=== PATIENT | female | born 1950 | race Caucasian/White ===

== ENCOUNTER → 2018-03-30 09:15 | Outpatient (CLI) | payer MEDICARE, BC, SELFPAY | PROVIDERS: PCP Nurse Practitioner; Visit Provider Surgery | DX: K64.4 Residual hemorrhoidal skin tags (principal); L29.0 Pruritus ani | CPT/HCPCS: 11200; 99213 ==

== ENCOUNTER → 2018-03-30 15:33 | Outpatient (REF) | payer MEDICARE, BC, SELFPAY ==
--- NOTE | 2018-03-30 14:30 | SOFT_PTH ---
PATIENT: Shona Diehl LOC: N U#:[id number] AGE/SX: 75/F ROOM: RE03/30/[address]: Mel Hearn MD : 1950 BED: DIS: SPEC #: [id number] RECD: 03/30/18 16:47 STATUS: YANET REEmber #: [id number] LUCIANO: 03/30/18 14:[address]: Mel Hearn DEPT: Surgical Specimen RECD BY: Mahsa Hernandez ENTERED: 03/30/18 16:47 SP TYPE: SOFT OTHR DR: Janneth Zendejas APRN Tissues: 1 - SOFT TISSUE [facility] Procedures: GROSS AND MICRO LEVEL 3 Comments: [id number]
== END ==
LOC: LBN 15:33
PROVIDERS: PCP Nurse Practitioner; Visit Provider Surgery
DX: K62.89 Other specified diseases of anus and rectum (principal); B07.8 Other viral warts
CPT/HCPCS: 88304

== ENCOUNTER 2018-05-13 00:47 | Outpatient (CLI) | payer MEDICARE, BC, SELFPAY ==
--- NOTE | 2018-05-13 08:45 | DI.MRI_ITS ---
SYMPTOM/DIAGNOSIS: LEFT FOOT PAIN M79.672 MRI LEFT FOOT: Routine noncontrast examination was performed. Linear hypointense signal is seen in the lateral aspect of the base of the left 5th metatarsal suspicious for a fracture. There is surrounding marrow edema present. There is marrow edema seen in the proximal phalanx of the left 5th toe. There also appear to be linear hypointense signal seen within the 5th metatarsal suspicious for a fracture. Marrow edema is seen in the head of the 2nd metatarsal. No discrete fracture line is identified. This may represent a stress reaction or fracture. Marrow signal is otherwise within normal limits. There is hyperintense signal seen in the soft tissues along the dorsum of the foot adjacent to the metatarsals and proximal phalanges of the toes. No discrete fluid collection is seen to suggest abscess. There is a small effusion within the 2nd metatarsal phalangeal joint. The tendons appear intact. The muscles show normal signal and size. IMPRESSION: Findings suggestive of fractures involving the base of the left 5th metatarsal and the proximal phalanx of the left 5th toe. Edema is seen in the head of the 2nd metatarsal without discrete fracture line. The findings are suspicious for a stress reaction or fracture.
--- NOTE | 2018-05-13 13:51 | DI.VRAD_ITS ---
EXAM: MR Left Lower Extremity Without Intravenous Contrast, Foot EXAM DATE/TIME: 05/13/2018 8:56 AM CLINICAL HISTORY: The patient is 68 years old and is female; Pain; Foot; Left; Patient HX: Lt foot injury in january x1 month, trouble bearing weight. pain when going on toe. Increased pain on top of foot. Bb marker placed at area of increased pain. Main TECHNIQUE: Multiplanar magnetic resonance images of the left foot without intravenous contrast. COMPARISON: CR LEFT FOOT COMPLETE 01/18/2018 10:47 AM FINDINGS: There is an external marker dorsal aspect at the level of the second metatarsal. Moderate subcutaneous edema is present dorsally over the second through fourth metatarsals and proximal toes. There is also soft tissue edema extending deeper to surround the mid to distal aspect of the second metatarsal shaft and head. The bone itself demonstrates marrow edema with mild patchy decreased T1 signal. No discrete fracture line or cortical destruction is identified, and the findings suggest stress reaction/fracture. No discrete collection is identified. A small effusion involves the second metatarsophalangeal joint. Elsewhere, the soft tissues appear unremarkable. The tendons are intact, and there is no significant peritendinous collection. The base of the fifth metatarsal demonstrates a curvilinear fracture with extension to the fifth tarsometatarsal joint. There is mild surrounding marrow edema, and this is likely subacute. In addition, considerable edema involves much of the fifth proximal phalanx, with decreased T1 signal sparing only its distal aspect. This also suggests fracture in the absence of clinical evidence of infection, probably more recent. There are mild generalized degenerative changes. IMPRESSION: 1. Findings suggesting stress reaction/fracture of the second metatarsal. 2. Likely subacute fracture at the base of the fifth metatarsal. 3. Marrow edema in the fifth proximal phalanx suggesting recent fracture in the absence of clinical evidence of infection. 4. Small effusion of the second metatarsophalangeal joint, could be reactive. 5. Mild generalized degenerative changes. Dictated and Authenticated by: Stew Molina MD. Ordering:ELIJAH KAM MD
== END 2018-05-13 01:07 ==
PROVIDERS: PCP Nurse Practitioner; Visit Provider Podiatrist Foot & Ankle Surgery
DX: S92.351A Displaced fracture of fifth metatarsal bone, right foot, initial encounter for closed fracture (principal)
CPT/HCPCS: 73718

== ENCOUNTER 2018-05-25 11:48 | Outpatient (CLI) | payer MEDICARE, BC, SELFPAY ==
--- NOTE | 2018-05-25 09:50 | DI.RAD_ITS ---
SYMPTOMS/DIAGNOSIS: RIGHT KNEE PAIN, M25.561 RIGHT KNEE: Three views. There is mild narrowing of the medial and lateral femorotibial joint spaces. The joints are otherwise well maintained. The bones are intact and normally mineralized. The soft tissues are unremarkable. IMPRESSION: Mild joint space narrowing of the right knee.
== END 2018-05-25 12:08 ==
PROVIDERS: PCP Nurse Practitioner; Visit Provider Nurse Practitioner
DX: M25.561 Pain in right knee (principal)
CPT/HCPCS: 73562

== ENCOUNTER 2019-06-09 10:35 | Outpatient (CLI) | payer MEDICARE, BC, SELFPAY ==
[2019-06-09 12:57] LABS: ALT 23 U/L (14-59); AST 15 U/L (15-37); Albumin 4.2 g/dL (3.4-5.0); Alkaline Phosphatase 102 U/L (46-116); Anion Gap 10.1 mmol/L (3-11); BUN 16 mg/dL (7-18); Bilirubin, Total 0.7 mg/dL (0.2-1.0); CO2 28.9 mmol/L (21.0-32.0); CREATININE 0.72 mg/dL (0.55-1.02); Calcium 9.6 mg/dL (8.5-10.1); Calculated LDL 129 mg/dL; Chloride 105 mmol/L (98-107); Cholesterol 243 mg/dL (50-200); Glucose 86 mg/dL (70-100); HDL Cholesterol 101 mg/dL (40-60); Potassium 4.1 mmol/L (3.5-5.1); Sodium 144 mmol/L (136-145); TSH (W/Ref FT4) 1.57 uIU/mL (0.36-3.74); Total Protein 7.9 g/dL (6.4-8.2); Triglyceride 69 mg/dL (30-150)
[2019-06-09 13:18] LABS: C-Reactive Protein 0.07 mg/dL (0.0-0.3)
[2019-06-09 14:37] LABS: ESR 10 mm/hr (0-30)
[2019-06-10 11:14] LABS: Rheumatoid Factor 10 IU/mL (<12.5)
[2019-06-10 14:07] LABS: ANA Interpretation Positive (NEGAT); ANA Titer Pattern 1:160 Speckled
== END 2019-06-09 10:55 ==
PROVIDERS: PCP Nurse Practitioner; Visit Provider Nurse Practitioner
DX: E78.5 Hyperlipidemia, unspecified (principal); R07.9 Chest pain, unspecified; R61 Generalized hyperhidrosis; M25.50 Pain in unspecified joint; M47.816 Spondylosis without myelopathy or radiculopathy, lumbar region; R76.8 Other specified abnormal immunological findings in serum; I10 Essential (primary) hypertension
CPT/HCPCS: 36415; 80053; 80061; 85652; 84443; 86038; 86140; 86431

== ENCOUNTER 2019-06-13 01:22 | Outpatient (CLI) | payer MEDICARE, BC, SELFPAY ==
--- NOTE | 2019-06-13 08:30 | ETT_ITS ---
APPROVED REPORT Exam: Exercise Treadmill Patient Location: Out-Patient Stress Nurse: Chelsey Joshi RN Baseline Rhythm: NSR BMI: 22.67 Indications: Chest Pain Medical History Medical History: Hyperlipidemia, Smoking(former) Cardiac Medications: Aspirin(occasional use) Allergies: codeine Cardiac Risk Factors: Hyperlipidemia, FHX of CAD, Smoking(former) Pretest Chest Pain Characteristics: Non-exertional Chest pain-burning accross chest Exercise History: Physically active Lung Sounds: Clear to auscultation Heart Sounds: Regular Stress Test Details Test: Exercise stress testing was performed using a Андрей protocol. Rest Stress HR Resting HR: 81 bpm Max Heart Rate (APMHR): 149 bpm Resting HR Supine: 81 bpm Target HR (85% APMHR): 126 bpm Resting HR Standin bpm Max HR Achieved: 160 bpm % of APMHR: 107 Recovery HR: 92 bpm HR response to stress: Normal HR response to stress BP Resting BP: 132/70 mmHg Resting BP Supine: 132/70 mmHg Resting BP Standin/90 mmHg Max BP: 172/68 mmHg Recovery BP: 134/80 mmHg BP response to stress: Normal blood pressure response to stress. ECG Resting ECG: Sinus Rhythm Stress ECG: Sinus Tachycardia ST Change: Upsloping ST depression Arrhythmia: APC's, VPC's Recovery ECG: Sinus Rhythm Clinical Time of Stop for Андрей: 7:34 Reason for Termination: Fatigue, Target HR Achieved Stress Symptoms: Leg Fatigue Exercise duration: 7 min34 sec Highest Stage Achieved: Stage 3: 3.4 mph at 14% grade. Exercise capacity: 9.48 METs Functional Capacity: Above average capacity Stress ECG Conclusion 1. Very good exercise tolerance ( 9.48 mets) without chest pain 2. Normal heart rate and blood pressure response to exercise 3. Electrocardiographically negative for myocardial ischemia at >100% of predicted heart rate for age 4. No significant dysrhythmias Test Summary supine 81 132/70 standing 97 144/90 99 1 03:00 10 1.7 128 4.64 154/92 2 03:00 12 2.5 138 7.05 158/92 3 01:33 14 3.4 160 9.48 1 min recovery 158 172/68 3 min recovery 102 142/74 6 min recovery 92 134/80
== END 2019-06-13 01:42 ==
PROVIDERS: PCP Nurse Practitioner; Visit Provider Nurse Practitioner
DX: R07.9 Chest pain, unspecified (principal); E78.5 Hyperlipidemia, unspecified; Z87.891 Personal history of nicotine dependence; Z82.49 Family history of ischemic heart disease and other diseases of the circulatory system
CPT/HCPCS: 93016; 93018; 93017

== ENCOUNTER 2019-10-13 02:45 | Outpatient (CLI) | payer MEDICARE, BC, SELFPAY ==
--- NOTE | 2019-10-13 09:00 | DI.MAMMO_ITS ---
EXAM: MAMMO SCREENING CLINICAL HISTORY: screening TECHNIQUE: Mammograms were interpreted according to the usual protocol including computer analysis w [employer] CAD system, tomosynthesis and C-view imaging. COMPARISON: 2009 through 2018 FINDINGS: The breasts are composed of scattered fibroglandular densities, Breast Density category B. No suspicious masses or suspicious microcalcifications are seen. No skin thickening or abnormal axillary lymph nodes are seen. Vascular calcifications are incidental ly noted. There has been no significant change from prior exams. IMPRESSION: BIRADS Category 1, negative mammogram. Yearly screening mammography is recommended.
== END 2019-10-13 03:05 ==
PROVIDERS: PCP Nurse Practitioner; Visit Provider Nurse Practitioner Family
DX: Z12.31 Encounter for screening mammogram for malignant neoplasm of breast (principal)
CPT/HCPCS: 77063; 77067

== ENCOUNTER 2020-10-08 01:50 | Outpatient (CLI) | payer MEDICARE, BC, SELFPAY ==
--- NOTE | 2020-10-08 | DI.MRI_ITS ---
EXAM: MR LUMBAR SPINE WO CLINICAL HISTORY: RT LUMBAR RADICULOPATHY. TECHNIQUE: Multiplanar multisequence MRI of the Lumbar spine was performed. COMPARISON: CR LUMBAR SPINE COMPLETE from 03/23/2015 FINDINGS: Please note that the 2015 plain films reveal sacralization of the L5 segment Conus medullaris is at normal level. There is no evidence of conus mass nor subjacent clumping of in trathecal nerve roots to suggest arachnoiditis. 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 Bones:There are no fractures nor ominous osseous lesions in the lumbar vertebral bodies and visualize d sacrum. There is degenerative scoliosis convex right having its epicenter at L 2-3 level, as evide nt on the 2014 plain films. With respect to the individual levels... T12-L1: Normal disc height. However, there is a posterolateral right disc protrusion which extends p osteriorly 4 millimeters and is approximately 1 cm wide. This indents the thecal sac at this level. Central canal dimensions are otherwise within normal limits. The disc herniation does not extend in to the exiting neural foramen at this level. There is mild foraminal stenosis bilaterally due to greg rt AP dimensions of the pedicles. Minimal facet degenerative changes are noted. L1-2: Normal disc height. There is annular bulging at this level which is most prominent bilaterally in the floor of the exiting neural foramina bilaterally causing mild bilateral foraminal stenosis. Central canal dimensions are lower normal. There is no significant facet arthropathy. No ligamentum flavum hypertrophy. L2-3: Asymmetric advanced narrowing of the left side of this disc space is noted, as was also evident on the plain films of 2015, this being the epicenter of the degenerative scoliosis. There are Modic type 2 sub endplate fatty marrow changes related to the chronicity of this finding. Which there is no disc herniation at this level but there is severe vertical foraminal stenosis on the left side at this level due to the advanced narrowing of the disc space. This results in impingement of the exiti ng left nerve root between the overlying pedicle and the subjacent annulus. There is no foraminal na rrowing on the opposite-right side at this level. L3-4: This level exhibits moderate-advanced disc space narrowing. There is broad relatively symmetri wei annular bulging which flattens the thecal sac. Mild-moderate central canal stenosis. There is s evere right-sided foraminal stenosis due to the fact that the amount of disc space narrowing on the r ight side exceeds that which is evident on the left side. There is only mild foraminal stenosis on t he left side. There are minimal facet joint changes. No ligamentum flavum hypertrophy. L4-5: Preserved disc height and signal. There is a small non acute Schmorl's node invagination at th e mid aspect of the inferior endplate of L4. There is mild Modic type 1 sub endplate marrow edema L4 vertebral body. There is significant narrowing of the exiting right neural foramen, also related to the advanced narrowing of the disc space on the right side compared to the left side at this level, this being 1 level above the sacralized L5 segment. This results in severe pinch mint of the exiting right nerve root between the overlying L5 at L4 pedicle and the subjacent bulging annulus. There ar e moderate degenerative changes also evident in the right facet joint at this level contributing to t his foraminal stenosis. The exiting left neural foramen is widely patent at this level and there are only minimal degenerative changes in the left facet joint at this level. L5-S1: The L5-S1 disc is rudimentary but exhibits normal signal due to the sacralization and there is no evidence of disc herniation or central canal stenosis nor significant foraminal stenosis at this level. Soft tissues: Tiny benign cysts are noted in the lateral cortex of the left kidney. No adrenal mass is seen. IMPRESSION: 1. Multilevel findings as described individually above. No prominent central canal stenosis although there is severe multilevel asymmetric foraminal stenosis as described above, this related to asymmet mahamed narrowing of the disc spaces. This results in multilevel vertical foraminal stenosis. 2. Please note that there is sacralization of the L5 segment, as also seen on plain films of 2015. T his is an important finding, particularly if this patient is ever to be an operative candidate. Deandre elation of the plain films and MRI would be recommended so as to avoid operating on the wrong level. DATA REPOSITORY:
== END 2020-10-08 01:51 ==
PROVIDERS: PCP Nurse Practitioner; Visit Provider Nurse Practitioner
DX: M54.16 Radiculopathy, lumbar region (principal); M51.16 Intervertebral disc disorders with radiculopathy, lumbar region
CPT/HCPCS: 72148

== ENCOUNTER 2020-10-10 02:26 | Outpatient (CLI) | payer MEDICARE, BC, SELFPAY ==
[2020-10-10 07:16] LABS: HCT 45.5 % (36.0-46.0); HGB 15.4 g/dL (11.2-15.7); MCH 31.8 pg (27.0-33.0); MCHC 33.8 % (32.0-36.0); MPV 9.2 fL (8.0-11.0); Platelet Count 330 10^3/uL (130-400); RBC 4.84 10^6/uL (3.93-5.22); RDW 12.4 % (11.7-14.6); RDW-SD 43.2 fL; WBC 5.87 10^3/uL (4.4-10.8)
[2020-10-10 08:26] LABS: ALT 21 U/L (14-59); AST 8 U/L (15-37); Albumin 4.1 g/dL (3.4-5.0); Alkaline Phosphatase 97 U/L (46-116); Anion Gap 9.8 mmol/L (3-11); BUN 17 mg/dL (7-18); Bilirubin, Total 0.5 mg/dL (0.2-1.0); CO2 29.2 mmol/L (21.0-32.0); CREATININE 0.7 mg/dL (0.55-1.02); Calcium 9.6 mg/dL (8.5-10.1); Calculated LDL 113 mg/dL (<100); Chloride 104 mmol/L (98-107); Cholesterol 233 mg/dL (<200); Glucose 100 mg/dL (74-106); HDL Cholesterol 97 mg/dL (40-60); Potassium 3.9 mmol/L (3.5-5.1); Sodium 143 mmol/L (136-145); Total Protein 7.4 g/dL (6.4-8.2); Triglyceride 119 mg/dL (<150)
== END 2020-10-10 02:27 | disposition home or self-care (01) ==
LOC: LBO 02:27
PROVIDERS: PCP Nurse Practitioner; Visit Provider Nurse Practitioner
DX: E78.5 Hyperlipidemia, unspecified (principal); R76.8 Other specified abnormal immunological findings in serum
CPT/HCPCS: 36415; 80053; 80061; 85027

== ENCOUNTER 2021-01-10 01:33 | Outpatient (CLI) | payer MEDICARE, BC, SELFPAY ==
--- NOTE | 2021-01-10 09:15 | DI.MAMMO_ITS ---
Exam(s) MAMMO SCREENING EXAM: MAMMO SCREENING CLINICAL HISTORY: screening,Z12.39. TECHNIQUE: Bilateral full field digital CC and MLO mammographic images were obtained with 3D tomosyn thesis and utilizing computer aided detection (CAD). COMPARISON: Prior mammograms dating back to 2010, the most recent being September 2019. FINDINGS: There are no new significant radiograph findings in the right breast In the left breast there noncalcified well-defined nodule located approximately 3 cm in from the nipp le, lateral of center, slightly increased in size from prior mammograms. Although it has appearance of benign lymph node a mammography are recommend ultrasound follow-up. There are no malignant-appear ing microcalcification groups in this region or elsewhere in either breast. There is no significant architectural distortion nor skin thickening-retraction. IMPRESSION: 1. No radiographic evidence of malignancy in the right breast. 2. Six by 4 millimeter left breast nodule slightly lateral center and slightly increased in size from prior mammograms. Recommend follow-up ultrasound to determine if this is cystic, solid or benign in tramammary lymph node. BI-RADS Category 0 - Assessment Incomplete: Need additional imaging evaluation Breast Density - Category B - Scattered areas of fibroglandular density Breast density Category C or D implies that the patient has dense breast tissue. Dense breast tissue can make it harder to find cancer on a mammogram. Dense breast tissue is also associated with an incr eased risk of breast cancer. This information about the result of the mammogram report was provided to the patient to raise their awareness. Use this report when you speak with the patient about their risks for breast cancer, which includes their family history. At that time, you may recommend additional screening tests (Ultrasoun d or MRI) as these tests may add significant information. A negative radiographic report should not delay biopsy if a dominant or clinically suspicious mass is present. Up to ten percent of cancers are not identified on mammography. A negative report may reinforce clinical impression. Adenosis and dense breasts may obscure an underlying neoplasm. False positive reports average 6 to 10%. Patient will receive a letter notifying them of these results.
--- NOTE | 2021-01-10 09:15 | DI.DEXA_ITS ---
Exam(s) XR DEXA BONE DENSITY W/WO JOS EXAM: XR DEXA BONE DENSITY W/WO JOS CLINICAL HISTORY: OSTEOPOROSIS, M81.0, COMPARE TO 2013 TECHNIQUE: A-Gas Horizon C densitometer COMPARISON: DX DEXA BONE DENSITY WITH JOS from 11/09/2013 DX DEXA BONE DENSITY WITH JOS from 11/09/2013 CR CHEST 2 VIEWS PA,LAT from 03/03/2018 CR CHEST 2 VIEWS PA,LAT from 03/03/2018 MR MR LUMBAR SPINE WO from 10/08/2020 FINDINGS: Lateral view of the thoracic and lumbar spine shows a mild midthoracic compression fracture, visible on previous chest x-ray. Bone mineral density measurements of the lumbar spine correspond to a total T-score of 0, in the no rmal range. The bone mineral density measurements of the lumbar spine may be full C elevated at the L3-4 level due to prominent sclerotic osteophytes. The L1 and L2 vertebral bodies are in the osteope rama range with T-scores of -1.5 -1.3 respectively.. Bone mineral density measurements of the left hip correspond to a total T-score of -2.9 . The femora l neck T-score is -3.6, in the osteoporotic range. This is not significantly changed from 2013 repr esents a 12.3 percent decrease when compared with 2009.. The left forearm bone mineral density measurements correspond to a T-score of the distal 3rd of -2.0 , in the osteopenic range. This represents a 6.9 percent decrease when compared with 2013 and 8.5 pe rcent decrease when compared with 2009.. IMPRESSION: Overall normal bone mineral density of the lumbar spine with increasing density when compared with pr evious exams which may be secondary to degenerative changes. Osteoporosis of the left hip. Osteopenia of the left forearm.
== END 2021-01-10 01:53 ==
PROVIDERS: PCP Nurse Practitioner; Visit Provider Nurse Practitioner
DX: Z12.31 Encounter for screening mammogram for malignant neoplasm of breast (principal); R92.8 Other abnormal and inconclusive findings on diagnostic imaging of breast; M81.0 Age-related osteoporosis without current pathological fracture; M85.88 Other specified disorders of bone density and structure, other site
CPT/HCPCS: 77063; 77067; 77080

== ENCOUNTER 2021-01-22 02:31 | Outpatient (CLI) | payer MEDICARE, BC, SELFPAY ==
--- NOTE | 2021-01-22 | DI.US_ITS ---
Exam(s) US BREAST LT LIMITED EXAM: US BREAST LT LIMITED CLINICAL HISTORY: F/U ABNL MAMMO,SLIGHT INCREASE IN SIZE OF LT NODULE TECHNIQUE: Ultrasound right breast performed using standard protocol. COMPARISON: Comparison with prior examinations. FINDINGS: There is a 0.7 x 0.4 x 0.7 cm hypoechoic mass at the 4 o'clock position of the left breast 3 cm from the nipple. This corresponds to the mammographic abnormality. The nodule is radially oriented. No posterior acoustic enhancement is seen. The borders are somewhat irregular. It has shown interval i ncrease in size compared to the prior examinations. IMPRESSION: 1. Interval increase in size of the left breast nodule. 2. Biopsy should be considered for further evaluation. 3. Findings were discussed with the primary care physician and the patient on the date of the examina tion. BI-RADS Category 4 - Suspicious Abnormality: Biopsy should be considered DATA REPOSITORY:
== END 2021-01-22 02:51 ==
PROVIDERS: PCP Nurse Practitioner; Visit Provider Nurse Practitioner
DX: Z12.31 Encounter for screening mammogram for malignant neoplasm of breast (principal); R92.8 Other abnormal and inconclusive findings on diagnostic imaging of breast; N63.23 Unspecified lump in the left breast, lower outer quadrant
CPT/HCPCS: 76642

== ENCOUNTER 2021-08-12 02:57 | Outpatient (CLI) | payer MEDICARE, BC, SELFPAY ==
--- NOTE | 2021-08-12 07:45 | DI.RAD_ITS ---
Exam(s) XR SHOULDER LT COMPLETE 2+V EXAM: XR SHOULDER LT COMPLETE 2+V CLINICAL HISTORY: LT SHOULDER PAIN, OA,M41.26,M19.90. TECHNIQUE: 2D digital imaging was performed. COMPARISON: No exams were available for comparison FINDINGS: There is no evidence of fracture or dislocation or abnormal soft tissue calcifications in the subacro mial space is not diminished. AC joint appears unremarkable The main finding here are moderate degenerative changes in the glenohumeral joint. There is moderate joint space narrowing and there is also an osteophyte evident on the inferior articular surface of t he humeral head. Osseous glenoid appears unremarkable. No ominous osseous lesions. IMPRESSION: Moderate osteoarthritic degenerative changes joint described. DATA REPOSITORY: RADIATION DOSE DELIVERED:
== END 2021-08-12 03:17 ==
PROVIDERS: PCP Nurse Practitioner; Visit Provider Nurse Practitioner
DX: M19.012 Primary osteoarthritis, left shoulder (principal); M41.26 Other idiopathic scoliosis, lumbar region; M54.16 Radiculopathy, lumbar region
CPT/HCPCS: 73030

== ENCOUNTER 2021-08-22 04:22 | Outpatient (CLI) | payer MEDICARE, BC, SELFPAY ==
[2021-08-22 07:28] LABS: HCT 45.6 % (36.0-46.0); MCH 31.8 pg (27.0-33.0); MCHC 32.9 % (32.0-36.0); MCV 96.8 fL (80-95); MPV 8.7 fL (8.0-11.0); Platelet Count 345 10^3/uL (130-400); RBC 4.71 10^6/uL (3.93-5.22); RDW 12.2 % (11.7-14.6); RDW-SD 43.9 fL; WBC 4.79 10^3/uL (4.4-10.8)
[2021-08-22 08:24] LABS: ALT 20 U/L (14-59); AST 13 U/L (15-37); Albumin 3.7 g/dL (3.4-5.0); Alkaline Phosphatase 81 U/L (46-116); BUN 20 mg/dL (7-18); Bilirubin, Total 0.6 mg/dL (0.2-1.0); CREATININE 0.7 mg/dL (0.55-1.02); Calculated LDL 119 mg/dL (<100); Chloride 103 mmol/L (98-107); Cholesterol 238 mg/dL (<200); Glucose 96 mg/dL (74-106); HDL Cholesterol 92 mg/dL (40-60); Potassium 3.8 mmol/L (3.5-5.1); Sodium 141 mmol/L (136-145); Total Protein 6.7 g/dL (6.4-8.2); Triglyceride 136 mg/dL (<150)
== END 2021-08-22 04:23 | disposition home or self-care (01) ==
LOC: LBO 04:22
PROVIDERS: PCP Nurse Practitioner; Visit Provider Nurse Practitioner
DX: E78.5 Hyperlipidemia, unspecified (principal); M15.0 Primary generalized (osteo)arthritis; Z79.1 Long term (current) use of non-steroidal anti-inflammatories (NSAID)
CPT/HCPCS: 36415; 80053; 80061; 85027

== ENCOUNTER 2021-09-16 01:43 | Outpatient (CLI) | payer MEDICARE, BC, SELFPAY ==
[2021-09-16 09:24] LABS: CREATININE 0.7 mg/dL (0.55-1.02)
[2021-09-16 09:49] LABS: Vitamin D 25 Total 61.4 ng/mL (30-100)
[2021-09-16 18:36] LABS: ALT 19 U/L (14-59); AST 18 U/L (15-37); Alkaline Phosphatase 80 U/L (46-116); Anion Gap 10.8 mmol/L (3-11); BUN 15 mg/dL (7-18); Bilirubin, Total 0.8 mg/dL (0.2-1.0); CO2 27.2 mmol/L (21.0-32.0); Calcium 8.7 mg/dL (8.5-10.1); Chloride 102 mmol/L (98-107); Glucose 87 mg/dL (74-106); Potassium 3.6 mmol/L (3.5-5.1); Sodium 140 mmol/L (136-145)
[2021-09-20 14:34] LABS: Creatinine, U 86 mg/dL; NTX 136 nmol/L; NTX-Telopedptide, U 18 nmol/mmol
== END 2021-09-16 01:44 | disposition home or self-care (01) ==
LOC: LBO 01:43
PROVIDERS: Nurse Practitioner Family; PCP Nurse Practitioner; Visit Provider Internal Medicine Endocrinology, Diabetes & Metabolism
DX: M81.0 Age-related osteoporosis without current pathological fracture (principal); Z79.1 Long term (current) use of non-steroidal anti-inflammatories (NSAID); N60.42 Mammary duct ectasia of left breast
CPT/HCPCS: 36415; 80053; 82306; 82523; 82565

== ENCOUNTER 2021-12-10 10:38 | Outpatient (REF) | payer MEDICARE, BC, SELFPAY | END 2021-12-10 10:39 | disposition home or self-care (01) | LOC: LBN 10:38 | PROVIDERS: PCP Nurse Practitioner; Visit Provider Nurse Practitioner | DX: N39.0 Urinary tract infection, site not specified (principal) | CPT/HCPCS: 87077; 87086; 87186 ==

== ENCOUNTER 2021-12-26 15:42 | Outpatient (REF) | payer MEDICARE, BC, SELFPAY | END 2021-12-26 15:43 | disposition home or self-care (01) | LOC: LBN 15:42 | PROVIDERS: PCP Nurse Practitioner; Visit Provider Student in an Organized Health Care Education/Training Program | DX: R82.998 Other abnormal findings in urine (principal) | CPT/HCPCS: 87077; 87086; 87186 ==

== ENCOUNTER 2022-02-09 15:23 | Emergency (ER) | payer MEDICARE, BC, SELFPAY ==
[2022-02-09 15:41] VITALS: BP 155/77; PULSE 78; RESP 16; TEMP 37.6; O2SAT 96
--- OUTSIDE RECORDS SUMMARY | 2022-02-09 16:01 | XMS_ITS | Encounter Summary ---
:1950 Author Organization [facility] [place] [address] Care Team Providers Name Role Phone Janneth Zendejas APRN Primary Care Provider Encounter Details Date Type Department Care Team Description 07/29/2021 [place] [facility] [place] Warner P, Right leg pain; [address] [place] Radiculopathy of leg; [place], [place] [facility] Low back pain r adiating to right lower extremity [id number] [place] [phone] [place] [address] Social History Tobacco Use Types Packs/Day Years Used Date Former Smoker Quit: 2008 Smokeless Tobacco: Never Used Sex Assigned at Date Recorded Not on file documented as of this encounter Medications at Time of Discharge Medication Sig Dispensed Refills Start Date End Date oxyCODONE-acetaminophen 1-2 tablets every 4 0 (Percocet) 5-325 mg Tablet hours as needed. cholecalciferol, Vitamin Take 4,000 Units by 0 D3, 50 mcg (2,000 unit) mouth daily. Tablet acetaminophen (Tylenol) Take 1,000 mg by 0 500 mg Tablet mouth as needed. meloxicam (MOBIC) 7.5 mg TAKE 1 TABLET BY 0 01/04 Tablet MOUTH TWICE DAILY multivitamin Capsule Take 1 capsule by 0 mouth Daily. aspirin (ASPIR-81 ORAL) Take by mouth. 0 calcium carbonate (CALCIUM Take 1,000 mg by 0 300 ORAL) mouth daily. TURMERIC ORAL Take 800 mg by 0 mouth daily. ibuprofen (Advil) 200 mg Take 400 mg by 0 09/05/2021 Tablet mouth as needed. ergocalciferol, vitamin Take 20,000 Units 0 09/05/2021 D2, (VITAMIN D ORAL) by mouth. documented as of this encounter Plan of Treatment Upcoming Encounters Date Type Specialty Care Team Description 02/20/2022 Notes Only [facility] PsyD [facility] er [place], [place] [address] (Wo rk) 02/21/2022 TH Visit [facility] Claudy Hernandez MD (TeleHealth) [facility] [place], [place] [address] (Wo rk) documented as of this encounter Procedures Procedure Name Priority Date/Time Associated Diagnosis Comme nts XR LUMBAR SPINE 2 Routine 07/29/2021 2:27 PM Right leg p ain Results for this OR 3 VIEWS EST Radiculopathy of leg procedure are in Low back pain the results radiating to right section. lower extremity documented in this encounter Results XR Lumbar Spine 2 Or 3 Views (Generic) (07/29/2021 2:27 PM EST) Anatomical Region Laterality Modality L-spine N/A Digital Radiography Specimen (Source) Anatomical Location Collection Method / Collectio n Time Received Time / Laterality Volume Impressions 07/29/2021 3:37 PM EST Lumbar spondylosis. No focal subluxation with flexion. Thank you for letting us participate in the care of this patient. ??If you are a health care provider and have any questi ons regarding this report, please contact the number below. ??For patients who have questions please contact the health child care centre director that requested your imaging first. ? Electronically signed by: Nick camp MD, [facility] ([phone]), at 07/29/2021 3:37 PM Narrative 07/29/2021 3:37 PM EST EXAMINATION: XR LUMBAR SPINE 2 OR 3 VIEWS (GENERIC) CLINICAL HISTORY: XR Lumbar, Upright AP, Lateral flexion/extension ( 3 views) to look for movement; to assist with determ ining next steps to nclude c determining if candidate for surgery; ??known listhe sis and foraminal stenosis TECHNIQUE: 3 views of the lumbar spine COMPARISON: Radiograph 07/22/2019 FINDINGS: Straightening of the normal lordosis. Ri ghtward convex curvature of the lumbar spine with compensatory leftward convex curvature of the lumbosacral junction. Pronounced disc height loss and marginal ossified formation on the concave portion of the curvature. Mild reduction in change in alignment with flexion without focal subluxation. No evidence o f acute fracture. Procedure Note Nick Tasi MD - 07/29/2021Formatt ing of this note might be different from the original. EXAMINATION: XR LUMBAR SPINE 2 OR 3 VIEW S (GENERIC) CLINICAL HISTORY: XR Lumbar, Upright AP, Lateral flexion/extension ( 3 views) to look for movement; to assist with determ ining next steps to nclude c determining if candidate for surgery; known listhesi s and foraminal stenosis TECHNIQUE: 3 views of the lumbar spine COMPARISON: Radiograph 07/22/2019 FINDINGS: Straightening of the normal lordosis. Ri ghtward convex curvature of the lumbar spine with compensatory leftward convex curvature of the lumbosacral junction. Pronounced disc height loss and marginal ossified formation on the concave portion of the curvature. Mild reduction in change in alignment with flexion without focal subluxation. No evidence o f acute fracture. IMPRESSION Lumbar spondylosis. No focal subluxation with flexion. Thank you for letting us participate in the care of this patient. If you are a health care provider and have any questi ons regarding this report, please contact the number below. For patients w ho have questions please contact the health child care centre director that requested your imaging first. Ezio Warner MD IMG DX ORDERABLES documented in this encounter Visit Diagnoses Diagnosis Right leg pain Pain in limb Radiculopathy of leg Thoracic or lumbosacral neuritis or radi culitis, unspecified Low back pain radiating to right lower e xtremity documented in this encounter Care Teams Catheterization Laboratory Technician Relationship Specialty Start Date End Date Janneth Zendejas APRN PCP - General Internal Medicine 11/05/[address] [place] [address] documented as of this encounter
--- OUTSIDE RECORDS SUMMARY | 2022-02-09 16:01 | XMS_ITS | Encounter Summary ---
:1950 Author Organization 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; [facility] MD Encounter for screening mammogram for ma lignant neoplasm of breast [address] [place], [place] GENERAL SURGERY [address] [place] [address] [phone] Social History Tobacco Use Types Packs/Day Years Used Date Former Smoker Quit: 2008 Smokeless Tobacco: Never Used Sex Assigned at Date Recorded Not on file documented as of this encounter Last Filed Vital Signs Vital Sign Reading Time Taken Comments Blood Pressure 140/76 10/23/2021 2:18 PM EST Pulse 95 10/23/2021 2:18 PM EST Temperature - - Respiratory Rate 16 10/23/2021 2:18 PM EST Oxygen Saturation 96% 10/23/2021 2:18 PM EST Inhaled Oxygen Concentration - - Weight 57.6 kg (127 lb) 10/23/2021 2:18 PM EST pt repor yael Height - - Body Mass Index 22.14 07/29/2021 3:35 PM EST documented in this encounter Progress Notes Param Florez MD - 10/23/2021 2:30 PM EST Shona Diehl is a 71-year-old woman who returns after left breast partial mastectomy for ADH on 04/08/2021. 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 She now returns for a check. She has not felt any breast masses. On physical exam her periareolar incision is beautifully healed. There are no right or left breast masses. No axillary adenopathy. Bilateral MRI today: benign Left mammo today: benign. Impression: No evidence of breast cancer. She is at increased risk of developing breast cancer in either breast due to ADH. That risk is approximately 1 %/year. We discussed ways to manage that risk including mammography and breast self- exam, mammography breastself-exam and MRI, or mammography breast self-exam and tamoxifen or raloxifene. She would like to proceed with a bilateral mammogram in 6 months. We will schedule that an an exam with our breast GAS FURNACE INSTALLER. We will then obtain a breast MRI a year from now and alternate every 6 months the mammogram and the MRI. documented in this encounter Plan of Treatment Upcoming Encounters Date Type Specialty Care Team Description 02/20/2022 Notes Only [facility] Ray Mg PsyD [facility] [address] [place] [address] (Wo rk) 02/21/2022 TH Visit [facility] Claudy Hernandez MD (TeleHealth) [facility] [place], [place] [address] (Wo rk) Scheduled Orders Name Type Priority Associated Diagnoses Order S chedule Mammo Screening Cad and Imaging Routine Atypical ductal E xpected: 04/25/2022 Dayne Bilateral hyperplasia of left (Appro ximate), breast Expires: 10/23/2022 Encounter for screening mammogram for malignant neoplasm of breast documented as of this encounter Visit Diagnoses Diagnosis Atypical ductal hyperplasia of left [address] Encounter for screening mammogram for ma lignant neoplasm of breast Other screening mammogram documented in this encounter Care Teams Conductor Symphonic Orchestra Relationship Specialty Start Date End Date Janneth Zendejas, RELATIONS COORDINATOR PCP - General Internal Medicine 11/05/[id number] [place] [address] documented as of this encounter
--- OUTSIDE RECORDS SUMMARY | 2022-02-09 16:01 | XMS_ITS | Encounter Summary ---
:1950 Author Organization [facility] [place] [address] Care Team Providers Name Role Phone Janneth Zendejas APRN Primary Care Provider Reason for Visit Reason Comments Skin Check Encounter Details Date Type Department Care Team Description 07/09/2021 Office Visit D[facility]atology at [facility]; [place] MD History of basal cell carcinoma; [address] [facility] DERMATOLOGY [place], [place] [phone] Social History Tobacco Use Types Packs/Day Years Used Date Former Smoker Quit: 2008 Smokeless Tobacco: Never Used Sex Assigned at Date Recorded Not on file documented as of this encounter Progress Notes [facility] MD - 07/09/2021 3:00 PM EST Problem: 1.?Annual skin checkup 2. ??History of BCCA with infiltrative features left cheek??November 2018 3. ??History of nonmelanoma skin cancer and in a brother and a sister. Shona follows up for her yearly skin checkup. She is been doing well. Is not noted any new lesions of concern. Physical examination reveals a pleasant 71-year-old woman who has a benign examination of the scalp the half part line at the face the neck the chest the back the hands arms forearms thighs and calves.There is no evidence of recurrent BCCA along the left medial cheek along the nasolabial fold. Assessment plan: History of BCCA left cheek, today with benign benign skin examination 1. Today the patient was reassured about her her benign skin examination 2. Continue sun avoidance precautions 3. Return to clinic now in 2 years for repeat check. Sooner for lesions of concern CC: Janneth Zendejas APRN documented in this encounter Plan of Treatment Upcoming Encounters Date Type Specialty Care Team Description 02/20/2022 Notes Only [facility] Ray Mg PsyD [facility] [place], [place] [address] (Wo rk) 02/21/2022 TH Visit [facility] Claudy Hernandez MD (TeleHealth) [facility] [place], [place] [address] (Wo rk) documented as of this encounter Visit Diagnoses Diagnosis Nevus Benign neoplasm of skin, site unspecifie d History of basal cell carcinoma Personal history of other malignant neop lasm of skin Milium Sebaceous cyst documented in this encounter Care Teams Line Clearance Foreman Relationship Specialty Start Date End Date Janneth Zendejas APRN PCP - General Internal Medicine 11/05/[address] [place] [address] documented as of this encounter
--- OUTSIDE RECORDS SUMMARY | 2022-02-09 16:01 | XMS_ITS | Encounter Summary ---
:1950 Author Organization [facility] [place] [address] Care Team Providers Name Role Phone Janneth Zendejas APRN Primary Care Provider Encounter Details Date Type Department Care Team Description 07/23/2021 Telephone Pain and Sp[facility] Cent[facility] r at [facility] Nicky Florentino, [place] [address] Social History Tobacco Use Types Packs/Day Years Used Date Former Smoker Quit: 2008 Smokeless Tobacco: Never Used Sex Assigned at Date Recorded Not on file documented as of this encounter Miscellaneous Notes Telephone Encounter - Nicky Florentino RN - 07/23/2021 3:21 PM EST Call placed to pt in response to VM message pushed to us from pain yesterday. Apologized to pt for the delay in the return call. Pt reports no response to the injection that was performed two weeks ago. Pt states she is miserable with a knot in her right hip, cramping pain in right thigh, and stinging/burning type pain from knee to right ankle. Pt states these symptoms are constant; except when she lays prone for bref periods periodically throughout the day as instructed by Guerline. Pt states after being prone she needs to roll over very slowly to get up; once up and moving the right hip/eg symptomsreturn quite readily. Pt reports historically she was able to walk her pain off; that ability is lost; the pain when no longer works; and pain is such she now needs to walk with a cane as pain intensity results in her feeling like her legs are weak. Pt has pending FU with Guerline; Above reviewed with Dr Warner, Given the persistence in pt's senior living symptoms her lack of response to multiple injections; limited response t PT and nterest in a lasting solution to her pain; We have decided to pursue dynamic XR and arrange a surgical evaluation. If dario taye is not an option will re-engage Dr Warner if indicated. Surgical evaluation referral and dynamic XR order as authorized by Dr Warner pended for his signature. Pt advised of the recommendation; call transferred to senior power scheduler to arrange XR, surgical eval and if it works; suggested they try to coordinate one of Guerline's appts- changing from Telehealth to in-person. documented in this encounter Plan of Treatment Upcoming Encounters Date Type Specialty Care Team Description 02/20/2022 Notes Only [facility] Ray Mg PsyD [facility] [place] [address] (Wo rk) 02/21/2022 TH Visit [facility] Claudy Hernandez MD (TeleHealth) [facility] [place] [address] (Wo rk) documented as of this encounter Visit Diagnoses Not on filedocumented in this encounter Care Teams Burn Out Tender Lace Relationship Specialty Start Date End Date Janneth Zendejas APRN PCP - General Internal Medicine 11/05/[id number] [place], [place] [id number] documented as of this encounter
--- OUTSIDE RECORDS SUMMARY | 2022-02-09 16:01 | XMS_ITS | Encounter Summary ---
:1950 Author Organization [facility] [place] [address] Care Team Providers Name Role Phone Janneth Zendejas APRN Primary Care Provider Reason for Visit Reason Comments Back, Buttock, Leg Pain Encounter Details Date Type Department Care Team Description 07/29/2021 TH Visit [facility] Guerline Aguilar Lo w back pain (TeleHealth) at [facility] PT radiating to right [facility] [place] [address] Social History Tobacco Use Types Packs/Day Years Used Date Former Smoker Quit: 2008 Smokeless Tobacco: Never Used Sex Assigned at Date Recorded Not on file documented as of this encounter Progress Notes Guerline Aguilar, PT - 07/29/2021 8:00 AM EST [facility] Note Referring Provider: Ezio Warner MD Diagnosis: 1. Low back pain radiating to right lower extremity 2. Multilevel degenerative disc and facet changes most significant at L3-L4 and L4-L5 with facet joint arthropathy and foraminal narrowing with a degenerative right lateral listhesis at L3-L4 and L4-5 3. Degenerative thoracolumbar scoliosis with a right lateral listhesis L3-L4 and L4-L5. 4. 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 Diehl reports reports since her appointment with myself on 07/03/2021 her symptoms have steadily worsened. She notes her most recent lumbar epidural steroid injection on 07/05/2021 was not helpful as far as reducing pain and allowing to be more active.. The home exercise program has not gone really well due to the severity of her pain. Ms. Diehl currently complains of intolerable burning pain right buttock pain radiating to the lateral aspect of the right thigh to the villalta. She also experiences frequent cramping in her hamstring musculature on the right. She reports intermittent numbness and tingling of the right villalta and feels as if the right leg is weak. She has begun to use a cane when walking so that she may not fall. Symptoms worsen when bending, sitting, rising from sitting and lying, driving, car transfers, turning, and when stepping onto the right foot. Symptoms ease whenchanging position and activity frequently and when lying in the prone supine position. Sleep continues to be significantly disturbed. F when asked about a gait or balance disturbance she reports needing a cane when walking due to a sense of right leg weakness. Unctionally, she is able to sit 2-3, minutes stand 5 to 10 minutes, and walk with a cane 5 to 10 minutes. Objective: Ms. Diehl returns today for a scheduled follow up appointment. She moves about in her home with slow and guarded movements and appears very uncomfortable while sitting. Sitting posture is poor and standing is fair. Active range of motion of the lumbar spine is to 50 degrees flexion and 0 deg evelia extension. Endrange flexion and extension worsens the low back and right leg pain. Extension combined with right or left sidebending had no effect on the pain. She walks at a slow pace with an antalgic gait pattern and a slight forward lean. With encouragement she is able to take a few steps on heels/toes and squat through 1/2 of the range. Repeated movement testing of the lumbar spine did not reveal a clear directional preference. She is able to lying in the prone or supine position but but isonly experiencing a brief. Pain relief (0 minutes to 10 minutes). Treatment Received: Discussed the natural history of mechanical low back and right leg pain and the rational for exercise based treatment. Patient Education/ Home Exercise Program: Reviewed and modified Ms. Diehl's home exercise program. The home exercise program now includes lying in the prone or supine position and frequent intervals throughout the day to manage pain. She was also encouraged to continue to go for short walk using a cane to steady herself. Assessment: Ms. Diehl is a woman with a history of intolerable low back and right leg pain which at this point in time has not improved with various injections, self massage using a tennis ball, medications, activity modification, rest, and a home exercise program. I believe it is unlikely that any formal physical therapy treatments in isolation likely to result in an improvement in her ability to function. She would benefit from a referral to our functional mosque program for multidisciplinarytreatment if she is not a surgical candidate. She does have an appointment with Dr. Roth later today and will discuss further treatment options with him. Goals: 1. Independent with home exercise program 2. Able to sit sit without discomfort 3. Able to walk without discomfort Plan: Follow up as needed to reassess and progress the home exercise program. Ms. Diehl is meeting with Dr. Roth later today to discuss further treatment options such as surgery. She was encouraged to call with any questions or concerns regarding todays visit or the home exercise program. Length of visit: A total of 30 minutes was spent re-assessing, treating, and instructing Shona Diehl in a home exercise program. Patient verbally consents to this telehealth video visit and understands that this visit may be billed, similar to a clinic office visit. I provided care to the patient today via telehealth video. The total time associated with this visitwas 30 minutes. documented in this encounter Plan of Treatment Upcoming Encounters Date Type Specialty Care Team Description 02/20/2022 Notes Only [facility] Ray Mg PsyD [facility] [place] [address] (Wo rk) 02/21/2022 TH Visit [facility] Claudy Hernandez MD (TeleHealth) [facility] [place] [address] (Wo rk) documented as of this encounter Visit Diagnoses Diagnosis Low back pain radiating to right lower e xtremity documented in this encounter Care Teams Process Owner Relationship Specialty Start Date End Date Janneth Zendejas APRN PCP - General Internal Medicine 11/05/[address] [place] [address] documented as of this encounter
--- OUTSIDE RECORDS SUMMARY | 2022-02-09 16:01 | XMS_ITS | Encounter Summary ---
:1950 Author Organization [facility] [address] Care Team Providers Name Role Phone Cristiana Jannethgilda Akbar APRN Primary Care Provider Encounter Details Date Type Department Care Team Description 08/01/2021 External Results Neurology at [facility] Torrey Heath MD [facility] [place] [address] NEUROLOGY DEPT. [phone] [place], [place] [address] (Savita rk) Social History Tobacco Use Types Packs/Day Years Used Date Former Smoker Quit: 2008 Smokeless Tobacco: Never Used Sex Assigned at Date Recorded Not on file documented as of this encounter Plan of Treatment Upcoming Encounters Date Type Specialty Care Team Description 02/20/2022 Notes Only [facility] Ray Mg PsyD [facility] [address] [place] [address] (Wo rk) 02/21/2022 TH Visit [facility] Claudy Hernandez MD (TeleHealth) [facility] [place], [place] [address] (Wo rk) documented as of this encounter Procedures Procedure Name Priority Date/Time Associated Diagnosis Comme nts EMG SCAN Routine 08/01/2021 documented in this encounter Results Scan Doc: EMG (08/01/2021) Narrative This result has an attachment that is no t available. Torrey Heath MD MEDIA MGR SCAN EXT ORDR/RSLT documented in this encounter Visit Diagnoses Not on filedocumented in this encounter Care Teams Kindergarten Aide Relationship Specialty Start Date End Date Janneth Zendejas APRN PCP - General Internal Medicine 11/05/[address] [place] [address] documented as of this encounter
--- OUTSIDE RECORDS SUMMARY | 2022-02-09 16:01 | XMS_ITS | Encounter Summary ---
:1950 Author Organization [facility] [place] [address] Care Team Providers Name Role Phone Janneth Zendejas APRN Primary Care Provider Reason for Referral Consultation (Routine) - Authorized Specialty Diagnoses / Procedures Referred By Contact Refer red To Contact Pain and Sp[facility] Center Diagnoses Lumbar radiculopathy [facility] [place] [facility] Alysa Hernandez MD [place], Dana M, [facility] PsyD [facility] [place] [address] [place] [address] Fax: Referral ID Status Reason Start Date Expiration Visits Visits Date Requested Authorized [id number] Authorized Consult, 12/30/2021 12/30/2022 1 1 Test & Treat Reason for Visit Reason Comments Pain Management New patient Consultation (Routine) - Authorized Specialty Diagnoses / Procedures Referred By Contact Refer red To Contact Pain and Spine Center Diagnoses Low back pain radiating to right lower extremity Pain- Low back pain/ XR 07/29/21 & MRI 10/08/20 in [facility]/ has done PT/ waiting for surgery w/ AMP/ ? injection Luis M Roth MD [facility] Pain And [facility] Spine DR [facility] [place] [address] [place] [address] Phone: Fax: Referral ID Status Reason Start Date Expiration Visits Visits Date Requested Authorized [id number] Authorized Consult, 11/04/2021 11/04/2022 3 3 Test & Treat Encounter Details Date Type Department Care Team Description 12/30/2021 Office Visit [facility] Alysa Hernandez L umbar radiculopathy at [facility] [place] [phone] PAIN CLINIC [phone] [place], [place] [address] Social History Tobacco Use Types Packs/Day Years Used Date Former Smoker Quit: 2008 Smokeless Tobacco: Never Used Sex Assigned at Date Recorded Not on file documented as of this encounter Last Filed Vital Signs Vital Sign Reading Time Taken Comments Blood Pressure 138/67 12/30/2021 12:41 PM EDT Pulse 79 12/30/2021 12:41 PM EDT Temperature 37.2 ??C (99 ??F) 12/30/2021 12:41 PM EDT Respiratory Rate - - Oxygen Saturation 97% 12/30/2021 12:41 PM EDT Inhaled Oxygen Concentration - - Weight 57.6 kg (127 lb) 12/30/2021 12:41 PM EDT Height - - Body Mass Index 22.14 07/29/2021 3:35 PM EST documented in this encounter Progress Notes Alysa Hernandez MD - 12/30/2021 12:45 PM EDT Images from the original note were not included. PAIN CLINIC EVALUATION Date of Visit: December 30, 2021 Chief Complaint: Right upper buttock and LE pain HPI: Subjective Shona Diehl is a 71 y.o. female with osteoporosis who presents today for eval for pain managementuntil she can have surgery, once her bone density in greater than -2.5 referred by Luis M Roth MD.. The history is obtained from the patient, and I have reviewed medical records provided by the referring physician and located in the electronic medical record to fill in gaps in the patient's recollection of events, treatments and outcomes. Duration: Years Evaluated by Dr. Roth 07/29/2021 for right lower extremity pain that originates in her right buttock and radiates to her right lateral thigh and anterior leg. He felt that she has not responded to nonoperative treatment and the patient was interested in pursuing surgery which would involve L2-S1 fusion with an L4-L5 laminectomy and a right L5-S1 hemilaminectomy and complete facetectomy . She has severe foraminal stenosis on the right at L4-5 and L5-S1. Of concern was pronounced osteoporosis whichhas been managed with Fosamax. She is going to undergo endocrinology evaluation. Reports epidural steroid injection x3 without relief. Evaluated by Dr. Bailey 04/29/2021 : L4 and/or L5 radiculopathy. Discussed L2-S1 fusion. EMG/NCV 07/22/2021 was normal. Injection History [facility]: 07/05/2021: right L4-L5 TFESI:(note reviewed) no relief 03/08/21; right L4-L5 TFESI: 100% relief x one week and 30% ongoing relief 12/07/20: L4-L5 SHAHRIAR -helped for 2 weeks Note: has a UTI currently LOCATION: Right upper buttock, posterior thigh, anterolateral leg, dorsum or medial foot PAIN DESCRIPTION: Clamping on the calf, sharp PRESENT: intermittently and all of the time. PAIN INCREASED BY:sitting in a car or certain types of chairs PAIN DECREASED BY: occasionally walking. PAIN LEVEL AT REST 1 . PAST THERAPIES/TREATMENTS/INTERVENTIONS Neurosurgery: Ortho Spine: Dr. Roth Neurology: Surgery: Rheumatology: [X] Yes goes every 6 months Orthopedics: PT [X] Yes-increased pain Aqua therapy Physical modalities: OT Chiropractic Behavioral pain management [X] No TENS Acupuncture Graded motor imagery Mirror Therapy Functional Congregation Spine Surgery [X] No Related Surgery Pain Procedures PERTINENT MEDICATIONS: TRIALED HELPFUL? NSAID meloxicam (for arthritis) CURRENT NO for back Acetaminophen OPIOIDS oxycodone prn If travelling a long distance in the car-will take this CURRENT YES, but only lasts for an hour OTHER ANTIDEPRESSANT duloxetine NOT TRIALED Nortriptyline NOT TRIALED amitriptyline NOT TRIALED MUSCLE RELAXANT Membrane Stabilizers Gabapentin TRIALED NO Pregabalin 100 mg TID CURRENT NO Low Dose Naltrexone Oral ketamine Compounded ointment Turmeric PAST MEDICAL HISTORY: No past medical history on file. PAST SURGICAL HISTORY: Past Surgical History: Procedure Laterality Date ??? BREAST BIOPSY Left US biopsy 2020 ??? BREAST LUMPECTOMY Left ??? MAMMO US BIOPSY LEFT Left 02/08/2021 Mammo Us Biopsy Left 02/08/2021 Kamini Aguilera MD [facility] RAD MAMMOGRAPHY ??? MAMMO US NEEDLE LOCALIZATION LEFT Left 04/08/2021 Mammo US Needle Localization Left 04/08/2021 Leslee West MD [facility] RAD MAMMOGRAPHY ??? PRO EXCISE BREAST LES W XRAY MARKER Left 04/08/2021 EXCISION LESION, BREAST W/ PREOP.MARKER (NEEDLE LOC.) (WRVU 6.69) performed by Param Florez MDat [facility] OSC ALLERGIES: Codeine MEDICATIONS: Current Outpatient Medications on File Prior to Visit Medication Sig Dispense Refill ??? alendronate (Fosamax) 70 mg Tablet TAKE ONE TABLET BY MOUTH EVERY WEEK SWALLOWING THE WHOLE TABLET WITH 6-8 OUNCES OF WATER ON AN EMPTY STOMACH REMAIN UPRIGHT FOR AT LEAST 30 ??? nitrofurantoin (Macrobid) 100 mg Capsule 2 times daily. ??? pregabalin (Lyrica) 50 mg Capsule Take 1 capsule by mouth 3 times daily. (Patient taking differently: Take 100 mg by mouth 3 times daily.) 90 capsule 2 ??? oxyCODONE-acetaminophen (Percocet) 5-325 mg Tablet 1-2 tablets every 4 hours as needed. ??? cholecalciferol, Vitamin D3, 50 mcg (2,000 unit) Tablet Take 4,000 Units by mouth daily. ??? acetaminophen (Tylenol) 500 mg Tablet Take 1,000 mg by mouth as needed. ??? meloxicam (MOBIC) 7.5 mg Tablet TAKE 1 TABLET BY MOUTH TWICE DAILY ??? multivitamin Capsule Take 1 capsule by mouth Daily. ??? calcium carbonate (CALCIUM 300 ORAL) Take 1,000 mg by mouth daily. ??? TURMERIC ORAL Take 800 mg by mouth daily. ??? aspirin (ASPIR-81 ORAL) Take by mouth. No current facility-administered medications on file prior to visit. SOCIAL HISTORY: Social History Socioeconomic History ??? Marital status: Spouse name: Not on file ??? Number of children: Not on file ??? Years of education: Not on file ??? Highest education level: Not on file Occupational History ??? Not on file Tobacco Use ??? Smoking status: Former Smoker Quit date: 2008 Years since quittin.3 ??? Smokeless tobacco: Never Used Vaping Use ??? Vaping Use: Never used Substance and Sexual Activity ??? Alcohol use: Not on file ??? Drug use: Not on file ??? Sexual activity: Not on file Other Topics Concern ??? Not on file Social History Narrative ??? Not on file Social Determinants of Health Financial Resource Strain: Not on file Food Insecurity: Not on file Transportation Needs: Not on file Physical Activity: Not on file Housing Stability: Not on file ROS: Pt denies recent fever, chills, , wounds, hospitalizations, ED visits, use of steroids within the past 2 weeks. +UTI , taking macrobid PHYSICAL EXAM: BP 138/67 Pulse 79 Temp 37.2 ??C (99 ??F) Wt 57.6 kg (127 lb) SpO2 97% BMI 22.14 kg/m?? Physical Exam HENT: Head: Normocephalic. Eyes: General: No scleral icterus. Pulmonary: Effort: Pulmonary effort is normal. Neurological: Mental Status: She is alert. Psychiatric: Mood and Affect: Mood normal. Behavior: Behavior normal. Thought Content: Thought content normal. Judgment: Judgment normal. LUMBAR SPINE EXAMINATION: Inspection: Scar: No ; Obvious rash or infection: No Gait:normal gait and station Range of motion: unrestricted with lumbar spine flexion, extension Left Right Muscle spasm No No Sacroiliac joint tenderness No No Facet joint tenderness No No Juaers's test (facet loading) Negative Negative Paraspinous region tenderness No No Heel walk Normal Normal Toe walk Normal Normal Straight leg raise negative negative HIP EXAMINATION: Left Right Range of motion Groin pain with range of motion? Trochanteric bursa tenderness? Psoas tenderness? Piriformis muscle tenderness Cluneal nerve region tenderness Negative Negative Motor Strength: Test Muscle Root Right Left Hip Flexion Iliopsoas (femoral nerve) L123 5 5 Hip Adduction obturator L234 5 5 Hip Abduction superior gluteal L45S1 5 5 Hip Extension Gluteus daniel (inferior gluteal) L5S12 5 5 Knee Flexion Hamstrings (sciatic) L45S1 5 5 Knee Extension Quadriceps (femoral) L234 5 5 Ankle Dorsiflexion Anterior tibial (deep peroneal) L45 5 5 Ankle Inversion Posterior tibialis (tibial) L45 Great toe extension Extensor hallicus longus (deep peroneal) L5 5 5 Ankle Eversion Peroneus longus and brevis (superficial peroneal) L5S1 Ankle Plantar Flexion Gastroc (tibial) L5S12 5 5 Reflexes: Segment Tendon LEFT RIGHT C5 Biceps C6 Brachioradialis C7 Triceps Upper Ba L3-4 Patella 2+ 1+ S1 Ankle 2+ 2+ Lower Babinski Clonus Sensory: Light Touch (0=absent, 1-impaired, 2=normal) Segment location Right Left L1 upper inner thigh 2 2 L2 mid-ant thigh 2 2 L3 med femoral condyle 2 2 L4 medial mal 2 2 L5 dorsum foot, 3rd MT 2 2 S1 lat heel 2 2 S2 Popliteal fossa 2 2 RADIOLOGIC DATA: MRI reviewed LABS/DX RESULTS: Last 3 wbc, hgb, hct plt No results for input(s): WBC, HGB, HCT, PLATELET in the last 7068 hours. Last 3 Lytes No results for input(s): NA, K, CL, CO2, BUN, CREATININE in the last 7068 hours. Last 3 LFTs No results for input(s): AST, ALT, ALKPHOS, BILITOT, BILIDIR in the last 7068 hours. Last 3 Coags No results for input(s): PT, INR, PTT in the last 168 hours. Last 3 HgbA1C No results for input(s): HA1C in the last 7068 hours. ASSESSMENT: Assessment 1. Lumbar radiculopathy Shona Diehl is a 71 y.o. female with osteoporosis who presents today for eval for pain managementuntil she can have surgery, once her bone density in greater than -2.5 referred by Luis M Roth MD. Shona has had pain for years. She was evaluated by Dr. Roth 07/29/2021 for right lower extremity pain that radiated to the right lateral thigh and anterior leg.The patient was interested in pursuingsurgery which would involve L2-S1 fusion with an L4-L5 laminectomy and a right L5-S1 hemilaminectomyand complete facetectomy . She has severe foraminal stenosis on the right at L4-5 and L5-S1. Of concern was pronounced osteoporosis which has been managed with Fosamax. She was referred for endocrinology evaluation. She has also been evaluated by Dr. Bailey 04/29/2021 and they discussed L2-S1 fusion. The patient has undergone previous epidural steroid injection x3 and right transforaminal epidural steroid injection at L4-5 without relief. EMG/NCV 07/22/2021 was normal. Note: has a UTI currently We discussed that she was deemed to be a surgical candidate and has not benefited from PT in the past. The plan for now would be to see if there are any other pharmacologic options for her. We discussed trialing duloxetine. I recommend continuing the Lyrica at this time and then reassessing to see if this could be possibly decreased once duloxetine is started. We also discussed the option of acupuncture. The patient has also scheduled an evaluation with Dr. Carroll at [facility]. We also discussed a referral to the active pain care service.The most appropriate treatment for chronic pain is a comprehensive approach to pain management that addresses psychological, medical, physical, and occupational needs. It is likely that Shona would benefit from engagement with the Active Pain Care Service, which will provide essential pain neuroscience education, and the opportunity to participate in interdisciplinary mind-body treatments. These approaches could help Shona develop pain self management strategies, reduce fear of movement and exercise, and safely increase@ activity levels. she would benefit from cognitive-behavioral interventions to improve@ ability to actively cope with pain, decrease emotional distress, and decrease reliance on medical procedures. Symptom management could be enhanced through mindfulness and relaxation training. It seems likely that Shona will experience some ongoing or recurrent pain symptoms in the future, therefore working with the [facility] should provide her with better strategies for coping with the remaining pain through a self-management approach, with the goal of helping her reduce pain flares and resume valued activities, including possibly returning to gainful employment. PLAN: Recommendation: Pharmacological: -continue current medication -duloxetine 20 mg daily Surgical/Procedural: -spine surgery with Dr. Roth once bone density has improved Behavioral: Active Pain Care Service referral Complementary, Alternative and Integrative therapies -acupuncture Follow up: Follow up with Dr. Hernandez in 4 -6 weeks (can be Teleheatlh) -evaluation with Dr. Carroll as planned. Alysa Hernandez MD Deportation Examiner of Anesthesiology [facility] [address] [phone] / [facility] documented in this encounter Plan of Treatment Upcoming Encounters Date Type Specialty Care Team Description 02/20/2022 Notes Only Pain and Spine Center Ray Mg PsyD [facility] [place], [place] [address] (Wo rk) 02/21/2022 TH Visit Pain and Spine Center Claudy Hernandez MD (TeleHealth) [facility] DR PAIN CLINIC [place], [place] [address] (Wo rk) Scheduled Referrals Name Type Priority Associated Diagnoses Order S chedule Amb Referral to Outpatient Referral Routine Lumbar radiculopat hy Ordered: Active Pain Care 12/30/2021 Services documented as of this encounter Visit Diagnoses Diagnosis Lumbar radiculopathy Thoracic or lumbosacral neuritis or radi culitis, unspecified documented in this encounter Care Teams Filter Changer Relationship Specialty Start Date End Date Janneth Zendejas APRN PCP - General Internal Medicine 11/05/18 [address] [place] [address] documented as of this encounter
--- OUTSIDE RECORDS SUMMARY | 2022-02-09 16:01 | XMS_ITS | Encounter Summary ---
:1950 Author Organization [facility] [place] [address] Care Team Providers Name Role Phone Janneth Zendejas APRN Primary Care Provider Encounter Details Date Type Department Care Team Description 02/04/2022 Telephone Pain and Spine Cente r at [facility] Inessa Fang, [place] [address] Social History Tobacco Use Types Packs/Day Years Used Date Former Smoker Quit: 2008 Smokeless Tobacco: Never Used Sex Assigned at Date Recorded Not on file documented as of this encounter Miscellaneous Notes Telephone Encounter - Inessa Fang RN - 02/04/2022 11:14 AM EDT Outgoing call to Shona in response to voicemail left on blow pit operator line regarding requesting an appointment with Dr. Hernandez to discuss medication increase. Upon review, patient is scheduled for a visit with Dr. Hernandez on 02/21/22. Patient confirmed this appt was made after leaving voicemail. Patient voiced appreciation for return call. documented in this encounter Plan of Treatment Upcoming Encounters Date Type Specialty Care Team Description 02/20/2022 Notes Only Pain and Spine Center Ray Mg PsyD [facility] er [place], [place] [address] (Wo rk) 02/21/2022 TH Visit Pain and Spine Center Claudy Hernandez MD (TeleHealth) [facility] PAIN CLINIC [place], [place] [address] (Wo rk) documented as of this encounter Visit Diagnoses Not on filedocumented in this encounter Care Teams Ice Cream Freezer Helper Relationship Specialty Start Date End Date Janneth Zendejas APRN PCP - General Internal Medicine 11/05/[address] [place] [address] documented as of this encounter
--- OUTSIDE RECORDS SUMMARY | 2022-02-09 16:01 | XMS_ITS | Encounter Summary ---
:1950 Author Organization [facility] [place] [address] Care Team Providers Name Role Phone Janneth Zendejas APRN Primary Care Provider Reason for Referral Consultation (Routine) - Closed Specialty Diagnoses / Procedures Referred By Contact Refer red To Contact Pain and Spine Center Diagnoses Radiculopathy of leg Low back pain radiating to right lower extremity Ezio Warner MD [facility] Pain And [facility] Spine [address] [place] [address] Phone: Fax: Referral ID Status Reason Start Date Expiration Date Visits V isits Requested Authorized [id number] Closed Consult, 07/24/2021 07/24/2022 1 1 Test & Treat Encounter Details Date Type Department Care Team Description 07/23/2021 Orders Only Pain and Spine Center Nicky Florentino ght leg pain; at [facility] Caro RN Radiculopathy of leg; [facility] Low back pain radiating [place] [address] Social History Tobacco Use Types Packs/Day Years Used Date Former Smoker Quit: 2008 Smokeless Tobacco: Never Used Sex Assigned at Date Recorded Not on file documented as of this encounter Plan of Treatment Upcoming Encounters Date Type Specialty Care Team Description 02/20/2022 Notes Only Pain [facility] Spine Center Ray Mg PsyD [facility] [place], [place] [address] (Wo rk) 02/21/2022 TH Visit Pain and Spine Center Claudy Hernandez MD (TeleHealth) [facility] ER PAIN CLINIC [place], [place] [address] (Wo rk) Scheduled Referrals Name Type Priority Associated Diagnoses Order S chedule Referral to Spine Outpatient Referral Routine Radiculopa thy of leg Ordered: Center Low back pain 07/24/2021 radiating to right lower extremity documented as of this encounter Results XR Lumbar Spine 2 [...] who have questions please contact the health acute care nurse practitioner that requested your imaging first. ? Narrative 07/29/2021 3:37 PM EST EXAMINATION: XR [...] o f acute fracture. Procedure Note Nick Tsai MD - 07/29/2021Formatt ing of this note [...] ho have questions please contact the health acute care nurse practitioner that requested your imaging first. Ezio Warner MD IMG DX ORDERABLES documented in this encounter Visit Diagnoses Diagnosis Right leg pain Pain in limb Radiculopathy of leg Thoracic or lumbosacral neuritis or radi culitis, unspecified Low back pain radiating to right lower e xtremity Right leg pain Pain in limb Radiculopathy of leg Thoracic or lumbosacral neuritis or radi culitis, unspecified Low back pain radiating to right lower e xtremity documented in this encounter Care Teams Information Security Consultant Relationship Specialty Start Date End Date Janneth Zendejas APRN PCP - General Internal Medicine 11/05/[address] [place] [address] documented as of this encounter
--- OUTSIDE RECORDS SUMMARY | 2022-02-09 16:01 | XMS_ITS | Encounter Summary ---
:1950 Author Organization [facility] [place] [address] Care Team Providers Name Role Phone Janneth [...] AMP/ ? injection Luis M Roth MD [facility] And [facility] Spine DR [facility] SPINE [address] [address] Phone: Fax: Referral ID Status Reason Start Date Expiration Visits Visits Date Requested Authorized [id number] Authorized Consult, 11/04/2021 11/04/2022 3 3 Test & Treat Encounter Details Date Type Department Care Team Description 11/01/2021 Orders Only Pain [facility] Spine Center Elizabeth Brown , Low back pain at [facility] [employer] radiating to right [facility] [place] [address] Social History Tobacco Use Types Packs/Day Years Used Date Former Smoker Quit: 2008 Smokeless Tobacco: Never Used Sex Assigned at Date Recorded Not on file documented as of this encounter Plan of Treatment Upcoming Encounters Date Type Specialty Care Team Description 02/20/2022 Notes Only Pain [facility] Sp[facility] Center Ray Mg PsyD [facility] er [place], [place] [address] (Wo rk) 02/21/2022 TH Visit Pain and Spine Center Claudy Hernandez MD (TeleHealth) [facility] ER PAIN CLINIC [place], [place] [address] (Wo rk) Scheduled Referrals Name Type Priority Associated Diagnoses Order S chedule Referral to Pain Outpatient Referral Routine Low back pain Ord ered: and Spine Center radiating to right 11/04 (Internal only) lower extremity documented as of this encounter Visit Diagnoses Diagnosis Low back pain radiating to right lower e xtremity documented in this encounter Care Teams Cranberry Bog Supervisor Relationship Specialty Start Date End Date Janneth Zendejas APRN PCP - General Internal Medicine 11/05/[address] [place] [address] documented as of this encounter
--- OUTSIDE RECORDS SUMMARY | 2022-02-09 16:01 | XMS_ITS | Encounter Summary ---
:1950 Author Organization [facility] [place] [address] Care Team Providers Name Role Phone Janneth Zendejas APRN Primary Care Provider Reason for Visit Consultation (Routine) - Closed Specialty Diagnoses / Procedures Referred By Contact Refer red To Contact Endocrinology Diagnoses Low back pain radiating to right lower extremity Luis M Roth MD [facility] Endocrinology 3b [facility] [place] [address] [place] [address] Referral ID Status Reason Start Date Expiration Date Visits V isits Requested Authorized [id number] Closed Consult, 07/29/2021 07/29/2022 1 1 Test & Treat Encounter Details Date Type Department Care Team Description 09/05/2021 TH Visit Endocrinology at [facility] C Param Guzman, Osteoporosis, unspecified os teoporosis type, unspecified pathological fracture presence; (TeleHealth) [facility] Chronic right-sided low back pain with r ight[place] [address] CENTER [phone] [place] [address] Social History Tobacco Use Types Packs/Day Years Used Date Former Smoker Quit: 2008 Smokeless Tobacco: Never Used Sex Assigned at Date Recorded Not on file documented as of this encounter Progress Notes Param Guzman MD - 09/05/2021 10:30 AM EST Images from the original note were not included. We are seeing this 71 year old woman at the request of Dr Roth for back pain with a dexa showing osteoporosis Health is good - Has severe djd of her spine Has started lyrica - helps a lot started PT For lower back and hip muscles Will be doing pool exercises Had started fosamax but then had a dental problem and tooth had to be removed after just 3 weeks extraction has healed Has started fosamax for the last 2 months No heartburn No prior fractures May have surgery in a year to lumbar spine - surgeon wants T score > - 2.5 Surgeon is here at [facility] Dr Roth Eats cheese ( does not drink milk) Takes vit D 2000 and calcium/D 650/12.5 Walks some in house in winter, will be doing PT + FH (mother) Has 3 unit etoh daily Stopped smoking PMH 1) severe spine DJD/radiculopathy 2) osteoporosis 3) past lumpectomy- benign Medications 09/05/21 3915 Medication Sig Taking? pregabalin (Lyrica) 50 mg Capsule Take 1 capsule by mouth 3 times daily. Yes oxyCODONE-acetaminophen (Percocet) 5-325 mg Tablet 1-2 tablets every 4 hours as needed. Yes cholecalciferol, Vitamin D3, 50 mcg (2,000 unit) Tablet Take 2,000 Units by mouth. Yes acetaminophen (Tylenol) 500 mg Tablet Take 1,000 mg by mouth as needed. Yes meloxicam (MOBIC) 7.5 mg Tablet TAKE 1 TABLET BY MOUTH TWICE DAILY Yes multivitamin Capsule Take 1 capsule by mouth Daily. Yes aspirin (ASPIR-81 ORAL) Take by mouth. Yes calcium carbonate (CALCIUM 300 ORAL) Take by mouth. Yes TURMERIC ORAL Take by mouth. Yes SH Lives alone Has a partner [employer] boat in summer, not much in winter but goes to [facility] Negative for cardiac, GI, or renal disease Appears tired TELEMED VISIT 1) osteoporosis - Ms Diehl meets bone den sity criteria for moderately severe osteoporosis at the neck of the femur and would benefit from treatment. Treatment with a bisphosphonate or prolia would reduce her risk of fracture by at least 40 % over 10 years. She was told her surgery would be best postponed until her T score exceeds -2.5. However these medications rarely show rapid or large bone accrual at the hip (the spine is far more responsive by bone density measures), so if an increase in T score to -2.5 is the desired outcome we will not make it in one year and probably won't make it in 3 years.If the goal is to demonstrate in 1 year to indicate a better outcome from surgery, it is unclear that any agent will do this - if the goal is to show increasing bone density, then anabolic therapy would be more likely to be successful. I will contact Dr Roth to see what he would like to see as thbe result of treatment- in reality all of them reduce fracture risk regardless of bone density change. I will check N telopeptide in 3 weeks to be sure she is absorbing the alendronate, or we will switch to either an anabolic or to iv reclast. Prolia is slightly more effective than bisphosphonates but has the problem of wearing off and then bone density drops rapidly if the next injection is delay. In the meantime I asked her to double her calcium intake to 7189-3212 mg a day. We luis miguel check her vitamin D with next labs and she is to continue 2000 IU a day. This was a 40 min visit in total time for precharting, interview and counseling, review of outside labs as above, ordering labs and charting She luis miguel follow up with her primary care team unless new problems arise documented in this encounter Plan of Treatment Upcoming Encounters Date Type Specialty Care Team Description 02/20/2022 Notes Only Pain and Spine Center Ray Mg PsyD [facility] JENNIFER Cochran [address] (Wo jacky) 02/21/2022 TH Visit Pain and Spine Center Claudy Hernandez MD (TeleHealth) [facility] JENNIFER SIFUENTES 0375 (Savita rico) Scheduled Orders Name Type Priority Associated Diagnoses Order S chedule N-telopeptide, urine Lab Routine Osteoporosis, unspec ified Expected: 09/19/2021 osteoporosis type, (Approxim ate), unspecified pathological Exp ires: 03/21/2022 fracture presence Vitamin D, 25-Hydroxy Lab Routine Osteoporosis, unspe cified Expected: 09/05/2021 osteoporosis type, (Approxim ate), unspecified pathological Exp ires: 09/05/2022 fracture presence documented as of this encounter Visit Diagnoses Diagnosis Osteoporosis, unspecified osteoporosis t ype, unspecified pathological fracture presence Chronic right-sided low back pain with r ight-sided sciatica documented in this encounter Care Teams Financial Cost Analyst Relationship Specialty Start Date End Date Janneth Zendejas APRN PCP - General Internal Medicine 11/05/[address] [place] [address] documented as of this encounter
--- OUTSIDE RECORDS SUMMARY | 2022-02-09 16:01 | XMS_ITS | Encounter Summary ---
:1950 Author Organization [facility] [place] [address] Care Team Providers Name Role Phone Janneth Zendejas APRN Primary Care Provider Reason for Referral Consultation (Routine) - Closed Specialty Diagnoses / Procedures Referred By Contact Refer red To Contact Endocrinology Diagnoses Low back pain radiating to right lower extremity Luis M Roth MD [facility] Endocrinology [address] [place] [address] [place] [address] Referral ID Status Reason Start Date Expiration Date Visits V isits Requested Authorized [id number] Closed Consult, 07/29/2021 07/29/2022 1 1 Test & Treat Reason for Visit Reason Comments Back Pain Right Leg Pain Consultation (Routine) - Closed Specialty Diagnoses / Procedures Referred By Contact Refer red To Contact Pain and Spine Center Diagnoses Radiculopathy of leg Low back pain radiating to right lower extremity Ezio Warner MD [facility] Ctr Pain And [facility] [place] [address] [place] [address] Phone: Fax: Referral ID Status Reason Start Date Expiration Date Visits V isits Requested Authorized [id number] Closed Consult, 07/24/2021 07/24/2022 1 1 Test & Treat Encounter Details Date Type Department Care Team Description 07/29/2021 Office Visit Pain and Spine Center Zack Warner dd, MD [facility] [place] [address] Low back pain at [facility] Luis M Roth MD [facility] [place] [address] [facility] [place] [address] Social History Tobacco Use Types Packs/Day Years Used Date Former Smoker Quit: 2008 Smokeless Tobacco: Never Used Sex Assigned at Date Recorded Not on file documented as of this encounter Last Filed Vital Signs Vital Sign Reading Time Taken Comments Blood Pressure - - Pulse - - Temperature - - Respiratory Rate - - Oxygen Saturation - - Inhaled Oxygen Concentration - - Weight 56.2 kg (124 lb) 07/29/2021 3:35 PM EST Height 161.3 cm (5' 3.5) 07/29/2021 3:35 PM EST Body Mass Index 21.62 07/29/2021 3:35 PM EST documented in this encounter Progress Notes Luis M Roth MD - 07/29/2021 3:40 PM EST Chief complaint: Right lower extremity pain History of present illness: Ms. Diehl is a 71-year-old female whom I am seeing in consultation for Janneth Zendejas regards to her right lower extremity pain that originates in her right buttock and radiates to her right lateral thigh and anterior leg. The symptoms have been present for years, getting worse as of late. She denies any numbness. Her right lower extremity feels weak to her. Her pain is worse with prolonged sitting or prolonged standing. It limits her standing in one place to about 5 or 10 minutes. The she can walk is highly variable depending on her symptoms. The pain does not bother her at night. She denies constitutional symptoms or change in her bowel or bladder function. She has beentreated with many months of physical therapy with no improvement. She takes up to 1 oxycodone tabletdaily as needed for gives her some relief. She takes Tylenol without much improvement. She had 3 lumbar epidural steroid injections with no improvement. She has not had prior spinal surgery. Past medical history: Osteoporosis with T score of -3.6 in her left femoral neck Past surgical history: Lumpectomy Medications and allergies were reviewed and are in ED H. Family history: Cancer Social history: She is retired. She does not smoke and has a couple drinks per day. Review of systems: All negative except musculoskeletal as above. Physical exam Patient is 5 foot 3, 124 pounds, with a BMI of 21.6 General: Patient is comfortable, no acute distress Back: She is tender to palpation over her right SI joint. She can flex 90 degrees and extend 20 degrees. Neurological exam: She walks with an antalgic gait. She can toe walk but has trouble heel walking onthe right.. She has 4/5 strength of her right ankle dorsiflexor and right EHL. Other motors are 5/5.She has diminished sensation in her right anterior leg. Reflexes are 2/4 at the knees and 1/4 at theankles. She has no clonus. Hip exam: She has normal, painless range of motion of both hips. Vascular: She has palpable pulses bilaterally. Imaging: AP and lateral flexion-extension x-rays of the lumbar spine from 07/29/2021 were reviewed. These demonstrate an apex right lumbar curve that measures approximately 20 degrees from L2-L5 with the apex at L3. The S1 level is partially lumbarized, and there are rudimentary ribs at L1. MRI of the lumbar spine from 10/08/2020 was reviewed. At L2-L3, there is no significant stenosis. At L3-4, there is moderate-severe left-sided foraminal stenosis. At L4-L5, there is mild central and more pronounced bilateral lateral recess stenosis and severe right-sided foraminal stenosis. At L5-S1, there is severe right-sided foraminal stenosis with the stenosis extending into the far lateral aspectof the foramen. Assessment/plan: Ms. Diehl is a 71-year-old female who presents with chronic right lower extremity pain in the setting of a degenerative scoliosis with severe foraminal stenosis on the right at L4-L5 and to a greater degree at L5- S1. Note that her S1 is transitional and partially lumbarized. We discussed treatment options for this that include continued medication, further physical therapy, repeat injection, and surgery. She has failed to improve despite nonoperative treatment and is interested in pursuing surgery. Unfortunately, given the severe foraminal stenosis on the right at L4-L5 and L5-S1, I do not think there is a nonfusion option, and any fusion would likely have to include L2-S1. She has fairly pronounced osteoporosis and was started on Fosamax, though she stopped this as she needed tohave a dental procedure and has not restarted it. I do not think we could perform an L2-S1 fusion with an L4-L5 laminectomy and a right L5-S1 hemilaminectomy and complete facetectomy with a T score of - 3.6 (left femoral neck). She would be at high risk for hardware failure or fracture. I told her thatsurgery would be an option if she can get her T score to better than -2.5. I put in a referral to endocrinology to address the osteoporosis. If she still wants to discuss surgery after her osteoporosishas been appropriately treated, she should return to see me with a new MRI of the lumbar spine done here at [facility] prior to the visit. documented in this encounter Plan of Treatment Upcoming Encounters Date Type Specialty Care Team Description 02/20/2022 Notes Only Pain and Spine Center Ray Mg PsyD [facility] [address] [place] 0375 (Wo ajcky) 02/21/2022 TH Visit Pain and Spine Center Claudy Hernandez MD (TeleHealth) [facility] [place], [place] 0375 (Wo rk) Scheduled Referrals Name Type Priority Associated Order Schedule Diagnoses Referral to Outpatient Referral Routine Low back pain Ordered : Endocrinology radiating to right 07/29/20 21 lower extremity documented as of this encounter Visit Diagnoses Diagnosis Low back pain radiating to right lower e xtremity documented in this encounter Care Teams Naval Aircrewman Avionics Relationship Specialty Start Date End Date Janneth Zendejas APRN PCP - General Internal Medicine 11/05/[address] [place] [address] documented as of this encounter
--- OUTSIDE RECORDS SUMMARY | 2022-02-09 16:01 | XMS_ITS | Clinical Summary ---
:1950 Author Organization [place] [address] Care Team Providers Name Role Phone Janneth Zendejas APRN Primary Care Provider Allergies Active Allergy Reactions Severity Noted Date Comments Codeine 01/24/2013 Medications Medication Sig Dispensed Refills Start Date End Date Status meloxicam (MOBIC) 7.5 TAKE 1 TABLET 0 01/04/2021 Active mg Tablet BY MOUTH TWICE DAILY multivitamin Capsule Take 1 capsule 0 Active by mouth Daily. aspirin (ASPIR-81 Take by mouth. 0 Active ORAL) calcium carbonate Take 1,000 mg 0 Active (CALCIUM 300 ORAL) by mouth daily. TURMERIC ORAL Take 800 mg by 0 A ctive mouth daily. cholecalciferol, Take 4,000 0 Ac tive Vitamin D3, 50 mcg Units by mouth (2,000 unit) Tablet daily. acetaminophen Take 1,000 mg 0 Ac tive (Tylenol) 500 mg by mouth as Tablet needed. oxyCODONE-acetaminophe 1-2 tablets 0 07/05/2021 Active n (Percocet) 5-325 mg every 4 hours Tablet as needed. pregabalin (Lyrica) 50 Take 1 capsule 90 capsule 2 09/05/2021 09/05/2022 Active mg CapsuleIndications: by mouth 3 Chronic right-sided times daily. low back pain with right-sided sciatica Additional Information Patient taking differently: 100 mg Oral 3 TIMES DAILY, Reported on 12/30/2021 alendronate (Fosamax) 70 mg TAKE ONE TABLET BY MOUTH 0 12/04/2021 Active Tablet EVERY WEEK SWALLOWING THE WHOLE TABLET WITH 6-8 OUNCES OF WATER ON AN EMPTY STOMACH REMAIN UPRIGHT FOR AT LEAST 30 nitrofurantoin (Macrobid) 100 2 times daily. 0 12/28 Active mg Capsule DULoxetine DR (Cymbalta) 20 Take 1 capsule by mouth 30 tablet 3 12/30/2021 Active mg Capsule, Delayed daily. Release(E.C.) Active Problems Problem Noted Date Low back pain radiating to right lower extremity 07/03 BCC (basal cell carcinoma), face 06/17/2021 Osteoporosis 06/17/2021 Ganglion cyst of volar aspect of right wrist 0 Primary osteoarthritis involving multiple joints 07/22 Radiculopathy of leg 07/22/2019 Hyperlipidemia 04/15/2017 Solar lentigo 07/07/2014 Nevus 07/07/2014 Seborrheic keratosis 07/07/2014 Encounters Date Type Specialty Care Team Description 02/04/2022 Telephone Pain and Spine Center Inessa Fang RN 01/28/2022 Telephone Pain [facility] Sp[facility] Center April Cuevas 12/30/2021 Office Visit Pain and Spine Center Alysa Hernandez L umbar radiculopathy from Last 3 Months Family History Medical History Relation Comments Breast Cancer Neg Hx Social History Tobacco Use Types Packs/Day Years Used Date Former Smoker Quit: 2008 Smokeless Tobacco: Never Used Sex Assigned at Date Recorded Not on file Last Filed Vital Signs Vital Sign Reading Time Taken Comments Blood Pressure 138/67 12/30/2021 12:41 PM EDT Pulse 79 12/30/2021 12:41 PM EDT Temperature 37.2 ??C (99 ??F) 12/30/2021 12:41 PM EDT Respiratory Rate 16 10/23/2021 2:18 PM EST Oxygen Saturation 97% 12/30/2021 12:41 PM EDT Inhaled Oxygen Concentration - - Weight 57.6 kg (127 lb) 12/30/2021 12:41 PM EDT Height 161.3 cm (5' 3.5) 07/29/2021 3:35 PM EST Body Mass Index 22.14 07/29/2021 3:35 PM EST Plan of Treatment Upcoming Encounters Date Type Specialty Care Team Description 02/20/2022 Notes Only Pain and Spine Center Ray Mg PsyD [facility] [place] 0375 (Wo rk) 02/21/2022 TH Visit Pain and Spine Center Claudy Hernandez MD (TeleHealth) [facility] [place] 0375 (Wo rk) Health Maintenance Due Date Last Done Comments Covid-19 Vaccine (#1) 1953 Hepatitis C Screening 1966 Tdap adult 1967 Tetanus vaccine 1967 Breast Cancer Share Decision Needed 1988 Colonoscopy 1993 Breast Cancer screening 1998 Zoster vaccine (1 of 2) 1998 Advance Directive 2003 Bone Density Scan 2013 Pneumoccocal Vaccine: 65+ (1 - PCV) 2013 Influenza (Flu) vaccine (1 of 1 - Influenza standard 04/17/2021 series) Medical Devices Implanted Type Area Lead Installer Device Shelf Model / Identifier Expiration Serial / Date Lot Breast Clip-02/08/2021 Breast Left: Bard - [id number] / Implanted: 02/08/2021 by Kamini Aguilera MD (Quantity not on file) Clip Breast / [id number] Description: S[employer] ULTRACOR BREAST TI SSUE MARKER SUZANNE Insurance Payer Benefit Plan / Subscriber ID Effective Phone Address T ype Group Dates MEDICARE MEDICARE PART [id number] 2018-Pres [phone] [place] [phone] [employer] BCBS [id number] 2018-Prese [address] [place] [phone] Advance Directives Latest Code Status on File Code Status Date Activated Date Inactivated Comments Attempt Cardiopulmonary Resuscitation - 04/08/2021 10:02 AM 2020 2:07 PM Inpatient Code Status decision made by: Patient Care Teams Coastal Tug Mate Relationship Specialty Start Date End Date Janneth Zendejas APRN PCP - General Internal Medicine 11/05/[address] [place], [place] [address]
--- OUTSIDE RECORDS SUMMARY | 2022-02-09 16:01 | XMS_ITS | Encounter Summary ---
:1950 Author Organization [facility] [place] [address] Care Team Providers Name Role Phone Janneth Zendejas APRN Primary Care Provider Encounter Details Date Type Department Care Team Description 08/01/2021 Procedure visit Neurology at [facility] Torrey Heath [place] [address] NEUROLOGY DEPT. [place], [place] [address] Social History Tobacco Use Types Packs/Day Years Used Date Former Smoker Quit: 2008 Smokeless Tobacco: Never Used Sex Assigned at Date Recorded Not on file documented as of this encounter Progress Notes Torrey Heath MD - 08/01/2021 1:30 PM EST Shona Diehl referred for EDX studies by Janneth Zendejas APRN [address] [place] [address] to look for evidence of LS radiculopathy. Report scanned into EDH. The NCVs and the EMG are normal showing no signs of peripheral neuropathy or radiculopathy. By description, it sounds like she has an L5 radiclopathy. documented in this encounter Plan of Treatment Upcoming Encounters Date Type Specialty Care Team Description 02/20/2022 Notes Only Pain and Spine Center Ray Mg PsyD [facility] [place], [place] [address] (Wo rk) 02/21/2022 TH Visit Pain and Spine Center Claudy Hernandez MD (TeleHealth) [facility] [place], [place] 0375 (Wo rk) documented as of this encounter Visit Diagnoses Diagnosis L-S radiculopathy Thoracic or lumbosacral neuritis or radi culitis, unspecified documented in this encounter Care Teams Director Web Relationship Specialty Start Date End Date Janneth Zendejas APRN PCP - General Internal Medicine 11/05/[address] [place] [address] documented as of this encounter
--- OUTSIDE RECORDS SUMMARY | 2022-02-09 16:01 | XMS_ITS | Encounter Summary ---
:1950 Author Organization [facility] [place] [address] Care Team Providers Name Role Phone Janneth Zendejas APRN Primary Care Provider Encounter Details Date Type Department Care Team Description 07/23/2021 Telephone Pain and Spine [facility] [facility] at [facility] Nicky Florentino, [place] [address] Social History Tobacco Use Types Packs/Day Years Used Date Former Smoker Quit: 2008 Smokeless Tobacco: Never Used Sex Assigned at Date Recorded Not on file documented as of this encounter Miscellaneous Notes Telephone Encounter - Nicky Florentino RN - 07/23/2021 3:09 PM EST Error; duplicate encounter documented in this encounter Plan of Treatment Upcoming Encounters Date Type Specialty Care Team Description 02/20/2022 Notes Only Pain and Spine Center Ray Mg PsyD [facility] [address] [place], [place] [address] (Wo rk) 02/21/2022 TH Visit Pain and Spine Center Claudy Hernandez MD (TeleHealth) [facility] [place], [place] 0[address] (Wo rk) documented as of this encounter Visit Diagnoses Not on filedocumented in this encounter Care Teams Able Bodied Seaman Relationship Specialty Start Date End Date Janneth Zendejas APRN PCP - General Internal Medicine 11/05/[address] [place] [address] documented as of this encounter
--- OUTSIDE RECORDS SUMMARY | 2022-02-09 16:01 | XMS_ITS | Encounter Summary ---
:1950 Author Organization [facility] [place] [address] Care Team Providers Name Role Phone Janneth Zendejas APRN Primary Care Provider Reason for Referral Diagnostic Test (Routine) - Closed Specialty Diagnoses / Procedures Referred By Contact Refer red To Contact Radiology Diagnoses Atypical ductal hyperplasia of left breast Other specified disorders of breast Param Florez MD [facility] Rad Mri Procedures MRI Breast wwo Contrast [facility] [place] [address] [place] [address] Referral ID Status Reason Start Date Expiration Date Visits V isits Requested Authorized [id number] Closed Specialty 04/24/2021 10/22/2022 1 1 Service Requested Reason for Visit Diagnostic Test (Routine) - Closed Specialty Diagnoses / Procedures Referred By Contact Refer red To Contact Radiology Diagnoses Atypical ductal hyperplasia of left breast Other specified disorders of breast Param Florez MD [facility] Rad Mri Procedures MRI Breast wwo Contrast [facility] [place] [address] [place] [address] Referral ID Status Reason Start Date Expiration Date Visits V isits Requested Authorized [id number] Closed Specialty 04/24/2021 10/22/2022 1 1 Service Requested Encounter Details Date Type Department Care Team Description 10/23/2021 Hospital En[place] [facility]am Florez Atypical ductal hyperplasia of left breast; [facility] MD Killian Other specified disorders of breast [address] [place], [place] CENTER [address] GENERAL SURGERY [phone] [place] [address] Social History Tobacco Use Types Packs/Day Years Used Date Former Smoker Quit: 2008 Smokeless Tobacco: Never Used Sex Assigned at Date Recorded Not on file documented as of this encounter Medications at Time of Discharge Medication Sig Dispensed Refills Start Date End Date pregabalin (Lyrica) 50 mg Take 1 capsule by 90 capsule 2 09/05/2022 CapsuleIndications: mouth 3 times Chronic right-sided low daily. back pain with right-sided sciatica oxyCODONE-acetaminophen 1-2 tablets every 4 0 (Percocet) 5-325 mg hours as needed. Tablet cholecalciferol, Vitamin Take 4,000 Units by 0 D3, 50 mcg (2,000 unit) mouth daily. Tablet acetaminophen (Tylenol) Take 1,000 mg by 0 500 mg Tablet mouth as needed. meloxicam (MOBIC) 7.5 mg TAKE 1 TABLET BY 0 01/04 Tablet MOUTH TWICE DAILY multivitamin Capsule Take 1 capsule by 0 mouth Daily. aspirin (ASPIR-81 ORAL) Take by mouth. 0 calcium carbonate Take 1,000 mg by 0 (CALCIUM 300 ORAL) mouth daily. TURMERIC ORAL Take 800 mg by 0 mouth daily. documented as of this encounter Plan of Treatment Upcoming Encounters Date Type Specialty Care Team Description 02/20/2022 Notes Only [facility] Ray Mg PsyD [facility] [address] [place] [address] (Wo rk) 02/21/2022 TH Visit [facility] Claudy Hernandez MD (TeleHealth) [facility] PAIN [place], [place] [address] (Wo rk) documented as of this encounter Procedures Procedure Name Priority Date/Time Associated Diagnosis Comme nts MRI BREAST WWO Routine 10/23/2021 12:10 PM Atypical ductal Res ults for this CONTRAST BILAT EST hyperplasia of left proced ure are in breast the results Other specified section. disorders of breast MRI/MRA SCAN 10/23/2021 12:00 AM Results for this EST procedure are i n the results section. documented in this encounter Results MRI Breast wwo Contrast Bilat (10/23/2021 12:10 PM EST) Anatomical Region Laterality Modality Breast N/A Magnetic Resonance Specimen (Source) Anatomical Location Collection Method / Collectio n Time Received Time / Laterality Volume Impressions 10/23/2021 1:52 PM EST No MRI evidence of malignancy. RECOMMENDATION:Continued screening. BI-RADS Category 2: Benign Findings Thank you for letting us participate in the care of this patient. ??If you are a health care provider and have any questi ons regarding this report, please contact the number below. ??For patients who have questions please contact the health healthcare network consultant that requested your imaging first. ? Narrative 10/23/2021 1:52 PM EST MRI OF THE BILATERAL BREAST(S) CLINICAL INDICATION: ??High risk screeni ng status post left lumpectomy. TECHNIQUE: Multiplanar sequences were obtained pre- and post- gadolinium enhancement, to include SPGR weighted dynamic run-off an d subtraction sequences obtained after the intravenous administration of 11 ccs of Dotarem. Computer algorithm analysis for lesion detection and kinetic contras t enhancement curve analysis was performed, using [employer] software. COMPARISON STUDIES: 10/23/2021 mammogram and prior breast daisha ging. BACKGROUND ENHANCEMENT PATTERN (first po st gadolinium image) minimal AMOUNT OF FIBROGLANDULAR TISSUE: Scatter ed FINDINGS: There are no morphologic abnormalities o r areas of abnormal parenchymal enhancement. There is no axillary or int ernal mammary adenopathy. Minimal postsurgical distortion is seen in the l eft breast. Param Florez MD IMG MRI ORDERABLES SCAN DOC: MRI/MRA (10/23/2021 12:00 AM EST) Narrative This result has an attachment that is no t available. Unknown MEDIA MGR SCAN EXT ORDR/RSLT documented in this encounter Visit Diagnoses Diagnosis Atypical ductal hyperplasia of left kayley st Other specified disorders of breast Other specified disorders of breast documented in this encounter Administered Medications Inactive Administered Medications - up to 3 most recent administrations Medication Order MAR Action Action Date Dose Rate Site gadoterate meglumine (Dotarem) Given 10/23/2021 11:58 AM EST 11 mLs (0.5 mMol/mL) injection solution 0-100 mL 0-100 mL, Intravenous, ONCE PRN, 1 dose, Starting on Thu10/23/21 at 1158, Until Thu10/23/21 at 1158, Per Protocol, Radiology Contrast, Routine documented in this encounter Care Teams Manager Of Tax Relationship Specialty Start Date End Date Janneth Zendejas APRN PCP - General Internal Medicine 11/05/[address] [place] [address] documented as of this encounter
--- OUTSIDE RECORDS SUMMARY | 2022-02-09 16:01 | XMS_ITS | Encounter Summary ---
:1950 Author Organization [facility] [place] [address] Care Team Providers Name Role Phone Janneth Zendejas APRN Primary Care Provider Encounter Details Date Type Department Care Team Description 01/28/2022 Telephone Pain and Spine Natalia r at [place] [phone] Social History Tobacco Use Types Packs/Day Years Used Date Former Smoker Quit: 2008 Smokeless Tobacco: Never Used Sex Assigned at Date Recorded Not on file documented as of this encounter Plan of Treatment Upcoming Encounters Date Type Specialty Care Team Description 02/20/2022 Notes Only [facility] Ray Mg PsyD [facility] [place], [place] [address] (Wo rk) 02/21/2022 TH Visit [facility] Claudy Hernandez MD (TeleHealth) [facility] [place], [place] [address] (Wo rk) documented as of this encounter Visit Diagnoses Not on filedocumented in this encounter Care Teams Disability Examiner Relationship Specialty Start Date End Date Janneth Zendejas APRN PCP - General Internal Medicine 11/05/18 [place] [address] documented as of this encounter
--- OUTSIDE RECORDS SUMMARY | 2022-02-09 16:01 | XMS_ITS | Encounter Summary ---
:1950 Author Organization [facility] Address [place] [id number] Care Team Providers Name Role Phone Janneth Zendejas APRN Primary Care Provider Reason for Visit Reason Comments Back, Buttock, Leg Pain Physical Therapy (Routine) - Authorized Specialty Diagnoses / Procedures Referred By Contact Refer red To Contact Physical Therapy Diagnoses Chronic right-sided low back pain, unspecified whether sciatica present Right lumbar radiculitis Lumbar spondylosis Other idiopathic scoliosis, lumbar region Sacroiliac dysfunction Ezio Warner MD [facility] [place] [address] [place] [address] Phone: Referral ID Status Reason Start Expiration Visits Visits Date Date Requested Authorized [id number] Authorized Evaluate and 06/17/2021 06/17/2022 12 12 Treat Encounter Details Date Type Department Care Team Description 07/03/2021 Office Visit [facility] Guerline Aguilar Lo [place] [facility] [place] radiating to right [facility] [place] [address] Social History Tobacco Use Types Packs/Day Years Used Date Former Smoker Quit: 2008 Smokeless Tobacco: Never Used Sex Assigned at Date Recorded Not on file documented as of this encounter Miscellaneous Notes Initial Evaluation - Guerline Aguilar, PT - 07/03/2021 2:30 PM EST PHYSICAL THERAPY INITIAL EXAMINATION Date of First Exam/ First Treatment: 07/03/2021 Referring Provider: Ezio Warner MD Diagnosis: 1. 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 She wasseen with the expectation to see if there is anything that can be done from an exercise perspective to ease the pain and improve her ability to function. History of Present Illness: Ms. Diehl reports a 30-year history of episodic low back and right leg pain. Past episodes of the pain have been treated conservatively with massage using a tennis ball to her right gluteal musculature and activity modification. She the most recent episode of back pain began without incident or trauma sometime in the winter 2020. Unfortunately, her symptoms have gradually worsened over time and are interfering significantly with her ability to function. She has met with multiple providers over the past several years past to see if there is anything that can be done to relieve the pain. She met with a neurosurgeon, Chandra Bailey MD, who recommended proceeding with a third epidural steroid injection and if this was not helpful to consider a instrumented fusion extending from L2-S1 treatments directed to the low back have included physical therapy, chiropractic adjustments, medications, epidural steroid injection at L4L5, epidural steroid injection at L5S1. If this did not result in an improvement of her pain he recommended to proceed with a instrumented fusion extending from L2-S1. Without improvement, epidural steroid injection directed to L4-5 S1 resulted in 1 weeks pain relief. A subsequent injection at L5-S1 resulted in only 1 week pain relief. She has been scheduled for third injection on 07/05/2021. Other treatments have included self massage using a tennis ball, medications, activity modification, and rest. Unfortunately, none of these treatments have resulted in lasting pain relief. She recently met with Dr. Warner who suggested she have an EMG study to clarify the level of her lumbar spine which is most likely responsible for the pain and then referred [facility] Ms. Diehl currently complains of right backpain radiating to the lateral aspect of the right thigh to the villalta. The pain is described and intolerable pain. At times she feels as if the pain over right villalta is burning. She reports intermittent numbness and tingling of the right villalta and at times the leg feels weak. Symptoms worsen when bending,sitting, rising from sitting and lying, driving, car transfers, turning, and when stepping on the right foot. Symptoms ease when changing position and activity frequently, tennis ball massage, lying inthe supine or prone position, or the left side. Sleep is significantly disturbed due to the pain since it is difficult for her to reposition in bed without worsening symptoms. When asked about a gait or balance disturbance she reports limping due to her painful right lower extremity. It is particularly noticeable when after rising from sitting she walks for several minutes with a significant antalgicgait pattern and then she is able to walk more normally due to lessening pain. Functionally, she is able to sit 15 minutes, stand 5 to 15 minutes, and walk at a slow pace 20 minutes.. Ms. Diehl's functional self care goal includes being able to gradually resume her former activity level and in particular being able to do her house chores. Patient Active Problem List Diagnosis Code ??? Solar lentigo L81.4 ??? Nevus D22.9 ??? Seborrheic keratosis L82.1 ??? BCC (basal cell carcinoma), face C44.310 ??? Ganglion cyst of volar aspect of right wrist M67.431 ??? Hyperlipidemia E78.5 ??? Osteoporosis M81.0 ??? 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 Radiculopathy of leg M54.10 ??? Low back pain radiating to right lower extremity M54.50, M79.604 : Past Surgical History: Procedure Laterality Date ??? MAMMO US BIOPSY LEFT Left 02/08/2021 Mammo Us Biopsy Left 02/08/2021 Kamini Aguilera MD [facility] RAD MAMMOGRAPHY ??? MAMMO US NEEDLE LOCALIZATION LEFT Left 04/08/2021 Mammo US Needle Localization Left 04/08/2021 Leslee West MD [facility] RAD MAMMOGRAPHY ??? PRO EXCISE BREAST LES W XRAY MARKER Left 04/08/2021 EXCISION LESION, BREAST W/ PREOP.MARKER (NEEDLE LOC.) (WRVU 6.69) performed by Param Florez MDat [facility] OSC : Social History: Ms. Diehl is a retired woman who lives alone in [place], [place]. She does not use tobacco, drinks three vodka and tonic daily and exercises regularly. Her exercise program consisted of walking 1 mile 2-3 times per week but is now only able to walk 1 mile once weekly. Physical Exam: Ms. Diehl is a very pleasant 71 y.o. female who moves about slowing guarded movementsand appears very uncomfortable while sitting. Sitting posture is poor and standing is fair. Examination of the spine in a standing position revealed a loss of the usual lumbar lordosis and a thoracolumbar scoliosis. Interestingly, the scoliosis appears much improved following lying in the prone position. There is no tenderness to palpation. Active range of motion of the lumbar spine is limited to 70 degrees flexion and 0 degrees extension. Endrange flexion and extension worsens the pain at endrange.Extension combined with right or left sidebending had no effect on the pain. She walks with an antalgic gait pattern, slight forward lean, and a slow pace. She is able to heel/toe walk and squat through 1/3 of the range. Squatting is limited due to her painful knees. Slouched sitting and sitting fullyerect worsens peripheralizes the pain. Slightly more comfortable lying prone position. Interestingly, repeated movement testing of the lumbar spine in the standing position worsened her pain and both flexion and extension. Lying prone abolished the pain while in this position and temporarily remained better once upright. Lying prone in extension also abolished the pain and she remained better once upright. Repeated flexion in lying seemed to worsen and peripheralizes the pain. Following lying in theprone position and progressing to lying prone in extension seemed to lessen her thoracolumbar scoliosis. Flexion flexion in sitting also worsened and peripheralized the pain. Physical Therapy Assessment: Ms. Diehl is a woman with a history of low back and right leg pain which is significantly interfering with her ability to function. The physical exam is significant for poor sitting posture, a thoracolumbar degenerative scoliosis and a possible directional preference toward extension with movement testing. The history and exam is consistent with mechanical low back pain with a directional preference. I believe that these deficits can improve with physical therapy treatments directed to the low back consisting of instruction in mechanical self-care, posture correction ofthe sitting position, self mobilization exercises and general conditioning. Ms. Diehl has a good reha bilitation potential and I anticipate to meet with her for 5-6 additional visits over the next 12 weeks. Treatment Plan: The natural history of mechanical low back and right leg pain of unclear etiology although possibly related to underlying degenerative changes and rational for exercise based treatment was reviewed. Ms. Diehl was given a home exercise program consisting of lying prone 6-8 times per day. If this is well-tolerated she will add lying prone in extension 6-8 times per day. In addition, shewas strongly encouraged to begin a structured walking program and consider using trekking poles for support. If she is able to walk more comfortably with trekking poles she will continue to do so when going for a walk and if there is no change she will simply discontinue using them. Along with the prescribed exercises, we discussed the principles of symptom self monitoring. She will call with any questions, concerns, or if the pain worsens. Ms. Die[facility] a follow up appointment in 1 weeks time with the hope that she is ready to progress her home exercise program. Physical Therapy Goals in 4 weeks: 1. Independent with home exercise program 2. Able to sit sit without discomfort 3. Able to walk without discomfort The plan has been discussed with Shona Diehl and she has agreed with the planned treatment. Expectwith skilled physical therapy interventions she will be able to return to prior level of function. 50 minutes were spent interviewing, assessing, and instructing Shona Diehl in a home exercise program. Clinical Presentation: Stable Evolving Unstable x Notes: The patient's clinical presentation is Evolving due to gradually worsening right leg pain. Clinical decision making of moderate complexity using standardized patient assessment instrument andmeasurable assessment of functional outcome. documented in this encounter Plan of Treatment Upcoming Encounters Date Type Specialty Care Team Description 02/20/2022 Notes Only [facility] Ray Mg PsyD [facility] [place], [place] [address] (Wo rk) 02/21/2022 TH Visit [facility] Caludy Hernandez MD (TeleHealth) [facility] DR PAIN [facility] [place], [place] [address] (Wo rk) documented as of this encounter Procedures Procedure Name Priority Date/Time Associated Diagnosis Comme nts PT PLAN OF CARE Routine 07/03/2021 6:12 PM EST Low back pain r adiating CERT/RE-CERT to right lower extremity documented in this encounter Visit Diagnoses Diagnosis Low back pain radiating to right lower e xtremity documented in this encounter Care Teams Space Technologist Relationship Specialty Start Date End Date Janneth Zendejas APRN PCP - General Internal Medicine 11/05/[address] [place] [address] documented as of this encounter
--- OUTSIDE RECORDS SUMMARY | 2022-02-09 16:01 | XMS_ITS | Encounter Summary ---
:1950 Author Organization [facility] [place] [place] [address] Care Team Providers Name Role Phone Janneth Zendejas APRN Primary Care Provider Encounter Details Date Type Department Care Team Description 10/23/2021 Hospital Encounter Mammography/DXA at Param Florez typical ductal hyperplasia of left breast; [facility] [place] Other specified disorders of breast [facility] [address] [place], [place] GENERAL SURGERY [address] [place], [place] [phone] [facility] Social History Tobacco Use Types Packs/Day Years [...] Mg PsyD [facility] [place] [address] (Wo rk) 02/21/2022 TH Visit [facility] Claudy Hernandez MD (TeleHealth) [facility] [place], [place] [address] (Wo rk) documented as of this encounter Procedures Procedure Name Priority Date/Time Associated Diagnosis Comme nts MAMMO DIAGNOSTIC CAD Routine 10/23/2021 1:13 PM Atypical ducta l Results for this AND DAYNE LEFT EST hyperplasia of left procedu re are in breast the results Other specified section. disorders of breast documented in this encounter Results Mammo Diagnostic Cad and Dyane Left (10/23/2021 1:13 PM EST) Anatomical Region Laterality Modality Breast Left Mammography Specimen (Source) Anatomical Location Collection Method / Collectio n Time Received Time / Laterality Volume Narrative 10/23/2021 1:33 PM EST REASON FOR EXAM: History of left breast cancer. TECHNIQUE: CC and MLO views were obtaine d of the left breast. Computer aided detection was used. 3D tomosynthesis daisha ges were obtained in addition to 2D images. Comparison: The study is compared with p rior images. FINDINGS: Breast density: The breasts are heteroge neously dense, which may obscure small masses. There is anticipated postsurgical densit y and distortion in the left breast. No suspicious masses, clustering microcalci fications, or areas of suspicious architectural distortion are identified. CONCLUSION: No mammographic evidence of in the left breast status post lumpectomy. RECOMMENDATION: Routine screening. BIRADS CATEGORY 2: BENIGN FINDINGS * ??Regular screening mammograms startin g between age 40 and 50 reduces the risk of from breast cancer. * ??All screening tests have both risks and benefits. These risks and benefits should be assessed for each individual p atient through discussion with their provider to determine their preferred east cancer screening schedule. * ??Women should report any breast arreguin es to a health care provider right away. * ??Some women, because of their family history, a genetic tendency, or other factors, should be screened with annual breast MRI as well as with mammograms. (The number of women who fall into this category is very small). Patients and health care providers should discuss eac h patients history to decide if earlier screening and/or breast MRI are appropri ate. * ??Screening should continue as long as a woman is in good health and is expected to live 10 years or longer. * ??Screening mammography may not detect 10-15% of breast cancers. Thank you for letting us participate in the care of this patient. ??If you are a health care provider and have any questi ons regarding this report, please contact the number below. ??For patients who have questions please contact the health direct support professional caregiver that requested your imaging first. ? Electronically signed by: Leslee hawk MD, [facility] ([phone]), at 10/23/2021 1:33 PM Param Florez MD IMG MAMMO ORDERABLES documented in this encounter Visit Diagnoses Diagnosis Atypical ductal hyperplasia of left kayley st Other specified disorders of breast Other specified disorders of breast documented in this encounter Care Teams Transformer Stock Clerk Relationship Specialty Start Date End Date Janneth Zendejas APRN PCP - General Internal Medicine 11/05/18 [address] [place] [address] documented as of this encounter
--- OUTSIDE RECORDS SUMMARY | 2022-02-09 16:01 | XMS_ITS | Encounter Summary ---
:1950 Author Organization [facility] [place] [address] Care Team Providers Name Role Phone Janneth Zendejas APRN Primary Care Provider Encounter Details Date Type Department Care Team Description 10/23/2021 Travel Social History Tobacco Use Types Packs/Day Years Used Date Former Smoker Quit: 2008 Smokeless Tobacco: Never Used Sex Assigned at Date Recorded Not on file documented as of this encounter Plan of Treatment Upcoming Encounters Date Type Specialty Care Team Description 02/20/2022 Notes Only [facility] Ray Mg PsyD [facility] er [place], [place] [address] (Wo rk) 02/21/2022 TH Visit [facility] Claudy Hernandez MD (TeleHealth) [facility] [place], [place] [address] (Wo rk) documented as of this encounter Visit Diagnoses Not on filedocumented in this encounter Care Teams Industrial Sweeper Cleaner Relationship Specialty Start Date End Date Janneth Zendejas APRN PCP - General Internal Medicine 11/05/[address] [place] [id number] documented as of this encounter
--- OUTSIDE RECORDS SUMMARY | 2022-02-09 16:01 | XMS_ITS | Encounter Summary ---
:1950 Author Organization [place] [address] Care Team Providers Name Role Phone Janneth Zendejas APRN Primary Care Provider Encounter Details Date Type Department Care Team Description 08/06/2021 Telephone Pain and Spine Natalia gibbs at [facility] [place] [address] Social History Tobacco Use Types Packs/Day Years Used Date Former Smoker Quit: 2008 Smokeless Tobacco: Never Used Sex Assigned at Date Recorded Not on file documented as of this encounter Miscellaneous Notes Telephone Encounter - Melisa Jacob - 08/06/2021 8:53 AM EST LVM to inform patient that we have cancelled her 08/13 appointment with [facility] due to her jaqueline out. Also we are waiting to schedule her with Chandra pending her referral to Endocrinology that Dr. Rothput in. documented in this encounter Plan of Treatment Upcoming Encounters Date Type Specialty Care Team Description 02/20/2022 Notes Only Pain and Spine Center Ray Mg PsyD [facility] er [address] [place] [address] (Wo rk) 02/21/2022 TH Visit Pain and Spine Center Claudy Hernandez MD (TeleHealth) [facility] [place], [place] [address] (Wo rk) documented as of this encounter Visit Diagnoses Not on filedocumented in this encounter Care Teams Switch House Operator Relationship Specialty Start Date End Date Janneth Zendejas APRN PCP - General Internal Medicine 11/05/[address] [place] [address] documented as of this encounter
--- OUTSIDE RECORDS SUMMARY | 2022-02-09 16:02 | XMS_ITS | Encounter Summary ---
:1950 Author Organization [facility] [place] [address] Care Team Providers Name Role Phone Janneth Zendejas DIAMOND EXPERT Primary Care Provider Reason for Visit Reason Comments Establish Care papilloma with atypia per RA DS Consultation (Routine) - Closed Specialty Diagnoses / Procedures Referred By Contact Refer red To Contact Surgical Oncology / Diagnoses Papilloma of breast surg cons for papilloma with atypia per RADS (DC) Janneth Zendejas, Param Castro MD General Surgery Procedures [facility] DIAMOND EXPERT [address] [place], [place] GENERAL SURG [place] [address] [place] [address] Fax: Referral ID Status Reason Start Date Expiration Date Visits Requ ested Visits Authorized [id number] Closed 03/14/2021 03/14/2022 1 1 Encounter Details Date Type Department Care Team Description 03/14/2021 Office Visit General Surgery at Param Florez, Kyler ical ductal [facility] [place] hyperplasia of left [facility] [address] [place], [place] GENERAL SURGERY [address] [place] [address] [phone] Social History Tobacco Use Types Packs/Day Years Used Date Never Smoker Smokeless Tobacco: Never Used Sex Assigned at Date Recorded Not on file documented as of this encounter Last Filed Vital Signs Vital Sign Reading Time Taken Comments Blood Pressure - - Pulse - - Temperature - - Respiratory Rate - - Oxygen Saturation - - Inhaled Oxygen Concentration - - Weight 56.7 kg (125 lb) 03/14/2021 9:41 AM EDT Height 161.3 cm (5' 3.5) 03/14/2021 9:41 AM EDT Body Mass Index 21.8 03/14/2021 9:41 AM EDT documented in this encounter Progress Notes Param Florez MD - 03/14/2021 10:00 AM EDT Shona Diehl is a 70-year-old woman sent for consultation by Janneth Zendejas for 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 Shona had a routine mammogram that showed a 7 mm mass in the left breast at 4:00 3 cm from the nipple. Ultrasound confirmed this is a solid mass. 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 She has not felt masses in either breast. Her right mammogram was normal. She has no family history of breast or ovarian cancer. She has 4 children. Current medications include Mobic and aspirin. She has allergies to codeine. Past surgical history: None Review of systems is negative for any cardiac, pulmonary or renal symptomatology. The rest review ofsystems is negative. 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 On physical exam she is alert and oriented. In general she appears well, BMI is 21.8. Pupils are equal. She is nonjaundiced. Lungs are clear. Heart has a regular rhythm. Examination of her left breast her nipple is normal, there are no palpable masses. There is no left axillary adenopathy. She has full range of motion of the left arm, no left arm edema. There are no right nipple abnormalities or breast masses. No right axillary adenopathy. Abdomen is flat. She is grossly neurologically nonfocal. I personally reviewed her mammogram images. Impression: 70-year-old woman with a core biopsy showing atypical ductal hyperplasia in a papilloma. I recommend we proceed with a wire localized excision of this mass. There is a 10 to 15% chance there may be cancer at this site. I also discussed with Shona that if she only has ADH that she is at increased risk for developing breast cancer in the future and that risk is about 1 %/year. I discussed briefly ways to manage that risk, including Tamoxifen and annual MRIs. I will discuss that more when I see her back in clinic after the surgery. We will schedule wire localized left lumpectomy in the near future. Copy to Janneth Zendejas documented in this encounter Plan of Treatment Upcoming Encounters Date Type Specialty Care Team Description 02/20/2022 Notes Only Pain and Spine Center Ray Mg PsyD [facility] [place], [place] [address] (Wo rk) 02/21/2022 TH Visit Pain and Spine Center Claudy Hernandez MD (TeleHealth) [facility] [place], [place] [address] (Wo rk) documented as of this encounter Visit Diagnoses Diagnosis Atypical ductal hyperplasia of left [address] documented in this encounter Care Teams User Experience Architect Relationship Specialty Start Date End Date Janneth Zendejas APRN PCP - General Internal Medicine 11/05/[address] [place] [address] documented as of this encounter
--- OUTSIDE RECORDS SUMMARY | 2022-02-09 16:02 | XMS_ITS | Encounter Summary ---
:1950 Author Organization [facility] [place] [address] Care Team Providers Name Role Phone Janneth Zendejas APRN Primary Care Provider Reason for Visit (Routine) - Closed Specialty Diagnoses / Procedures Referred By Contact Refer red To Contact Radiology Diagnoses Breast mass, left Janneth Zendejas, CLAIRE Procedures Request for 2nd read Mammo [address] [place] [id number] Referral ID Status Reason Start Date Expiration Date Visits Requ ested Visits Authorized [id number] Closed 01/25/2021 01/25/2022 1 1 Encounter Details Date Type Department Care Team Description 01/25/2021 Ancillary Procedure Radiology Library at Janneth Zendejas, Breast mass, left [facility]PS ENGINEER [address], [address] [place] [address] [phone] Social History Tobacco Use Types Packs/Day Years Used Date Never Smoker Smokeless Tobacco: Never Used Sex Assigned at Date Recorded Not on file documented as of this encounter Plan of Treatment Upcoming Encounters Date Type Specialty Care Team Description 02/20/2022 Notes Only Pain and Spine Center Ray Mg PsyD [facility] er [place] [address] (Wo rk) 02/21/2022 TH Visit Pain and Spine Center Claudy Hernandez MD (TeleHealth) [facility] [place] [address] (Wo rk) documented as of this encounter Procedures Procedure Name Priority Date/Time Associated Diagnosis Comme nts REQUEST FOR 2ND Routine 01/25/2021 1:46 PM Breast mass, left R esults for this READ MAMMO EDT procedure are i n the results section. documented in this encounter Results Request for 2nd read Mammo (01/25/2021 1:46 PM EDT) Anatomical Region Laterality Modality SO Specimen (Source) Anatomical Location Collection Method / Collectio n Time Received Time / Laterality Volume Impressions 01/25/2021 1:55 PM EDT 0.7 cm solid mass left breast 4:00 radian 3 cm from the nipple RECOMMENDATION: Recommend ultrasound-guided core biopsy. Our facility will coordinate this with the patient. BI-RADS Category 4: Suspicious Finding - Biopsy Should Be Considered Please note: The interpretation of the [facility] Breast Imaging Radiologist subspecialist may differ fro m the original radiologist's interpretation. This is usually not due to a deficiency of the original interpreting radiologist, rather due to the greater skill level afforded by sub-specialization in the field and/or r easonable variations in interpretations. If you have a concern regarding the D- interpretation you may contact the D- Breast [facility] at . Thank you for letting us participate in the care of this patient. ??If you are a health care provider and have any questi ons regarding this report, please contact the number below. ??For patients who have questions please contact the health laboratory animal care veterinarian that requested your imaging first. ? Narrative 01/25/2021 1:55 PM EDT INTERPRETATION OF OUTSIDE BREAST IMAGING I have been asked to consult on this pat ient by Janneth Zendejas APRN because he/she believes a review of this study m ay change or alter the care of this patient. STUDIES FROM: [facility] DATES: 01/10/2021, 01/22/2021 CLINICAL HISTORY: Biopsy recommended for solid mass left breast. ?? COMPARISONS: This study was compared with prior image s. FINDINGS: CC and MLO views were obtained of each b reast. Direct 2-D and digital breast tomosynthesis images were obtained. Ultr asound images were reviewed. Please note: Breast ultrasound is palletiser operator depe ndent. Complete assessment of the breast tissue is not possible through static im ages or cine loops. Because breast ultrasound is a dynamic process the inte rpretive value of outside images is limited. There are scattered areas of fibroglandu lar density. There is a circumscribed oval 0.7 cm mass in the left lower outer quadrant anterior third. The right breast is unremarkable. Ultrasound images depict a parallel hypo echoic mass with internal vascularity at the 4:00 radian 3 cm from the nipple erika suring 0.7 cm. Procedure Note Leslee West MD - 01/25/2021Form atting of this note might be different from the original. INTERPRETATION OF OUTSIDE BREAST IMAGING I have been asked to consult on this pat ient by Janneth Zendejas APRN because he/she believes a review of this study m ay change or alter the care of this patient. STUDIES FROM: [facility] DATES: 01/10/2021, 01/22/2021 CLINICAL HISTORY: Biopsy recommended for solid mass left breast. COMPARISONS: This study was compared with prior image s. FINDINGS: CC and MLO views were obtained of each b reast. Direct 2-D and digital breast tomosynthesis images were obtained. Ultr asound images were reviewed. Please note: Breast ultrasound is palletiser operator depe ndent. Complete assessment of the breast tissue is not possible through static im ages or cine loops. Because breast ultrasound is a dynamic process the inte rpretive value of outside images is limited. There are scattered areas of fibroglandu lar density. There is a circumscribed oval 0.7 cm mass in the left lower outer quadrant anterior third. The right breast is unremarkable. Ultrasound images depict a parallel hypo echoic mass with internal vascularity at the 4:00 radian 3 cm from the nipple erika suring 0.7 cm. IMPRESSION 0.7 cm solid mass left breast 4:00 radia n 3 cm from the nipple RECOMMENDATION: Recommend ultrasound-guided core biopsy. Our facility will coordinate this with the patient. BI-RADS Category 4: Suspicious Finding - Biopsy Should Be Considered Please note: The interpretation of the D [facility] Breast Imaging Radiologist subspecialist may differ fro m the original radiologist's interpretation. This is usually not due to a deficiency of the original interpreting radiologist, rather due to the greater skill level afforded by sub-specialization in the field and/or r easonable variations in interpretations. If you have a concern regarding the D-H interpretation you may contact the [facility] Breast [facility] at . Thank you for letting us participate in the care of this patient. If you are a health care provider and have any questi ons regarding this report, please contact the number below. For patients w ho have questions please contact the health laboratory animal care veterinarian that requested your imaging first. Janneth Zendejas APRN IMG OUTSIDE INTERPRETATION O RDERABLES documented in this encounter Visit Diagnoses Diagnosis Breast mass, left Lump or mass in breast documented in this encounter Care Teams Cable Operator Relationship Specialty Start Date End Date Janneth Zendejas APRN PCP - General Internal Medicine 11/05/18 [address] [place] [address] documented as of this encounter
--- OUTSIDE RECORDS SUMMARY | 2022-02-09 16:02 | XMS_ITS | Encounter Summary ---
:1950 Author Organization [facility] [place] [address] Care Team Providers Name Role Phone Janneth Zendejas APRN Primary Care Provider Encounter Details Date Type Department Care Team Description 03/14/2021 Orders Only General Surgery at [facility] Param Florez MD [facility] [address] GENERAL SURGERY [phone] [place], [place] [address] (Wo rk) Social History Tobacco Use Types Packs/Day Years Used Date Never Smoker Smokeless Tobacco: Never Used Sex Assigned at Date Recorded Not on file documented as of this encounter Plan of Treatment Upcoming Encounters Date Type Specialty Care Team Description 02/20/2022 Notes Only Pain and Spine Center Ray Mg PsyD [facility] [address] [place] [address] (Wo rk) 02/21/2022 TH Visit Pain and Spine Center Claudy Hernandez MD (TeleHealth) [facility] [place], [place] [address] (Wo rk) documented as of this encounter Visit Diagnoses Not on filedocumented in this encounter Care Teams Registered Nurse Cardiac Telemetry Relationship Specialty Start Date End Date Janneth Zendejas APRN PCP - General Internal Medicine 11/05/[address] [place] [address] documented as of this encounter
--- OUTSIDE RECORDS SUMMARY | 2022-02-09 16:02 | XMS_ITS | Encounter Summary ---
:1950 Author Organization [facility] [address] Care Team Providers Name Role Phone Janneth Zendejas APRN Primary Care Provider Reason for Visit Reason Comments Suture / Staple Removal Encounter Details Date Type Department Care Team Description 11/23/2018 Office Visit Dermatology at [facility], Visit f or suture Jolene SAAVEDRA removal [address] Ayo B DERMATOLOGY [place], [place] [phone] Social History Tobacco Use Types Packs/Day Years Used Date Never Smoker Smokeless Tobacco: Never Used Sex Assigned at Date Recorded Not on file documented as of this encounter Progress Notes [facility] MD - 11/23/2018 8:00 AM EDT Problem: Follow-up for suture removal biopsy results Shona follows up and had an uneventful postoperative course. She had no significant pains or no bleeding. Physical examination shows excellent healing of the biopsy site on the left cheek. 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 Patient reassured about excellent healing of biopsy site 2. May DC wound care instructions. DC bacitracin and bandaging 3. Patient asked about vitamin E or other topical product to apply to the scar but I would simply advise sunscreen/photo protection and gentle drying / cleansing of the area for the next month 4. Return to clinic in 6 months for recheck. If doing well at that time may be able to space out ourvisits CC: Janneth Zendejas APRN documented in this encounter Plan of Treatment Upcoming Encounters Date Type Specialty Care Team Description 02/20/2022 Notes Only Pain and Spine Center Ray Mg PsyD [facility] [place], [place] [address] (Wo rk) 02/21/2022 TH Visit Pain and Spine Center Claudy Hernandez MD (TeleHealth) [facility] [place], [place] [address] (Wo rk) documented as of this encounter Visit Diagnoses Diagnosis Visit for suture removal Encounter for removal of sutures documented in this encounter Care Teams Electroneurodiagnostic Technician Relationship Specialty Start Date End Date Janneth Zendejas APRN PCP - General Internal Medicine 11/05/[address] [place] [address] documented as of this encounter
--- OUTSIDE RECORDS SUMMARY | 2022-02-09 16:02 | XMS_ITS | Encounter Summary ---
:1950 Author Organization [facility] [place] [address] Care Team Providers Name Role Phone Janneth Zendejas INSTRUCTOR APPAREL MANUFACTURE Primary Care Provider Encounter Details Date Type Department Care Team Description 07/22/2019 Ancillary Procedure Radiology Library at Janneth Zendejas, [facility] INSTRUCTOR APPAREL MANUFACTURE [facility] [address] [place] [phone] [id number] (Savita rk) Social History Tobacco Use Types Packs/Day Years Used Date Never Smoker Smokeless Tobacco: Never Used Sex Assigned at Date Recorded Not on file documented as of this encounter Plan of Treatment Upcoming Encounters Date Type Specialty Care Team Description 02/20/2022 Notes Only Pain and Spine Center Ray Mg PsyD [facility] [address] [place], [place] [address] (Wo rk) 02/21/2022 TH Visit Pain and Spine Center Claudy Hernandez MD (TeleHealth) [facility] [place], [place] [address] (Wo rk) documented as of this encounter Procedures Procedure Name Priority Date/Time Associated Diagnosis Comme nts FILM LIBRARY Routine 07/22/2019 12:05 AM Results for this STORAGE ONLY DX EST procedure ar e in SPINE the results section. documented in this encounter Results Film Library- Storage Only DX Spine (07/22/2019 12:05 AM EST) Specimen (Source) Anatomical Location Collection Method / Collectio n Time Received Time / Laterality Volume Narrative RAD - 06/11/2021 1:32 PM EDT This exam is auto-finalizing. It's purpo se is for storage only. Janneth Zendejas APRN IMSherie FILM LIBRARY ORDERABLES Performing Organization Address City/State/ZIP Code Phon e Number [place], [place] documented in this encounter Visit Diagnoses Not on filedocumented in this encounter Care Teams Job Developer For Deaf Adults Relationship Specialty Start Date End Date Janneth Zendejas APRN PCP - General Internal Medicine 11/05/[address] [place] [address] documented as of this encounter
--- OUTSIDE RECORDS SUMMARY | 2022-02-09 16:02 | XMS_ITS | Encounter Summary ---
:1950 Author Organization [facility] [place] [address] Care Team Providers Name Role Phone Janneth Zendejas ELECTRICIAN MASTER Primary Care Provider Encounter Details Date Type Department Care Team Description 10/13/2019 Ancillary Procedure Radiology Library at Janneth Zendejas, [facility] ELECTRICIAN MASTER [facility] [address] [place] [id number] (Savita rk) Social History Tobacco Use Types Packs/Day Years Used Date Never Smoker Smokeless Tobacco: Never Used Sex Assigned at Date Recorded Not on file documented as of this encounter Plan of Treatment Upcoming Encounters Date Type Specialty Care Team Description 02/20/2022 Notes Only Pain [facility] Spine Center Ray Mg PsyD [facility] [address] [place], [place] [address] (Wo rk) 02/21/2022 TH Visit Pain and Spine Center Claudy Hernandez MD (TeleHealth) [facility] [place], [place] [address] (Wo rk) documented as of this encounter Procedures Procedure Name Priority Date/Time Associated Diagnosis Comme nts FILM LIBRARY Routine 10/13/2019 12:00 AM Results for this STORAGE ONLY MAMMO EST procedure are in the results section. documented in this encounter Results Film Library- Storage Only Mammo (10/13/2019 12:00 AM EST) Specimen (Source) Anatomical Location Collection Method / Collectio n Time Received Time / Laterality Volume Narrative RAD - 01/25/2021 9:40 AM EDT This exam is auto-finalizing. It's purpo se is for storage only. Janneth Zendejas APRN IMSherie FILM LIBRARY ORDERABLES Performing Organization Address City/State/ZIP Code Phon e Number [place], [place] documented in this encounter Visit Diagnoses Not on filedocumented in this encounter Care Teams Investigation Manager Relationship Specialty Start Date End Date Janneth Zendejas APRN PCP - General Internal Medicine 11/05/[address] [place] [address] documented as of this encounter
--- OUTSIDE RECORDS SUMMARY | 2022-02-09 16:02 | XMS_ITS | Encounter Summary ---
:1950 Author Organization [facility] [place] [address] Care Team Providers Name Role Phone Janneth Zendejas APRN Primary Care Provider Encounter Details Date Type Department Care Team Description 04/08/2021 Hospital Encounter Mammography [place] [facility] Param Florez Breast mass, left [facility] MD [facility] [address] GENERAL SURGERY [phone] [place] [address] Social History Tobacco Use Types Packs/Day Years Used Date Never Smoker Smokeless Tobacco: Never Used Sex Assigned at Date Recorded Not on file documented as of this encounter Medications at Time of Discharge Medication Sig Dispensed Refills Start Date End Date meloxicam (MOBIC) 7.5 mg TAKE 1 TABLET BY 0 01/04 Tablet MOUTH TWICE DAILY multivitamin Capsule Take 1 capsule by 0 mouth Daily. aspirin (ASPIR-81 ORAL) Take by mouth. 0 calcium carbonate Take 1,000 mg by 0 (CALCIUM 300 ORAL) mouth daily. TURMERIC ORAL Take 800 mg by mouth 0 daily. ergocalciferol, vitamin Take 20,000 Units by 0 09/05/2021 D2, (VITAMIN D ORAL) mouth. documented as of this encounter Plan of Treatment Upcoming Encounters Date Type Specialty Care Team Description 02/20/2022 Notes Only Pain and Spine Center Ray Mg PsyD [facility] [place], [place] [address] (Wo rk) 02/21/2022 TH Visit Pain and Spine Center Claudy Hernandez MD (TeleHealth) [facility] [place], [place] [address] (Wo rk) documented as of this encounter Procedures Procedure Name Priority Date/Time Associated Diagnosis Comme nts MAMMO SPECIMEN LEFT Routine 04/08/2021 10:53 AM Breast mass, l eft Results for this EDT procedure are i n the results section. documented in this encounter Results Mammo Specimen Left (04/08/2021 10:53 AM EDT) Anatomical Region Laterality Modality Breast Left Mammography Specimen (Source) Anatomical Location Collection Method / Collectio n Time Received Time / Laterality Volume Impressions 04/08/2021 10:54 AM EDT Positive specimen x-ray as described. Results phoned to the operating surgeon intraoperatively. Thank you for letting us participate in the care of this patient. ??If you are a health care provider and have any questi ons regarding this report, please contact the number below. ??For patients who have questions please contact the health rental boats caretaker that requested your imaging first. ? Narrative 04/08/2021 10:54 AM EDT EXAMINATION: Specimen x-ray INDICATION: Intraoperative specimen imag e for adequacy of lesion and/or clip removal TECHNIQUE: A single projection specimen x-ray from the left breast is obtained superimposed on alphanumeric grid COMPARISON: This is correlated with preo perative imaging FINDINGS: The intact wire, clip and mass are contained within the specimen. There are no close margins. Param Florez MD IMG MAMMO ORDERABLES documented in this encounter Visit Diagnoses Diagnosis Breast mass, left Lump or mass in breast documented in this encounter Care Teams Bulbs Farmworker Relationship Specialty Start Date End Date Janneth Zendejas APRN PCP - General Internal Medicine 11/05/[id number] [place] [address] documented as of this encounter
--- OUTSIDE RECORDS SUMMARY | 2022-02-09 16:02 | XMS_ITS | Encounter Summary ---
:1950 Author Organization [place] [address] Care Team Providers Name Role Phone Janneth Zendejas APRN Primary Care Provider Encounter Details Date Type Department Care Team Description 03/14/2021 Orders Only General Surgery at [facility] Param Florez MD [place] [phone] GENERAL SURGERY [place], [place] [address] (Wo rk) Social History Tobacco Use Types Packs/Day Years Used Date Never Smoker Smokeless Tobacco: Never Used Sex Assigned at Date Recorded Not on file documented as of this encounter Plan of Treatment Upcoming Encounters Date Type Specialty Care Team Description 02/20/2022 Notes Only [facility] Ray Mg PsyD [facility] er [place], [place] [address] (Wo rk) 02/21/2022 TH Visit [facility] Claudy Hernandez MD (TeleHealth) [facility] [place], [place] [address] (Wo rk) documented as of this encounter Results Mammo Specimen Left (04/08/2021 [...] who have questions please contact the health home care liaison that requested your imaging first. ? Electronically signed by: Leslee hawk MD, [facility] ([phone]), at 04/08/2021 10:54 AM Narrative 04/08/2021 10:54 AM EDT EXAMINATION: Specimen [...] mass, left Lump or mass in breast Breast mass, left Lump or mass in breast documented in this encounter Care Teams Retail And Promotions Coordinator Relationship Specialty Start Date End Date Janneth Zendejas, RECREATIONAL RESORT MANAGER PCP - General Internal Medicine 11/05/18 [address] [place] [address] documented as of this encounter
--- OUTSIDE RECORDS SUMMARY | 2022-02-09 16:02 | XMS_ITS | Encounter Summary ---
:1950 Author Organization [facility] [place] [address] Care Team Providers Name Role Phone Ken Veras MD Primary Care Provider [phone] Encounter Details Date Type Department Care Team Description 04/22/2013 Ancillary Procedure [facility] [address] [place] [phone] (Wo rk) Social History Tobacco Use Types Packs/Day Years Used Date Never Smoker Sex Assigned at Date Recorded Not on file documented as of this encounter Plan of Treatment Upcoming Encounters Date Type Specialty Care Team Description 02/20/2022 Notes Only [facility] Ray Mg PsyD [facility] [place], [place] [address] (Wo rk) 02/21/2022 TH Visit [facility] Claudy Hernandez MD (TeleHealth) [facility] [place], [place] [address] (Wo rk) documented as of this encounter Procedures Procedure Name Priority Date/Time Associated Diagnosis Comme nts FILM LIBRARY Routine 04/22/2013 12:00 AM Results for this STORAGE ONLY MAMMO EDT procedure are in the results section. documented in this encounter Results Film Library- Storage Only Mammo (04/22/2013 12:00 AM EDT) Specimen (Source) Anatomical Location Collection Method / Collectio n Time Received Time / Laterality Volume Narrative RAD - 01/25/2021 9:37 AM EDT This exam is auto-finalizing. It's purpo se is for storage only. Janneth Zendejas APRN IMG FILM LIBRARY ORDERABLES Performing Organization Address City/State/ZIP Code Phon e Number [place], [place] documented in this encounter Visit Diagnoses Not on filedocumented in this encounter Care Teams Manager Practice Relationship Specialty Start Date End Date Ken Veras MD PCP - General 07/09/10 11/04/18 [address] [place] [address] documented as of this encounter
--- OUTSIDE RECORDS SUMMARY | 2022-02-09 16:02 | XMS_ITS | Encounter Summary ---
:1950 Author Organization [facility] [place] [address] Care Team Providers Name Role Phone Janneth Zendejas APRN Primary Care Provider Encounter Details Date Type Department Care Team Description 04/08/2021 Hospital Encounter Outpatient Surgery Abdoulaye Geiger MD [facility] [place] [address] [place] [address] [phone] Social History Tobacco Use Types Packs/Day Years Used Date Never Smoker Smokeless Tobacco: Never Used Sex Assigned at Date Recorded Not on file documented as of this encounter Last Filed Vital Signs Vital Sign Reading Time Taken Comments Blood Pressure 119/63 04/08/2021 11:45 AM EDT Pulse 69 04/08/2021 11:45 AM EDT Temperature 36.9 ??C (98.4 ??F) 04/08/2021 11:13 AM EDT Respiratory Rate 20 04/08/2021 11:45 AM EDT Oxygen Saturation 97% 04/08/2021 11:45 AM EDT Inhaled Oxygen Concentration - - Weight 56.2 kg (124 lb) 04/08/2021 9:04 AM EDT Height 161.3 cm (5' 3.5) 04/08/2021 9:04 AM EDT Body Mass Index 21.62 04/08/2021 9:04 AM EDT documented in this encounter Discharge Instructions Discharge InstructionsVerna Olson RN - 04/08/2021 8:47 AM EDT General Anesthesia Discharge Instructions Go home and rest. You may be sleepy for several hours. Take it easy as sudden position changes may cause nausea and/or dizziness. Use caution on stairs. Do not smoke if you are alone. Follow a light to regular diet as tolerated today. If nausea occurs, start with clear liquids, and progress slowly to a regular diet. Do not drive, operate machinery, drink alcoholic beverages or make any legal decisions after having general anesthesia. The medications given change your reaction time and alter your judgement. IV site -- slight redness is normal, you can use warm compresses. If tenderness and redness increases or foul drainage occurs, please contact your M.D. Patients who have had endotracheal tubes/LMA (tubes used by the anesthesia staff to ensure a safe airway during your operation) may have a sore throat. This is normal and cold liquids or soothing lozenges will help ease this discomfort. Narcotic pain medications can cause constipation, please ask the surgeons office what they recommendfor prevention of this. Some non-pharmaceutical means of constipation prevention include increasing intake of fluids, eating more fruits and vegetables as well as fruit juices. If you are uncomfortable and/or unable to urinate within 8 hours of discharge and it is before 5 pm,call your physician. If it is after 5pm go to the closest emergency room or call the hospital hydraulic boom operator at [phone] and ask for physician fish conservationist covering for your physician. Questions or problems after 5pm or on a weekend: Call the [facility] hydraulic boom operator at and ask for the physician fish conservationist covering for your doctor. At 0900 am you received 650 mg of acetaminophen- Your next dose should not be taken before 6 hours have passed. Next dose not before- 1500. You should not take more than a total of 3000 mg of acetaminophen in a 24 hour period. Patient InstructionsParam Geiger MD - 04/08/2021 11:18 AM EDT Instructions following Breast Surgery Wound Care: Keep dressing on incision for the next 7 days, then you may remove and leave open to air. You may shower tomorrow morning with the Tegaderm covering the site. Do not scrub area vigorously for the next 1 week. Do not soak incision(s) under water for the next 2 weeks (i.e. soaking in bath or swimming) as this may promote a wound infection. You may remove dressing if it becomes saturated/wet and replace with dry gauze as needed for seepage/comfort. ICE: You may apply ice to incision during the first 48 hours following surgery to help limit swelling, bruising, and discomfort. You may also find wearing a bra for the first two days following surgerywill help with discomfort, although this is not absolutely necessary. Your stitches will dissolve and do not need to be removed. Activity: As tolerated by your comfort level. Call Doctor for: Please call if you notice worsening redness or drainage from incision(s) lasting longer than 5 days after your surgery, any foul-smelling drainage from the incision, pain not controlled by pain medications, persistent nausea and vomiting, or for any fevers greater than 101.3 F. The number for questions is [phone] before 5 PM week. Pain Medication: Please use ibuprofen (motrin, advil) 600 mg three times per day with food and tylenol 650 mg every 8 hours between the ibuprofen doses. Follow-up: Follow-up appointment will be scheduled with in 1-2 weeks. Scheduled Appointments: The following appointment with Dr. Geiger has been scheduled on your behalf: Future Appointments Date Time Provider Department Center 04/24/2021 2:30 PM Param Geiger MD [facility] 06/27/2021 10:30 AM Harris Marks MD [facility] Please call [phone] (clinic number) if any changes need to be made to your appointment time. documented in this encounter Medications at Time of Discharge Medication Sig Dispensed Refills Start Date End Date meloxicam (MOBIC) 7.5 mg TAKE 1 TABLET BY 0 05/21 /2021 Tablet MOUTH TWICE DAILY multivitamin Capsule Take 1 capsule by 0 mouth Daily. aspirin (ASPIR-81 ORAL) Take by mouth. 0 calcium carbonate Take 1,000 mg by 0 (CALCIUM 300 ORAL) mouth daily. TURMERIC ORAL Take 800 mg by mouth 0 daily. ergocalciferol, vitamin Take 20,000 Units by 0 09/05/2021 D2, (VITAMIN D ORAL) mouth. documented as of this encounter Progress Notes Kati Prescott RN - 04/08/2021 11:41 AM EDT Discharge instructions reviewed with pt and friend verbalized understanding and has no questions, friend has her dc instructions 1200-- pt ambulated to private car assisted by staff Ravi Jimenez RN - 04/01/2021 11:55 AM EDT Patient states that they and their escort for the day of surgery have had the Covid vaccine. They also deny any fever, cough, SOB or any other illness in the last 14 days. Patient informed of procedure to be followed upon arrival to the [facility]. That being, COVID questions will be asked again, temperature will be taken, patient and caregiver/cdl b driver will be given a mask to wear the entire time they are in the [facility] building. Verna Olson RN - 03/14/2021 1:17 PM EDT Patient states that they and their escort for the day of surgery have had the Covid vaccine. They also deny any fever, cough, SOB or any other illness in the last 14 days. Patient informed of procedure to be followed upon arrival to the [facility]. That being, COVID questions will be asked again, temperature will be taken, patient and caregiver/cdl b driver will be given a mask to wear the entire time they are in the [facility] building. documented in this encounter H&P Notes Param Geiger MD - 04/08/2021 10:01 AM EDT I examined this patient today and she is marked and is ready for surgery Left breast wire localized excision of a papilloma with atypia. documented in this encounter Miscellaneous Notes Op Note - Param Geiger MD - 04/08/2021 10:35 AM EDT [facility] Operative Note Patient Name: Shona Diehl : [id number] MR#: [id number] Case Date: 04/08/2021 Surgeon: Surgeon(s) and Role: * Param Geiger MD - Primary Preoperative diagnosis: ADH Postoperative diagnosis: ADH Procedure(s) (LRB): EXCISION LESION, BREAST W/ PREOP.MARKER (NEEDLE LOC.) (WRVU 6.69) (Left) MODIFIER WITH NEEDLE LOC., LESION #1 (Left) Anesthesia: General Estimated Blood Loss: 5 ml Specimens removed during surgery: left lumpectomy Surgical Closure: Primary Closure - skin incision is completely closed without any wires, lesley, drains or other devices Indications for surgery: Shona Diehl is a 70-year-old woman with a 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 She had a wire placed to localize this lesion. Details of the operation: She was prepped with ChloraPrep and was draped. She was given preoperativeantibiotics. I anesthetized the skin and made an incision on the inferior lateral left areolar border. We created a superficial skin flap. I dissected down to the wire which was coming in from inferiorly and flicked the wire into the incision. I then widely excised the tissue around the wire. I inked the specimen with this with 6 different colors of ink for orientation. A specimen mammogram was done which showed that the that the mass was nicely contained in the specimen with widely negative margins. The clip was also in the specimen. The specimen was then sent to pathology. We obtained meticulous h emostasis. I left 3 mL of lidocaine Marcaine and the wound. We closed the deep dermis interrupted 3-0 Vicryl and skin with 4-0 Monocryl. Gauze and Tegaderm were placed. Infection Bundle used? N/A Attestation: Case Date: 04/08/2021 I performed this procedure without the involvement of a resident. PARAM GEIGER MD 04/08/2021 documented in this encounter Plan of Treatment Upcoming Encounters Date Type Specialty Care Team Description 02/20/2022 Notes Only [facility] Sp[facility] Center Ray Mg PsyD [facility] er [place], [place] [address] (Wo rk) 02/21/2022 TH Visit [facility] Claudy Hernandez MD (TeleHealth) [facility] [place], [place] [address] (Wo rk) documented as of this encounter Procedures Procedure Name Priority Date/Time Associated Diagnosis Comme nts SURGICAL PATHOLOGY Routine 04/08/2021 10:48 AM Re sults for this REPORT EDT procedure are i n the results section. SPECIMEN TO Routine 04/08/2021 10:48 AM Results for this PATHOLOGY EDT procedure are i n the results section. MODIFIER WITH Yes 04/08/2021 10:18 AM ADH NEEDLE LOC., LESION EDT #1 EXCISION LESION, Yes 04/08/2021 10:18 AM ADH BREAST W/ EDT PREOP.MARKER (NEEDLE LOC.) (WRVU 6.69) documented in this encounter Results Surgical Pathology Report (04/08/2021 10:48 AM EDT) Component Value Ref Test Analysis Performed At [facility] Method Time Signature Surgical [id number] ? Location: [facility] Pathology [place] Report The signing pathologist has (i) examined the relevant preparation(s) for the [facility] specimen(s) and (ii) rendered or confirmed the diagnosis(es) . HOSPITAL LABORATORY . 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 (see Discussion.) The ??surrounding breast tis leidy shows a small duct papilloma with UDH, and healing biopsy site. Electronically signed by: ?Octavio MARQUEZ Kayla CanelaAdriana Verified: ??04/12/2021 12:54 ??Pathologist Performed at: ??-[facility] Dept. of Pathology, [place], [place] DISCUSSION Intradepartmental consultation with Dr. Douglas. SPECIMEN(S) SUBMITTED A - Left breast lumpectomy, excision (1) CLINICAL INFORMATION ADH SPECIMEN PROCESSING A - Labeled/Fixative: Left breast lumpectomy, fresh. Quantity/Size/Weight: Single , 4.5 cm superior to inferior, 4.0 cm transverse, 1.5 cm deep to superficial ,11.0 g. SPECIMEN DESCRIPTION Resection Specimen: Intact, lumpectomy. Specimen radiograph: The intact wire, clip and mass ar e contained within the specimen.. Specimen Description: Accord ing to the established protocol the ink designations are red (medial), yellow (l ateral), orange (superior), green (inferior), black (posterior) and blue (anterior). Tissue Sections: The specime n is serially sectioned perpendicular to the long axis from superior-orange to inf erior-green into VII slices, each averaging 0.5 cm in thickness. LESION ??Description: 1.5 cm super ior to inferior, 0.6 cm transverse, 0.6 cm anterior to posterior, white, fleshy, s oft, poorly demarcated fibrous band, with ill-defined borders. The biopsy clip is located in slice III, the fibrous band is largely located in slice is four through six ??Location: Slices IV - . ??Nearest Margin(s): 0.1 cm, medial-red. ??Other Margin(s): 0.1 cm, anterior ?? -blue. ??Other Margin(s): 0.2 cm, posterior-black. ??Other Margin(s): 1.2 cm, inferior-green. ??Other Margin(s): 1.5 cm, superior-orange. ??Other Margin(s): 2.5 cm, lateral-yellow. ??Wire/clip: Slice III Parenchyma: Fibroadipose tissue, mostly adipose Sections/Processing: Quality Lab Technician sections in 8 cassettes as follows: ?A1: ??Quality Lab Technician p erpendicular sections from slice I, margins include superior ? Storey and posterior black ?A2: ??Quality Lab Technician s ection of slice III, margins include anterior blue, posterior ? black, and superior Storey . SPECIMEN PROCESSING ?A3: ??Quality Lab Technician s ection of slices IV, with lesion, margins include anterior ? blue , superior Storey, medial red, and posterior julius ck ?A4-A6: ??Slice V trise cted and submitted entirely, with lesion, margins include ? anterior blue and med ial red in block A4, anterior blue and posterior black in ? block A5, and anterio r blue, lateral yellow, and posterior black in block A6 ?A7: ??Quality Lab Technician s lice , with lesion, ??margins include anterior blue medial ? red and posterior black ?A8: ??Quality Lab Technician p erpendicular sections of slice VII, margins include inferior ? green medial red and posterior black Ischemic Time: 0.4 hours ??jnk/pps Specimen (Source) Anatomical Collection Method Collection Time Re ceived Time Location / / Volume Laterality 04/08/2021 10:48 AM EDT Param Geiger MD PATHOLOGY/CYTOLOGY ORDERABLE S Performing Organization Address City/[facility]/[place] [id number] Specimen to Pathology (04/08/2021 10:48 AM EDT) Specimen Anatomical Collection Method Collection Time Receive d Time (Source) Location / / Volume Laterality AP Specimen 04/08/2021 10:48 04/08/2021 AM EDT 10:48 AM EDT Narrative [facility] - 04/08/2021 10:48 AM EDT Specimen requisition ordered. ??Separate Pathology report to follow Param Geiger MD PATHOLOGY/CYTOLOGY ORDERABLE S Performing Organization Address City/[facility]/[place] [id number] documented in this encounter Visit Diagnoses Not on filedocumented in this encounter Administered Medications Inactive Administered Medications - up to 3 most recent administrations Medication Order MAR Action Action Date Dose Rate Site acetaminophen (Tylenol) tablet 650 Given 04/08/2021 9:15 AM EDT 650 mg mg 650 mg, Oral, 30 MIN PRE-OP, 1 dose, On Thu04/08/21 at 0915, Day of Surgery (Day of Procedure) documented in this encounter Active and Recently Administered Medications Times are shown in EDT. Scheduled Medication Order 04/06/2021 04/07/2021 04/08/2021 acetaminophen (Tylenol) tablet 650 mg (COMPLETED) 0915 (Given - Provider: Veran Olson RN) 650 mg, Oral, 30 MIN PRE-OP, 1 dose, On Thu04/08/21 at 0915, Day of Surgery (Day of Procedure) ceFAZolin (Ancef) 2 g in dextrose 5% 100 mL infusion (COMPLETED) 1025 (Given - Provider: Wily Gomez CRNA) 2 g, Intravenous, EVERY 3 HOURS, 1 dose, First dose on Thu04/08/21 at 0915, Administer over 30 Minutes, Intra-Operative (Intra-Procedure), Indication for (Active or Suspected): Prophylaxis Continuous Medication Order 04/06/2021 04/07/2021 04/08/2021 lactated ringers infusion (CANCELED) 1010 (New Bag - Provider: Wily Gomez CRNA)1108 (Stopped - Provider: Wily Gomez CRNA) 1,000 mL, at 100 mL/hr, Intravenous, CON TINUOUS, Starting on Thu04/08/21 at 0915, Until Thu04/08/21 at 1201, Day of Surgery (Day of Procedure) PRN Medication Order 04/06/2021 04/07/2021 04/08/2021 BUpivacaine (pf) (Marcaine) (5 mg/mL) 0.5% injection (CANCELED) 1038 (Given - Provider: Param Geiger MD - Comment: local mix of 1% lidocaine mixed 1-1 with 0.5% bupivacaine. total of 7 ml given at this time.)1102 (Given - Provider: Param Geiger MD - Comment: local mix of 1% lidocaine mixed 1-1 with 0.5% ONCE PRN, Starting on Thu04/08/21 at 103 8, Until Thu04/08/21 at 1402, Intra- Operative (Intra-Procedure), Routine bup ivacaine. total of 7 ml given at this time) lidocaine (pf) (Xylocaine) (10 mg/mL) 1% injection (CANCELED) 1038 (Given - Provider: Param Geiger MD - Comment: local mix of 1% lidocaine mixed 1-1 with 0.5% bupivacaine. total of 7 ml given at this time.)1102 (Given - Provider: Param Geiger MD - Comment: local mix of 1% lidocaine mixed 1-1 with 0.5% ONCE PRN, Starting on Thu04/08/21 at 103 8, Until Thu04/08/21 at 1402, Intra- Operative (Intra-Procedure), Routine bup ivacaine. total of 7 ml given at this time) documented in this encounter Care Teams Manager Desktop Relationship Specialty Start Date End Date Janneth Zendejas APRN PCP - General Internal Medicine 11/05/[address] [place] [address] documented as of this encounter
--- OUTSIDE RECORDS SUMMARY | 2022-02-09 16:02 | XMS_ITS | Encounter Summary ---
:1950 Author Organization [facility] [place] [address] Care Team Providers Name Role Phone Ken Veras MD Primary Care Provider [phone] Encounter Details Date Type Department Care Team Description 08/26/2017 Ancillary Procedure [facility] [address] [place] [phone] (Wo rk) Social History Tobacco Use Types Packs/Day Years Used Date Never Smoker Sex Assigned at Date Recorded Not on file documented as of this encounter Plan of Treatment Upcoming Encounters Date Type Specialty Care Team Description 02/20/2022 Notes Only [facility] Ray Mg PsyD [facility] [place], [place] [address] (Wo rk) 02/21/2022 TH Visit [facility] Claudy Hernandez MD (TeleHealth) [facility] [place], [place] [address] (Wo rk) documented as of this encounter Procedures Procedure Name Priority Date/Time Associated Diagnosis Comme nts FILM LIBRARY Routine 08/26/2017 12:00 AM Results for this STORAGE ONLY MAMMO EST procedure are in the results section. documented in this encounter Results Film Library- Storage Only Mammo (08/26/2017 12:00 AM EST) Specimen (Source) Anatomical Location Collection Method / Collectio n Time Received Time / Laterality Volume Narrative RAD - 01/25/2021 9:39 AM EDT This exam is auto-finalizing. It's purpo se is for storage only. Janneth Zendejas APRN IMG FILM LIBRARY ORDERABLES Performing Organization Address City/State/ZIP Code Phon e Number [place], [place] documented in this encounter Visit Diagnoses Not on filedocumented in this encounter Care Teams Sales Trainee Relationship Specialty Start Date End Date Ken Veras MD PCP - General 07/09/10 11/04/[address] [place] [address] documented as of this encounter
--- OUTSIDE RECORDS SUMMARY | 2022-02-09 16:02 | XMS_ITS | Encounter Summary ---
:1950 Author Organization [facility] [place] [address] Care Team Providers Name Role Phone Janneth Zendejas APRN Primary Care Provider Reason for Visit Reason Comments Suture / Staple Removal Encounter Details Date Type Department Care Team Description 11/12/2018 Office Visit Dermatology at [facility], Visit f or suture Jolene SAAVEDRA removal [address] Ayo B DERMATOLOGY [place], [place] [id number] [phone] Social History Tobacco Use Types Packs/Day Years Used Date Never Smoker Smokeless Tobacco: Never Used Sex Assigned at Date Recorded Not on file documented as of this encounter Progress Notes [facility] Marks MD - 11/12/2018 1:15 PM EDT Problem: 1. Follow-up for suture removal biopsy results Shona follows up and the biopsy did come back showing BCCA with infiltrative features. Present in her left cheek with tumor extending to margins of the punch biopsy. Physical examination shows good healing of the punch biopsy site. 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 Recommended that we schedule a 30-minute point for excision of this to assure sure clear margins.Given small size/early stage of this, simple excision has excellent chance of success. 2. Answered patient questions discussed her excellent prognosis, discussed the good treatability of basal cell carcinomas. 3. Discussed postoperative wound care and need for heightened sun avoidance precautions which the patient patient now agrees to. She has never used sun with precautions in the past. CC: Janneth Zendejas APRN documented in this encounter Plan of Treatment Upcoming Encounters Date Type Specialty Care Team Description 02/20/2022 Notes Only [facility] Ray Mg PsyD [facility] [place], [place] [address] (Wo rk) 02/21/2022 TH Visit [facility] Claudy Hernandez MD (TeleHealth) [facility] [place], [place] [address] (Wo rk) documented as of this encounter Visit Diagnoses Diagnosis Visit for suture removal Encounter for removal of sutures documented in this encounter Care Teams Resident Services Supervisor Relationship Specialty Start Date End Date Janneth Zendejas APRN PCP - General Internal Medicine 11/05/[address] [place] [address] documented as of this encounter
--- OUTSIDE RECORDS SUMMARY | 2022-02-09 16:02 | XMS_ITS | Encounter Summary ---
:1950 Author Organization [facility] [place] [address] Care Team Providers Name Role Phone Janneth Zendejas MANAGER ANIMATION Primary Care Provider Encounter Details Date Type Department Care Team Description 01/22/2021 Ancillary Procedure Radiology Library at Janneth Zendejas, [facility] MANAGER ANIMATION [facility] [address] [place] [phone] (Savita rk) Social History Tobacco Use Types Packs/Day Years Used Date Never Smoker Smokeless Tobacco: Never Used Sex Assigned at Date Recorded Not on file documented as of this encounter Plan of Treatment Upcoming Encounters Date Type Specialty Care Team Description 02/20/2022 Notes Only [facility] Ray Mg PsyD [facility] [address] [place], [place] [address] (Wo rk) 02/21/2022 TH Visit [facility] Claudy Hernandez MD (TeleHealth) [facility] [place], [place] [address] (Wo rk) documented as of this encounter Procedures Procedure Name Priority Date/Time Associated Diagnosis Comme nts FILM Routine 01/22/2021 12:00 AM Results for this LIBRARY-STORAGE EDT procedure ar e in ONLY US BREAST the results section. documented in this encounter Results Film Library Storage Only US Breast (01/22/2021 12:00 AM EDT) Specimen (Source) Anatomical Location Collection Method / Collectio n Time Received Time / Laterality Volume Narrative RAD - 01/25/2021 9:43 AM EDT This exam is auto-finalizing. It's purpo se is for storage only. Janneth Zendejas APRN IMSherie FILM LIBRARY ORDERABLES Performing Organization Address City/State/ZIP Code Phon e Number [place], [place] documented in this encounter Visit Diagnoses Not on filedocumented in this encounter Care Teams Supervisor Audit Clerks Relationship Specialty Start Date End Date Janneth Zendejas APRN PCP - General Internal Medicine 11/05/[address] [place] [address] documented as of this encounter
--- OUTSIDE RECORDS SUMMARY | 2022-02-09 16:02 | XMS_ITS | Encounter Summary ---
:1950 Author Organization [place] [address] Care Team Providers Name Role Phone Janneth Zendejas APRN Primary Care Provider Encounter Details Date Type Department Care Team Description 04/16/2021 Hospital Encounter Mammography [place] [facility] [place] [address] [facility] [phone] DR DIAGNOSTIC RADIOLOGY [place], [place] [address] (Wo rk) Social History Tobacco [...] [facility] Ray Mg PsyD [facility] [place] [address] (Wo rk) 02/21/2022 TH Visit [facility] Claudy Hernandez MD (TeleHealth) [facility] [place], [place] [address] (Wo rk) documented as of this encounter Procedures Procedure Name Priority Date/Time Associated Diagnosis Comme nts MAMMO BREAST Routine 04/16/2021 10:48 AM Results for this PATHOLOGY EXCISION EDT procedure are in the results section. documented in this encounter Results MAMMO BREAST PATHOLOGY EXCISION (04/16/2021 10:48 AM EDT) Specimen (Source) Anatomical Location Collection Method / Collectio n Time Received Time / Laterality Volume Narrative Bobbi Rod - 04/16/2021 10:48 AM EDT This exam is auto-finalizing. No interpr etation was done. Leslee West MD IMG MAMMO ORDERABLES documented in this encounter Visit Diagnoses Not on filedocumented in this encounter Care Teams Toll Collector Supervisor Relationship Specialty Start Date End Date Janneth Zendejas APRN PCP - General Internal Medicine 11/05/18 [address] [place] [address] documented as of this encounter
--- OUTSIDE RECORDS SUMMARY | 2022-02-09 16:02 | XMS_ITS | Encounter Summary ---
:1950 Author Organization [facility] [place] [address] Care Team Providers Name Role Phone Ken Veras MD Primary Care Provider [phone] Reason for Visit Reason Comments Skin Check Encounter Details Date Type Department Care Team Description 01/24/2013 Office Visit Dermatology [facility] Nevus (Primary Dx) [address] [place], [place] [address] DERMATOLOGY [phone] [place], [place] [address] (Wo rk) Social History Tobacco Use Types Packs/Day Years Used Date Never Smoker Sex Assigned at Date Recorded Not on file documented as of this encounter Progress Notes [facility] Marks MD - 01/24/2013 9:49 AM EDT Problem: Skin check. Shona follows up after last being seen in September 2009. She has noted a mole that has changed on the left superior shoulder and has developed two new moles, one below her central lower lip and one on her chin. These latter two nevi have hairs that grow from them and if she shaves off the hair she will often cut the moles and they will bleed. She would like to have a general skin check. Physical examination reveals a pleasant fair-skinned 62-year-old woman who has two, 3 mm, flesh-toned, compound versus intradermal nevi, one on the central lower lip and one on the central submandibular chin. She has a compound versus intradermal 6 mm nevus on the left superior shoulder with a central darker macular pigmentation within it. All three of these nevi as well as the nevi today sparsely scattered on the chest and back, hands, arms, forearms, thighs, and calves are benign. Facial examination is likewise benign. Assessment and Plan: 1. Benign melanocytic nevi. a. Patient reassured about benign skin examination. b. Discussed the option of surgical removal of the new nevi, because they are often irritated. She will consider this and should she decide to have then removed, we will need to set up a 45-minute appointment for her, likely in March of this year. Otherwise, patient reassured about benign examination. c. Return to clinic p.r.n. COPY: Ken Veras M.D. documented in this encounter Plan of Treatment Upcoming Encounters Date Type Specialty Care Team Description 02/20/2022 Notes Only [facility] Ray Mg PsyD [facility] [address] [place], [place] [address] (Wo rk) 02/21/2022 TH Visit [facility] Claudy Hernandez MD (TeleHealth) [facility] [place], [place] [address] (Wo rk) documented as of this encounter Visit Diagnoses Diagnosis Nevus - Primary Benign neoplasm of skin, site unspecifie d documented in this encounter Care Teams Tube Station Attendant Relationship Specialty Start Date End Date Ken Veras MD PCP - General 07/09/10 11/04/[address] [place] [address] documented as of this encounter
--- OUTSIDE RECORDS SUMMARY | 2022-02-09 16:02 | XMS_ITS | Encounter Summary ---
:1950 Author Organization [facility] [place] [address] Care Team Providers Name Role Phone Janneth Zendejas PRODUCTION CORRUGATOR Primary Care Provider Encounter Details Date Type Department Care Team Description 10/08/2020 Ancillary Procedure Radiology Library at Janneth Zendejas, [facility] PRODUCTION CORRUGATOR [facility] [address] [place] [phone] (Savita rk) Social History Tobacco Use Types Packs/Day Years Used Date Never Smoker Smokeless Tobacco: Never Used Sex Assigned at Date Recorded Not on file documented as of this encounter Plan of Treatment Upcoming Encounters Date Type Specialty Care Team Description 02/20/2022 Notes Only [facility] Ray Mg PsyD [facility] [address] [place], [place] [address] (Wo rk) 02/21/2022 TH Visit [facility] Claudy Hernandez MD (TeleHealth) [facility] [place], [place] [address] (Wo rk) documented as of this encounter Procedures Procedure Name Priority Date/Time Associated Diagnosis Comme nts FILM LIBRARY Routine 10/08/2020 12:00 AM Results for this STORAGE ONLY MR EST procedure ar e in SPINE the results section. documented in this encounter Results Film Library- Storage Only MR Spine (10/08/2020 12:00 AM EST) Specimen (Source) Anatomical Location Collection Method / Collectio n Time Received Time / Laterality Volume Narrative [facility] - 01/25/2021 9:41 AM EDT This exam is auto-finalizing. It's purpo se is for storage only. Janneth Zendejas APRN IMSherie FILM LIBRARY ORDERABLES Performing Organization Address City/State/ZIP Code Phon e Number [place], [place] documented in this encounter Visit Diagnoses Not on filedocumented in this encounter Care Teams Rn Bone Marrow Transplant Relationship Specialty Start Date End Date Janneth Zendejas APRN PCP - General Internal Medicine 11/05/[address] [place] [address] documented as of this encounter
--- OUTSIDE RECORDS SUMMARY | 2022-02-09 16:02 | XMS_ITS | Encounter Summary ---
:1950 Author Organization [facility] [place] [address] Care Team Providers Name Role Phone Janneth Zendejas APRN Primary Care Provider Encounter Details Date Type Department Care Team Description 01/25/2021 Telephone Hematology and Oncol ogharlan at [facility] [place] [address] Social History Tobacco Use Types Packs/Day Years Used Date Never Smoker Smokeless Tobacco: Never Used Sex Assigned at Date Recorded Not on file documented as of this encounter Miscellaneous Notes Telephone Encounter - Sarah Reed - 01/25/2021 9:55 AM EDT Shona Claudio Shanita 1950 [id number] Referring provider: Janneth Zendejas APRN Date of Referral: 01.25.21 Please review outside breast imaging dated: 01.22.21 Reason for exam and clinical history: There is a hypoechoic mass at 4:00 of the left breast 3 cm from the nipple. Category: 4 Questions to be answered: [facility] requesting BX Sending Institution: [facility] Patient would like treatment at: [facility] Call pt at: documented in this encounter Plan of Treatment Upcoming Encounters Date Type Specialty Care Team Description 02/20/2022 Notes Only [facility] Ray Mg PsyD [facility] [place], [place] [address] (Wo rk) 02/21/2022 TH Visit [facility] Claudy Hernandez MD (TeleHealth) [facility] [place], [place] [address] (Wo rk) documented as of this encounter Visit Diagnoses Not on filedocumented in this encounter Care Teams Proposal Director Relationship Specialty Start Date End Date Janneth Zendejas APRN PCP - General Internal Medicine 11/05/[address] [place] [address] documented as of this encounter
--- OUTSIDE RECORDS SUMMARY | 2022-02-09 16:02 | XMS_ITS | Encounter Summary ---
:1950 Author Organization [facility] [place] [address] Care Team Providers Name Role Phone Italia Zendejase Naomie RANGEL Primary Care Provider Reason for Visit Reason Comments Skin Check Encounter Details Date Type Department Care Team Description 06/25/2020 Office Visit Dermatology at [facility] Nev[place]; [place] MD History of basal cell carcinoma [address] Ayo B DERMATOLOGY [place], [place] [id number] [phone] Social History Tobacco Use Types Packs/Day Years Used Date Never Smoker Smokeless Tobacco: Never Used Sex Assigned at Date Recorded Not on file documented as of this encounter Progress Notes [facility] Marks MD - 06/25/2020 9:45 AM EST Problem: 1. Annual skin checkup 2. ??History of BCCA with infiltrative features left cheek??November 2018 3. ??History of nonmelanoma skin cancer and in a brother and a sister. Shona follows up for a yearly skin checkup. She has been doing well. She has noted no lesions of concern today. She still has 2 milia on the right upper forehead, the one milium on the right eyebrow has resolved. Physical examination reveals a pleasant 70-year-old woman who has a benign examination of the head and neck the chest the back the hands the arms of forearms the thighs and the calves. There is no evidence of any malignant lesions. The left cheek BCCA site remains well-healed. The patient has type III Cuellar pigmentation. She has 2 milia on the right forehead but the right eyebrow site has resolved. Assessment plan: Benign skin examination 1. Patient reassured about benign skin examination 2. Return to clinic in 1 year for recheck 3. If doing well at that time will consider spreading visits out again. CC: Janneth Zendejas APRN documented in this encounter Plan of Treatment Upcoming Encounters Date Type Specialty Care Team Description 02/20/2022 Notes Only [facility] Ray Mg PsyD [facility] Dr [place], [place] [address] (Wo rk) 02/21/2022 TH Visit [facility] Claudy Hernandez MD (TeleHealth) [facility] [place], [place] [address] (Wo rk) documented as of this encounter Visit Diagnoses Diagnosis Nevus Benign neoplasm of skin, site unspecifie d History of basal cell carcinoma Personal history of other malignant neop lasm of skin documented in this encounter Care Teams Bow Tacker Relationship Specialty Start Date End Date Janneth Zendejas APRN PCP - General Internal Medicine 11/05/18 [address] [place] [address] documented as of this encounter
--- OUTSIDE RECORDS SUMMARY | 2022-02-09 16:02 | XMS_ITS | Encounter Summary ---
:1950 Author Organization [facility] [place] [address] Care Team Providers Name Role Phone Janneth Zendejas APRN Primary Care Provider Reason for Referral Diagnostic Test (Routine) - Closed Specialty Diagnoses / Procedures Referred By Contact Refer red To Contact Radiology Diagnoses Atypical ductal hyperplasia of left breast Other specified disorders of breast Param Florez MD [facility] Rad Mri Procedures [facility] [place] [address] [place] [address] Referral ID Status Reason Start Date Expiration Date Visits V isits Requested Authorized [id number] Closed Specialty 04/24/2021 10/22/2022 1 1 Service Requested Reason for Visit Reason Comments Follow-up Encounter Details Date Type Department Care Team Description 04/24/2021 Office Visit General Surgery at Param Florez Atyp ical ductal hyperplasia of left breast; [facility] Other specified disorders of breast [facility] [address] [place], [place] GENERAL SURGERY [address] [place] [address] [phone] Social History Tobacco Use Types Packs/Day Years Used Date Never Smoker Smokeless Tobacco: Never Used Sex Assigned at Date Recorded Not on file documented as of this encounter Last Filed Vital Signs Vital Sign Reading Time Taken Comments Blood Pressure - - Pulse - - Temperature - - Respiratory Rate - - Oxygen Saturation - - Inhaled Oxygen Concentration - - Weight 56.6 kg (124 lb 12.8 oz) 04/24/2021 2:25 PM EDT Height - - Body Mass Index 21.76 04/08/2021 9:04 AM EDT documented in this encounter Progress Notes Param Florez MD - 04/24/2021 2:30 PM EDT Shona Diehl is a 70-year-old woman who returns after left breast partial mastectomy for ADH on 04/08/2021. 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 She now returns for a check. She has no pain. On physical exam her periareolar incision is beautifully healed. There is no sign of infection or hematoma. Her breast contour is unchanged from its preoperative contour. Impression: Shona is recovering well from left partial mastectomy. I gave her a copy of her pathology report and she understands it. She is at increased risk of developing breast cancer in either breast. That risk is approximately 1 %/year. We discussed ways to manage that risk including mammography and breast self- exam, mammography breastself-exam and MRI, or mammography breast self-exam and tamoxifen or raloxifene. She would like to proceed with a left mammogram to serve as new baseline in 6 months with an bilateral breast MRI at that time. We will then obtain a bilateral mammogram a year from now and alternate every 6 months the mammogram and the MRI. Copy to Janneth Zendejas documented in this encounter Plan of Treatment Upcoming Encounters Date Type Specialty Care Team Description 02/20/2022 Notes Only [facility] Ray Mg PsyD [facility] [address] [place] [address] (Wo rk) 02/21/2022 TH Visit [facility] Sp[facility] Claudy Hernandez MD (TeleHealth) [facility] [place] [address] (Wo rk) documented as of this encounter Results Mammo Diagnostic Cad and Dayne Left (10/23/2021 1:13 PM EST) Anatomical Region [...] with their provider to determine their preferred [facility] cancer screening schedule. * ??Women should report [...] who have questions please contact the health childcare center administrator that requested your imaging first. ? Param Florez MD IMG MAMMO ORDERABLES MRI Breast wwo Contrast Bilat (10/23/2021 12:10 [...] who have questions please contact the health childcare center administrator that requested your imaging first. ? Narrative [...] t enhancement curve analysis was performed, using [employer] software. COMPARISON STUDIES: 10/23/2021 mammogram and prior breast daisha ging. BACKGROUND ENHANCEMENT PATTERN (first po st gadolinium image) minimal AMOUNT OF FIBROGLANDULAR TISSUE: Scatter ed FINDINGS: There are no morphologic abnormalities o r areas of abnormal parenchymal enhancement. There is no axillary or int ernal mammary adenopathy. Minimal postsurgical distortion is seen in the l eft breast. Param Florez MD IMG MRI ORDERABLES documented in this encounter Visit Diagnoses Diagnosis Atypical ductal hyperplasia of left [address] st Other specified disorders of breast Other specified disorders of breast Atypical ductal hyperplasia of left [address] Other specified disorders of breast Other specified disorders of breast Atypical ductal hyperplasia of left [address] Other specified disorders of breast Other specified disorders of breast documented in this encounter Care Teams Diamond Mounter Relationship Specialty Start Date End Date Janneth Zendejas APRN PCP - General Internal Medicine 11/05/[address] [place] [address] documented as of this encounter
--- OUTSIDE RECORDS SUMMARY | 2022-02-09 16:02 | XMS_ITS | Encounter Summary ---
:1950 Author Organization [facility] [place] [address] Care Team Providers Name Role Phone Ken Veras MD Primary Care Provider [phone] Encounter Details Date Type Department Care Team Description 07/17/2015 Ancillary Procedure Radiology [facility] [address] [place] [phone] (Wo rk) Social History Tobacco Use Types Packs/Day Years Used Date Never Smoker Sex Assigned at Date Recorded Not on file documented as of this encounter Plan of Treatment Upcoming Encounters Date Type Specialty Care Team Description 02/20/2022 Notes Only [facility] Ray Mg PsyD [facility] [place], [place] [address] (Wo rk) 02/21/2022 TH Visit [facility] Claudy Hernandez MD (TeleHealth) [facility] [place], [place] [address] (Wo rk) documented as of this encounter Procedures Procedure Name Priority Date/Time Associated Diagnosis Comme nts FILM LIBRARY Routine 07/17/2015 12:00 AM Results for this STORAGE ONLY MAMMO EST procedure are in the results section. documented in this encounter Results Film Library- Storage Only Mammo (07/17/2015 12:00 AM EST) Specimen (Source) Anatomical Location Collection Method / Collectio n Time Received Time / Laterality Volume Narrative RAD - 01/25/2021 9:38 AM EDT This exam is auto-finalizing. It's purpo se is for storage only. Janneth Zendejas APRN IMG FILM LIBRARY ORDERABLES Performing Organization Address City/State/ZIP Code Phon e Number [place], [place] documented in this encounter Visit Diagnoses Not on filedocumented in this encounter Care Teams Java Engineer Relationship Specialty Start Date End Date Ken Veras MD PCP - General 07/09/10 11/04/[address] [place] [address] documented as of this encounter
--- OUTSIDE RECORDS SUMMARY | 2022-02-09 16:02 | XMS_ITS | Encounter Summary ---
:1950 [place] [address] Care Team Providers Name Role Phone CristianaJanneth Naomie RANGEL Primary Care Provider Encounter Details Date Type Department Care Team Description 04/08/2021 Anesthesia Event Outpatient Surgery Desmond Lopez MD [facility] [place] [address] [place] Amy Amezcuack Lopez Faith MD [facility] [place] [address] [place] [address] Anesthesia Record Procedure Summary Procedure Name Responsible Anesthesia Start Anesthesia Stop Time Anesthesiologist Time EXCISION LESION, Сергей Lopez MD 04/08/21 1019 04/08/21 1118 BREAST W/ PREOP.MARKER (NEEDLE LOC.) (WRVU 6.69) (Left Breast) Events Date Time Event Comment 04/08/2021 0902 1019 AN Verify 1019 Start 1019 An Start Data 1022 An Induction 1024 An Intubation 1026 Anesthesia Ready 1110 Extubation/LMA Out 1114 an stop data 1117 Recovery or ICU Handoff Patient care was transferred to the destination unit staff after review of the patient's medica l history, current anesthetic/surgi wei status and plan, according to the Provider Handoff Checklist. 1118 Stop Name Total Midazolam 2 mg fentaNYL 25 mcg IV Lidocaine 40 mg Propofol 150 mg PHENYLephrine 160 mcg Ondansetron 4 mg Dexamethasone 8 mg ceFAZolin (Ancef) 2 g in dextrose 5% 100 mL infusion 2 g Propofol INF 155.11 mg ketorolac (Toradol) (30 mg/mL) injection 15 mg lactated ringers infusion 500 mL Agents Name O2 Air N2O Sevoflurane (et) Blood No blood administrations on file. Lines, Drains, and Airways Type Details Placement Removal Incision 04/08/21; 1035; Left; 04/08/21 1035 by Kevin, breast Paty Carter RN PIV 04/08/21; 0859; metacarpal 04/08/21 0859 by Shaniqua jenkins, 10/23/21 1310 by vein (top of hand), right; GAEL Topete Brian J yzcz-gjz-cutytl catheter system; 22 gauge; 10/23/21; 1310 Supraglottic Mask Ventilation: Not 04/08/21 1024 by 04/08/21 1112 by Attempted (0); LMA Type: Wily Gomez, FLOORING HELPER Wily Gomez, iGel; LMA Size: 3; FLOORING HELPER Inserted by: Jason documented in this encounter Social History Tobacco Use Types Packs/Day Years Used Date Never Smoker Smokeless Tobacco: Never Used Sex Assigned at Date Recorded Not on file documented as of this encounter OR Notes Anesthesia Postprocedure Evaluation - Сергей Lopez MD - 04/08/2021 11:22 AM EDT Department of Anesthesiology Post-procedure Note Patient: Shona Diehl Procedure Summary Date: 04/08/21 Room / Location: [facility] [place] [facility] Anesthesia Start: 1019 Anesthesia Stop: 1117 Procedures: EXCISION LESION, BREAST W/ PREOP.MARKER (NEEDLE LOC.) (WRVU 6.69) (Left Breast) MODIFIER WITH NEEDLE LOC., LESION #1 (Left ) Diagnosis: (ADH) Surgeons: Param Florez MD Responsible Provider: Сергей Lopez MD Anesthesia Type: general ASA Status: 2 All Anesthesia Providers: Anesthesiologist: Сергей Lopez MD FLOORING HELPER: Wily Gomez CRNA Vitals Value Taken Time BP 98/63 04/08/21 1120 Temp 36.9 ??C (98.4 ??F) 04/08/21 1113 Pulse 72 04/08/21 1120 Resp SpO2 98 % 04/08/21 1120 Pain Level 0 04/08/21 1119 Patient Location: PACU/[facility] Level of Consciousness: Awake and Alert Pain Management: Satisfactory Analgesia PONV: None Cardiovascular Status: At Baseline and Hemodynamically Stable Respiratory Status: At Baseline and Room Air Postoperative Fluid Status: Intravascular EUvolemia Possible Anesthetic Complications: NONE apparent at time of evaluation Final Primary Anesthesia Type: General (The anesthetic type performed was the same as planned.) Comments: СЕРГЕЙ LOPEZ MD Anesthesia Preprocedure Evaluation - Сергей Lopez MD - 04/08/2021 9:01 AM EDT Pre-Anesthesia Evaluation for: Shona Diehl a 70 y.o. female. Procedure(s): EXCISION LESION, BREAST W/ PREOP.MARKER (NEEDLE LOC.) (WRVU 6.69) MODIFIER WITH NEEDLE LOC., LESION #1 Patient Active Problem List Diagnosis ??? Solar lentigo ??? Nevus ??? Seborrheic keratosis No past medical history on file. Past Surgical History: Procedure Laterality Date ??? MAMMO US BIOPSY LEFT Left 02/08/2021 Mammo Us Biopsy Left 02/08/2021 Kamini Aguilera MD [facility] RAD MAMMOGRAPHY ??? MAMMO US NEEDLE LOCALIZATION LEFT Left 04/08/2021 Mammo US Needle Localization Left 04/08/2021 Leslee West MD [facility] RAD MAMMOGRAPHY Social History Tobacco Use ??? Smoking status: Never Smoker ??? Smokeless tobacco: Never Used Substance Use Topics ??? Alcohol use: Not on file Social History Substance and Sexual Activity Drug Use Not on file Allergies Allergen Reactions ??? Codeine Medications: MAR and/or home medications have been reviewed. Physical Exam: Preprocedure Vitals Current as of 04/08/21 0901 No BP, pulse, respiration, SpO2, or temperature recorded. Height: Weight: BMI: IBW: Airway Assessment: Mallampati: II Cardiovascular Assessment: system normal Pulmonary Assessment: pulmonary exam normal Dental Assessment: Misc Assessment: IV access: Peripheral line Last Filed Perioperative Cognitive Screening None Anesthesia Plan: ASA 2 general, with a(n) intravenous induction Needle loc excision left breast preop tyl GA/LMA vs ETT Informed Consent: Anesthetic plan and risks discussed with patient. Plan discussed with FLOORING HELPER. Anesthesia Screening documented in this encounter Plan of Treatment Upcoming Encounters Date Type Specialty Care Team Description 02/20/2022 Notes Only [facility] Ray Mg PsyD [facility] [place], [place] [address] (Wo rk) 02/21/2022 TH Visit [facility] Claudy Hernandez MD (TeleHealth) [facility] [place], [place] [address] (Wo rk) documented as of this encounter Visit Diagnoses Not on filedocumented in this encounter Administered Medications Inactive Administered Medications - up to 3 most recent administrations Medication Order MAR Action Action Date Dose Rate Site ceFAZolin (Ancef) 2 g in dextrose Given 04/08/2021 10:25 AM EDT 2 g 5% 100 mL infusion 2 g, Intravenous, EVERY 3 HOURS, 1 dose, First dose on Thu04/08/21 at 0915, Administer over 30 Minutes, Intra-Operative (Intra-Procedure), Indication for (Active or Suspected): Prophylaxis dexamethasone (Decadron) injection Given 04/08/2021 10:26 AM EDT 8 mg Intravenous, PRN, Starting on Thu04/08/21 at 1026, Until Thu04/08/21 at 1118, Anesthesia Intra-op, Routine fentaNYL (pf) (50 mcg/mL) multi-dose Given 04/08/2021 10:35 AM E DT 25 mcg injection Intravenous, PRN, Starting on Thu04/08/21 at 1035, Until Thu04/08/21 at 1118, Anesthesia Intra-op, Routine ketorolac (Toradol) (30 mg/mL) injection Given 04/08/2021 11:01 AM EDT 15 mg Intravenous, PRN, Starting on Thu04/08/21 at 1101, Until Thu04/08/21 at 1118, Anesthesia Intra-op, Routine lactated ringers infusion New Bag 04/08/2021 10:10 AM EDT 1,000 mL, at 100 mL/hr, Intravenous, CONTINUOUS, Starting on Thu04/08/21 at 0915, Until Thu04/08/21 at 1201, Day of Surgery (Day of Procedure) lidocaine (pf) (Xylocaine) (20 mg/mL) 2% Given 04/08/2021 10:22 AM EDT 40 mg injection syringe Intravenous, PRN, Starting on Thu04/08/21 at 1022, Until Thu04/08/21 at 1118, Anesthesia Intra-op, Routine midazolam (pf) (Versed) (1 mg/mL) multi-dose Given 10:19 AM EDT 2 mg injection Intravenous, PRN, Starting on Thu04/08/21 at 1019, Until Thu04/08/21 at 1118, Anesthesia Intra-op, Routine ondansetron (pf) (Zofran) (2 mg/mL) inje ction Given 04/08/2021 10:26 AM EDT 4 mg Intravenous, PRN, Starting on Thu04/08/21 at 1026, Until Thu04/08/21 at 1118, Anesthesia Intra-op, Routine PHENYLephrine in NS (PF) (KORY-SYNEPHRINE) Given 04/08/2021 11:02 AM EDT 80 mcg 0.8 mg/10 mL (80 mcg/mL) multi-dose injection Syrg Intravenous, PRN, Starting on Thu04/08/21 at 1048, Until Thu04/08/21 at 1118, Anesthesia Intra-op, Routine Given 04/08/2021 10:48 AM EDT 80 mcg propofoL (Diprivan) 10 mg/mL bolus injection Given 10:22 AM EDT 150 mg (Anesthesia) Intravenous, PRN, Starting on Thu04/08/21 at 1022, Until Thu04/08/21 at 1118, Anesthesia Intra-op propofoL (Diprivan) infusion Rate/Dose 04/08/2021 80 mcg/kg/min 26.976 Intravenous, CONTINUOUS PRN, Change 10:58 AM EDT mL/hr Starting on Thu04/08/21 at 1026, Until Thu04/08/21 at 1118, Anesthesia Intra-op, Routine Rate/Dose Change 04/08/2021 10:46 AM EDT 100 mcg/kg/min 33.72 mL/hr New Bag 04/08/2021 10:26 AM EDT 50 mcg/kg/min 16.86 mL/hr documented in this encounter Care Teams Staffing Administrator Relationship Specialty Start Date End Date Janneth Zendejas APRN PCP - General Internal Medicine 11/05/[address] [place] [address] documented as of this encounter
--- OUTSIDE RECORDS SUMMARY | 2022-02-09 16:02 | XMS_ITS | Encounter Summary ---
:1950 Author Organization [facility] [place] [address] Care Team Providers Name Role Phone Janneth Zendejas APRN Primary Care Provider Encounter Details Date Type Department Care Team Description 02/08/2021 Hospital Encounter Mammography at [facility] [place], Abnormal finding on [facility] Leslee Akbar MD breast imaging Formerly named [facility] [id number] DIAGNOSTIC [phone] [place] [address] Social History Tobacco Use Types Packs/Day Years Used Date Never Smoker Smokeless Tobacco: Never Used Sex Assigned at Date Recorded Not on file documented as of this encounter Medications at Time of Discharge Medication Sig Dispensed Refills Start Date End Date meloxicam (MOBIC) 7.5 mg TAKE 1 TABLET BY 0 01/04 Tablet MOUTH TWICE DAILY pregabalin (Lyrica) 25 mg Take 25 mg by mouth 0 1 03/14/2021 Capsule Three times a day. gabapentin (Neurontin) TK 3 CS PO TID 0 0 03/14/2021 100 mg Capsule documented as of this encounter Plan of Treatment Upcoming Encounters Date Type Specialty Care Team Description 02/20/2022 Notes Only [facility] Ray Mg PsyD [facility] [address] [place] [address] (Wo rk) 02/21/2022 TH Visit [facility] Claudy Hernandez MD (TeleHealth) [facility] [place], [place] [address] (Wo rk) documented as of this encounter Procedures Procedure Name Priority Date/Time Associated Comments Diagnosis MAMMO DIAGNOSTIC Routine 02/08/2021 1:48 PM Abnormal finding o n Results for this WITHOUT CAD LEFT EDT breast imaging procedure are in the results section. documented in this encounter Results Mammo Diagnostic Without Cad Left (02/08/2021 1:48 PM EDT) Anatomical Region Laterality Modality Breast Left Mammography Specimen (Source) Anatomical Location Collection Method / Collectio n Time Received Time / Laterality Volume Impressions 02/11/2021 1:39 PM EDT Concordant result RECOMMENDATION: Surgical referral as conveyed to [facility] and the patient by Dr. Aguilera REVIEW PATH CONFERENCE?: Yes Thank you for letting us participate in the care of this patient. ??If you are a health care provider and have any questi ons regarding this report, please contact the number below. ??For patients who have questions please contact the health insurance healthcare consultant that requested your imaging first. ? Narrative 02/11/2021 1:39 PM EDT LEFT BREAST ULTRASOUND GUIDED AUTOMATED CORE BIOPSY CLINICAL HISTORY: abnormal mammo. LEFT B REAST LESION #1 0.5 cm Mass ??Lower Outer Quadrant for O Clock 3 cm from the nipple PROCEDURAL DETAILS: Informed consent was obtained and a time out procedure was performed per protocol. Using local anesthetic (less t bishop 5 cc of 1% lidocaine), sterile technique, and ultrasound guidance the l esion in the LEFT breast was localized and sampled. Multiple satisfactory core biopsy specim ens were obtained using a 14-gauge automated device. This is significantly smaller following biopsy A Hmizate.ma [place] 14G marker clip was placed. The cl ip was in satisfactory position both sonographically and at follow-up cranio- caudal and true lateral digital mammography. COMPLICATIONS: None. PROCEDURAL ATTESTATION: Resident: None IMAGING DIFFERENTIAL DIAGNOSIS: Complicated cyst, lymph node, papilloma, carcinoma PATHOLOGIC DIAGNOSIS: Papilloma with atypia Leslee West MD IMG MAMMO ORDERABLES documented in this encounter Visit Diagnoses Diagnosis Abnormal finding on breast imaging Other (abnormal) findings on radiologica l examination of breast documented in this encounter Care Teams Photographer Apprentice Lithographic Relationship Specialty Start Date End Date Janneth Zendejas APRN PCP - General Internal Medicine 11/05/18 [address] [place] [address] documented as of this encounter
--- OUTSIDE RECORDS SUMMARY | 2022-02-09 16:02 | XMS_ITS | Encounter Summary ---
:1950 Author Organization [facility] [place] [address] Care Team Providers Name Role Phone Cristiana Janneth Naomie RANGEL Primary Care Provider Reason for Visit Reason Comments Follow-up Encounter Details Date Type Department Care Team Description 01/04/2019 Office Visit [facility]atology at [facility], Visit f or suture Jolene SAAVEDRA removal [address] Ayo B DERMATOLOGY [place], [place] [id number] [phone] Social History Tobacco Use Types Packs/Day Years Used Date Never Smoker Smokeless Tobacco: Never Used Sex Assigned at Date Recorded Not on file documented as of this encounter Progress Notes [facility] MD - 01/04/2019 4:45 PM EDT Problem: Spitting Vicryl sutures left cheek Shona follows up and after procedure on November 23 had an eventful healing course. Recently however sheis noted some white threads protruding from the center point of the excision scar. Physical examination reveals spitting Vicryl sutures present at the mid surgical line on her left medial cheek Assessment and plan: Vicryl suture material, at mid point of excision 1. Explained the phenomenon of the spitting Vicryl sutures to patient 2. Using pickups each of these 2 threads were grasped and pulled free 3. Patient tolerated well 4. Return to clinic in May for next skin checkup. 5. Site appears to be healing very well. Patient and I both quite pleased. CC: Janneth Zendejas APRN documented in this encounter Plan of Treatment Upcoming Encounters Date Type Specialty Care Team Description 02/20/2022 Notes Only [facility] Ray Mg PsyD [facility] [place], [place] [address] (Wo rk) 02/21/2022 TH Visit [facility] Claudy Hernandez MD (TeleHealth) [facility] [place], [place] [address] (Wo rk) documented as of this encounter Visit Diagnoses Diagnosis Visit for suture removal Encounter for removal of sutures documented in this encounter Care Teams Service Attendant Relationship Specialty Start Date End Date Janneth Zendejas APRN PCP - General Internal Medicine 11/05/18 [address] [place] [address] documented as of this encounter
--- OUTSIDE RECORDS SUMMARY | 2022-02-09 16:02 | XMS_ITS | Encounter Summary ---
:1950 Author Organization [facility] [place] [address] Care Team Providers Name Role Phone Janneth Zendejas EXAM PROCTOR Primary Care Provider Reason for Referral Physical Therapy (Routine) - Authorized Specialty Diagnoses / Procedures Referred By Contact Refer red To Contact Physical Therapy Diagnoses Chronic right-sided low back pain, unspecified whether sciatica present Right lumbar radiculitis Lumbar spondylosis Other idiopathic scoliosis, lumbar region Sacroiliac dysfunction Ezio Warner MD [facility] [place] [address] [place] [address] Phone: Referral ID Status Reason Start Expiration Visits Visits Date Date Requested Authorized [id number] Authorized Evaluate and 06/17/2021 06/17/2022 12 12 Treat Reason for Visit Reason Comments Back Pain Right Leg Pain Consultation (Routine) - Authorized Specialty Diagnoses / Procedures Referred By Contact Refer red To Contact [facility] Diagnoses Radiculopathy, lumbar region Spine-2nd opinion lumbar stenosis/radiculopathy/ MRI 10/08/20 in [facility]/ has had injections/PT (notes in care everywhere & media) Janneth Zendejas, [facility] Pain And EXAM PROCTOR Spine [address] [facility] [address] [address] [place] [address] Phone: Fax: Referral ID Status Reason Start Expiration Visits Visits Date Date Requested Authorized [id number] Authorized Consult, 05/03/2021 05/03/2022 6 6 [facility] PCP Updated and/or Approved Encounter Details Date Type Department Care Team Description 06/17/2021 Office Visit [facility] Zack Warner dd, MD Chronic right-sided low back pain, unspe cified whether sciatica present; at [facility] Right lumbar radiculitis; [facility] Lumbar spondylosis; [place] [address] Other idiopathic scoliosis, lumbar regio n; [place], [place] [phone] Sacroiliac dysf unction [id number] (Work) [phone] Social History Tobacco Use Types Packs/Day Years Used Date Former Smoker Quit: 2008 Smokeless Tobacco: Never Used Sex Assigned at Date Recorded Not on file documented as of this encounter Last Filed Vital Signs Vital Sign Reading Time Taken Comments Blood Pressure 150/88 06/17/2021 8:46 AM EDT Pulse 83 06/17/2021 8:46 AM EDT Temperature - - Respiratory Rate - - Oxygen Saturation 98% 06/17/2021 8:46 AM EDT Inhaled Oxygen Concentration - - Weight 56.2 kg (124 lb) 06/17/2021 8:46 AM EDT Height 161.3 cm (5' 3.5) 06/17/2021 8:46 AM EDT Body Mass Index 21.62 06/17/2021 8:46 AM EDT documented in this encounter Progress Notes Ezio Warner MD - 06/17/2021 9:00 AM EDT Images from the original note were not included. Subjective: Shona Diehl is a 71 y.o. female who presents for Physical Medicine and Rehabilitation consultation, at the request of Janneth Zendejas APRN. She presents today with a number of musculoskeletal symptoms. These include focal right buttock/sacroiliac pain and non-contiguous pain in the mid to distal right anterolateral leg. She can experience brief, generalized and self-limited right lower extremity pain radiation with the addition of ipsilateral weightbearing during car transfers. She has had a singleepisode of non-contiguous pain in the midportion of the right posterior thigh. Sensory symptoms haveincluded paresthesias to light touch about the right anterior knee and hypersensitivity in right anterolateral leg with contact from the metal zipper on her bed clothes. Date of onset/clinical course: The patient states that she has had the current symptom complex for afew years, but has noted an associated progressive decrease in sitting tolerance over time due to right buttock and leg pain. She gives a history of chronic, episodic right superior buttock pain since her 40s. In the past, the symptoms were responsive to tennis ball massage. Pain is intermittent. She reports no pain at present. Exacerbating factors: Prolonged sitting or driving and right lower extremity weightbearing. Right buttock/SI pain, specifically, can be brought on by forward flexion from the seated position. Alleviating factors: Repositioning of the right lower extremity in bed, tennis ball massage and the use of a towel roll against the low back or under the right thigh. The patient denies focal lower extremity weakness, bowel/bladder dysfunction or gait/balance impairment. Current treatment: The patient has been treated through the [facility] system. She underwent an unspecifiedepidural steroid injection at L4-L5. This brought no relief. She experienced satisfactory relief forapproximately 1 week following an injection at the L5-S1 level. She is scheduled for a third injection at the [facility] on 07/05/2021. The patient underwent PT treatment in the spring. The focus was on strengthening. It provided no significant relief. She has treated with a chiropractor in the past and resume such proximately 3 weeks ago. The patient had no relief with gabapentin or Lyrica. She continues to take meloxicam. She is uncertain that this has been effective. The patient was evaluated by Chandra Bailey MD on 04/29/2021. His note is reviewed. The patient reported a 2-year history of right lower extremity pain with terminus in the anterior lateral calf. He reviewed a lumbar MRI, demonstrating transitional lumbosacral anatomy. He noted right subarticular recessstenosis and intervertebral foraminal narrowing at L4-L5, as well as right-sided intervertebral foraminal narrowing at L5-S1. Additional findings included degenerative scoliosis with a right lateral listhesis at L3-L4 and L4- L5. Neurological examination was normal, with the exception of altered sensation in right lateral calf. Assessment was right L4 and/or L5 radiculopathy with underlying degenerative scoliosis. He recommended proceeding with a third epidural steroid injection. The possibility of diagnostic lumbar medial branch blocks and radiofrequency ablation was discussed. He offered the patient an instrumented fusion from L2-S1, if she wished to proceed at any time in the future. Past medical history includes rheumatic fever, basal cell carcinoma and osteoporosis. DEXA scan fromDecember 2020 yielded T-scores of -2.9 at the left hip and -3.6 at the left femoral neck. She was startedon alendronate by Cynthia Pruitt APRN in March. Lumbosacral radiographs knee flexion and extension views from 03/28/2021 are reviewed. This demonstrates mild convex right scoliosis, multilevel degenerative facet arthropathy and minimal retrolisthesisat L3 and L5 without dynamic instability. The presence of transitional vertebra is noted at the lumbosacral junction. I have reviewed the lumbar MRI of 10/08/2020. This demonstrates marked disc space narrowing and degenerative endplate changes at L3-L4 and L4-L5. There is multilevel bilateral facet arthropathy in the mid to low lumbar spine. Subarticular recess stenosis is seen on the right at L3-L4 and bilaterally atL4- L5. Intervertebral foraminal narrowing is most marked on the right at L4-L5 and L5-S1. Degenerative right lateral listhesis are present at L3-L4 and L4-L5. No past medical history on file. Past Surgical History: Procedure Laterality Date ??? MAMMO US BIOPSY LEFT Left 02/08/2021 Mammo Us Biopsy Left 02/08/2021 Kamini Aguilera MD [facility] RAD MAMMOGRAPHY ??? MAMMO US NEEDLE LOCALIZATION LEFT Left 04/08/2021 Mammo US Needle Localization Left 04/08/2021 Leslee West MD [facility] RAD MAMMOGRAPHY ??? PRO EXCISE BREAST LES W XRAY MARKER Left 04/08/2021 EXCISION LESION, BREAST W/ PREOP.MARKER (NEEDLE LOC.) (WRVU 6.69) performed by Param Florez, Sandro [facility] OSC Current Outpatient Medications on File Prior to Visit Medication Sig Dispense Refill ??? cholecalciferol, Vitamin D3, 50 mcg (2,000 unit) Tablet Take 2,000 Units by mouth. ??? acetaminophen (Tylenol) 500 mg Tablet Take 500 mg by mouth Every 6 hours as needed. ??? ibuprofen (Advil) 200 mg Tablet Take 200 mg by mouth Every 6 hours as needed. ??? meloxicam (MOBIC) 7.5 mg Tablet TAKE 1 TABLET BY MOUTH TWICE DAILY ??? multivitamin Capsule Take 1 capsule by mouth Daily. ??? aspirin (ASPIR-81 ORAL) Take by mouth. ??? calcium carbonate (CALCIUM 300 ORAL) Take by mouth. ??? TURMERIC ORAL Take by mouth. ??? ergocalciferol, vitamin D2, (VITAMIN D ORAL) Take 20,000 Units by mouth. No current facility-administered medications on file prior to visit. Allergies Allergen Reactions ??? Codeine Review of Systems: As above. Spine Center Response Trends Patient-reported scores: myD-H Spine Questionnaire responses 06/11/2021 Oswestry Disability Index (Range: 0-100) 24.44 (Moderate disability) PROMIS-10 Physical Health Score 44.9 PROMIS-10 Mental Health Score 53.3 The knee area is more of a pricking Objective: The patient declined the services of a freelance interpreter/translator during today's evaluation. BP 150/88 Pulse 83 Ht 161.3 cm (5' 3.5) Wt 56.2 kg (124 lb) SpO2 98% BMI 21.62 kg/m?? The patient is seated comfortably and in no apparent distress. There is no pain behaviors noted during today's evaluation. Patient exhibits 2 or 3 self-corrected losses of balance while ambulating in the exam room. Right foot is externally rotated throughout the gait cycle. There is no difficulty performing bilateral heel or toe walking. The presence of lumbar scoliosis is noted. Thoracic kyphosis is decreased. Lumbar lordosis is decreased. Standing iliac crest palpation is elevated on the right. Standing flexion test is positive on the left. There is apparent lengthening of right lower extremity with supine/long sitting. Patient exhibits a mild right rib hump at end range lumbar flexion. There is no pain with active lumbar flexion or stage. Palpation: Tenderness is noted over right sacroiliac joint. Lumbar and lateral lumbopelvic regions are otherwise nontender. There is no pain with pelvic compression. MARCO ANTONIO is negative bilaterally. Marked tightness noted in bilateral iliotibial bands and rectus femoris. Right hip abductors 4 -/5. Lower extremity motor examination otherwise 5/5 throughout. Sensation: Intact to light touch throughout the lower extremities. Straight leg raising: Negative bilaterally in sitting and supine. Muscle stretch reflexes: 2+ bilaterally for quadriceps and 1+ for Achilles tendon. Tone normal throughout the lower extremities. No ankle clonus. Assessment: Encounter Diagnoses Name Primary? Chronic right-sided low back pain, unspecified whether sciatica present ??? Right lumbar radiculitis ??? Lumbar spondylosis ??? Other idiopathic scoliosis, lumbar region ??? Sacroiliac dysfunction The patient presents with chronic focal pain in right superior buttock and the sacroiliac region. She exhibits focal tenderness to palpation over the right sacroiliac joint. The predominant extremity pain is non-contiguous and noted in the anterolateral aspect of the right mid to distal leg. She reports having contiguous pain radiation only with the initiation of right lower extremity weightbearing after long distance riding. Further, right lower extremity pain is decreased by repositioning of the limb and the use of cushions. The overall picture suggests a significant mechanical component to the right lower extremity pain complaints. There is clinical evidence of sacroiliac mechanical dysfunction on examination. Pertinent findings include pelvic obliquity and functional leg length discrepancy, focally impaired lumbopelvic motion, focal hip girdle weakness and focal sacroiliac joint tenderness. The patient may be predisposed to sacroiliac pain and dysfunction, given the presence of transitional anatomy at the lumbosacral junction.I cannot exclude the possibility of a facet-mediated component to the symptoms of pain in the right buttock, although this would not easily explain the distal right lower extremity pain symptoms. The patient has known degenerative spondylolisthesis with marked spondylotic changes at L3-L4 and L4-L5. There is potential impingement of the right L4 and/or L5 nerve roots on the basis of the observed radiological changes. The terminus of the patient's pain is more suggestive of L5 nerve root involvement. Unlike the examination completed by Dr. Bailey in April, I find no focal neurological deficits to support the presence of regular process. The patient reports some sensory symptoms in the right leg that are consistent with a neurogenic process. It is unclear to me, however, that the patient's pain is radicular, or primarily radicular, in nature. I note that, to this point, she has experienced only short-term relief with the second of twolumbar epidural steroid injections. Given the diagnostic uncertainty regarding the exact nature and source of the patient's pain, I agree with plans for the repeat epidural steroid injection. In addition, I recommend spine-focused, movement based PT treatment at our center via [facility]. Depending on the response to PT treatment, consideration will be given to diagnostic/therapeutic injections of right sacroiliac and/or lumbar facet joints. If the patient has continued right lower extremity pain despite the treatment plan noted above, consideration will be given to lower extremity electrodiagnostic testing. Plan: 1. Proceed with repeat lumbar epidural steroid injection, as planned. 2. MDT. 3. Follow-up with me in 8 weeks during PT treatment. The consultation request of Janneth Zendejas APRN is greatly appreciated. Total time spent on date of encounter = 71 minutes. Ezio Warner MD, MS 06/17/2021 documented in this encounter Plan of Treatment Upcoming Encounters Date Type Specialty Care Team Description 02/20/2022 Notes Only Pain [facility] Sp[facility] Ray Mg PsyD [facility] [address] [place] [address] (Wo jacky) 02/21/2022 TH Visit [facility] and Sp[facility] Center Claudy Hernandez MD (TeleHealth) [facility] [place], [place] [address] (Wo jacky) Scheduled Referrals Name Type Priority Associated Diagnoses Order S chedule Referral to Outpatient Referral Routine Chronic right-sided O rdered: Physical Therapy low back pain, 1 unspecified whether sciatica present Right lumbar radiculitis Lumbar spondylos is Other idiopathic scoliosis, lumbar region Sacroiliac dysfunction documented as of this encounter Visit Diagnoses Diagnosis Chronic right-sided low back pain, unspe cified whether sciatica present Right lumbar radiculitis Thoracic or lumbosacral neuritis or radi culitis, unspecified Lumbar spondylosis Lumbosacral spondylosis without myelopat hy Other idiopathic scoliosis, lumbar regio n Sacroiliac dysfunction Disorders of sacrum documented in this encounter Care Teams Forest Nursery Supervisor Relationship Specialty Start Date End Date Janneth Zendejas APRN PCP - General Internal Medicine 11/05/[address] [place] [address] documented as of this encounter
--- OUTSIDE RECORDS SUMMARY | 2022-02-09 16:02 | XMS_ITS | Encounter Summary ---
:1950 Author Organization [place] [address] Care Team Providers Name Role Phone Janneth Zendejas APRN Primary Care Provider Encounter Details Date Type Department Care Team Description 02/08/2021 Hospital Encounter Mammography at [facility], Abnormal finding on [facility] Leslee Akbar MD breast imaging [facility] [id number] DIAGNOSTIC [phone] [place] [address] Social History Tobacco Use Types Packs/Day Years [...] [facility] Ray Mg PsyD [facility] [address] [place] [address] (Wo rk) 02/21/2022 TH Visit [facility] Sp[facility] Claudy Hernandez MD (TeleHealth) [facility] [place], [place] [address] (Wo rk) documented as of this encounter Procedures Procedure Name Priority Date/Time Associated Diagnosis Comme nts MAMMO US BIOPSY Routine 02/08/2021 1:35 PM Abnormal finding on Results for this LEFT EDT breast imaging procedure are in the results section. SPECIMEN TO Routine 02/08/2021 1:30 PM Results f or this PATHOLOGY EDT procedure are i n the results section. SURGICAL PATHOLOGY Routine 02/08/2021 1:26 PM Res ults for this REPORT EDT procedure are i n the results section. documented in this encounter Results Mammo Us Biopsy Left (02/08/2021 1:35 PM EDT) Anatomical Region Laterality Modality Breast Left Mammography Specimen (Source) Anatomical Location Collection Method / Collectio n Time Received Time / Laterality Volume Impressions 02/11/2021 1:39 PM EDT Concordant result RECOMMENDATION: [facility] patient by Dr. Aguilera REVIEW PATH CONFERENCE?: Yes Thank you for letting us participate in the care of this patient. ??If you are a health care provider and have any questi ons regarding this report, please contact the number below. ??For patients who have questions please contact the health rn progressive care unit that requested your imaging first. ? Narrative [...] This is significantly smaller following biopsy A [employer] Arely 14G marker clip was placed. The cl ip was in satisfactory position both sonographically and at follow-up cranio- caudal and true lateral digital mammography. COMPLICATIONS: None. PROCEDURAL ATTESTATION: Resident: None IMAGING DIFFERENTIAL DIAGNOSIS: Complicated cyst, lymph node, papilloma, carcinoma PATHOLOGIC DIAGNOSIS: Papilloma with atypia Leslee West MD IMG MAMMO ORDERABLES Specimen to Pathology (02/08/2021 1:30 PM EDT) Specimen Anatomical Collection Method Collection Time Receive d Time (Source) Location / / Volume Laterality AP Specimen 02/08/2021 1:30 PM 1:30 EDT PM EDT Narrative [facility] - 02/08/2021 1:30 PM EDT Specimen requisition ordered. ??Separate Pathology report to follow Kamini Aguilera MD PATHOLOGY/CYTOLOGY ORDERABLE S Performing Organization Address City/State/[place] [address] Surgical Pathology Report (02/08/2021 1:26 PM EDT) Component Value Ref Test Analysis Performed At [facility] gist Range Method Time Signature Surgical [id number] ? Location: 3L [facility] Report The signing pathologist has (i) examined the relevant preparation(s) for the [facility] specimen(s) and (ii) rendered or confirmed the diagnosis(es) . H[facility]PITAL LAB[facility]ORY . 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 Microcalcifications: ??N/A Electronically signed by: ?Alivia Douglas DO Verified: ??02/11/2021 10:32 ??Pathologist Performed at: ??-[facility] Dept. of Pathology, [place], [place] SPECIMEN(S) SUBMITTED A - Left breast U/S CLINICAL INFORMATION Mass 1. FA 2. Papilloma 3. IDC SPECIMEN PROCESSING A - Labeled/Fixative: Left breast US biopsy, formalin. Quantity/Size: Multiple, ranging from 0.3 x 0.1 cm to 1.0 x 0.1 cm Tissue Description: Yellow-white fibrofatty needle core biop sies. Sections/Processing: Entirely submitted in 2 cassettes label ed A1-A2. Ischemic Time: 2 minutes ??sns Specimen (Source) Anatomical Collection Method Collection Time Re ceived Time Location / / Volume Laterality 02/08/2021 1:26 PM EDT Kamini Aguilera MD PATHOLOGY/CYTOLOGY ORDERABLE S Performing Organization Address City/State/[place] [address] [facility] [address] documented in this encounter Visit Diagnoses Diagnosis Abnormal finding on breast imaging Other (abnormal) findings on radiologica l examination of breast documented in this encounter Administered Medications Inactive Administered Medications - up to 3 most recent administrations Medication Order MAR Action Action Date Dose Rate Site lidocaine (Xylocaine) 1% (10 mg/mL) Given 02/08/2021 2:00 PM EDT 10 mg injection 10 mg 10 mg, Intradermal, ONCE, 1 dose, On Thu02/08/21 at 1400, Routine documented in this encounter Care Teams Gate Services Supervisor Relationship Specialty Start Date End Date Janneth Zendejas APRN PCP - General Internal Medicine 11/05/[id number] [place] [address] documented as of this encounter
--- OUTSIDE RECORDS SUMMARY | 2022-02-09 16:02 | XMS_ITS | Encounter Summary ---
:1950 Author Organization [place] [address] Care Team Providers Name Role Phone Ken Veras MD Primary Care Provider Reason for Visit Reason Comments Follow-up Encounter Details Date Type Department Care Team Description 07/07/2014 Office Visit Dermatology at [facility] Solar l entigo; Jolene SAAVEDRA Nevus; [address] Seborrheic keratosis Ayo B DERMATOLOGY [place], [place] [id number] [phone] Social History Tobacco Use Types Packs/Day Years Used Date Never Smoker Sex Assigned at Date Recorded Not on file documented as of this encounter Progress Notes [facility] MD - 07/07/2014 11:10 AM EST Problem List: 1. Skin check. 2. No personal history of skin cancer, history of nonmelanoma skin cancer in brother and sister. Shona follows up after last being seen in January of 2013. She would like to have a general skin checkup. She does not follow sun avoidance precautions. Physical examination reveals a fair-skinned 64-year-old woman who has several compound versus intradermal nevi on the abdomen. They are 3 to 4 mm in diameter and flesh-toned. Examination of the head and the neck, the chest, the back, hands, arms, forearms, thighs, and calves reveals a few solar lentigos, but otherwise fairly minimal actinic damage and a benign skin exam today. Assessment and Plan: 1. Benign melanocytic nevi. a. Patient reassured about benign skin examination. b. Encouraged wearing a hat when mowing the grass and certainly mowing the grass in the later afternoon to minimize sun damage. c. Recommend I see her again in another two or three years for repeat check. Return to clinic reminder two years. documented in this encounter Plan of Treatment Upcoming Encounters Date Type Specialty Care Team Description 02/20/2022 Notes Only [facility] Ray Mg PsyD [facility] [place], [place] [address] (Wo rk) 02/21/2022 TH Visit [facility] Claudy Hernandez MD (TeleHealth) [facility] [place], [place] [address] (Wo rk) documented as of this encounter Visit Diagnoses Diagnosis Solar lentigo Other dyschromia Nevus Benign neoplasm of skin, site unspecifie d Seborrheic keratosis Other seborrheic keratosis documented in this encounter Care Teams Senior Application Programmer Relationship Specialty Start Date End Date Ken Veras MD PCP - General 07/09/10 11/04/[id number] [place] [address] documented as of this encounter
--- OUTSIDE RECORDS SUMMARY | 2022-02-09 16:02 | XMS_ITS | Encounter Summary ---
:1950 Author Organization [facility] [place] [address] Care Team Providers Name Role Phone Janneth Zendejas DOCK GUARD Primary Care Provider Encounter Details Date Type Department Care Team Description 01/10/2021 Ancillary Procedure Radiology Library at Janneth Zendejas, [facility] DOCK GUARD [facility] [address] [place] [phone] (Savita rk) Social History Tobacco Use Types Packs/Day Years Used Date Never Smoker Smokeless Tobacco: Never Used Sex Assigned at Date Recorded Not on file documented as of this encounter Plan of Treatment Upcoming Encounters Date Type Specialty Care Team Description 02/20/2022 Notes Only [facility] Ray Mg PsyD [facility] [address] [place] [address] (Wo rk) 02/21/2022 TH Visit [facility] Claudy Hernandez MD (TeleHealth) [facility] [place], [place] [address] (Wo rk) documented as of this encounter Procedures Procedure Name Priority Date/Time Associated Diagnosis Comme nts FILM LIBRARY Routine 01/10/2021 12:05 AM Results for this STORAGE ONLY MAMMO EDT procedure are in the results section. documented in this encounter Results Film Library- Storage Only Mammo (01/10/2021 12:05 AM EDT) Specimen (Source) Anatomical Location Collection Method / Collectio n Time Received Time / Laterality Volume Narrative RAD - 01/25/2021 9:42 AM EDT This exam is auto-finalizing. It's purpo se is for storage only. Janneth Zendejas APRN IMSherie FILM LIBRARY ORDERABLES Performing Organization Address City/State/ZIP Code Phon e Number [place], [place] documented in this encounter Visit Diagnoses Not on filedocumented in this encounter Care Teams Set Up Person Relationship Specialty Start Date End Date Janneth Zendejas APRN PCP - General Internal Medicine 11/05/[address] [place] [address] documented as of this encounter
--- OUTSIDE RECORDS SUMMARY | 2022-02-09 16:02 | XMS_ITS | Encounter Summary ---
:1950 Author Organization [facility] [place] [place] [address] Care Team Providers Name Role Phone Janneth Zendejas CUSTOMER SERVICE TRAINER Primary Care Provider Encounter Details Date Type Department Care Team Description 07/22/2019 Ancillary Procedure Radiology Library at Janneth Zendejas, [facility] CUSTOMER SERVICE TRAINER [facility] [address] [place] [phone] (Savita rk) Social History Tobacco Use Types Packs/Day Years Used Date Never Smoker Smokeless Tobacco: Never Used Sex Assigned at Date Recorded Not on file documented as of this encounter Plan of Treatment Upcoming Encounters Date Type Specialty Care Team Description 02/20/2022 Notes Only [facility] Ray Mg PsyD [facility] [address] [place], [place] [address] (Wo rk) 02/21/2022 TH Visit [facility] Claudy Hernandez MD (TeleHealth) [facility] [place], [place] [address] (Wo rk) documented as of this encounter Procedures Procedure Name Priority Date/Time Associated Diagnosis Comme nts FILM LIBRARY Routine 07/22/2019 12:00 AM Results for this STORAGE ONLY DX EST procedure ar e in PELVIS the results section. documented in this encounter Results Film Library- Storage Only DX Pelvis (07/22/2019 12:00 AM EST) Specimen (Source) Anatomical Location Collection Method / Collectio n Time Received Time / Laterality Volume Narrative RAD - 06/11/2021 1:32 PM EDT This exam is auto-finalizing. It's purpo se is for storage only. aJnneth Zendejas APRN IMSherie FILM LIBRARY ORDERABLES Performing Organization Address City/State/ZIP Code Phon e Number [place], [place] documented in this encounter Visit Diagnoses Not on filedocumented in this encounter Care Teams Academic Physician Relationship Specialty Start Date End Date Janneth Zendejas APRN PCP - General Internal Medicine 11/05/[address] [place] [address] documented as of this encounter
--- OUTSIDE RECORDS SUMMARY | 2022-02-09 16:02 | XMS_ITS | Encounter Summary ---
:1950 Author Organization [facility] [place] [address] Care Team Providers Name Role Phone Janneth Zendejas APRN Primary Care Provider Encounter Details Date Type Department Care Team Description 03/02/2020 Office Visit Dermatology at [facility], History of basal cell carcinoma; Jolene SAAVEDRA Nevus; [address] [facility] DERMATOLOGY [place], [place] [phone] Social History Tobacco Use Types Packs/Day Years Used Date Never Smoker Smokeless Tobacco: Never Used Sex Assigned at Date Recorded Not on file documented as of this encounter Progress Notes [facility] MD - 03/02/2020 9:00 AM EDT Problem: 1. New lesions of concern right forehead and right supra brow 2. 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 History of nonmelanoma skin cancer and in a brother and a sister. Shona follows up and is concerned about some new lesions, 1 on the right eyebrow and 2 on the right forehead. Examination reveals 3 milia. Assessment plan: Milia 1. Patient reassured of benign diagnosis. She was very concerned that these represented more skin cancers and they do not 2. No treatment required 3. Discussed the option of office removal if they do not spontaneously resolve 4. Patient has an appointment in May, she will keep that and we will reassess her milia at that time CC: Janneth Zendejas APRN documented in this encounter Plan of Treatment Upcoming Encounters Date Type Specialty Care Team Description 02/20/2022 Notes Only [facility] Ray Mg PsyD [facility] [place], [place] [address] (Wo rk) 02/21/2022 TH Visit [facility] Claudy Hernandez MD (TeleHealth) [facility] [place], [place] [address] (Wo rk) documented as of this encounter Visit Diagnoses Diagnosis History of basal cell carcinoma Personal history of other malignant neop lasm of skin Nevus Benign neoplasm of skin, site unspecifie d Milium Sebaceous cyst documented in this encounter Care Teams Laundry Housekeeper Relationship Specialty Start Date End Date Janneth Zendejas APRN PCP - General Internal Medicine 11/05/[address] [place] [address] documented as of this encounter
--- OUTSIDE RECORDS SUMMARY | 2022-02-09 16:02 | XMS_ITS | Encounter Summary ---
:1950 Author Organization [facility] [place] [address] Care Team Providers Name Role Phone Ken Veras MD Primary Care Provider [phone] Encounter Details Date Type Department Care Team Description 05/15/2014 Ancillary Procedure [facility] [address] [place] [phone] (Wo rk) Social History Tobacco Use Types Packs/Day Years Used Date Never Smoker Sex Assigned at Date Recorded Not on file documented as of this encounter Plan of Treatment Upcoming Encounters Date Type Specialty Care Team Description 02/20/2022 Notes Only [facility] Ray Mg PsyD [facility] [place], [place] [address] (Wo rk) 02/21/2022 TH Visit [facility] Claudy Hernandez MD (TeleHealth) [facility] [place], [place] [address] (Wo rk) documented as of this encounter Procedures Procedure Name Priority Date/Time Associated Diagnosis Comme nts FILM LIBRARY Routine 05/15/2014 12:00 AM Results for this STORAGE ONLY MAMMO EDT procedure are in the results section. documented in this encounter Results Film Library- Storage Only Mammo (05/15/2014 12:00 AM EDT) Specimen (Source) Anatomical Location Collection Method / Collectio n Time Received Time / Laterality Volume Narrative RAD - 01/25/2021 9:39 AM EDT This exam is auto-finalizing. It's purpo se is for storage only. Janneth Zendejas APRN IMG FILM LIBRARY ORDERABLES Performing Organization Address City/State/ZIP Code Phon e Number [place], [place] documented in this encounter Visit Diagnoses Not on filedocumented in this encounter Care Teams Fingerer Relationship Specialty Start Date End Date Ken Veras MD PCP - General 07/09/10 11/04/18 [address] [place] [address] documented as of this encounter
--- OUTSIDE RECORDS SUMMARY | 2022-02-09 16:02 | XMS_ITS | Encounter Summary ---
:1950 Author Organization [facility] [place] [address] Care Team Providers Name Role Phone Janneth Zendejas Naomie RANGEL Primary Care Provider Encounter Details Date Type Department Care Team Description 11/15/2018 Procedure visit Dermatology at [facility], Hist ory of asim Fernández MD cell carcinoma [address] [place], [place] DERMATOLOGY [address] [place], [place] [phone] Social History Tobacco Use Types Packs/Day Years Used Date Never Smoker Smokeless Tobacco: Never Used Sex Assigned at Date Recorded Not on file documented as of this encounter Progress Notes [facility] MD - 11/15/2018 9:00 AM EDT Clinical impression: Punch biopsy-proven BCCA with infiltrative features for excision, specimen [id number] Site: Left cheek Size: 1 cm Deep suture: 4-0 Vicryl Surface suture: 5-0 Ethilon Follow-up: In 1 week for suture removal and biopsy results Indications for surgery, possible adverse outcomes, and activity restrictions discussed. Informed verbal consent was obtained. Skin surface was prepared with 4% chlorhexidine and draped in the usual sterile manner. Local anesthesia with 1% lidocaine, 1 100,000 epinephrine and 0.1 mEq/mL bicarbonate. Using a 15 blade, and 4 mm margins, an elliptical incision carried out around the remaining scar of the infiltrative BCCA. Undermining performed peripherally. Hemostasis with a electrodesiccation. Layered closure performed, specimen to pathology. Wound dressed, wound care reviewed. End length suture line was 2.5 cm Follow-up in 1 week for suture removal biopsy results. CC: Janneth Zendejas APRN documented in this encounter Plan of Treatment Upcoming Encounters Date Type Specialty Care Team Description 02/20/2022 Notes Only [facility] Ray Mg PsyD [facility] [place], [place] [address] (Wo rk) 02/21/2022 TH Visit [facility] Claudy Hernandez MD (TeleHealth) [facility] [place], [place] [address] (Wo rk) documented as of this encounter Visit Diagnoses Diagnosis History of basal cell carcinoma Personal history of other malignant neop lasm of skin documented in this encounter Care Teams Sap Architect Relationship Specialty Start Date End Date Janneth Zendejas APRN PCP - General Internal Medicine 11/05/[address] [place] [address] documented as of this encounter
--- OUTSIDE RECORDS SUMMARY | 2022-02-09 16:02 | XMS_ITS | Encounter Summary ---
:1950 Author Organization [facility] [place] [address] Care Team Providers Name Role Phone Janneth Zendejas LEATHER LACER Primary Care Provider Encounter Details Date Type Department Care Team Description 03/28/2021 Ancillary Procedure Radiology Library at Janneth Zendejas, [facility] [place] [facility] LEATHER LACER [facility] [address] [place] [phone] (Savita rk) Social History Tobacco Use Types Packs/Day Years Used Date Never Smoker Smokeless Tobacco: Never Used Sex Assigned at Date Recorded Not on file documented as of this encounter Plan of Treatment Upcoming Encounters Date Type Specialty Care Team Description 02/20/2022 Notes Only [facility] Ray Mg PsyD [facility] [address] [place], [place] [address] (Wo rk) 02/21/2022 TH Visit [facility] Claudy Hernandez MD (TeleHealth) [facility] [place], [place] [address] (Wo rk) documented as of this encounter Procedures Procedure Name Priority Date/Time Associated Diagnosis Comme nts FILM LIBRARY Routine 03/28/2021 12:00 AM Results for this STORAGE ONLY DX EDT procedure ar e in SPINE the results section. documented in this encounter Results Film Library- Storage Only DX Spine (03/28/2021 12:00 AM EDT) Specimen (Source) Anatomical Location Collection Method / Collectio n Time Received Time / Laterality Volume Narrative RAD - 06/11/2021 1:33 PM EDT This exam is auto-finalizing. It's purpo se is for storage only. Janneth Zendejas APRN IMSherie FILM LIBRARY ORDERABLES Performing Organization Address City/State/ZIP Code Phon e Number [place], [place] documented in this encounter Visit Diagnoses Not on filedocumented in this encounter Care Teams Shot Man Relationship Specialty Start Date End Date Janneth Zendejas APRN PCP - General Internal Medicine 11/05/[address] [place] [address] documented as of this encounter
--- OUTSIDE RECORDS SUMMARY | 2022-02-09 16:02 | XMS_ITS | Encounter Summary ---
:1950 Author Organization [facility] [address] Care Team Providers Name Role Phone Janneth Zendejas CLAIRE Primary Care Provider Encounter Details Date Type Department Care Team Description 02/08/2021 Orders Only Radiology at [facility] Dania Aguilera MD [facility] [place] [address] NUCLEAR MEDICINE [phone] [place], [place] [address] (Wo rk) Social History Tobacco Use Types Packs/Day Years Used Date Never Smoker Smokeless Tobacco: Never Used Sex Assigned at Date Recorded Not on file documented as of this encounter Progress Notes Dania Aguilera MD - 02/08/2021 12:17 PM EDT Subjective: Patient ID: Shona Diehl is a 70 y.o. female. Pre-procedure note for needle breast biopsies performed in radiology. Procedure date: Today Procedure type: left breast ultrasound guided biopsy Allergies: Codeine Medications: Current Outpatient Medications: ??? gabapentin (Neurontin) 100 mg Capsule, TK 3 CS PO TID, Disp: , Rfl: Anticoagulation status:none Imaging reviewed and procedural plan approved by Dr. DANIA AGUILERA MD Review of Systems Objective: Physical Exam Assessment and Plan: No problem-specific Assessment & Plan notes found for this encounter. documented in this encounter Plan of Treatment Upcoming Encounters Date Type Specialty Care Team Description 02/20/2022 Notes Only [facility] Ray Mg PsyD [facility] [place], [place] [address] (Wo rk) 02/21/2022 TH Visit [facility] Claudy Hernandez MD (TeleHealth) [facility] [place], [place] [address] (Wo rk) documented as of this encounter Visit Diagnoses Not on filedocumented in this encounter Care Teams Styrene Dehydration Reactor Operator Relationship Specialty Start Date End Date Janneth Zendejas APRN PCP - General Internal Medicine 11/05/[address] [place] [address] documented as of this encounter
--- OUTSIDE RECORDS SUMMARY | 2022-02-09 16:02 | XMS_ITS | Encounter Summary ---
:1950 Author Organization [facility] [place] [address] Care Team Providers Name Role Phone Janneth Zendejas PENCILS WASHER Primary Care Provider Encounter Details Date Type Department Care Team Description 01/10/2021 Ancillary Procedure Radiology Library at Janneth Zendejas, [facility] PENCILS WASHER [facility] [address] [place] [phone] (Savita rk) Social History Tobacco Use Types Packs/Day Years Used Date Never Smoker Smokeless Tobacco: Never Used Sex Assigned at Date Recorded Not on file documented as of this encounter Plan of Treatment Upcoming Encounters Date Type Specialty Care Team Description 02/20/2022 Notes Only [facility] Ray Mg PsyD [facility] [address] [place], [place] [address] (Wo rk) 02/21/2022 TH Visit [facility] Claudy Hernandez MD (TeleHealth) [facility] [place], [place] [address] (Wo rk) documented as of this encounter Procedures Procedure Name Priority Date/Time Associated Diagnosis Comme nts FILM LIBRARY- Routine 01/10/2021 12:00 AM Results for this STORAGE ONLY DXA EDT procedure a re in IMAGES the results section. documented in this encounter Results Film Library- Storage Only DXA Images (01/10/2021 12:00 AM EDT) Specimen (Source) Anatomical Location Collection Method / Collectio n Time Received Time / Laterality Volume Narrative [facility] - 01/25/2021 9:36 AM EDT This exam is auto-finalizing. It's purpo se is for storage only. Janneth Zendejas APRN IMSherie FILM LIBRARY ORDERABLES Performing Organization Address City/State/ZIP Code Phon e Number [place], [place] documented in this encounter Visit Diagnoses Not on filedocumented in this encounter Care Teams Mechanical Service Specialist Relationship Specialty Start Date End Date Janneth Zendejas APRN PCP - General Internal Medicine 11/05/[address] [place] [address] documented as of this encounter
--- OUTSIDE RECORDS SUMMARY | 2022-02-09 16:02 | XMS_ITS | Encounter Summary ---
:1950 Author Organization [facility] [place] [address] Care Team Providers Name Role Phone Janneth Zendejas Naomie RANGEL Primary Care Provider Reason for Visit Reason Comments Skin Check Encounter Details Date Type Department Care Team Description 11/05/2018 Office Visit Dermatology at [facility] MD Nevus [address] [facility] [address] [place] [address] DERMATOLOGY [phone] [place], [place] [address] (Wo rk) Social History Tobacco Use Types Packs/Day Years Used Date Never Smoker Smokeless Tobacco: Never Used Sex Assigned at Date Recorded Not on file documented as of this encounter Progress Notes [facility] MD - 11/05/2018 9:30 AM EDT Images from the original note were not included. Problem: 1. Repeat skin checkup 2. No personal history of skin cancer but history of nonmelanoma skin cancer in brother and sister Shona follows up and has been doing well since I last saw her in 2013. She is concerned about some new skin lesions one on her left cheek and one on her right cheek. Physical examination was a pleasant 68-year-old woman who is well tanned from recent visit down to [place]. She has fortunately a benign examination of the chest and the back the hands the arms forearms the thighs and the calves. On the face she has a white almost sclerotic firm indurated 4 mm macule on her left cheek, as per the photograph in today's note. She has a soft fleshy 4 mm papule on the right cheek consistent with a new melanocytic nevus. Assessment plan: Rule out early sclerosing BCCA left medial cheek 1. After obtaining informed consent, left medial cheek site was anesthetized and then a 4 mm punch biopsy was performed for histologic confirmation by clinical impression. 2. Closure with 4-0 Ethilon suture, single stitch placed 3. Wound care instruction supplies given 4. Return to clinic in 1 week for suture removal biopsy results 5. Will need reexcision if positive. Otherwise benign skin examination 1. Patient reassured about remainder benign skin examination CC: Janneth Zendejas APRN documented in this encounter Plan of Treatment Upcoming Encounters Date Type Specialty Care Team Description 02/20/2022 Notes Only [facility] Ray Mg PsyD [facility] [place], [place] [address] (Wo rk) 02/21/2022 TH Visit [facility] Claudy Hernandez MD (TeleHealth) [facility] [place], [place] [address] (Wo rk) documented as of this encounter Visit Diagnoses Diagnosis Nevus Benign neoplasm of skin, site unspecifie d documented in this encounter Care Teams Slicer Machine Operator Relationship Specialty Start Date End Date Janneth Zendejas APRN PCP - General Internal Medicine 11/05/[address] [place] [address] documented as of this encounter
--- OUTSIDE RECORDS SUMMARY | 2022-02-09 16:02 | XMS_ITS | Encounter Summary ---
:1950 Author Organization [facility] [place] [address] Care Team Providers Name Role Phone Janneth Zendejas APRN Primary Care Provider Encounter Details Date Type Department Care Team Description 04/08/2021 Surgery Outpatient Surgery Tin Geiger MD EXCISION LESION, BREAST Center [facility] W/ PREOP.MARKER ([facility] DR MCCRAY) (WRVU 6.69) [place] [address] [place] [address] [phone] Social History Tobacco Use Types Packs/Day Years Used Date Never Smoker Smokeless Tobacco: Never Used Sex Assigned at Date Recorded Not on file documented as of this encounter Last Filed Vital Signs Vital Sign Reading Time Taken Comments Blood Pressure 105/70 04/08/2021 11:30 AM EDT Pulse 79 04/08/2021 11:30 AM EDT Temperature 36.9 ??C (98.4 ??F) 04/08/2021 11:13 AM EDT Respiratory Rate 20 04/08/2021 11:30 AM EDT Oxygen Saturation 96% 04/08/2021 11:30 AM EDT Inhaled Oxygen Concentration - - [...] closest emergency room or call the hospital tube machine operator helper at [phone] and ask for physician donor processor covering for your physician. Questions or problems after 5pm or on a weekend: Call the [facility] tube machine operator helper at and ask for the physician donor processor covering for your doctor. At 0900 am [...] 101.3 F. The number for questions is [phone] before 5 PM weekdays. Pain Medication: Please use ibuprofen (motrin, advil) 600 mg three times per day with food and tylenol 650 mg every 8 hours between the ibuprofen doses. Follow-up: Follow-up appointment will be scheduled with in 1-2 weeks. Scheduled Appointments: The following appointment with Dr. Geiger has been scheduled on your behalf: Future Appointments Date Time Provider Department Center 04/24/2021 2:30 PM Param Geiger MD [facility] 06/27/2021 10:30 AM Harris Marks MD [facility] Please call [phone] (clinic number) if any changes need to [...] again, temperature will be taken, patient and caregiver/transport truck driver will be given a mask to [...] again, temperature will be taken, patient and caregiver/transport truck driver will be given a mask to [...] Geiger MD - 04/08/2021 10:35 AM EDT [facility] Operative Note Patient Name: Shona Diehl : [id number] MR#: [id number] Case Date: 04/08/2021 Surgeon: Surgeon(s) and Role: [...] [facility] Ray Mg PsyD [facility] er [place], [place] [address] (Wo rk) 02/21/2022 TH Visit [facility] Spine Center Claudy Hernandez MD (TeleHealth) [facility] [place], [place] [address] (Wo rk) documented as of [...] Component Value Ref Test Analysis Performed At [facility] Method Time Signature Surgical [id number] ? Location: [facility] Pathology [place] Report The signing pathologist has (i) examined the relevant preparation(s) for the [facility] specimen(s) and (ii) rendered or confirmed the diagnosis(es) . [facility] . 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 (see Discussion.) The ??surrounding breast tis leidy shows a small duct papilloma with UDH, and healing biopsy site. Electronically signed by: ?Kayla Cunningham DO Verified: ??04/12/2021 12:54 ??Pathologist Performed at: ??-[facility]. of [facility], [place], [place] DISCUSSION Intradepartmental consultation with Dr. Douglas. [...] III Parenchyma: Fibroadipose tissue, mostly adipose Sections/Processing: Jockey Room Custodian sections in 8 cassettes as follows: ?A1: ??Jockey Room Custodian p erpendicular sections from slice I, margins include superior ? Mcdowell and posterior black ?A2: ??Jockey Room Custodian s ection of slice III, margins include anterior blue, posterior ? black, and superior Mcdowell . SPECIMEN PROCESSING ?A3: ??Jockey Room Custodian s ection of slices IV, with lesion, margins include anterior ? blue , superior Mcdowell, medial red, and posterior julius ck ?A4-A6: ??Slice V trise cted and submitted entirely, with lesion, margins include ? anterior blue and med ial red in block A4, anterior blue and posterior black in ? block A5, and anterio r blue, lateral yellow, and posterior black in block A6 ?A7: ??Jockey Room Custodian s lice , with lesion, ??margins include anterior blue medial ? red and posterior black ?A8: ??Jockey Room Custodian p erpendicular sections of slice VII, margins include inferior ? green medial red and posterior black Ischemic Time: 0.4 hours ??jnk/pps Specimen (Source) Anatomical Collection Method Collection Time Re ceived Time Location / / Volume Laterality 04/08/2021 10:48 AM EDT Param Geiger MD PATHOLOGY/CYTOLOGY ORDERABLE S Performing Organization Address City/State/[place] [address] Specimen to Pathology (04/08/2021 10:48 AM EDT) Specimen Anatomical Collection Method Collection Time Receive d Time (Source) Location / / Volume Laterality AP Specimen 04/08/2021 10:48 04/08/2021 AM EDT 10:48 AM EDT Narrative [facility] - 04/08/2021 10:48 AM EDT Specimen requisition ordered. ??Separate Pathology report to follow Param Geiger MD PATHOLOGY/CYTOLOGY ORDERABLE S Performing Organization Address City/[facility]/ZIP [place] [address] documented in this encounter [...] 0915, Day of Surgery (Day of Procedure) BUpivacaine (pf) (Marcaine) (5 Given 04/08/2021 11:02 AM 3.5 mLs 19- Surgical Site mg/mL) 0.5% injection EDT ONCE PRN, Starting on Thu04/08/21 at 1038, Until Thu04/08/21 at 1402, Intra-Operative (Intra-Procedure), Routine Given 04/08/2021 10:38 AM EDT 3.5 mLs 19- Surgical Site lidocaine (pf) (Xylocaine) (10 Given 04/08/2021 11:02 AM 3.5 mLs 19- Surgical Site mg/mL) 1% injection EDT ONCE PRN, Starting on Thu04/08/21 at 1038, Until Thu04/08/21 at 1402, Intra-Operative (Intra-Procedure), Routine Given 04/08/2021 10:38 AM EDT 3.5 mLs 19- Surgical Site documented in this encounter Active and Recently Administered Medications Times are shown in EDT. Scheduled Medication Order 04/06/2021 04/07/2021 04/08/2021 acetaminophen (Tylenol) tablet 650 mg (COMPLETED) 0915 (Given - Provider: Verna Olson RN) 650 mg, Oral, 30 MIN [...] time) documented in this encounter Care Teams Grinder Mill Operator Relationship Specialty Start Date End Date Janneth Zendejas APRN PCP - General Internal Medicine 11/05/18 [address] [place] [address] documented as of this encounter
--- OUTSIDE RECORDS SUMMARY | 2022-02-09 16:02 | XMS_ITS | Encounter Summary ---
:1950 Author Organization [facility] [place] [address] Care Team Providers Name Role Phone Janneth Zendejas APRN Primary Care Provider Encounter Details Date Type Department Care Team Description 04/08/2021 Hospital Encounter Mammography at [facility] Param Florez Breast mass, left [facility] MD [facility] [address] GENERAL SURGERY [phone] [place] [address] Social History Tobacco Use Types Packs/Day Years [...] documented as of this encounter Progress Notes Douglas Moore MD - 04/07/2021 10:24 PM EDT Procedure date: April 08, 2021 Procedure type: Needle localization of the LEFT breast mass - 4 o'clock 3 cm from nipple Special Instructions: none Allergies: Allergies Allergen Reactions ??? Codeine Medications: Current Outpatient Medications: ??? meloxicam (MOBIC) 7.5 mg Tablet, TAKE 1 TABLET BY MOUTH TWICE DAILY, Disp: , Rfl: ??? multivitamin Capsule, Take 1 capsule by mouth Daily., Disp: , Rfl: ??? ergocalciferol, vitamin D2, (VITAMIN D ORAL), Take 20,000 Units by mouth., Disp: , Rfl: ??? aspirin (ASPIR-81 ORAL), Take by mouth., Disp: , Rfl: ??? calcium carbonate (CALCIUM 300 ORAL), Take by mouth., Disp: , Rfl: ??? TURMERIC ORAL, Take by mouth., Disp: , Rfl: Anticoagulation status: NSAIDS Imaging reviewed and procedural plan approved by Dr. Douglas Moore MD documented in this encounter Plan of Treatment Upcoming Encounters Date Type Specialty Care Team Description 02/20/2022 Notes Only [facility] Ray Mg PsyD [facility] [place] [address] (Wo jacky) 02/21/2022 TH Visit [facility] Claudy Hernandez MD (TeleHealth) [facility] [place], [place] [address] (Wo rk) documented as of this encounter Procedures Procedure Name Priority Date/Time Associated Comments Diagnosis MAMMO US NEEDLE Routine 04/08/2021 8:30 AM Breast mass, left R esults for this LOCALIZATION LEFT EDT procedure are in the results section. documented in this encounter Results Mammo US Needle Localization Left (04/08/2021 8:30 AM EDT) Anatomical Region Laterality Modality Breast Left Mammography Specimen (Source) Anatomical Location Collection Method / Collectio n Time Received Time / Laterality Volume Impressions 04/08/2021 8:37 AM EDT Impression: Status post successful ultrasound-guided wire localization for clip and mass left breast 4:00 radian. Thank you for letting us participate in the care of this patient. ??If you are a health care provider and have any questi ons regarding this report, please contact the number below. ??For patients who have questions please contact the health career advisor that requested your imaging first. ? Electronically signed by: Leslee hawk MD, [facility] ([phone]), at 04/08/2021 8:37 AM Narrative 04/08/2021 8:37 AM EDT Examination: Ultrasound-guided NEEDLE LOCALIZATION OF ??left breast Indication: Please needle localize left breast for lesion. Left breast 4:00 radian 3 cm from the nipple Technique:Informed consent was confirmed and a timeout procedure was performed per protocol. Using sterile technique and local anesth etic (less than 5 cc's of 1% lidocaine) a needle localization of the mass and cl ip in the left breast was performed using ultrasound guidance. The needle wa s positioned through the mass. After confirming satisfactory positionin g of the needle the wire was deployed and a sonographic image was obtained. Th is image confirms the wire traverses the lesion and the tip of the wire is 0.8 cm beyond the lesion. There were no complications. Images were annotated on PACS for the op erating surgeon. Procedural attestation: Resident: Oscar Ricardo performed the procedure with the resid ent observing. Param Florez MD IMG MAMMO ORDERABLES documented in this encounter Visit Diagnoses Diagnosis Breast mass, left Lump or mass in breast documented in this encounter Administered Medications Inactive Administered Medications - up to 3 most recent administrations Medication Order MAR Action Action Date Dose Rate Site lidocaine (Xylocaine) 1% (10 Given 04/08/2021 8:15 AM EDT 100 mg mg/mL) injection 100 mg 100 mg (10 mL), Intradermal, ONCE, 1 dose, On Thu04/08/21 at 0815, Routine documented in this encounter Care Teams High Court Justice Relationship Specialty Start Date End Date Janneth Zendejas APRN PCP - General Internal Medicine 11/05/[address] [place] [address] documented as of this encounter
--- OUTSIDE RECORDS SUMMARY | 2022-02-09 16:04 | XMS_ITS | Clinical Summary ---
:1950 Author Organization [facility] Address [address] [place] [address] Care Team Providers Name Role Phone Janneth Zendejas MARBLE SETTER Primary Care Provider Allergies Active Allergy Reactions Severity Noted Date Comments Codeine Nausea And Vomiting, Headaches 07/22/2019 Medications Medication Sig Dispensed Refills Start Date End Date Status Calcium-Cholecalciferol Take by mouth. 0 Active , D3, (CALCIUM 600 WITH VITAMIN D3) 600 mg(1,500mg) -400 unit capsule TURMERIC ORAL Take by mouth. 0 A ctive multivitamin capsule Take 1 Cap by 0 Active mouth daily. glucosamine/msm/chondrt Take by mouth. 0 Active /C/hyal (GLUCOSAMINE-CHONDROITI N-MSM ORAL) acetaminophen (TYLENOL) Take 500 mg by 0 Active 500 mg tablet mouth every 6 hours as needed for Pain. 1-2 as needed cholecalciferol, Take 2,000 Units 0 Active vitamin D3, (VITAMIN D3 by mouth. ORAL) alendronate (FOSAMAX) Take 1 Tablet by 12 Tablet 4 04/02/2021 Active 70 mg mouth every 7 tabletIndications: days. With full Age-related glass water,on osteoporosis without empty stomach; current pathological nothing by mouth fracture or lie down for next 30 min meloxicam (MOBIC) 7.5 Take 1 Tablet by 180 Tablet 3 10/04/2021 Active mg tabletIndications: mouth 2 times Primary osteoarthritis daily. involving multiple joints Active Problems Problem Noted Date Ganglion cyst of volar aspect of right wrist 0 Radiculopathy of leg 07/22/2019 Primary osteoarthritis involving multiple joints 07/22 Encounters Date Type Specialty Care Team Description 02/07/2022 Telephone Rheumatology Cynthia Pruitt, Appointm ent Related CLERICAL WAREHOUSE WORKER 11/19/2021 Telephone Rheumatology Cynthia Pruitt, Prior Au th, Other (i.e. CLERICAL WAREHOUSE WORKER radiology, etc. ) from Last 3 Months Surgical History Surgery Date Site/Laterality Comments SKIN CANCER EXCISION BREAST SURGERY 04/08/2021 Left lumpectomy at [facility] Medical History Medical History Date Comments Rheumatic fever BCC (basal cell carcinoma of skin) Family History Medical History Relation Name Comments Cancer Father Relation Name Status Comments Father Social History Tobacco Use Types Packs/Day Years Used Date Former Smoker Cigarettes 0.5 Quit: 2009 Smokeless Tobacco: Never Used Alcohol Use Standard Drinks/Week Comments Yes 21 (1 standard drink = 0.6 oz pure alcoh ol) Sex Assigned at Date Recorded Not on file Last Filed Vital Signs Vital Sign Reading Time Taken Comments Blood Pressure 137/65 10/04/2021 1114 EST Pulse 83 10/04/2021 1114 EST Temperature 35.8 ??C (96.4 ??F) 10/04/2021 1114 EST Respiratory Rate 18 07/05/2021 1440 EST Oxygen Saturation 97% 07/05/2021 1440 EST Inhaled Oxygen Concentration - - Weight 56.2 kg (124 lb) 10/04/2021 1114 EST Height 160 cm (5' 3) 10/04/2021 1114 EST Body Mass Index 21.97 10/04/2021 1114 EST Plan of Treatment Upcoming Encounters Date Type Specialty Care Team Description 02/28/2022 Office Visit Rheumatology Rangel Pruitt CLERICAL WAREHOUSE WORKER [address] [facility] [address] [place] [address] 07/28/2022 Office Visit Rheumatology Rangel Pruitt CLERICAL WAREHOUSE WORKER [address] [facility] [address] [place] [address] Health Maintenance Due Date Last Done Comments Hepatitis C Screen 1950 COVID-19 Vaccine (#1) 1955 Fall Risk Screening 10/04/2022 10/04/2021, 04/02/2021, 1201/2019 Insurance Payer Benefit Plan / Subscriber ID Effective Dates Phone Addre ss Type Group MEDICARE MEDICARE A/B [id number] 2014-Presen [id number] [place] [address] [place] [id number] 2019-Prese [address] [place] [address] [place] [address] Shanita,Shona Personal/Family Self 1950 [address] (Home) [place] [address] Care Teams Travel Accommodation Inspector Relationship Specialty Start Date End Date Janneth Zendejas NP PCP - General 07/22/19
--- OUTSIDE RECORDS SUMMARY | 2022-02-09 16:04 | XMS_ITS | Encounter Summary ---
:1950 Author Organization [facility] Address [address] [place] [address] Care Team Providers Name Role Phone Janneth Zendejas MOBILE HEAVY EQUIPMENT MECHANIC Primary Care Provider Reason for Referral Referral (Routine/Next Available) - New Request Specialty Diagnoses / Procedures Referred By Contact Refer red To Contact Diagnoses Right lumbar radiculopathy Protrusion of intervertebral disc of lumbosacral region Humphrey Rice MD Procedures EPIDURAL STEROID INJECTION ON THE SPINE WITH FLUOROSCOPY [address] [facility] [address] [place] [address] Referral ID Status Reason Start Date Expiration Date Visits V isits Requested Authorized [id number] New Request 06/08/2021 1 1 Reason for Visit Auth/Cert Specialty Diagnoses / Procedures Referred By Contact Refer red To Contact Referral ID Status Reason Start Date Expiration Date Visits Requ ested Visits Authorized [id number] 1 1 Encounter Details Date Type Department Care Team Description 07/05/2021 Hospital Encounter [facility] Humphrey Rice egenerative disc disease, lumbar (Primary Dx); - [facility] MD Sherie Right lumbar radiculopathy; [address] [facility] Protrusion of intervertebral disc [place] [address] [address] [place] [address] Social History Tobacco Use Types Packs/Day Years Used Date Former Smoker Cigarettes 0.5 Quit: 2009 Smokeless Tobacco: Never Used Alcohol Use Standard Drinks/Week Comments Yes 21 (1 standard drink = 0.6 oz pure alcoh ol) Sex Assigned at Date Recorded Not on file COVID-19 Exposure Response Date Recorded In the last month, have you been in contact with No / Unsure 07/05/2021 13:54 EST someone who was confirmed or suspected to have Coronavirus / COVID-19? documented as of this encounter Last Filed Vital Signs Vital Sign Reading Time Taken Comments Blood Pressure 157/90 07/05/2021 1440 EST Pulse - - Temperature 36.6 ??C (97.9 ??F) 07/05/2021 1400 EST Respiratory Rate 18 07/05/2021 1440 EST Oxygen Saturation 97% 07/05/2021 1440 EST Inhaled Oxygen Concentration - - Weight 56.2 kg (124 lb) 07/05/2021 1400 EST Height 160 cm (5' 3) 07/05/2021 1400 EST Body Mass Index 21.97 07/05/2021 1400 EST documented in this encounter Functional Status Functional Status Response Date of Assessment Because of a physical, mental, or emotional condition, No 04/24/2020 does this person have difficulty doing errands alone such as visiting a doctor's office or shopping? Cognitive Status Response Date of Assessment Because of a physical, mental, or emotional condition, No 04/24/2020 does this person have serious difficulty concentrating, remembering, or making decisions? documented as of this encounter Discharge Instructions Sharmila Olsen RN - 07/05/2021 Your procedure today was a Right L4-L5 transforaminal steroid injection The following information should help you over the next few days: 1. For your safety, you need to have someone drive you home today. 2. Activities are as tolerated. Please take it easy for the rest of the day unless you have had a procedure called a Medial Branch block. If you had a Medial Branch Block, it is important that you don't go home and rest, we want you to do your normal activities to help determine the amount of pain relief. 3. Remove bandage later today. Watch for signs of infection: redness, bleeding, swelling, or drainage. Call if you have a fever greater than 101 degrees not relieved by Tylenol, or any signs or symptoms of infection. 4. You may resume all your normal medications: a. You may take mild pain medications, you can take acetaminophen (Tylenol), ibuprofen (Motrin, Advil, Nuprin, IB, etc) or aspirin as needed for pain, as long as your primary care doctor has indicated no restrictions. 5. Diabetics be aware your blood sugar levels may increase due to the steroid used. Please call yourPCP if you are concerned. 6. Your procedure site may feel sore from the needles placed today. You may also have a flare of your symptoms. Use ice to help relieve your symptoms and it may be left on for 20 minutes at a time. Heat is not recommended as it may cause more swelling and pain. 7. Please call back immediately should you develop: a. any new or worse leg weakness or numbness b. any loss of bladder or bowel control c. increasingly severe neck/back pain 8. If you had develop a Headache that is better when you lay down, please call to talk to an anesthesiologist. (After [phone]) 9. A nurse will call you tomorrow if you have had a Facet, SI Joint, Peripheral Nerve Block or a Medial Branch Block: (We want to know if your back pain changed, try to separate the injection site painfrom your normal pain) a. Significant functional relief = functional improvement: Y__ N__ b. Current Pain: Scale: (1-10) c. Number of hours of pain relief in first 24 hours *Patients who had Cervical, Thoracic or Lumbar Epidural Steroid Injections or Trigger Point Injections do not need to call back in 24 hours.* 10. If you were sedated for the procedure: a. Do not drive any vehicle or operate any power equipment until tomorrow. b. Do not drink any alcohol or take narcotics unless prescribed. c. Do not make any important decisions today. d. Please have someone with you today. If you are unable to have someone with you, please have someone call you 3-4 times today. documented in this encounter Medications at Time of Discharge Medication Sig Dispensed Refills Start Date End Date acetaminophen (TYLENOL) Take 500 mg by 0 500 mg tablet mouth every 6 hours as needed for Pain. 1-2 as needed alendronate (FOSAMAX) 70 Take 1 Tablet by 12 Tablet 4 04/02 mg tabletIndications: mouth every 7 days. Age-related osteoporosis With full glass without current water,on empty pathological fracture stomach; nothing by mouth or lie down for next 30 min Calcium-Cholecalciferol, Take by mouth. 0 D3, (CALCIUM 600 WITH VITAMIN D3) 600 mg(1,500mg) -400 unit capsule cholecalciferol, vitamin Take 2,000 Units by 0 D3, (VITAMIN D3 ORAL) mouth. glucosamine/msm/chondrt/C/ Take by mouth. 0 hyal (YUEWLEJUVTZ-IERRRKDCZDM-X SM ORAL) multivitamin capsule Take 1 Cap by mouth 0 daily. TURMERIC ORAL Take by mouth. 0 aspirin chewable 81 mg Take 81 mg by mouth 0 10/04/2021 tablet daily. ibuprofen (MOTRIN) 200 mg Take 200 mg by 0 10/04/2021 tablet mouth every 6 hours as needed for Pain. 1-2 as needd meloxicam (MOBIC) 7.5 mg Take 1 Tab by mouth 90 Tab 4 10/04/2021 tabletIndications: Primary 2 times daily. osteoarthritis involving multiple joints documented as of this encounter Discharge Disposition Disposition Code Departure Means Destination Home or Self Residential documented in this encounter Progress Notes Sharmila Purdy RN - 07/05/2021 1430 EST Pt tolerated procedure well, ambulates with steady gait. Pt feels cramps in right leg. Dressing c/d/i. Friend as company truck driver to provide ride home. Humphrey Denton MD - 07/05/2021 1430 EST Patient Name: Shona Diehl : 1950 Date of Service: 07/05/2021 Food General Manager: Humphrey Rice MD Cartridge Gauger: None Procedure: Therapeutic lumbar transforaminal epidural steroid injections at L4-L5 on the right Interval History: Patient presents today for continued evaluation and treatment of their chronic lower back and lower extremity pain. Please refer to Renae Wong's previous notes for full details regarding the patient's pain complaint. Patient currently denies any progressive weakness, unexplained fever, trauma or unexplained weight loss. The patient reports no recent changes in the character, quality, or distribution of the pain. There are no recent onset of new associated symptoms such as changes in strength, sensation, or bladder control. All previous medical records including current medications, anticoagulation status, any signs of current infection, and new imaging were reviewed. Injection History: 07/05/2021: right L4-L5 TFESI: 03/08/21; right L4-L5 TFESI: 100% relief x one week and 30% ongoing relief 12/07/20: L4-L5 SHAHRIAR Of note, patient with transitional anatomy with a sacralized L5 Allergies: Allergies Allergen Reactions ??? Codeine Nausea And Vomiting and Headaches Physical Exam: Vitals: BP (!) 157/90 (BP Cuff Location: Right arm) Temp 36.6 ??C (97.9 ??F) (Oral) Resp 18 Ht160 cm (63) Wt 56.2 kg (124 lb) SpO2 97% BMI 21.97 kg/m?? General: Patient is alert and oriented, no acute distress Lungs: symmetric chest rise, no evidence of labored breathing Skin: clear, warm, dry and intact and no rashes, bruises or petechiae noted Assessment: 1. Degenerative disc disease, lumbar 2. Right lumbar radiculopathy 3. Protrusion of intervertebral disc of lumbosacral region Plan: Ms. Shona Diehl is a 71 y.o. female that presents to the pain clinic to undergo lumbar transforaminal epidural steroid injections in regards to her chronic back pain. All risks, benefits, and alternatives were thoroughly explained to Ms. Shona Diehl who verbally communicated understanding of the management plan. Proceed with a diagnostic and potentially therapeutic transforaminal epidural steroid injection at right L4-L5. Follow up: With orthopedic spine. We are available for additional injections as needed. PROCEDURE: The patient gave informed written consent to proceed with this procedure following a detailed discussion of the risks and benefits associated with transforaminal epidural steroid injection in the lumbar spine including but not limited to infection, bleeding, headache, intrathecal injection, allergic re action, further exacerbation of current symptoms, neurological injury, and lack of efficacy. The patient was then placed in the prone position, the skin over the lumbosacral area was marked and preppedwith chlorhexadine, and the site was draped in sterile fashion. A timeout was performed with full staff present to identify the patient, verify the procedure being performed, and review allergies. Flouoroscopy was used to visualize the aforementioned neuroforamen. The skin and subcutaneous tissueover this level was anesthetized by infiltration of 1% lidocaine. A 22 guage 3.5 inch spinal needle was inserted under fluoroscopic guidance using coaxial technique. The needle was slowly advanced by po sterolateral approach to the superior aspect of the foramen. Fluoroscopic images in the AP and lateral views were taken to confirm final needle tip position in the distal foramen. No parasthesias occurred during needle insertion and aspiration was negative. Contrast dye was injected under live fluoroscopy and revealed good spread along the nerve root with no evidence of intravascular or intrathecal uptake. After negative aspiration, 10 mg Dexamethasone and 0.5 ml 0.25% Bupivacaine was injected. The needle was then flushed and withdrawn. The patient tolerated the procedure well, there were no apparent complications, and she was discharged in stable condition. Written and verbal discharge instruction s were reviewed with the patient prior to discharge. Humphrey Rice MD documented in this encounter Miscellaneous Notes PAT Note - Roberta Mejias RN - 07/05/2021 1430 EST Phone call related to scheduling appointment. Appointment scheduled with Dr. Rice on 07/05/21 at 1430. Reminded patient of the following items: -Patient must have a company truck driver to be present at drop off and roll picker for their appointment.(Patient's sister Rose Carter will be driving her) -Patient needs to arrive 60 minutes ahead of procedural start time. -Patient must be infection free and off antibiotics for 14 days prior to appointment with written clearance from MD, also no active or open wounds. -Patient must contact clinic if any recent exposure to known positive Covid with or without symptoms. -All vaccines should be 2 weeks before or after procedures that involve steroids. -If patient is diabetic, inform them that if their blood sugar is greater than 250mg/dL the day of procedure, we will not be able to perform steroid injection. If blood sugars are running high, they should contact their PCP to discuss management before their appointment. -If patient is on coumadin, pt will need to get order from prescribing provider or PCP to have blooddraw for PT/INR before appointment. Pain Clinic providers will not accept fingerstick results. -Please arrive with clean skin, do not apply any lotions, perfumes, creams or lidocaine patches. Please wear loose fitting, comfortable clothing, with elastic waistband if possible. -Procedural Safety Medications and Fasting Instructions as applicable, list exceptions below: Patient to stop taking all supplements/ vitamins on 06/28/21 as well as her ASA on the same day. Patient advised to call our clinic if they develop any new symptoms, concerns for infection, skin issues, or the need to reschedule their appointment. If they have any questions regarding medication holds, they should contact the clinic to speak with nurse. Directions and clinic phone number [phone] were provided to patient as needed. ddendum Note - Amalia Carrillo, GAEL - 07/05/2021 1324 EST Encounter addended by: Amalia Carrillo RN on: 08/01/2021 15:39 Actions taken: Visit Navigator SmartForm Flowsheet section accepted, Flowsheet accepted, Contacts section saved ddendum Note - Humphrey Rice MD - 07/05/2021 1324 EST Encounter addended by: Humphrey Rice MD on: 07/18/2021 10:05 Actions taken: Follow-up modified documented in this encounter Plan of Treatment Upcoming Encounters Date Type Specialty Care Team Description 02/28/2022 Office Visit Rheumatology Rangel Pruitt, DISTRICT TRAFFIC CHIEF [address] [facility] [address] [place], [place] [id number] 07/28/2022 Office Visit Rheumatology Rangel Pruitt, DISTRICT TRAFFIC CHIEF [address] [facility] [address] [place] [address] Scheduled Orders Name Type Priority Associated Diagnoses Order S chedule EPIDURAL STEROID Procedures Routine Right lumbar 1 Occurrenc es INJECTION ON THE radiculopathy starting 07/05/2021 SPINE WITH Protrusion of until 07/05/20 21 FLUOROSCOPY intervertebral disc of lumbosacral region documented as of this encounter Visit Diagnoses Diagnosis Degenerative disc disease, lumbar - Prim alexus Degeneration of lumbar or lumbosacral in tervertebral disc Right lumbar radiculopathy Thoracic or lumbosacral neuritis or radi culitis, unspecified Protrusion of intervertebral disc of lum bosacral region documented in this encounter Administered Medications Inactive Administered Medications - up to 3 most recent administrations Medication Order MAR Action Action Date Dose Rate Site bupivacaine (PF) (MARCAINE) 0.25 % Given 07/05/2021 14:30 EST 3 mL Back (2.5 mg/mL) injection 3 mL 3 mL, intra-articular, NOW X1, 1 dose, On Thu07/05/21 at 1445, Routine, Intraprocedure dexAMETHasone (PF) (DECADRON) injection 10 mg Given 07/05/2021 14:30 EST 10 mg Back 10 mg, epidural, NOW X1, 1 dose, On 07/05/21 at 1445, Routine, Intraprocedure iohexoL (OMNIPAQUE 300) injection 3 mL Given 07/05/2021 14:30 EST 3 mL Back 3 mL, intra-articular, NOW X1, 1 dose, On Thu07/05/21 at 1445, Routine, Intraprocedure documented in this encounter Care Teams Cooler Room Worker Relationship Specialty Start Date End Date Janneth Zendejas, MOBILE HEAVY EQUIPMENT MECHANIC PCP - General 07/22/19 documented as of this encounter
--- OUTSIDE RECORDS SUMMARY | 2022-02-09 16:04 | XMS_ITS | Encounter Summary ---
:1950 Author Organization [facility] Address [address] [place] [address] Care Team Providers Name Role Phone Janneth Zendejas FRANCHISE CONSULTANT Primary Care Provider Reason for Visit (Routine/Next Available) - Receiving Office to Obtain Authorization Specialty Diagnoses / Procedures Referred By Contact Refer red To Contact Procedures Unknown, Provider, XR OUTSIDE IMAGES NEURO Phone: Referral ID Status Reason Start Expiration Visits Visits Date Date Requested Authorized [id number] Receiving Office 04/29/2021 1 1 to Obtain Authorization Encounter Details Date Type Department Care Team Description 11/26/2020 Hospital Encounter [facility] Secondary Reads [place] Social History Tobacco Use Types Packs/Day Years Used Date Former Smoker Cigarettes 0.5 Quit: 2009 Smokeless Tobacco: Never Used Alcohol Use Standard Drinks/Week Comments Yes 2 (1 standard drink = 0.6 oz pure alcoho l) Sex Assigned at Date Recorded Not on file documented as of this encounter Functional Status Functional Status Response [...] making decisions? documented as of this encounter Medications at Time of Discharge Medication Sig Dispensed Refills Start Date End Date Calcium-Cholecalciferol, Take by mouth. 0 D3, (CALCIUM 600 WITH VITAMIN D3) 600 mg(1,500mg) -400 unit capsule glucosamine/msm/chondrt/C Take by mouth. 0 /hyal (GLUCOSAMINE-CHONDROITIN- MSM ORAL) multivitamin capsule Take 1 Cap by mouth 0 daily. TURMERIC ORAL Take by mouth. 0 aspirin chewable 81 mg Take 81 mg by mouth 0 10/04/2021 tablet daily. CANNABIDIOL, CBD, EXTRACT Take by mouth. 0 04/02/2021 ORAL doxycycline (MONODOX) 100 TAKE 1 CAPSULE BY 0 04/02/2021 mg capsule MOUTH TWICE DAILY. AVOID DAIRY PRODUCTS WHILE TAKING THIS MEDICATION meloxicam (MOBIC) 7.5 mg Take 1 Tab by mouth 90 Tab 4 01/04/2021 tabletIndications: 2 times daily. Primary osteoarthritis involving multiple joints pregabalin (LYRICA) 25 mg Take 1 Cap by mouth 90 Cap 2 1 04/02/2021 capsuleIndications: 3 times daily. Daily Lumbar radiculopathy, Max: 75 mg right documented as of this encounter Discharge Disposition Disposition Code Departure Means Destination Home or Self Care documented in this encounter Plan of Treatment Upcoming Encounters Date Type Specialty Care Team Description 02/28/2022 Office Visit Rheumatology Rangel Pruitt , PRODUCTION ASSEMBLY SUPERVISOR [address] [facility] [address] [place] [address] 07/28/2022 Office Visit Rheumatology Rangel Pruitt, PRODUCTION ASSEMBLY SUPERVISOR [address] [facility] [address] [place] [address] documented as of this encounter Procedures Procedure Name Priority Date/Time Associated Diagnosis Comme nts XR OUTSIDE IMAGES Routine 04/29/2021 9:29 EDT Res ults for this NEURO procedure are i n the results section. documented in this encounter Results XR OUTSIDE IMAGES NEURO (04/29/2021 9:29 EDT) Specimen Narrative 04/29/2021 9:29 EDT This is a non-reportable exam. documented in this encounter Visit Diagnoses Not on filedocumented in this encounter Care Teams Maintenance Mgr Relationship Specialty Start Date End Date Janneth Zendejas NP PCP - General 07/22/19 documented as of this encounter
--- OUTSIDE RECORDS SUMMARY | 2022-02-09 16:04 | XMS_ITS | Encounter Summary ---
:1950 Author Organization [facility] Address [address] [place] [address] Care Team Providers Name Role Phone Janneth Zendejas TUBE CARRIER Primary Care Provider Encounter Details Date Type Department Care Team Description 03/28/2021 Travel Social History Tobacco Use Types Packs/Day Years Used Date Former Smoker Cigarettes 0.5 Quit: 2009 Smokeless Tobacco: Never Used Alcohol Use Standard Drinks/Week Comments Yes 2 (1 standard drink = 0.6 oz pure alcoho l) Sex Assigned at Date Recorded Not on file COVID-19 Exposure Response Date Recorded In the last month, have you been in contact with No / Unsure 03/28/2021 11:17 EDT someone who was confirmed or suspected to have Coronavirus / COVID-19? documented as of this encounter Functional Status [...] making decisions? documented as of this encounter Plan of Treatment Upcoming Encounters Date Type Specialty Care Team Description 02/28/2022 Office Visit Rheumatology Rangel Pruitt, ACCOUNTANT SYSTEMS [address] [facility] [address] [place], [place] [address] 07/28/2022 Office Visit Rheumatology Rangel Pruitt, ACCOUNTANT SYSTEMS [address] [facility] [address] [place] [address] documented as of this encounter Visit Diagnoses Not on filedocumented in this encounter Care Teams Inventory Manager Relationship Specialty Start Date End Date Janneth Zendejas, TUBE CARRIER PCP - General 07/22/19 documented as of this encounter
--- OUTSIDE RECORDS SUMMARY | 2022-02-09 16:04 | XMS_ITS | Encounter Summary ---
:1950 Author Organization [facility] Address [address] [place] [address] Care Team Providers Name Role Phone Janneth Zendejas PLANNING ASSOCIATE Primary Care Provider Encounter Details Date Type Department Care Team Description 08/23/2020 Travel Social History Tobacco Use Types Packs/Day Years Used Date Former Smoker Cigarettes 0.5 Quit: 2009 Smokeless Tobacco: Never Used Alcohol Use Standard Drinks/Week Comments Yes 2 (1 standard drink = 0.6 oz pure alcoho l) Sex Assigned at Date Recorded Not on file COVID-19 Exposure Response Date Recorded In the last month, have you been in contact with No / Unsure 08/23/2020 13:06 EST someone who was confirmed or suspected [...] Description 02/28/2022 Office Visit Rheumatology Rangel Pruitt, UNEMPLOYMENT EXAMINER [address] [facility] [address] [place], [place] [address] 07/28/2022 Office Visit Rheumatology Rangel Pruitt, UNEMPLOYMENT EXAMINER [address] [facility] [place] [address] documented as of this encounter Visit Diagnoses Not on filedocumented in this encounter Care Teams Special Procedures Nurse Relationship Specialty Start Date End Date Janneth Zendejas, PLANNING ASSOCIATE PCP - General 07/22/19 documented as of this encounter
--- OUTSIDE RECORDS SUMMARY | 2022-02-09 16:04 | XMS_ITS | Encounter Summary ---
:1950 Author Organization [facility] Address [address] [place] [address] Care Team Providers Name Role Phone Janneth Zendejas TOOL CLERK Primary Care Provider Reason for Visit (Routine/Next Available) - Receiving Office to Obtain Authorization Specialty Diagnoses / Procedures Referred By Contact Refer red To Contact Procedures Unknown, Provider, MR OUTSIDE IMAGES NEURO Phone: Referral ID Status Reason Start Expiration Visits Visits Date Date Requested Authorized [id number] Receiving Office 04/29/2021 1 1 to Obtain Authorization Encounter Details Date Type Department Care Team Description 10/08/2020 Hospital Encounter [facility] Secondary Reads [place] Social History Tobacco Use [...] VITAMIN D3) 600 mg(1,500mg) -400 unit capsule glucosamine/msm/chondrt/C/h Take by mouth. 0 yal (GXNYARCMXDT-AWZTKHVFIFX-TA M ORAL) multivitamin capsule Take 1 Cap by 0 mouth daily. TURMERIC ORAL Take by mouth. 0 aspirin chewable 81 mg Take 81 mg by 0 10/04/2021 tablet mouth daily. CANNABIDIOL, CBD, EXTRACT Take by mouth. 0 04/02/2021 ORAL meloxicam (MOBIC) 7.5 mg Take 1 Tab by 90 Tab 4 04/03/20 20 01/04/2021 tabletIndications: Primary mouth 2 times osteoarthritis involving daily. multiple joints pregabalin (LYRICA) 25 mg Take 1 Cap by 90 Cap 2 020 04/02/2021 capsuleIndications: Lumbar mouth 3 times radiculopathy, right daily. Daily Max: 75 mg documented as of this encounter Discharge Disposition Disposition Code Departure Means Destination Home or Self Care documented in this encounter Plan of Treatment Upcoming Encounters Date Type Specialty Care Team Description 02/28/2022 Office Visit Rheumatology Rangel Pruitt , PRESS SET UP [address] [facility] [address] [place] [address] 07/28/2022 Office Visit Rheumatology Rangel Pruitt , PRESS SET UP [address] [facility] [address] [place] [address] documented as of this encounter Procedures Procedure Name Priority Date/Time Associated Diagnosis Comme nts MR OUTSIDE IMAGES Routine 04/29/2021 9:29 EDT Res ults for this NEURO procedure are i n the results section. documented in this encounter Results MR OUTSIDE IMAGES NEURO (04/29/2021 9:29 EDT) Specimen Narrative 04/29/2021 9:29 EDT This is a non-reportable exam. documented in this encounter Visit Diagnoses Not on filedocumented in this encounter Care Teams Information Scientist Relationship Specialty Start Date End Date Janneth Zendejas NP PCP - General 07/22/19 documented as of this encounter
--- OUTSIDE RECORDS SUMMARY | 2022-02-09 16:04 | XMS_ITS | Encounter Summary ---
:1950 Author Organization [facility] Address [address] [place] [address] Care Team Providers Name Role Phone Janneth Zendejas Naomie DOCK MANAGER Primary Care Provider Reason for Visit Reason Onset Date Comments Other 08/27/2020 Encounter Details Date Type Department Care Team Description 08/27/2020 Telephone [facility] Renae Pantoja, IKE Other Orthopedics & Spine [address] [place] [address] [address] [place] [address] Social History Tobacco Use Types Packs/Day Years [...] making decisions? documented as of this encounter Miscellaneous Notes Telephone Encounter - Renae Wong PA-C - 08/27/2020 2043 EST MRI ordered. Deb. Nathan elephone Encounter - Cynthia Kat LPN - 08/27/2020 1343 EST Pt calls today, has decided to move ahead with lumbar MRI that Colette discussed with her, she would like to have it done at [facility]. documented in this encounter Plan of Treatment Upcoming Encounters Date Type Specialty Care Team Description 02/28/2022 Office Visit Rheumatology Rangel Pruitt, VENEER PATCHER [address] [facility] [address] [place] [address] 07/28/2022 Office Visit Rheumatology Rangel Pruitt, VENEER PATCHER [address] [facility] [address] [place] [address] documented as of this encounter Visit Diagnoses Diagnosis Right lumbar radiculopathy - Primary Thoracic or lumbosacral neuritis or radi culitis, unspecified documented in this encounter Care Teams Bead Trimmer Relationship Specialty Start Date End Date Janneth Zendejas NP PCP - General 07/22/19 documented as of this encounter
--- OUTSIDE RECORDS SUMMARY | 2022-02-09 16:04 | XMS_ITS | Encounter Summary ---
:1950 Author Organization [facility] Address [address] [place] [address] Care Team Providers Name Role Phone Janneth Zendejas SPRING ASSEMBLER SUPERVISOR Primary Care Provider Reason for Visit Reason Onset Date Comments Prior Auth, Other (i.e. radiology, etc.) 11/19/2021 Encounter Details Date Type Department Care Team Description 11/19/2021 Telephone [facility] [place], Other (i.e. [facility] [place] [place] Rheumatology Cynthia, BAND SPLICER radiology, etc.) [address] [place] [address] [address] [place] [phone] Social History Tobacco Use Types Packs/Day Years [...] this encounter Miscellaneous Notes Telephone Encounter - Sachi Oleary RN - 11/22/2021 0823 EDT PA for DXA scan 18 months after last one submitted to [facility] via fax. elephone Encounter - Sachi Oleary RN - 11/21/2021 1117 EDT Will send a PA to request a DXA at 18 months to [facility] after discussing with Yaneth Pruitt 11/22/21. elephone Encounter - María Kelly - 11/21/2021 1025 EDT Hi Jigna Hurst, We don't complete the prior authorizations for Dexa scans, only for high tech radiology (MRI, CT, PET, Nuclear Medicine). With this patient's insurance plan, I don't believe a prior authorization is needed. Thanks, Heather elephone Encounter - Jigna Brown - 11/20/2021 0832 EDT Forwarded to [facility] Prior Authorization pool. elephone Encounter - Sachi Oelary RN - 11/19/2021 1634 EDT Can this be forwarded to the [facility] imaging PA team to request a PA for a DXA to be done sooner than 2years from the last one? elephone Encounter - Cynthia Pruitt APRN - 11/19/2021 1607 EDT How do I go about requesting an appeal for DXA scan for this patient. Previous study at [facility] with current treatment for osteoporosis. Would like her to have repeat DXA scan sooner than Dec, 2022 documented in this encounter Plan of Treatment Upcoming Encounters Date Type Specialty Care Team Description 02/28/2022 Office Visit Rheumatology Rangel Pruitt, BAND SPLICER [address] [facility] [address] [place] [address] 07/28/2022 Office Visit Rheumatology Rangel Pruitt, BAND SPLICER [address] [facility] [address] [place] [address] documented as of this encounter Visit Diagnoses Not on filedocumented in this encounter Care Teams Labels Molder Relationship Specialty Start Date End Date Janneth Zendejas, PATRICIO PCP - General 07/22/19 documented as of this encounter
--- OUTSIDE RECORDS SUMMARY | 2022-02-09 16:04 | XMS_ITS | Encounter Summary ---
:1950 Author Organization [facility] Address [address] [place] [address] Care Team Providers Name Role Phone Janneth Zendejas SEAT JOINER CHAINSTITCH Primary Care Provider Reason for Referral Radiology Services (Routine/Next Available) - Authorization Not Required Specialty Diagnoses / Procedures Referred By Contact Refer red To Contact Diagnoses Osteoporosis without current pathological fracture, unspecified osteoporosis type Cynthia Pruitt APRN Procedures XR DEXA BONE DENSITY [address] [facility] [address] [place] [address] Referral ID Status Reason Start Expiration Visits Visits Date Date Requested Authorized [id number] Authorization Not 10/04/2021 1 1 Required Reason for Visit Reason Comments Follow-up spine issues,leg pain. would like her hands looked at, requesting refill on meloxiam. Encounter Details Date Type Department Care Team Description 10/04/2021 Office Visit [facility] [place], At risk for falls (Primary Dx); [facility] Rheumatology CLAIRE Marie Primary osteoarthritis involving multipl e joints; [address] Osteoporosis without current pathologica l fracture, unspecified osteoporosis type; [place] [address] [facility] [address] intermodal customer service (current) use of non-steroidal anti-inflammatories (nsaid) [phone] [place] [address] Social History Tobacco Use Types Packs/Day Years [...] (96.4 ??F) 10/04/2021 1114 EST Respiratory Rate - - Oxygen Saturation - - Inhaled Oxygen Concentration - - Weight 56.2 kg (124 lb) 10/04/2021 1114 EST Height 160 cm (5' 3) 10/04/2021 1114 EST Body Mass Index 21.97 10/04/2021 1114 EST documented in this encounter Functional Status [...] making decisions? documented as of this encounter Patient Instructions Patient InstructionsCynthia Pruitt APRN - 10/04/2021 11:15 EST Images from the original note were not included. Trial of TENS unit while driving for back/hip pain OK to continue taking meloxicam Keep doing exercises as instructed to Physical Therapy If hand/finger lumps become more bothersome, can see Dr. Solano at [facility] Patient Instructions Dupuytren's Contracture: Care Instructions Your Care Instructions In Dupuytren's contracture, the fingers become stiff and curl toward the palm. It is caused by thicktissue that grows under the skin in the palm of the hand. Sometimes the condition affects the palm but not the fingers. If the tissue gets thicker and affects one or more fingers, it may limit movementof your fingers and hand. Sometimes the condition can occur in the soles of the feet. The cause of Dupuytren's disease is not known. Dupuytren's disease may get worse slowly. If you havemild Dupuytren's disease, you may be able to keep your fingers moving with regular stretching. Surgery usually helps in severe cases. However, Dupuytren's disease can come back. Follow-up care is a rock part of your treatment and safety. Be sure to make and go to all appointments, and call your doctor if you are having problems. It's also a good idea to know your test results and keep a list of the medicines you take. How can you care for yourself at home? ?? Follow your doctor's advice for physical or occupational therapy and exercises to put your fingers and hand through a range of motion. ?? Two times a day, massage your hand and gently stretch the fingers back. This can get rid of tightness and help keep your fingers flexible. ?? Try to avoid curling your hand tightly. For example, use utensils and tools that have larger handgrips. When should you call for help? Call your doctor now or seek immediate medical care if: ? You have numbness in your fingers. ? You have a wound or sore on your finger or palm. ? Your hand or fingers get worse. Watch closely for changes in your health, and be sure to contact your doctor if you have any problems. Where can you learn more? Go to [email or web address]-[email or web address] [email or web address] or log into your UpTo account at [email or web address] Enter T888 in the search box to learn more about Dupuytren's Contracture: Care Instructions. Current as of: February 14, 2021?Content Version: 13.1 ?? [employer]. Care instructions adapted under license by [facility]. If you have questions about a medical condition or this instruction, always ask your healthcare professional. [employer] disclaims any warranty or liability for your use of this information. documented in this encounter Ordered Prescriptions Prescription Sig Dispensed Refills Start Date End Date meloxicam (MOBIC) 7.5 mg Take 1 Tablet by 180 Tablet 3 10/04 tabletIndications: Primary mouth 2 times osteoarthritis involving daily. multiple joints documented in this encounter Progress Notes Cynthia Pruitt, CLAIRE - 10/04/2021 1115 EST [facility] Rheumatology Chief Complaint Patient presents with ??? Follow-up spine issues,leg pain. would like her hands looked at, requesting refill on meloxiam. Rheumatology history: Osteoporosis -last DXA performed at [facility] December 2020 -bone mineral density of spine within normal ranges but likely falsely elevated secondary to advanced osteophytes and arthritis Left hip T score = -2.9; left femoral neck T score = -3.6 Alendronate - started taking consistently beginning June 2021 Osteoarthritis -right hand STT/thumb CMC joint L3-4 moderate to severe left-sided foraminal stenosis; L4-5 pronounced bilateral recess stenosis and severe right foraminal stenosis L5-S1 severe right-sided foraminal stenosis Adult degenerative scoliosis; chronic back pain; chronic right lower extremity pain HPI: Initial evaluation 07/22/2019 for right leg pain and right thumb pain Last visit on 04/02/2021 Has had consultation at [facility] with the pain clinic, neurology, neurosurgery and endocrinology Has started taking alendronate consistently for about the past 3 months. Surgery recommended for treatment of her spine and right lower extremity radiculopathy. Patient endorses she will need to get her T score higher than -2.5 prior to surgery. Second opinion with endocrinology at [facility] with recommendations to continue with alendronate. Denies any falls or changes in pain level. Gets good relief with meloxicam for her thumb and wrist pain. Notices some bumps on her right hand. Occasionally sore. Biggest issue is any prolonged sitting. Her primary care provider has her on 75 mg of pregabalin twice daily. She has a as needed prescription for low-dose oxycodone for situations when she has to sit for longer than 1 hour. Her brother has loaned her a TENS unit that she has not trialed yet. Has tried some Salonpas to her right posterior spine and hip. Attending outpatient PT Screening labs for chronic NSAID use were performed at [facility] and available for review. Current Outpatient Medications Medication ??? acetaminophen (TYLENOL) 500 mg tablet ??? alendronate (FOSAMAX) 70 mg tablet ??? aspirin chewable 81 mg tablet ??? Calcium-Cholecalciferol, D3, (CALCIUM 600 WITH VITAMIN D3) 600 mg(1,500mg) - 400 unit capsule ??? cholecalciferol, vitamin D3, (VITAMIN D3 ORAL) ??? glucosamine/msm/chondrt/C/hyal (FKOYDCMPMAK-HQCWBVGTRTN-ABZ ORAL) ??? ibuprofen (MOTRIN) 200 mg tablet ??? meloxicam (MOBIC) 7.5 mg tablet ??? multivitamin capsule ??? TURMERIC ORAL No current facility-administered medications for this visit. Allergies include: Codeine Past Medical History: Diagnosis Date ??? BCC (basal cell carcinoma of skin) ??? Rheumatic fever Family History Problem Relation Age of Onset ??? Cancer Father Social History: Social History Tobacco Use ??? Smoking status: Former Smoker Packs/day: 0.50 Types: Cigarettes Quit date: 2009 Years since quittin.1 ??? Smokeless tobacco: Never Used Substance Use Topics ??? Alcohol use: Yes Alcohol/week: 21.0 standard drinks Types: 21 Shots of liquor per week ??? Drug use: Never Review of Systems: Review of Systems Constitutional: Negative for malaise/fatigue and weight loss. Eyes: Negative for pain. Respiratory: Negative for cough. Cardiovascular: Negative for chest pain. Musculoskeletal: Positive for back pain and joint pain. Negative for falls. Skin: Negative for rash. Physical Examination: BP 137/65 Pulse 83 Temp 35.8 ??C (96.4 ??F) Ht 160 cm (63) Wt 56.2 kg (124 lb) BMI 21.97 kg/m?? EYES: Conjunctivae not injected ENT:??Oral and nasal mucosa not examined. ??Protective mask in place secondary to COVID-19 precautions. NECK: Normal resting posture. NO lymphadenopathy. Tenderness left upper trapezius with trigger point CHEST: Clear to auscultation bilaterally. CARDIOVASCULAR: Regular rate and rhythm. No murmur. No peripheral edema. JOINT EXAM: No synovitis of the joints of the hands, wrists, or feet. SKIN: No rash on arms, legs, trunk. ??No nail pitting. ??No dilated capillary loops in the nail beds. MUSCULOSKELETAL EXAM: Bossing of 1st metacarpals without erythema, warmth. Crepitance with CMC shuckand grind.??No appreciable volar masses on exam today.??Hypermobility of wrist joints in flexion/extension.?Left small finger with dorsal, well circumscribed mass overlying the??PIP joint. ?? No triggering of any digits.?? Right volar ganglion radial side Hypertrophic changes right index, small fingers PIP joints Right lower extremity??posterior buttock pain Dupuytren's nodules and cords palmar aspect left hand in line with the small finger. No contracture Labs: [facility]: Labs on 09/16/2021 with serum calcium = 8.7 Creatinine = 0.7 and GFR >60 ALT, AST and alkaline phosphatase are within normal values Diagnosis / Assessment: Problem List Items Addressed This Visit Musculoskeletal Primary osteoarthritis involving multiple joints Relevant Medications meloxicam (MOBIC) 7.5 mg tablet Other Visit Diagnoses At risk for falls - Primary Osteoporosis without current pathological fracture, unspecified osteoporosis type Relevant Orders XR DEXA BONE DENSITY intermodal customer service (current) use of non-steroidal anti-inflammatories (nsaid) Osteoporosis without interim falls or fragility fractures with current treatment Multijoint osteoarthritis particularly of hands managed with oral NSAIDs Recommendations/Evaluation: Recommend continuation of alendronate (Fosamax) once weekly. Repeat DXA scan in June 2022. Recommend she have it performed at the same facility that her previous study was done. Order sent to [facility] Refill provided for meloxicam with reassurance that renal and liver function within normal values. Watchful waiting with Dupuytren's cords and nodules palmar aspect of her hand without contracture Follow-up with [facility] spine surgery after repeat DXA scan. We will plan remote visit follow-up in July to review those results as well. Recommend she trial the TENS unit on her low back and right posterior hip while sitting and driving to see if symptoms improve. Cynthia Pruitt APRN 10/04/2021 11:30 documented in this encounter Plan of Treatment Upcoming Encounters Date Type Specialty Care Team Description 02/28/2022 Office Visit Rheumatology Rangel Pruitt APRN [address] [facility] [address] [place] [phone] 07/28/2022 Office Visit Rheumatology Rangel Pruitt, SHIRRING MACHINE OPERATOR [address] 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 involving multiple joints ibuprofen (MOTRIN) 200 mg Take 200 mg by Alternate therapy 10/04/2021 tablet mouth every 6 hours as needed for Pain. 1-2 as needd aspirin chewable 81 mg Take 81 mg by Patient Stopped 0 10/04/2021 tablet mouth daily. Taking documented as of this encounter Care Teams Customer Service Specialist Relationship Specialty Start Date End Date Janneth Zendejas NP PCP - General 07/22/19 documented as of this encounter
--- OUTSIDE RECORDS SUMMARY | 2022-02-09 16:04 | XMS_ITS | Encounter Summary ---
:1950 Author Organization [facility] Address [address] [place] [address] Care Team Providers Name Role Phone Janneth Zendejas VIRTUAL CLASSROOM MANAGER Primary Care Provider Reason for Visit Reason Onset Date Comments Medications Refill 01/04/2021 Encounter Details Date Type Department Care Team Description 01/04/2021 Refill [facility] Roxi Buck RN Medications Refill Rheumatology [address] [place], [place] [id number] Social History Tobacco Use Types Packs/Day Years Used Date Former Smoker Cigarettes 0.5 Quit: 2009 Smokeless Tobacco: Never Used Alcohol Use Standard Drinks/Week Comments Yes 2 (1 standard drink = 0.6 oz pure alcoho l) Sex Assigned at Date Recorded Not on file COVID-19 Exposure Response Date Recorded In the last month, have you been in contact with No / Unsure 12/27/2020 13:04 EDT someone who was confirmed or suspected [...] making decisions? documented as of this encounter Ordered Prescriptions Prescription Sig Dispensed Refills Start Date End Date meloxicam (MOBIC) 7.5 mg Take 1 Tab by 90 Tab 4 01/05/20 21 10/04/2021 tabletIndications: Primary mouth 2 times osteoarthritis involving daily. multiple joints documented in this encounter Miscellaneous Notes Telephone Encounter - Roxi Buck RN - 01/04/2021 2964 EDT Received faxed refill request from [facility] for Meloxicam. Last visit note reviewed and follow up scheduled for 04/02/21. Refill sent as noted. documented in this encounter Plan of Treatment Upcoming Encounters Date Type Specialty Care Team Description 02/28/2022 Office Visit Rheumatology Rangel Pruitt, ENERGY MANAGER [address] [facility] [address] [place] [address] 07/28/2022 Office Visit Rheumatology Rangel Pruitt, ENERGY MANAGER [address] [facility] [address] [place] [address] documented as of this encounter Visit Diagnoses Diagnosis Primary osteoarthritis involving multipl e joints - Primary documented in this encounter Discontinued Medications Medication Sig Discontinue Reason Start Date End Date meloxicam (MOBIC) 7.5 mg Take 1 Tab by Reorder 04/03/2020 tabletIndications: Primary mouth 2 times osteoarthritis involving daily. multiple joints documented as of this encounter Care Teams Dirt Contractor Relationship Specialty Start Date End Date Janneth Zendejas, PATRICIO PCP - General 07/22/19 documented as of this encounter
--- OUTSIDE RECORDS SUMMARY | 2022-02-09 16:04 | XMS_ITS | Encounter Summary ---
:1950 Author Organization [facility] Address [address] [place] [address] Care Team Providers Name Role Phone Janneth Zendejas Naomie STYRENE DEHYDRATION REACTOR OPERATOR Primary Care Provider Reason for Visit Reason Onset Date Comments Other 09/25/2020 Encounter Details Date Type Department Care Team Description 09/25/2020 Telephone [facility] Renae Pantoja, PAEstebanC Other Orthopedics & Spine [address] [place] [address] [address] [place] [address] Social History Tobacco Use Types [...] this encounter Miscellaneous Notes Telephone Encounter - Cynthia Kat LPN - 09/25/2020 1430 EST Pt calls today, she has been called by [facility] and [facility], she really wants to use [facility], I did tell her [facility] called yesterday and needed more info that patient coordinator front desk took care of and sent, so she is fine to use them and decline [facility], also when she gets it done ask [facility] to ship images to [facility], but that before her F/U visit I will make sure they arrived, pt will let us know when she has a date so we can doF/U, also she wonders if she can get hip MRI while she is there, I did explain that we can talk about radiating pain when she reviews MRI with Colette, but if it looks like hip issue she would have to seeortho sports for imaging and hip work up, pt expressed understanding. documented in this encounter Plan of Treatment Upcoming Encounters Date Type Specialty Care Team Description 02/28/2022 Office Visit Rheumatology Rangel Pruitt, CLOTHING TRADES WORKERS [address] [facility] [address] [place] [address] 07/28/2022 Office Visit Rheumatology Rangel Pruitt, CLOTHING TRADES WORKERS [address] [facility] [address] [place] [address] documented as of this encounter Visit Diagnoses Not on filedocumented in this encounter Care Teams Photographic Plate Maker Relationship Specialty Start Date End Date Janneth Zendejas, PATRICIO PCP - General 07/22/19 documented as of this encounter
--- OUTSIDE RECORDS SUMMARY | 2022-02-09 16:04 | XMS_ITS | Encounter Summary ---
:1950 Author Organization [facility] Address [address] [place] [address] Care Team Providers Name Role Phone Janneth Zendejas Naomie TRACTOR TRAILER MECHANIC Primary Care Provider Reason for Visit Reason Onset Date Comments Other 08/21/2020 Encounter Details Date Type Department Care Team Description 08/21/2020 Telephone [facility] Renae aPntoja, PAGarry Other Orthopedics & Spine [address] [place] [address] [address] [place] [address] Social History Tobacco Use Types [...] Telephone Encounter - Cynthia Kat LPN - 08/21/2020 0857 EST pt calls today, was responding to notification to please call our office and confirm scheduled apt, pt has apt Aug 01 at 9:15, added to paper schedule at this time, pt states this is F/U OV for trial of meloxicam documented in this encounter Plan of Treatment Upcoming Encounters Date Type Specialty Care Team Description 02/28/2022 Office Visit Rheumatology Rangel Pruitt, CONTACT LENS INSPECTOR [address] [facility] [address] [phone] 07/28/2022 Office Visit Rheumatology Rangel Pruitt, CONTACT LENS INSPECTOR [address] [facility] [address] [place] [address] documented as of this encounter Visit Diagnoses Not on filedocumented in this encounter Care Teams Train Brakeman Relationship Specialty Start Date End Date Janneth Zendejas, PATRICIO PCP - General 07/22/19 documented as of this encounter
--- OUTSIDE RECORDS SUMMARY | 2022-02-09 16:04 | XMS_ITS | Encounter Summary ---
:1950 Author Organization [facility] Address [address] [place] [address] Care Team Providers Name Role Phone Natali Zendejasyce Naomie SPRAGGER Primary Care Provider Reason for Visit Reason Comments Leg Pain sciatic nerve pain- RLE Encounter Details Date Type Department Care Team Description 04/29/2021 Office Visit [facility] Judson Bailey Degenerative [address] MD Chandra scoliosis in adult [facility] [address] [place] patient (Primary Dx) [place] [address] [address] [phone] [facility], [address] [place] [address] (Wo rk) Social History Tobacco Use Types [...] making decisions? documented as of this encounter Progress Notes Judson Bailey MD - 04/29/2021 0900 EDT Patient is referred by Janneth Zendejas for evaluation for right leg pain. Ms Diehl is a 70-year-old generally healthy woman. For the last 2 years, she has struggled with painprincipally affecting the right leg. This radiates from the right paraspinous region, down the lateral hip and into the lateral thigh and anterolateral calf. It is constant, but worsened with prolongedsitting. It is improved with activity. There is associated numbness. Current Oswestry disability index is 9 out of 45 and pain scores are 2/5/0/10. She is done physical therapy which gave no benefit. She had epidural steroid injections, first at L4-5 and then at L5-S1. The first gave her no benefit, while the second gave her moderate, transient benefit. 1/3 injection is pending. She has tried gabapentin, Lyrica, and meloxicam. She continues to take the meloxicam. The membrane stabilizers were ineffective. I reviewed her imaging personally. Importantly, the patient has transitional anatomy. For the purposes of this interpretation, this anatomy involves a lumbarized S1. Using this convention, the last normal appearing, mobile disc is L5-S1. At L1-2 there is mild left lateral recess stenosis. At L2-3 there is left-sided foraminal stenosis. At L3-4 there is left-sided foraminal stenosis. At L4-5 there is right lateral recess stenosis and right-sided foraminal stenosis. At L5-S1 there is right-sided foraminal stenosis. X-rays reveal degenerative scoliosis with right lateral listhesis at L4-5 and L3-4. Past medical history is notable for lumpectomy, done for benign disease. Social history: The patient does not smoke. She drinks 3 alcoholic beverages a night. 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 She lives alone. Physical examination reveals a thin woman in no outward distress. She has a normal gait. She has slight difficulty with heel walking on the right. She is able to toe walk without difficulty. She standsin good sagittal and coronal balance. She has normal strength throughout the upper and lower extremities. Specifically she has normal strength in the iliopsoas, quadriceps, dorsiflexors, EHL, and plantar flexors bilaterally to manual testing. Biceps, brachioradialis, patellar reflexes are all normal. There is diminished sensation along the right lateral calf. Impression: Ms. Diehl is a healthy 71-year-old woman who presents with L4 and/or L5 radiculopathy onthe right in the setting of degenerative scoliosis. Because of the coexisting deformity, I think simple decompression would be likely to lead to recurrent pain if not accompanied by instrumented fusion. This would require instrumentation to the top of her curve, which in her case would be L2- S1. This is a significant undertaking, and would likely require iliac fixation as well. At this point, her disability is not so severe that she would like to consider this. She will follow-up for a third epidural steroid injection and will discuss facet blocks and facet ablation with her pain physician. She asked my opinion about this procedure and I told her that my read of the literature in my personal experience is that it tends not to be durable in the long run. I stressed the importance of home strengthening exercises which she will resume. For now we will not schedule any follow-up, but she understandsthat if she reconsiders surgery, I am happy to see her at any time. I spent a total of 45 minutes on the date of this encounter meeting with the patient and reviewing documentation/coordinating care as described in the above note. documented in this encounter Plan of Treatment Upcoming Encounters Date Type Specialty Care Team Description 02/28/2022 Office Visit Rheumatology Rangel Pruitt , CRABBING MACHINE OPERATOR [address] [facility] [address] [place], [place] [phone] 07/28/2022 Office Visit Rheumatology Rangel Pruitt, CRABBING MACHINE OPERATOR [address] [facility] [address] [place] [address] documented as of this encounter Visit Diagnoses Diagnosis Degenerative scoliosis in adult patient - Primary documented in this encounter Care Teams Hydrogen Cell Tender Relationship Specialty Start Date End Date Janneth Zendejas NP PCP - General 07/22/19 documented as of this encounter
--- OUTSIDE RECORDS SUMMARY | 2022-02-09 16:04 | XMS_ITS | Encounter Summary ---
:1950 Author Organization [facility] Address [address] [place] [address] Care Team Providers Name Role Phone Cristiana Janneth Akbar INTERNAL CONTROL ANALYST Primary Care Provider Reason for Visit Reason Comments Pain Pain Encounter Details Date Type Department Care Team Description 03/28/2021 Office Visit [facility] - Renae Wong, Lumbar radiculopathy, right (Primary Dx); [facility] [place] Orthopedics & PA-C Scoliosis of lumbar spine, unspecified s coliosis type Spine Medicine [address], [facility] [address] [place] [address] [place] [address] [phone] Social History Tobacco Use Types Packs/Day Years [...] Sign Reading Time Taken Comments Blood Pressure 116/68 03/28/2021 1119 EDT Pulse 71 03/28/2021 1119 EDT Temperature - - Respiratory Rate - - Oxygen Saturation 98% 03/28/2021 1119 EDT Inhaled Oxygen Concentration - - Weight - - Height - - Body Mass Index - - documented in this encounter Functional Status Functional [...] documented as of this encounter Progress Notes Renae Wong PA-C - 03/28/2021 1115 EDT xr lumbHistory of Present Illness: This is a pleasant 70-year-old female presenting for reevaluationof her right leg pain. At her last office visit on 12/27/2020.had complained of 100% right leg pain along the lateral aspect of her hip, and thigh and more intermittently, with a constant burning sensation along the anterolateral aspect of her lower leg occasionally radiating into her foot involving the area between the first and second toe. Her pain is most aggravated with sitting, especially in certain positions and long drives. She did undergone an L4-5 SHAHRAIR on 12/07/2020 without significant relief.We decided to trial a right L5-S1 transforaminal epidural steroid injection, and see how she responded. It appears she had an L4-5 right TF SHAHRIAR on 03/08/[address] Rice. Today, Shona reports about 30% improvement in her symptoms after her epidural steroid injection. Shereports near complete resolution of her symptoms that lasted for maybe a couple of days after the injection, but then the symptoms came back in her leg. Shortly prior to the injection, the patient reports that she experienced a new symptom involving her not being able to lay down flat secondary to pain, whereas her symptoms always occurred when she was in the seated position, previously. After the injection, she has continued to be able to lay down, and is sleeping better because of this. In the car, her pain is still the most severe reaching an 8-9 out of 10 and making it so she has to stop frequently before proceeding. Conservative Treatment: Physical therapy with continued HEP without significant relief. Gabapentin and Lyrica without significant relief, not well tolerated. CBD oil and meloxicam all without significant relief. 12/07/2020 TL L4-5 SHAHRIAR without relief 03/08/2021 right L4-5 TF SHAHRIAR with 90 to 100% relief for a couple of days, and 30% sustained relief. Review of Systems: As per HPI. I reviewed medications, allergies, medical, surgical and social history with the patient. Physical Examination: BP 116/68 (BP Cuff Location: Left arm, BP Patient Position: Sitting, BP Cuff Sizes: Adult, regular) Pulse 71 SpO2 98% Patient is a well-developed, fit female who is pleasant, no acute distress at this time. HEENT without any gross abnormalities. Breathing is nonlabored Patient ambulates with a normal gait. Image Review: I reviewed patient's lumbar spine MRI from 10/08/2020 that shows her lateral listhesis of L3 on 4 to the right. We are calling her variant of anatomy sacralized L5, which would indicate that her area ofmost significant right-sided foraminal stenosis would be at L4-5, which is the level where her last injection was done. She has moderate to severe foraminal stenosis, and does have some lateral recess stenosis at this level as well. At L3-4, patient also has some moderate to severe foraminal stenosis,as well as most more marked lateral recess stenosis with facet arthropathy in combination with disc bulge. I did obtain new lumbar spine x-rays with flexion and extension views and again show lateral listhesis of L4 3 on 4, as well as L4 on 5 to the right as well as minimal L2 on 3 with L2 slid to the left.Lection and extension views show that the patient has a retrolisthesis on extension of L4 on 5 that does partially correct on flexion Assessment: 1. Right lumbar radiculopathy, chronic This is a pleasant and straightforward 70-year-old female presenting for evaluation of her 100% right leg pain. She does report that she had pain relief that was significant for a couple of days after the injection, and was very helpful but her symptoms all came back afterwards, except for that she found she was able to lay flat and get better sleep, which has so far sustained. We spent a lot of timediscussing her symptoms, and why they are resistant possibly to longer term improvement from epidural steroid injections. She also wondered if nerve impingement could be happening from somewhere else to produce the symptoms she is having. We reviewed her MRI, as well as x-rays to explain the nature of her leg pain, and I also further explained why she is not having significant pain in the back. At this point, I think it is reasonable for her to have a surgical consult, to explore the option ofdecompressing the area. I did discuss with the patient that it likely would entail a fusion, and notjust a decompression. She is interested in talking to one of our surgeons to obtain further information. New lumbar spine x-rays with flexion and extension films were obtained for this purpose, as her most recent ones were done in 2019. Patient encouraged to call with any questions, concerns, or worsening of condition. I spent a total of 40 minutes on the date of this encounter meeting with the patient and reviewing documentation/coordinating care as described in the above note. Plan: 1. Surgical consult with Dr. Bailey 04/29/2021 This document was produced using CRAVE dictation. Please excuse any grammatical or verbal errors. CC: Janneth Zendejas [address] [place] [id number] documented in this encounter Plan of Treatment Upcoming Encounters Date Type Specialty Care Team Description 02/28/2022 Office Visit Rheumatology Rangel Pruitt, FEEDER/FOLDER [address] [facility] [address] [place] [address] 07/28/2022 Office Visit Rheumatology Rangel Pruitt, FEEDER/FOLDER [address] [facility] [address] [place] [address] Scheduled Orders Name Type Priority Associated Diagnoses Order S chedule XR LUMBAR SPINE 4 OR Imaging Routine Lumbar radiculopathy , Ordered: 03/28/2021 MORE VIEWS right documented as of this encounter Procedures Procedure Name Priority Date/Time Associated Diagnosis Comme nts XR LUMBAR SPINE 03/28/2021 13:38 Results for this COMPLETE WITH EDT procedure are in FLEX/EXT AND the results OBLIQUES MIN 6 section. VIEWS documented in this encounter Results XR LUMBAR SPINE COMPLETE WITH FLEX/EXT AND OBLIQUES MIN 6 VIEWS (03/28/2021 13:38 EDT) Specimen Narrative [facility] - 03/28/2021 13:38 EDT ? EXAM: RADIOLOGY/LUMBAR SPINE WITH FLEX/EX EX. D/ (1203) ? CLINICAL INFORMATION: ? M54.16, LUMBAR RADICULOPATHY, RIG HT ? INDICATION: M54.16, LUMBAR RADICU LOPATHY, RIGHT. ? COMPARISON: Lumbar spine 9. ? TECHNIQUE: AP, lateral neutral an d lateral flexion and extension ? views were obtained. ? FINDINGS: ? Mild scoliosis of the lumbar spin e, apex to the right. Degenerative ? disc disease and facet arthrosis throughout the lumbar spine. Minimal ? retrolisthesis of L3 and L5 does not change with either flexion or ? extension. Normal bone density. N o fracture. Intact sacroiliac ? joints. ? REPORT SIGNED IN OTHER VENDOR SYSTEM 03/28/2021 ?Reported B y: Harris Evans MD ? CC: ? Transcribed Date/Time: 03/28/2021 (1338) ? Rec Therapist: ? Printed Date/Time: 03/28/2021 (13 38) ? PAGE 1 ? Shanita d Report ? Procedure Note Harris Evans MD - 03/28/2021 EXAM: RADIOLOGY/LUMBAR SPINE WITH FLEX/ EX EX. D/ (1203) CLINICAL INFORMATION: M54.16, LUMBAR RADICULOPATHY, RIGHT INDICATION: M54.16, LUMBAR RADICULOPATH Y, RIGHT. COMPARISON: Lumbar spine 07/22/2019. TECHNIQUE: AP, lateral neutral and late ral flexion and extension views were obtained. FINDINGS: Mild scoliosis of the lumbar spine, ape x to the right. Degenerative disc disease and facet arthrosis throug hout the lumbar spine. Minimal retrolisthesis of L3 and L5 does not ch daniela with either flexion or extension. Normal bone density. No frac ture. Intact sacroiliac joints. REPORT SIGNED IN OTHER VENDOR SYSTEM 03/28/2021 Reported By: Harris Evans MD CC: Transcribed Date/Time: 03/28/2021 (2982 ) Rec Therapist: Printed Date/Time: 03/28/2021 (7379) PAGE 1 Signed Report Performing Organization Address City/State/ZIP Code Phon e Number [facility] documented in this encounter Visit Diagnoses Diagnosis Lumbar radiculopathy, right - Primary Scoliosis of lumbar spine, unspecified s coliosis type documented in this encounter Historical Medications This list may reflect changes made after this encounter. Medication Sig Dispensed Refills Start Date End Date acetaminophen (TYLENOL) Take 500 mg by 0 500 mg tablet mouth every 6 hours as needed for Pain. 1-2 as needed ibuprofen (MOTRIN) 200 mg Take 200 mg by 0 10/04/2021 tablet mouth every 6 hours as needed for Pain. 1-2 as needd added in this encounter Care Teams Cardiovascular Specialist Relationship Specialty Start Date End Date Janneth Zendejas, PATRICIO PCP - General 07/22/19 documented as of this encounter
--- OUTSIDE RECORDS SUMMARY | 2022-02-09 16:04 | XMS_ITS | Encounter Summary ---
:1950 Author Organization [facility] Address [address] [place] [address] Care Team Providers Name Role Phone Janneth Zendejas PRODUCTION RECORDER Primary Care Provider Reason for Referral Consult (Routine) - Closed Specialty Diagnoses / Procedures Referred By Contact Refer red To Contact Anesthesiology Diagnoses Right lumbar radiculopathy Protrusion of intervertebral disc of lumbosacral region Renae Wong PA-C [address] [place] [address] Referral ID Status Reason Start Date Expiration Date Visits V isits Requested Authorized [id number] Closed Specialty 12/27/2020 1 1 Services Required Question Answer Reason for Request: right L5-S1 TF SHAHRIAR Comments Hopes to see Dr. Rice, again. Reason for Visit Reason Comments Pain Encounter Details Date Type Department Care Team Description 12/27/2020 Office Visit [facility] - Renae Wong, Right lumbar radiculopathy (Primary Dx); [facility] Orthopedics & PA-C Protrusion of intervertebral disc of lum bosacral region; Spine Medicine [address] Scoliosis of lumbar spine, u nspecified scoliosis type [address] [place] [address] [place] [address] [phone] Social History Tobacco Use Types Packs/Day Years [...] Sign Reading Time Taken Comments Blood Pressure 136/76 12/27/2020 1305 EDT Pulse 94 12/27/2020 1305 EDT Temperature 36.4 ??C (97.5 ??F) 12/27/2020 1305 EDT Respiratory Rate - - Oxygen Saturation 97% 12/27/2020 1305 EDT Inhaled Oxygen Concentration - - Weight 57.7 kg (127 lb 3.2 oz) 12/27/2020 1305 EDT Height - - Body Mass Index 21.83 10/03/2020 1015 EST documented in this encounter Functional Status [...] encounter Progress Notes Renae Wong PA-C - 12/27/2020 1300 EDT History of Present Illness: This is a pleasant 70-year-old female presenting for reevaluation of herright leg pain. At her last office visit on 10/18/2020, Shona reported continued right leg pain, involving the right anterolateral thigh, and extending to the villalta and top of her foot. The most predominant symptom involves the anterolateral villalta occurring mostly when she is driving, but also could occurwith standing for an extended period of time, or when she first stands from a seated position. At the time of this visit showed a right-sided disc protrusion at L4 S1. It was noted in the imaging, but there was a couple of levels that her symptoms could have been stemming from. We ended up deciding to move forward with an L4 S1 translaminar epidural steroid injection on the right. This was completed on 12/07/[address] Rice. Today, Shona reports 100% right leg pain. She states that it is not at all improved compared with prior to her epidural steroid injection, and denies having had any improvement at any point in time with this. On a positive note, the patient did have a good experience during her epidural steroid injection. Shona continues to complain of pain, intermittently along the lateral aspect of her hip and along her thigh more intermittently, and then continues to have that burning sensation along the anterolateral aspect of her lower leg, occasionally going into her foot more towards the lateral aspect of her foot, involving the area between the first and second toe. Most aggravated with sitting, especially in certain positions. Driving long distance she finds that she has to stop frequently get out of thecar, which does relieve her pain. Conservative Treatment: Physical therapy with a continued home exercise program, without significantrelief. Gabapentin and Lyrica without significant relief. CBD oil and meloxicam all without significant relief. L4-5 epidural steroid injection 12/07/2020 with no significant relief Review of Systems: As per HPI. I reviewed medications, allergies, medical, surgical and social history with the patient. Physical Examination: Vital signs reviewed and within normal limits. BMI of 21.8. Current pain scale 1 out of 10, but as severe as a 10 out of 10. Well-developed well-nourished female, is pleasant no acute distress at this time. Breathing is nonlabored Skin is warm dry Patient ambulates with a normal gait. She able to rise up on her toes and heels. Image Review: I did review review the patient's lumbar spine MRI again, dated 10/08/2020 that shows a central to the right disc bulge at L5-S1 causing moderate to severe foraminal stenosis. At L4-5, combination of some facet arthropathy, and broad- based disc bulge leads to right greater than left lateral recess stenosis as well as moderate to severe right-sided foraminal stenosis. At L3-4, the right foramen is patent as is the lateral recess. Moderate foraminal stenosis on the right at L1-2. Assessment: Right lumbar radiculopathy This is a pleasant and straightforward 70-year-old female presenting for reevaluation of her right leg pain, that I been seeing her for since 2019. She did not experience any pain relief with her recent epidural steroid injection which was done at L4-5. After reevaluating the patient's lumbar imaging,and the imaging from the epidural steroid injection, I suggested that we try an injection transforaminal he at L5-S1, where she appears to have nerve impingement of the exiting nerve root, and see how her symptoms respond. I discussed with the patient that this could be helpful diagnostically as well as therapeutically, and depending on her response, may need to consider a surgical consult. Prior to considering a surgical consult, I would recommend that we get a nerve conduction study for further evaluation. Patient verbalizes understanding, and is happy with the current plan. Hopefully she gets great results from this next epidural steroid injection. Patient encouraged to call with any questions, concerns, or worsening of condition. I spent a total of 30 minutes on the date of this encounter meeting with the patient and reviewing documentation/coordinating care as described in the above note. Plan: 1. Right L5-S1 transforaminal epidural steroid injection 2. Follow-up 2 to 3 weeks after injection This document was produced using [employer] dictation. Please excuse any grammatical or verbal errors. CC: Janneth Zendejas [address] [place] [id number] documented in this encounter Plan of Treatment Upcoming Encounters Date Type Specialty Care Team Description 02/28/2022 Office Visit Rheumatology Rangel Pruitt, PROPELLANT ASSEMBLER [address] [facility] [address] [place] [address] 07/28/2022 Office Visit Rheumatology Rangle Pruitt, PROPELLANT ASSEMBLER [address] [facility] [address] [place] [address] Scheduled Referrals Name Type Priority Associated Diagnoses Order S chedule AMB CONS/FOLLOW UP Outpatient Routine Right lumbar Expected: ANESTHESIOLOGY Referral radiculopathy 01/10/2021 Protrusion of (Approximate) intervertebral disc of lumbosacral region documented as of this encounter Visit Diagnoses Diagnosis Right lumbar radiculopathy - Primary Thoracic or lumbosacral neuritis or radi culitis, unspecified Protrusion of intervertebral disc of lum bosacral region Scoliosis of lumbar spine, unspecified s coliosis type documented in this encounter Care Teams Ground Crew Lines Person Relationship Specialty Start Date End Date Janneth Zendejas, PRODUCTION RECORDER PCP - General 07/22/19 documented as of this encounter
--- OUTSIDE RECORDS SUMMARY | 2022-02-09 16:04 | XMS_ITS | Encounter Summary ---
:1950 Author Organization [facility] Address [address] [place] [address] Care Team Providers Name Role Phone Janneth Zendejas PHILOSOPHY INSTRUCTOR Primary Care Provider Reason for Referral Consult (Routine) - Authorization Not Required Specialty Diagnoses / Procedures Referred By Contact Refer red To Contact Anesthesiology Diagnoses Right lumbar radiculopathy Renae Wong PA-C [address] [address] Referral ID Status Reason Start Expiration Visits Visits Date Date Requested Authorized [id number] Authorization Specialty 10/18/2020 1 1 Not Required Services Required Question Answer Reason for Request: Right L4-S1 translaminar SHAHRIAR Comments Calling level L4-S1, basing numbering of f of patient having 4 lumbar vertebra Reason for Visit Reason Comments Pain Encounter Details Date Type Department Care Team Description 10/18/[address] [facility] - Renae Wong, Right lumbar radiculopathy (Primary Dx); [facility] Protrusion of intervertebral disc of lum bosacral region Spine Medicine [address] [place] [address] [place] [address] [place], [place] [address] [phone] Social History Tobacco Use Types Packs/Day Years Used Date Former Smoker Cigarettes 0.5 Quit: 2009 Smokeless Tobacco: Never Used Alcohol Use Standard Drinks/Week Comments Yes 2 (1 standard drink = 0.6 oz pure alcoho l) Sex Assigned at Date Recorded Not on file COVID-19 Exposure Response Date Recorded In the last month, have you been in contact with No / Unsure 10/18/2020 13:00 EST someone who was confirmed or suspected to have Coronavirus / COVID-19? documented as of this encounter Last Filed Vital Signs Vital Sign Reading Time Taken Comments Blood Pressure 136/70 10/18/2020 1301 EST Pulse 80 10/18/2020 1301 EST Temperature 36 ??C (96.8 ??F) 10/18/2020 1301 EST Respiratory Rate - - Oxygen Saturation 97% 10/18/2020 1301 EST Inhaled Oxygen Concentration - - Weight - [...] as of this encounter Patient Instructions Patient InstructionsRenae Wong PA-C - 10/18/2020 13:00 EST You have been referred for a therapeutic injection. Our office will send a referral to the pain clinic at [facility] and they will contact you for scheduling. I will see you back inthe spine clinic 2-4 weeks after the injection is completed to evaluate the results. If you have any questions, please call our office at [phone]. Please give the pain clinic 2 weeks to process your referral. If you have not heard from the pain clinic in 2 weeks, you may call them at [phone] to check on the status. PLEASE NOTE - YOU SHOULD NOT HAVE A FLU SHOT WITHIN THE 2 WEEKS BEFORE, OR THE 2 WEEKS AFTER YOUR PAIN CLINIC INJECTION. documented in this encounter Progress Notes Renae Wong PA-C - 10/18/2020 1300 EST History of Present Illness: This is a pleasant 70-year-old female presenting for evaluation of her right leg pain. At her last office visit on 08/23/2020, Shona was reporting 100% right lower extremity pain, continuing to involve the right anterolateral thigh, and extending to the villalta and top of her foot. She was noting some improvement with physical therapy. Pain was most dominant in the anterolateral villalta and occurs mostly when she is driving. She also noted that it was occurring when standing for an extended period of time, and sometimes when first getting up from sitting position. She had been taking Lyrica but stopped because she did not feel it was doing anything. Soon after she had started, she was noting improvement with that. She ended up deciding that her symptoms were aggravating enoughthat she would like to move forward with a lumbar spine MRI to discuss next steps in treatment. Today, Shona presents reporting no change in her previously reported pain. When she got here after her drive, she states that her pain was a 10 out of 10 in severity. It is still relieved with standing. She is here to review her lumbar spine MRI. Conservative Treatment: Physical therapy with a continued home exercise program, without significantrelief. Gabapentin, Lyrica without significant relief. CBD oil and meloxicam all without significantrelief. Review of Systems: As per HPI. I reviewed medications, allergies, medical, surgical and social history with the patient. Physical Examination: Vital signs reviewed and within normal limits. Patient's well-developed well-nourished female who is pleasant, in no acute distress at this time. Breathing is nonlabored Skin is warm and dry Patient is ambulating with a normal gait. She maintains a normal upright posture. No change to exam. Image Review: Lumbar spine MRI dated 10/08/2020 is some confusion in terms of levels. Considering the patient to have 4 lumbar vertebrae, starting at the T12, meaning that she has a partially lumbarized sacrum. At L4S1 she has a central to the right disc protrusion that causes moderate to severe foraminal stenosis on the right. At L3-4, she has a broad disc protrusion, and hypertrophic ligamentum flavum with some facet hypertrophy that causes some moderate foraminal spinal stenosis and moderate to severe right foraminal stenosis. Also noted to have right lateral recess stenosis at L3-4. At L2-3, patient has moderate spinal stenosis again with combined broad disc protrusion, hypertrophic ligamentum flavum, and facet hypertrophy with bilateral left greater than right lateral recess stenosis and severe foraminal stenosis at L1 to, patient has broad disc bulge, and bilateral mild facet effusion. Mild central canal stenosis and moderate left foraminal stenosis. T12-L1, bilateral foramina appear patent, and there is mild central canal stenosis. Conus medullaris appears to be between T12 and L1. Assessment: 1. Right lumbar radiculopathy 2. Central to the right disc protrusion at L4 S1 This is a pleasant and straightforward 70-year-old female presenting for reevaluation of chronic right leg pain that she has started treatment for in July 2019. At this time, the patient is hoping to move forward with next steps in patient is happy with this plan. Treatment, as we have discussed the option of epidural steroid injection in the past. Her symptoms most follow an L5 nerve distribution. I suspect that she is having impingement at what I am calling the L4 S1 level, from foraminal stenosis, though it could be coming from the level above at L3-4, where she does have some lateral recessstenosis. I discussed with her that this is not going to be completely clear because of the level discrepancy, but recommended that we trial an L4 S1 translaminar epidural steroid injection, to see howshe responds to this. I am very hopeful that the patient gets good relief. If she does not have significant relief from this, may consider trialing at the level above. The hope is essentially to avoid surgical intervention, as the patient mostly experiences the pain when she is in her car. Once she knows the date of her injection, she will plan on calling to arrange follow-up for 2 to 3 weeks after the injection is complete. Patient encouraged to call with any questions, concerns, or worsening of condition. I spent a total of 30 minutes on the date of this encounter meeting with the patient and reviewing documentation/coordinating care as described in the above note. Plan: 1. Right L4 S1 translaminar epidural steroid injection 2. Follow-up 2 to 3 weeks after injection This document was produced using [employer]. Please excuse any grammatical or verbal errors. CC: Janneth Zendejas [address] [facility] [id number] [phone] documented in this encounter Plan of Treatment Upcoming Encounters Date Type Specialty Care Team Description 02/28/2022 Office Visit Rheumatology Ed[place]Rangel chi , KNITTED GARMENT FINISHER [address] [place] [address] 07/28/2022 Office Visit Rheumatology Rangel Pruitt , KNITTED GARMENT FINISHER [address] [place] [address] Scheduled Referrals Name Type Priority Associated Diagnoses Order S chedule AMB CONS/FOLLOW UP Outpatient Routine Right lumbar Expected: ANESTHESIOLOGY Referral radiculopathy 11/18/2020 (Approximate) documented as of this encounter Visit Diagnoses Diagnosis Right lumbar radiculopathy - Primary Thoracic or lumbosacral neuritis or radi culitis, unspecified Protrusion of intervertebral disc of lum bosacral region documented in this encounter Historical Medications This list may reflect changes made after this encounter. Medication Sig Dispensed Refills Start Date End Date doxycycline (MONODOX) TAKE 1 CAPSULE BY 0 021 04/02/2021 100 mg capsule MOUTH TWICE DAILY. AVOID DAIRY PRODUCTS WHILE TAKING THIS MEDICATION added in this encounter Care Teams Pyrometer Operator Relationship Specialty Start Date End Date Janneth Zendejas, PHILOSOPHY INSTRUCTOR PCP - General 07/22/19 documented as of this encounter
--- OUTSIDE RECORDS SUMMARY | 2022-02-09 16:04 | XMS_ITS | Encounter Summary ---
:1950 Author Organization [facility] system Address [address] [place] [address] Care Team Providers Name Role Phone Janneth Zendejas CARRY IN WORKER Primary Care Provider Encounter Details Date Type Department Care Team Description 05/23/2020 Travel Social History Tobacco Use Types Packs/Day Years Used Date Former Smoker Cigarettes 0.5 Quit: 2009 Smokeless Tobacco: Never Used Alcohol Use Standard Drinks/Week Comments Yes 2 (1 standard drink = 0.6 oz pure alcoho l) Sex Assigned at Date Recorded Not on file COVID-19 Exposure Response Date Recorded In the last month, have you been in contact with No / Unsure 05/23/2020 9:50 EDT someone who was confirmed or suspected [...] Description 02/28/2022 Office Visit Rheumatology Rangel Pruitt, DIRECTOR OF STRATEGIC INITIATIVES [address] [facility] [address] [place], [place] [address] 07/28/2022 Office Visit Rheumatology Rangel Pruitt, DIRECTOR OF STRATEGIC INITIATIVES [address] [facility] [place] [address] documented as of this encounter Visit Diagnoses Not on filedocumented in this encounter Care Teams Needle Polisher Relationship Specialty Start Date End Date Janneth Zendejas, CARRY IN WORKER PCP - General 07/22/19 documented as of this encounter
--- OUTSIDE RECORDS SUMMARY | 2022-02-09 16:04 | XMS_ITS | Encounter Summary ---
:1950 Author Organization [facility] Address [address] [place] [address] Care Team Providers Name Role Phone Janneth Zendejas Naomie INDUSTRIAL ENERGY ENGINEER Primary Care Provider Reason for Visit Reason Comments Follow-up Pt doing well.Had DXA done a t [facility] and here for F/U and results.Ongoing spine/sciatic pain right chava e. Got an injection at pain clinic ( ordered by Colette Wong).Pt would like to discuss Prolia per INDUSTRIAL ENERGY ENGINEER PCP recommendations Encounter Details Date Type Department Care Team Description 04/02/2021 Office Visit [facility] [place], Age-rel ated osteoporosis without current pathological fracture (Primary Dx); [facility] Rheumatology CLAIRE Marie meterman (current) use of non-steroidal anti-inflammatories (nsaid); [address] Primary osteoarthritis [place] [address] [address] [place] [id number] Social History Tobacco Use Types Packs/Day Years [...] Sign Reading Time Taken Comments Blood Pressure 148/88 04/02/2021 1010 EDT Pulse - - Temperature - - Respiratory Rate - - Oxygen Saturation - - Inhaled Oxygen Concentration - - Weight 56.2 kg (124 lb) 04/02/2021 1010 EDT Height - - Body Mass Index 21.28 10/03/2020 1015 EST documented in this encounter [...] Patient Instructions Patient InstructionsCynthia Pruitt APRN - 04/02/2021 10:15 EDT Get labs done in about 3 months to check kidney and liver function Start taking Fosamax (aledronate) once a week for bone density If your thumb/wrist pain gets worse, call the office and we can consider an injection for symptoms documented in this encounter Ordered Prescriptions Prescription Sig Dispensed Refills Start Date End Date alendronate (FOSAMAX) 70 Take 1 Tablet by 12 Tablet 4 04/02 mg tabletIndications: mouth every 7 days. Age-related osteoporosis With full glass without current water,on empty pathological fracture stomach; nothing by mouth or lie down for next 30 min documented in this encounter Progress Notes Cynthia Pruitt APRN - 04/02/2021 1015 EDT [facility] Rheumatology Chief Complaint Patient presents with ??? Follow-up Pt doing well.Had DXA done at [facility] and here for F/U and results.Ongoing spine/sciatic pain right side. Got an injection at pain clinic ( ordered by Colette Wong).Pt would like to discuss Prolia per NPPCP recommendations HPI: 69 year old woman initially??evaluated??on 07/22/19 primarily for pain in right leg and bilateral R > L base of thumb pain as well as a mass of right wrist.? Referred to Ortho Spine after films revealed scoliotic deformity and laterolisthesis.Trial of gabapentin initiated. ?? Outside labs performed at [facility]??dated 06/09/19 including CMP - within normal limits, RF negative,??TSH = 1.57, CRP = 0.07??(0.0-0.3)??and MEMO positive = 1:160 speckled pattern INTERVAL HISTORY: Taking meloxicam daily. Increased hand pain if she skips doses. Ongoing follow-up at [facility] Ortho spine with previous injections Continues to have right lower extremity pain particularly with driving Repeat DXA scan at [facility] on 01/10/2021. Results available for review. No falls or injuries since her last visit. Ongoing right thumb pain as well as intermittently symptomatic volar ganglion right wrist Labs performed in February for chronic NSAID use. Outside lab at [facility] with results available via [employer] Current Outpatient Medications Medication ??? acetaminophen (TYLENOL) 500 mg tablet ??? alendronate (FOSAMAX) 70 mg tablet ??? aspirin chewable 81 mg tablet ??? Calcium-Cholecalciferol, D3, (CALCIUM 600 WITH VITAMIN D3) 600 mg(1,500mg) - 400 unit capsule ??? cholecalciferol, vitamin D3, (VITAMIN D3 ORAL) ??? glucosamine/msm/chondrt/C/hyal ([id number] ORAL) ??? ibuprofen (MOTRIN) 200 mg tablet [...] Types: Cigarettes Quit date: 2009 Years since quittin.6 ??? Smokeless tobacco: Never Used Substance Use Topics ??? Alcohol use: Yes Alcohol/week: 2.0 standard drinks Types: 2 Standard drinks or equivalent per week ??? Drug use: Never Review of Systems: Review of Systems Constitutional: Negative for malaise/fatigue and weight loss. Respiratory: Negative for cough. Cardiovascular: Negative for chest pain. Musculoskeletal: Positive for joint pain. Negative for back pain, falls and myalgias. Skin: Negative for rash. Physical Examination: BP (!) 148/88 Wt 56.2 kg (124 lb) BMI 21.28 kg/m?? EYES: Conjunctivae not injected ENT:??Oral and nasal mucosa not examined. ??Protective mask in place secondary to COVID-19 precautions. NECK: Normal extension and lateral rotation without pain. NO lymphadenopathy.Mild upper thoracic kyphosis. CHEST: Clear to auscultation bilaterally. CARDIOVASCULAR: Regular rate and rhythm. No murmur. No peripheral edema. ABDOMEN: Soft, non tender. No hepatosplenomegaly. JOINT EXAM: No synovitis of the joints [...] index, small fingers PIP joints Right lower extremity posterior buttock pain Labs: Diagnosis / Assessment: Problem List Items Addressed This Visit Musculoskeletal Primary osteoarthritis involving multiple joints Other Visit Diagnoses Age-related osteoporosis without current pathological fracture - Primary Relevant Medications alendronate (FOSAMAX) 70 mg tablet meterman (current) use of non-steroidal anti-inflammatories (nsaid) Relevant Orders COMPREHENSIVE METABOLIC PANEL (CMP) DXA scan dated 01/10/2021 with left hip T score = -2.9 and left hip femoral neck score = -3.6 Spine scores falsely elevated secondary to arthritis and prominent sclerotic osteophytes Recommendations/Evaluation: Strongly recommend treatment of osteoporosis in hopes of preventing fragility fracture. Time spent reviewing options and patient agreeable to trial of alendronate weekly. Prescription sent to pharmacy. Regarding ongoing symptoms of pain related to osteoarthritis, trial of meloxicam twice daily with 7.5 mg dose. She also understands targeted treatment for her thumb CMC arthritis may be beneficial at some point. Follow-up in 6 months for reevaluation. Repeat CMP for chronic NSAID use in about 3 months. Cynthia Pruitt APRN 04/03/2021 9:38 documented in this encounter Plan of Treatment Upcoming Encounters Date Type Specialty Care Team Description 02/28/2022 Office Visit Rheumatology Rangel Pruitt, YARD PERSON [address] [facility] [address] [place] [address] 07/28/2022 Office Visit Rheumatology Rangel Pruitt YARD PERSON [address] [facility] [address] [place] [address] documented as of this encounter Visit Diagnoses Diagnosis Age-related osteoporosis without current pathological fracture - Primary Senile osteoporosis [facility] (current) use of non-steroidal anti-inflammatories (nsaid) Primary osteoarthritis involving multipl e joints documented in this encounter Discontinued Medications Medication Sig Discontinue Reason Start Date End Date CANNABIDIOL, CBD, Take by mouth. Therapy completed EXTRACT ORAL doxycycline (MONODOX) TAKE 1 CAPSULE BY Therapy completed 04/02/2021 100 mg capsule MOUTH TWICE DAILY. AVOID DAIRY PRODUCTS WHILE TAKING THIS MEDICATION pregabalin (LYRICA) 25 Take 1 Cap by mouth 3 Therapy completed 02/202004/02/2021 mg capsuleIndications: times daily. Daily Lumbar radiculopathy, Max: 75 mg right documented as of this encounter Historical Medications This list may reflect changes made after this encounter. Medication Sig Dispensed Refills Start Date End Date cholecalciferol, vitamin Take 2,000 Units by 0 D3, (VITAMIN D3 ORAL) mouth. added in this encounter Care Teams Shuttle Threader Relationship Specialty Start Date End Date Janneth Zendejas NP PCP - General 07/22/19 documented as of this encounter
--- OUTSIDE RECORDS SUMMARY | 2022-02-09 16:04 | XMS_ITS | Encounter Summary ---
:1950 Author Organization [facility] Address [address] [place] [address] Care Team Providers Name Role Phone Janneth Zendejas PESTICIDE CHEMIST Primary Care Provider Reason for Visit Reason Onset Date Comments Medication Management 05/27/2021 Encounter Details Date Type Department Care Team Description 05/27/2021 Telephone [facility] - Cynthia Pruitt, Medication Management [facility] [place] CLIP LOADING MACHINE ADJUSTER [address] [place] [address] [address] [place] [address] Social History Tobacco Use Types [...] Telephone Encounter - Sachi Oleary RN - 05/27/2021 1042 EDT Left a detailed VM with mercedes's instructions and office to call with any further questions. Telephone Encounter - Cynthia Pruitt APRN - 05/27/2021 1038 EDT Please instruct patient to discontinue alendronate use for now. Since she has been taking it for such a short time, very limited risk with planned tooth extraction, but she should stop for now and start taking it again once her mouth has healed after extraction. elephone Encounter - Jane Boyce MA - 05/27/2021 0923 EDT Patient called and LVM stating she started taking Fosamax about 3 weeks ago and she has currrently broken a tooth which needs to be extracted. Patient is wondering is she needs to stop taking the Fosamax at any particular time prior to the dental procedure or what she should do. Please advise. Thanks. documented in this encounter Plan of Treatment Upcoming Encounters Date Type Specialty Care Team Description 02/28/2022 Office Visit Rheumatology Rangel Pruitt APRN [address] [facility] [address] [place] [address] 07/28/2022 Office Visit Rheumatology Rangel Pruitt APRN [address] [facility] [address] [place] [address] documented as of this encounter Visit Diagnoses Not on filedocumented in this encounter Care Teams Public Health Social Worker Relationship Specialty Start Date End Date Janneth Zendejas, PATRICIO PCP - General 07/22/19 documented as of this encounter
--- OUTSIDE RECORDS SUMMARY | 2022-02-09 16:04 | XMS_ITS | Encounter Summary ---
:1950 Author Organization [facility] Address [address] [place] [address] Care Team Providers Name Role Phone Natali Zendejasgilda Akbar CREPE MACHINE OPERATOR Primary Care Provider Reason for Referral Radiology Services (Routine/Next Available) - Authorization Not Required Specialty Diagnoses / Procedures Referred By Contact Refer red To Contact Diagnoses Right lumbar radiculopathy Humphrey Rice MD [facility] Procedures [place] C-ARM WITH IMAGES [address] [place] [address] Referral ID Status Reason Start Expiration Visits Visits Date Date Requested Authorized [id number] Authorization Not 1 1 Required 1 Reason for Visit Auth/Cert Specialty Diagnoses / Procedures Referred By Contact Refer red To Contact Referral ID Status Reason Start Date Expiration Date Visits Requ ested Visits Authorized [id number] 1 1 Encounter Details Date Type Department Care Team Description 07/05/2021 Hospital Encounter [facility] - R ight lumbar [facility] Xray radiculopathy [address] [place] [address] Social History Tobacco Use Types Packs/Day Years [...] mouth. glucosamine/msm/chondrt/C/ Take by mouth. 0 hyal ([id number]-O SM ORAL) multivitamin capsule Take 1 Cap [...] Description 02/28/2022 Office Visit Rheumatology Rangel Pruitt, TRANSCRIPTION [address] [place] [address] 07/28/2022 Office Visit Rheumatology [place]angel , TRANSCRIPTION [address] [facility] [address] [place] [address] documented as of this encounter Procedures Procedure Name Priority Date/Time Associated Diagnosis Comme nts FL C-ARM WITH Routine 07/05/2021 14:39 Right lumbar Results fo r this IMAGES EST radiculopathy procedure are in the results section. documented in this encounter Results FL C-ARM WITH IMAGES (07/05/2021 14:39 EST) Specimen Narrative 07/05/2021 14:40 EST This is a non-reportable exam. documented in this encounter Visit Diagnoses Diagnosis Right lumbar radiculopathy Thoracic or lumbosacral neuritis or radi culitis, unspecified documented in this encounter Care Teams Sales Vice President Relationship Specialty Start Date End Date Janneth Zendejas, CREPE MACHINE OPERATOR PCP - General 07/22/19 documented as of this encounter
--- OUTSIDE RECORDS SUMMARY | 2022-02-09 16:04 | XMS_ITS | Encounter Summary ---
:1950 Author Organization [facility] Address [address] [place] [address] Care Team Providers Name Role Phone Janneth Zendejas STRAIGHT RULING MACHINE OPERATOR Primary Care Provider Reason for Referral PT/OT/ST (Routine) - Specialty Report Received Specialty Diagnoses / Procedures Referred By Contact Refer red To Contact Diagnoses Lumbar radiculopathy, right Renae Wong PA-C [address] [place] [place] [address] Referral ID Status Reason Start Expiration Visits Visits Date Date Requested Authorized [id number] Specialty Specialty 05/23/2020 1 1 Report Services Received Required Question Answer Reason for Request: right lumbar radic with late ral listhesis Practice Site (External Referral Only): PT in [facility]. Carlos Gaming PT Reason for Visit Reason Comments Back Pain low back Encounter Details Date Type Department Care Team Description 05/23/2020 Office Visit [facility] - Renae Wong Lumbar [facility] [place] & PAEstebanC radiculopathy, right Spine Medicine [address] (Primary Dx) [address] [place] [address] [place], [place] [address] [phone] Social History Tobacco Use Types Packs/Day Years [...] Sign Reading Time Taken Comments Blood Pressure 118/66 05/23/2020950 EDT Pulse 74 05/23/2020950 EDT Temperature - - Respiratory Rate - - Oxygen Saturation 98% 05/23/2020950 EDT Inhaled Oxygen Concentration - - Weight [...] Dispensed Refills Start Date End Date pregabalin (LYRICA) 25 mg Take 1 Cap by mouth 90 Cap 2 1 04/02/2021 capsuleIndications: Lumbar 3 times daily. radiculopathy, right Daily Max: 75 mg documented in this encounter Progress Notes Renae Wong PA-C - 05/23/2020 0960 EDT History of Present Illness: Shona is a pleasant 70 y.o. female presenting for follow up of her rightleg pain. At her last office visit, she complained of 100% right sided anterolateral thigh pain, that radiated to the villalta and dorsum of her foot, most often occurring while driving in her car. Reported shooting pain when moving her foot from the gas to the break. She'd trialed gabapentin and ended updiscontinuing this stating it did not improve her symptoms. At this time, we had discussed getting an MRI to consider an L3-4 SHAHRIAR. Patient requested trying a different medication, and we decided to trial pregabalin and follow up in 4 weeks. Today, the patient presents reporting she is continuing to have the 100% right lower extremity pain involving the right anterolateral thigh and extending to the villalta and the top of her foot. Essentially the patient does not have any change in her symptoms from her last visit. She has tried the Lyrica,and states that this has given her some improvement in her symptoms, she thinks. At this time, the patient is asking about possibly trying physical therapy again. Conservative Treatment: gabapenting, CBC oil, meloxicam, without relief. PT with continued home exercise program. Review of Systems: As per history of present illness. Five-point review of systems was otherwise reviewed negative. I reviewed medications, allergies, medical, surgical and social history with the patient. Physical Examination: Vital signs reviewed and within normal limits. Patient is a well-developed well-nourished female in no acute distress at this time. Head eyes ears nose without any gross abnormality. Breathing is comfortable Skin is warm and dry. Patient is ambulating with a normal gait. She is able to walk on her toes and heels. Image Review: I did review her lumbar spine x-ray from 07/22/2019 that shows a scoliotic deformity that is convex to the right, with apex at L2, considering the patient has 4 lumbar vertebrae. Now she has a lateral listhesis of L2 on L3, and also on L3 on 4. She has a retrolisthesis of L4 on the sacrum. There is excess motion between flexion and extension for this retrolisthesis. Assessment: 1. R lumbar radiculopathy 2. Laterolisthesis of L3 on L4 3. Degenerative scoliotic deformity This is a pleasant and straightforward 70-year-old female presenting for reevaluation of her right lower extremity symptoms, that seem to follow mostly. Patient has L5 distribution. Possibly an L4 distribution. The patient is currently taking Lyrica, and she did have side effects of may be irritation to the corners of her mouth, as well as outbreaks on her tongue. She stopped it, and then restarted it a week later, and does not feel like she is having is bad of side effects this time. She does feel that she is had some improvement in her symptoms. At this time, the patient is asking if it would be beneficial for her to trial physical therapy, she has not done this in a few years. I feel that this could be beneficial for her. I placed a referral for her to start this. She did indicate that she is not interested in moving forward with injections anytime soon. She asked about a lumbar spine MRI, but I encouraged her that we should not do this until she is ready to consider injections as a possible treatment, so that we do not end up having to order this twice. Patient verbalizes understanding. I will see her back in 10 weeks, after she is completed physical therapy, to see how she is doing at this time. Patient encouraged to call with any questions, concerns, or worsening of condition. We did spend at least 25 minutes today in [id number] discussion, examination, and review of multiple imaging studies with this patient, with greater than 50% of the visit spent counseling the patientwith respect to potential diagnoses and appropriate options at this time. The patient asked appropriate questions, today, and all questions were answered. Patient verbalized understanding the above andwill follow-up as mentioned in the plan. Plan: 1. Physical therapy 2. Continue Lyrica 3. Follow-up in 10 weeks This document was produced using [employer] Systemsation. Please excuse any grammatical or verbal errors. CC: Janneth Zendejas [address] [facility] [id number] documented in this encounter Plan of Treatment Upcoming Encounters Date Type Specialty Care Team Description 02/28/2022 Office Visit Rheumatology Rangel Pruitt, TIE FASTENER [address] [facility] [address] [place] [address] 07/28/2022 Office Visit Rheumatology Rangel Pruitt, TIE FASTENER [address] [facility] [address] [place] [address] Scheduled Referrals Name Type Priority Associated Diagnoses Order S chedule AMB CONS/FOLLOW UP Outpatient Referral Routine Lumbar Ex pected: PHYSICAL THERAPY radiculopathy, right (Approximate) documented as of this encounter Visit Diagnoses Diagnosis Lumbar radiculopathy, right - Primary documented in this encounter Discontinued Medications Medication Sig Discontinue Reason Start Date End Date pregabalin (LYRICA) 25 mg Take 1 Cap by mouth Reorder 04/24/20 20 05/23/2020 capsuleIndications: 3 times daily. Lumbar radiculopathy, Daily Max: 75 mg right documented as of this encounter Care Teams English As A Second Language Teacher Relationship Specialty Start Date End Date Janneth Zendejas, PATRICIO PCP - General 07/22/19 documented as of this encounter
--- OUTSIDE RECORDS SUMMARY | 2022-02-09 16:04 | XMS_ITS | Encounter Summary ---
:1950 Author Organization [facility] Address [address] [place] [address] Care Team Providers Name Role Phone Cristiana Janneth Akbar WASH CREW PERSON Primary Care Provider Reason for Visit Reason Comments Pain Encounter Details Date Type Department Care Team Description 08/23/2020 Office Visit [facility] - Renae Wong, Lumbar radiculopathy, right (Primary Dx); [facility] PA-C Scoliosis of lumbar spine, unspecified s coliosis type Spine Medicine [address], [facility] [address] [place] [address] [place] [address] [phone] Social History Tobacco Use Types Packs/Day Years [...] Sign Reading Time Taken Comments Blood Pressure 128/78 08/23/2020 1307 EST Pulse 81 08/23/2020 1307 EST Temperature 36.5 ??C (97.7 ??F) 08/23/2020 1307 EST Respiratory Rate - - Oxygen Saturation 98% 08/23/2020 1307 EST Inhaled Oxygen Concentration - - Weight [...] encounter Progress Notes Renae Wong PA-C - 08/23/2020 1300 EST History of Present Illness: This is a 70-year-old female presenting for reevaluation of her right leg pain. At her last office visit on 05/23/2020, the patient reported 100% right lower extremity pain, involving the right anterolateral thigh and extending to the villalta and the top of her foot. She had tried Lyrica which had given her some improvement in her symptoms. At this time, she wanted to try physical therapy again. I discussed with the patient the option of considering epidural steroid injection, but she is very hesitant to go forward with this sort of a plan. Once she is ready to consider moreinvasive treatment, we would need to get a lumbar spine MRI first. Today, Shona states that she feels she was having some improvement with physical therapy and her right leg pain, which predominantly still affects the anterolateral villalta, and mostly occurs when she is driving. Now, it also occurs if she sits for an extended period of time, anywhere. Also sometimes occurs when she first stands up from a sitting position. She has stopped the Lyrica, because she did notfeel it was doing anything. Patient states that her pain is not keeping her from doing any of the things that she enjoys doing. It is not interrupting her sleep. Currently, the patient feels like she is in a fairly good place. Conservative Treatment: Physical therapy with a continued home exercise program, gabapentin, Lyrica without significant relief, CBD oil, and meloxicam all without significant relief. Review of Systems: As per history of present illness. Five-point review of systems otherwise reviewed negative I reviewed medications, allergies, medical, surgical and social history with the patient. Physical Examination: Vital signs reviewed and within normal limits. Patient is a well-developed fit female who is pleasant in no acute distress at this time. HEENT without any gross abnormalities. Breathing unlabored Skin warm and dry Patient maintains a normal upright posture. She ambulates with a normal gait. Image Review: No new imaging to review Assessment: 1. Right lumbar radiculopathy 2. Lateral listhesis of L3 on 4 3. Retrolisthesis of L4 on S1 with excess motion 4. Degenerative scoliotic deformity This is a pleasant and straightforward 70-year-old female who has been seeing you for a while for her right lumbar radiculopathy, which has been most bothersome when she drives. Because of the pandemic, at this time, she is not driving much. She has been doing physical therapy, and continues to do this. She feels like she is actually in a fairly good place at this time, but worries when she is able to go places again, that the pain is going to become more of a nuisance. For this reason, we did discuss getting a lumbar spine MRI for further evaluation, and to help guide future epidural steroid injection, if it becomes more of a problem. At this time, she is going to think about it. Hopefully, she stays in a good place. At this point in time, the plan is for her to follow-up as needed, and to let us know if she decides that she wants to move forward with a lumbar spine MRI, if pain becomes more ofan aggravation. Patient encouraged to call with any questions, concerns, or worsening of condition. I spent a total of 25 minutes on the date of this encounter meeting with the patient and reviewing documentation/coordinating care as described in the above note. Plan: 1. Continue PT with home exercise program 2. Discussed lumbar spine MRI 3. Follow-up as needed This document was produced using [employer] dictation. Please excuse any grammatical or verbal errors. CC: Janneth Zendejas [address] [facility] [id number] documented in this encounter Plan of Treatment Upcoming Encounters Date Type Specialty Care Team Description 02/28/2022 Office Visit Rheumatology Rangel Pruitt, CARPENTERS [address] [facility] [address] [place] [address] 07/28/2022 Office Visit Rheumatology Rangel Pruitt, CARPENTERS [address] [facility] [address] [place] [address] documented as of this encounter Visit Diagnoses Diagnosis Lumbar radiculopathy, right - Primary Scoliosis of lumbar spine, unspecified s coliosis type documented in this encounter Care Teams Gym Manager Relationship Specialty Start Date End Date Janneth Zendejas, PATRICIO PCP - General 07/22/19 documented as of this encounter
--- OUTSIDE RECORDS SUMMARY | 2022-02-09 16:04 | XMS_ITS | Encounter Summary ---
:1950 Author Organization [facility] Address [address] [place] [address] Care Team Providers Name Role Phone Janneth Zendejas [employer]AD[employer] SCHO[employer] DEAN Primary Care Provider Encounter Details Date Type Department Care Team Description 07/05/2021 Travel Social History Tobacco Use Types Packs/Day [...] Description 02/28/2022 Office Visit Rheumatology Rangel Pruitt, TRADITIONAL MAORI HEALTH PRACTITIONER [address] [facility] [address] [place], [place] [address] 07/28/2022 Office Visit Rheumatology Rangel Pruitt, TRADITIONAL MAORI HEALTH PRACTITIONER [address] [facility] [address] [place] [address] documented as of this encounter Visit Diagnoses Not on filedocumented in this encounter Care Teams Grinding Wheel Inspector Relationship Specialty Start Date End Date Janneth Zendejas, [employer]AN PCP - General 07/22/19 documented as of this encounter
--- OUTSIDE RECORDS SUMMARY | 2022-02-09 16:04 | XMS_ITS | Encounter Summary ---
:1950 Author Organization [facility] Address [address] [place] [address] Care Team Providers Name Role Phone Janneth Zendejas DRY CELL BATTERY ASSEMBLER Primary Care Provider Reason for Visit Reason Onset Date Comments Appointment Related 02/07/2022 Encounter Details Date Type Department Care Team Description 02/07/2022 Telephone [facility] - Cynthia Pruitt, Appointment [place] [facility] MUSIC COPYIST [address] [place] [address] [address] [place] [address] Social History Tobacco Use Types [...] this encounter Miscellaneous Notes Telephone Encounter - Jigna Brown - 02/07/2022 1542 EDT Notified patient. elephone Encounter - MayiVanessa - 02/07/2022 1520 EDT Patient has called to confirm that she will be attending her appt with Yaneth Pruitt DRY CELL BATTERY ASSEMBLER on 02/28/2022. Patient intends to have her labs drawn on 02/20/22 at [facility]. Please confirm that existing lab orders have been communicated to [facility] lab. documented in this encounter Plan of Treatment Upcoming Encounters Date Type Specialty Care Team Description 02/28/2022 Office Visit Rheumatology Rangel Pruitt, MUSIC COPYIST [address] [facility] [address] [place] [address] 07/28/2022 Office Visit Rheumatology Rangel Pruitt, MUSIC COPYIST [address] [facility] [address] [place] [address] documented as of this encounter Visit Diagnoses Not on filedocumented in this encounter Care Teams Retail Selling Floor Leader Relationship Specialty Start Date End Date Janneth Zendejas, PATRICIO PCP - General 07/22/19 documented as of this encounter
--- OUTSIDE RECORDS SUMMARY | 2022-02-09 16:04 | XMS_ITS | Encounter Summary ---
:[address] [facility] Address [address] [place] [address] Care Team Providers Name Role Phone Cristiana Janneth Akbar FURNACE REPAIR MECHANIC Primary Care Provider Reason for Referral Referral (Routine/Next Available) - New Request Specialty Diagnoses / Procedures Referred By Contact Refer red To Contact Diagnoses Right lumbar radiculopathy Protrusion of intervertebral disc of lumbosacral region Humphrey Rice MD Procedures EPIDURAL STEROID INJECTION ON THE SPINE WITH FLUOROSCOPY [address] [facility] [address] [place] [address] Referral ID Status Reason Start Date Expiration Date Visits V isits Requested Authorized [id number] New Request 06/08/2021 1 1 Encounter Details Date Type Department Care Team Description 06/08/2021 Transcribe Orders [facility] Humphrey Rice Ri ght lumbar radiculopathy (Primary Dx); - [facility] MD Sherie Protrusion of intervertebral disc of lum bosacral region [address] [place] [address] [address] [place] [address] Social History Tobacco Use Types [...] Description 02/28/2022 Office Visit Rheumatology Rangel Pruitt, PIE CHEF [address] [facility] [address] [place] [address] 07/28/2022 Office Visit Rheumatology Rangel Pruitt, PIE CHEF [address] [facility] [address] [place] [address] Scheduled Orders Name Type Priority Associated Diagnoses Order S chedule EPIDURAL STEROID Procedures Routine Right lumbar Expected: INJECTION ON THE SPINE radiculop athy 07/05/2021, WITH FLUOROSCOPY Protrusion of Expires: intervertebral disc of 06/08 lumbosacral region documented as of this encounter Visit Diagnoses Diagnosis Right lumbar radiculopathy - Primary Thoracic or lumbosacral neuritis or radi culitis, unspecified Protrusion of intervertebral disc of lum bosacral region documented in this encounter Care Teams Satellite Manager Relationship Specialty Start Date End Date Janneth Zendejas, FURNACE REPAIR MECHANIC PCP - General 07/22/19 documented as of this encounter
--- OUTSIDE RECORDS SUMMARY | 2022-02-09 16:04 | XMS_ITS | Encounter Summary ---
:1950 Author Organization [facility] Address [address] [place] [address] Care Team Providers Name Role Phone Janneth Zendejas CAD PROGRAMMER Primary Care Provider Encounter Details Date Type Department Care Team Description 10/18/2020 Travel Social History Tobacco Use Types Packs/Day [...] Description 02/28/2022 Office Visit Rheumatology Rangel Pruitt, BACKEND JAVA DEVELOPER [address] [facility] [address] [place], [place] [address] 07/28/2022 Office Visit Rheumatology Rangel Pruitt, BACKEND JAVA DEVELOPER [address] [facility] [address] [place] [address] documented as of this encounter Visit Diagnoses Not on filedocumented in this encounter Care Teams Tenant Relations Coordinator Relationship Specialty Start Date End Date Janneth Zendejas, CAD PROGRAMMER PCP - General 07/22/19 documented as of this encounter
--- OUTSIDE RECORDS SUMMARY | 2022-02-09 16:04 | XMS_ITS | Encounter Summary ---
:1950 Author Organization [facility] Address [address] [place] [address] Care Team Providers Name Role Phone Janneth Zendejas Naomie BACK END ENGINEER Primary Care Provider Reason for Visit Reason Onset Date Comments Appointment Related 08/12/2021 Encounter Details Date Type Department Care Team Description 08/12/2021 Telephone [facility] - Renae Wong, Appointment Related [facility] [place] & [place]-C Spine Medicine [address] [facility] [address] [place] [address] [place] [address] [phone] Social History Tobacco Use Types Packs/Day Years [...] Miscellaneous Notes Telephone Encounter - Renae Wong PAEstebanC - 08/13/2021 1221 EST Noted. That makes sense. Thanks Yaneth. elephone Encounter - Cynthia Kat LPN - 08/12/2021 1329 EST Pt leaves today, wonders if she needs to keep appt with Colette this , F/U injection, pt states she has been seen at [facility] and has to work on her bone density before they can offer surgery so that is her plan. States injection did not help. I called pt, she is doing PT, seeing endocrinology re bone density and having PCP deal with pain management, she would like to cancel appt, and I will update cori Alvarenga happy with this plan and will call us on as needed basis, pt happy with this plan, Colette FYI documented in this encounter Plan of Treatment Upcoming Encounters Date Type Specialty Care Team Description 02/28/2022 Office Visit Rheumatology Rangel Pruitt, VINE PRUNER [address] [facility] [address] [place] [address] 07/28/2022 Office Visit Rheumatology Rangel Pruitt, VINE PRUNER [address] [facility] [address] [place] [address] documented as of this encounter Visit Diagnoses Not on filedocumented in this encounter Care Teams Organic Section Technical Lead Relationship Specialty Start Date End Date Janneth Zendejas, PATRICIO PCP - General 07/22/19 documented as of this encounter
--- OUTSIDE RECORDS SUMMARY | 2022-02-09 16:04 | XMS_ITS | Encounter Summary ---
:1950 Author Organization [facility] Address [address] [place] [address] Care Team Providers Name Role Phone Cristiana Janneth Akabr TRACK MANAGER Primary Care Provider Encounter Details Date Type Department Care Team Description 12/27/2020 Travel Social History Tobacco Use Types Packs/Day [...] Description 02/28/2022 Office Visit Rheumatology Rangel Pruitt, DATA CONVERSION ANALYST [address] [facility] [address] [place], [place] [address] 07/28/2022 Office Visit Rheumatology Rangel Pruitt, DATA CONVERSION ANALYST [address] [facility] [address] [place] [address] documented as of this encounter Visit Diagnoses Not on filedocumented in this encounter Care Teams Cdl B Driver Relationship Specialty Start Date End Date Janneth Zendejas, TRACK MANAGER PCP - General 07/22/19 documented as of this encounter
--- OUTSIDE RECORDS SUMMARY | 2022-02-09 16:04 | XMS_ITS | Encounter Summary ---
:1950 Author Organization [facility] Address [address] [place] [address] Care Team Providers Name Role Phone Janneth Zendejas REDUCTION FURNACE OPERATOR HELPER Primary Care Provider Reason for Visit Reason Onset Date Comments Appointment Related 11/06/2021 Encounter Details Date Type Department Care Team Description 11/06/[address] [facility] - Cynthia Pruitt, Appointment Related [facility] Rheumatology RURAL SOCIOLOGIST [address] [place] [address] [address] [place] [address] Social History Tobacco Use Types [...] encounter Miscellaneous Notes Telephone Encounter - Cynthia Pruitt, CLAIRE - 11/06/2021 8588 EDT Please schedule patient for telemedicine visit for mid February to review results of labs. documented in this encounter Plan of Treatment Upcoming Encounters Date Type Specialty Care Team Description 02/28/2022 Office Visit Rheumatology Rangel Pruitt, CLAIRE [address] [facility] [address] [place] [address] 07/28/2022 Office Visit Rheumatology Rangel Pruitt APRN [address] [facility] [address] [place] [address] documented as of this encounter Visit Diagnoses Not on filedocumented in this encounter Care Teams Bioinformatics Developer Relationship Specialty Start Date End Date Janneth Zendejas, REDUCTION FURNACE OPERATOR HELPER PCP - General 07/22/19 documented as of this encounter
--- OUTSIDE RECORDS SUMMARY | 2022-02-09 16:05 | XMS_ITS | Encounter Summary ---
:1950 Author Organization [facility] Address [address] [place] [address] Care Team Providers Name Role Phone Cristiana Janneth Akbar MANAGER TEST Primary Care Provider Reason for Visit Reason Onset Date Comments Medication Problem 05/01/2020 Encounter Details Date Type Department Care Team Description 05/01/2020 Telephone [facility] - Renae Wong, Medication Problem [facility] Orthopedics & PA-C Spine Medicine [address] [place] [address] [place] [address] [phone] Social History Tobacco Use Types Packs/Day Years Used Date Former Smoker Cigarettes 0.5 Quit: 2009 Smokeless Tobacco: Never Used Alcohol Use Standard Drinks/Week Comments Yes 2 (1 standard drink = 0.6 oz pure alcoho l) Sex Assigned at Date Recorded Not on file COVID-19 Exposure Response Date Recorded In the last month, have you been in contact with No / Unsure 04/24/2020 9:09 EDT someone who was confirmed or suspected [...] Telephone Encounter - Cynthia Kat LPN - 05/03/2020 1151 EDT Colette stated she has noted this and can close elephone Encounter - Cynthia Kat LPN - 05/02/2020 1341 EDT Pt returned my call, left a VM, was on Lyrica for 7 days and did not notice difference, stop Lyrica yesterday and mouth feeling better today, willing to wait till F/U appt early May to discuss. Bouchra Alvarengaronically signed by Cynthia Kat LPN at 05/02/2020 13:43 EDTTelephone Encounter - Cynthia Kat LPN - 05/02/2020 0953 EDT Called pt to discuss, VM left to call and let me know if Lyrica had given any relief. Telephone Encounter - Renae Wong PA-C - 05/01/2020 1258 EDT I am not seeing this as a common side effect of Lyrica, but it is possible. Is she having any improvement in her symptoms with the med? If she is it may be worth trying to bear through it and use some topical moisturizer on her lips, and oral hydration. A lot of times side effects start to dwindle after a couple of weeks. Otherwise, she can certainly stop the medication. elephone Encounter - Cynthia Kat LPN - 05/01/2020 1016 EDT Pt leaves VM today, mouth and tounge feels funny since starting Lyrica, looked up side effects and this is listed, wants to know if she can stop, also read should not just stop this med. Pt is at work,called pt back, no trouble bleeding, tongue feels burnt, lips don't feel right, like chapped and cracked at corners, I told pt she has not been on this very long so she can stop it, I will ask Colette pedro and get back to her, pt happy with this plan. Colette, advice? documented in this encounter Plan of Treatment Upcoming Encounters Date Type Specialty Care Team Description 02/28/2022 Office Visit Rheumatology Rangel Pruitt, ATMOSPHERIC SCIENCES PROFESSOR [address] [facility] [address] [place] [address] 07/28/2022 Office Visit Rheumatology Rangel Pruitt, ATMOSPHERIC SCIENCES PROFESSOR [address] [facility] [address] [place] [address] documented as of this encounter Visit Diagnoses Not on filedocumented in this encounter Care Teams Rest Room Matron Relationship Specialty Start Date End Date Janneth Zendejas, PATRICIO PCP - General 07/22/19 documented as of this encounter
--- OUTSIDE RECORDS SUMMARY | 2022-02-09 16:05 | XMS_ITS | Encounter Summary ---
:1950 Author Organization [facility] Address [address] [place] [address] Care Team Providers Name Role Phone Janneth Zendejas MEAT AND SEAFOOD CLERK Primary Care Provider Reason for Visit Reason Onset Date Comments Results 07/25/2019 Encounter Details Date Type Department Care Team Description 07/25/2019 Telephone [facility] Cynthia Rehman APRN Results Rheumatology [address] [facility] [address] [facility] [address] [place] [address] [place] [address] Social History Tobacco Use Types Packs/Day Years Used Date Never Smoker Smokeless Tobacco: Never Used Sex Assigned at Date Recorded Not on file documented as of this encounter Miscellaneous Notes Telephone Encounter - Cynthia Pruitt APRN - 07/25/2019 1819 EST Left another message about x-ray results of back. Will try again tomorrow. documented in this encounter Plan of Treatment Upcoming Encounters Date Type Specialty Care Team Description 02/28/2022 Office Visit Rheumatology Rangel Pruitt APRN [address] [facility] [address] [place] [address] 07/28/2022 Office Visit Rheumatology Rangel Pruitt APRN [address] [facility] [address] [place] [address] documented as of this encounter Visit Diagnoses Not on filedocumented in this encounter Care Teams Section Leader Screen Printing Relationship Specialty Start Date End Date Janneth Zendejas, MEAT AND SEAFOOD CLERK PCP - General 07/22/19 documented as of this encounter
--- OUTSIDE RECORDS SUMMARY | 2022-02-09 16:05 | XMS_ITS | Encounter Summary ---
:1950 Author Organization [facility] Address [address] [place] [address] Care Team Providers Name Role Phone Janneth Zendejas SUPPLY CHAIN LOGISTICS MANAGER Primary Care Provider Reason for Visit Reason Onset Date Comments Results 07/22/2019 Encounter Details Date Type Department Care Team Description 07/22/2019 Telephone [facility] Cynthia Rehman APRN Results Rheumatology 130 [facility] 130 [facility] [place], [place] [address] [place] [phone] Social History Tobacco Use Types Packs/Day Years Used Date Never Smoker Smokeless Tobacco: Never Used Sex Assigned at Date Recorded Not on file documented as of this encounter Miscellaneous Notes Telephone Encounter - Shona Lerner - 07/25/2019 0948 EST Patient lvm returning Your call. Best # to reach her at is cell [phone]. elephone Encounter - Cynthia Pruitt APRN - 07/22/2019 1759 EST Left message on answering machine regarding results of lumbar spine x-rays documented in this encounter Plan of Treatment Upcoming Encounters Date Type Specialty Care Team Description 02/28/2022 Office Visit Rheumatology Rangel Pruitt, COIL CONNECTOR REPAIRER [address] [facility] [address] [place] [address] 07/28/2022 Office Visit Rheumatology Rangel Pruitt, COIL CONNECTOR REPAIRER [address] [facility] [address] [place] [address] documented as of this encounter Visit Diagnoses Not on filedocumented in this encounter Care Teams Account Manager Trainee Relationship Specialty Start Date End Date Janneth Zendejas, SUPPLY CHAIN LOGISTICS MANAGER PCP - General 07/22/19 documented as of this encounter
--- OUTSIDE RECORDS SUMMARY | 2022-02-09 16:05 | XMS_ITS | Encounter Summary ---
:1950 Author Organization [facility] Address [address] [place] [address] Care Team Providers Name Role Phone Janneth Zendejas IT SECURITY ADMINISTRATOR Primary Care Provider Reason for Referral Consult (Routine) - Closed Specialty Diagnoses / Procedures Referred By Contact Refer red To Contact Neurology Diagnoses Radiculopathy of leg Cynthia Pruitt APRN Vanstraten, Amanda, MD [address] [place] [place] [phone] Phone: Fax: Referral ID Status Reason Start Date Expiration Date Visits V isits Requested Authorized [id number] Closed Specialty 07/22/2019 1 1 Services Required Question Answer Reason for Request: right lower extremity parest hesia Comments Brynn Joy at [facility] for neurolog y evaluation and electrodiagnostic studies Reason for Visit Reason Comments New Patient Visit Has joint pain in the finger s and feet when she gets up but that does get better throughout t he day. Does have a sciatica issue as well and ahs been to PT for it Encounter Details Date Type Department Care Team Description 07/22/2019 Office Visit [facility] [place], Radicul opathy of leg (Primary Dx); [facility] Rheumatology CLAIRE Marie Primary osteoarthritis involving multipl e joints [address] [place] [address] [address] [place] [phone] Social History Tobacco Use Types Packs/Day Years Used Date Never Smoker Smokeless Tobacco: Never Used Sex Assigned at Date Recorded Not on file documented as of this encounter Last Filed Vital Signs Vital Sign Reading Time Taken Comments Blood Pressure 122/74 07/22/2019 0853 EST Pulse - - Temperature - - Respiratory Rate - - Oxygen Saturation - - Inhaled Oxygen Concentration - - Weight 56.2 kg (124 lb) 07/22/2019 0853 EST Height 161.3 cm (5' 3.5) 07/22/2019 0853 EST Body Mass Index 21.62 07/22/2019 0853 EST documented in this encounter Patient Instructions Patient InstructionsSyCynthia xavier APRN - 07/22/2019 8:45 EST X-rays of back today Referral to neurology at [facility] for suspected right leg radiculopathy Core strengthening exercises Call if finger continues to trigger/get stuck if want to consider injection Watchful waiting with right wrist bump (volar ganglion cyst) documented in this encounter Progress Notes Cynthia Pruitt APRN - 07/22/2019 0845 EST [facility] Rheumatology Chief Complaint Patient presents with ??? New Patient Visit Has joint pain in the fingers and feet when she gets up but that does get better throughout the day. Does have a sciatica issue as well and ahs been to PT for it HPI: I had the pleasure of evaluating this patient at the request of Janneth Zendejas NP. Copy of this report will be made available to this provider. Patient states that she was motivated to have a checkup after some friends of hers had some health issues. States that she went to her PCP with her list including most significantly, pain of her right leg. Symptoms have been going on for a few years now and have been intermittent. Lately they have become more consistent. Worse with driving or sitting in a soft chair. Pain involved pain mostly in the right lower leg anterior aspect. At times, she has to stop her car and get out of the vehicle to alleviate the symptoms. History of outpatient physical therapy for some sciatic issues on the right. Also complains of some noise with neck motion and TMJ clicking.Has been seen in the past by Dr. Caruso (cleaning attendant) for left foot pain in 2018. Records reflectstress reaction/fracture of 2nd and 5th metatarsal based on MRI 04/2018. Denies any injuries or accidents either recent or remote. Other problems include a bump on right wrist without significant pain. Occasional pain at base of right thumb. Injury to right 3rd toe at [facility] and has some swelling and pain as a result. Denies any skin changes or rashes. No eye pain, dryness or mouth dryness. No GI symptoms. Current Outpatient Medications: aspirin chewable 81 mg tablet Calcium-Cholecalciferol, D3, (CALCIUM 600 WITH VITAMIN D3) 600 mg(1,500mg) -400 unit capsule CANNABIDIOL, CBD, EXTRACT ORAL glucosamine/msm/chondrt/C/hyal ([id number]-[id number]-UVE ORAL) multivitamin capsule TURMERIC ORAL No current facility-administered medications for this visit. Allergies include: Codeine No past medical history on file. No family history on file. Social History: Lives alone in [place]. Maintains her home and busy with indoor and outdoor. Review of Systems: 13 point ROS was done with the patient. See scanned document for details. Pertinent positives and negatives are noted in the HPI. Physical Examination: Ht 161.3 cm (63.5) Wt 56.2 kg (124 lb) LMP (Exact Date) BMI 21.62 kg/m?? EYES: Conjunctivae not injected, PERRLA ENT: No oral ulcers, dentition is good. NECK: Supple. Normal extension and lateral rotation without pain. NO lymphadenopathy. Mild increase in upper thoracic kyphosis CHEST: Clear to auscultation bilaterally. CARDIOVASCULAR: Regular rate and rhythm. No murmur. No peripheral edema. ABDOMEN: Soft, non tender. No hepatosplenomegaly. JOINT EXAM: No synovitis of the joints of the hands, wrists, or feet. Full painless ROM of shoulders, elbows, wrists, hips, knees and ankles. SKIN: No rash on arms, legs, trunk. No nail pitting. No dilated capillary loops in the nail beds. NEURO: Diminished sensation to light touch right lower extremity anterior aspect. 4-/5 to manual muscle testing of dorsiflexors right ankle. Able to heel walk without difficulty. Knee flexors and hip flexors well preserved strength to MMT MUSCULOSKELETAL EXAM: Exam of upper extremities with well-preserved active range of motion in flexion, abduction, IR/ER. Well-preserved strength throughout all muscle groups. Bilateral elbow range of motion with hyperextension bilaterally to 15 degrees. No pain over the medial lateral epicondyles. Negative Tinel's at the elbows. Wrist and hands without deformity. Right volar radial mass consistent with ganglion cyst. Mild bossing of the right first metacarpal. Hyperlaxity of wrist joints in extension and flexion. MCP joints of small fingers easily 115- 120degrees. Mild palpable triggering right ring finger with repeated flexion extension. Some mild crepitance CMC shuck and grind. Negative Yohan'scarpal compression. Lower extremity exam without tenderness over greater trochanters. No SI joint tenderness. Well-preserved hip range of motion all planes. Again hyperextension of bilateral knee joints to 10 to 15 degrees. No lower extremity swelling. Bilateral ankle joints with hyperlaxity in inversion and eversion. Standing exam of lumbar spine with some mild curvature. Mild discomfort with extension of spine. Labs: Outside labs performed at [facility] available for review include TSH = 1.57, CRP = 0.07 and MEMO positive = 1:160 speckled pattern Diagnosis / Assessment: Problem List Items Addressed This Visit Musculoskeletal Primary osteoarthritis involving multiple joints Neurological Radiculopathy of leg - Primary Relevant Orders AMB CONS/FOLLOW UP NEUROLOGY XR PELVIS 1-2 VIEWS XR LUMBAR SPINE 4 OR MORE VIEWS Appearance of bilateral thumb CMC arthritis Right leg radiculopathy likely from lumbar pathology Recommendations/Evaluation: Recommend lumbar spine x-rays with flexion/extension views to rule out a spondylolisthesis Discussed treatment options for suspected CMC joint subluxation and joint pain, including bracing, therapy, injections or surgical consult. Recommend core strengthening for lumbar spine health and optimization. Neurology consult for evaluation of right leg paresthesia and some mild weakness of dorsiflexors. Will call with results of spine x-rays and consideration of ortho spine follow up MAC Plummer 07/22/2019 8:56 documented in this encounter Plan of Treatment Upcoming Encounters Date Type Specialty Care Team Description 02/28/2022 Office Visit Rheumatology Rangel Pruitt, ENTERTAINMENT CENTRE MANAGER [address] [facility] [address] [place] [address] 07/28/2022 Office Visit Rheumatology Rangel Pruitt, ENTERTAINMENT CENTRE MANAGER [address] [facility] [address] [place] [address] Scheduled Referrals Name Type Priority Associated Diagnoses Order S chedule AMB CONS/FOLLOW UP Outpatient Referral Routine Radiculopathy o f leg Ordered: NEUROLOGY 07/22/2019 documented as of this encounter Procedures Procedure Name Priority Date/Time Associated Diagnosis Comme nts XR LUMBAR SPINE 07/22/2019 11:37 Results for this COMPLETE WITH EST procedure are in FLEX/EXT AND the results OBLIQUES MIN 6 section. VIEWS XR PELVIS 1-2 VIEWS 07/22/2019 11:35 Resu lts for this EST procedure are i n the results section. documented in this encounter Results XR LUMBAR SPINE COMPLETE WITH FLEX/EXT AND OBLIQUES MIN 6 VIEWS (07/22/2019 11:37 EST) Specimen Narrative [facility] - 07/22/2019 11:37 EST ? EXAM: RADIOLOGY/LUMBAR SPINE WITH FLEX/EX EX. D/ (1123) ? CLINICAL INFORMATION: ? M54.10 RIGHT LEG WEAKNESS, NUMBNE SS ? INDICATION: M54.10 RIGHT LEG WEAK NESS, NUMBNESS XR LUMBAR SPINE ? BENDING VIEWS 2 OR 3 VIEWS ? TECHNIQUE: 4 view lumbar spine wi th flexion-extension views. ? COMPARISON: None ? FINDINGS: ? There are 4 lumbar type vertebral bodies. There is a mild convex ? right lumbar scoliosis centered a t the L2 vertebral body level. Disc ? space narrowing and endplate oste ophyte formation is seen, including ? large left-sided osteophytes and endplate sclerosis at L2/3. There is ? a trace retrolisthesis of L5 for on S1. Advanced hypertrophic facet ? disease spans the lower lumbar sp ine. ? IMPRESSION: ? 1. Ambiguity in the numbering of the lumbar spine. For the purposes ? of this study, we will state ther e are 4 lumbar type vertebral ? bodies. ? 2. Convex right lumbar scoliosis with very advanced multilevel lumbar ? spine degenerative disc and facet disease spanning the mid and lower ? lumbar spine. ? REPORT SIGNED IN OTHER VENDOR SYSTEM 07/22/2019 ?Reported B y: Isaiah Gipson MD ? CC: Cynthia Pruitt NP ? Transcribed Date/Time: 07/22/2019 (1137) ? Cyber Security Systems Engineer: ? Printed Date/Time: 07/22/2019 (11 37) ? PAGE 1 ? Shanita d Report ? Procedure Note Isaiah Gipson MD - 07/22/2019 EXAM: RADIOLOGY/LUMBAR SPINE WITH FLEX/ EX EX. D/ (1123) CLINICAL INFORMATION: M54.10 RIGHT LEG WEAKNESS, NUMBNESS INDICATION: M54.10 RIGHT LEG WEAKNESS, NUMBNESS XR LUMBAR SPINE BENDING VIEWS 2 OR 3 VIEWS TECHNIQUE: 4 view lumbar spine with fle xion-extension views. COMPARISON: None FINDINGS: There are 4 lumbar type vertebral [place] s. There is a mild convex right lumbar scoliosis centered at the L2 vertebral body level. Disc space narrowing and endplate osteophyte formation is seen, including large left-sided osteophytes and endpla te sclerosis at L2/3. There is a trace retrolisthesis of L5 for on S1. Advanced hypertrophic facet disease spans the lower lumbar spine. IMPRESSION: 1. Ambiguity in the numbering of the magno mbar spine. For the purposes of this study, we will state there are 4 lumbar type vertebral bodies. 2. Convex right lumbar scoliosis with v darcy advanced multilevel lumbar spine degenerative disc and facet disea se spanning the mid and lower lumbar spine. REPORT SIGNED IN OTHER VENDOR SYSTEM 07/22/2019 Reported By: Isaiah Gipson MD CC: Cynthia Pruitt NP Transcribed Date/Time: 07/22/2019 (2876 ) Cyber Security Systems Engineer: Printed Date/Time: 07/22/2019 (1614) PAGE 1 Signed Report Performing Organization Address City/State/ZIP Code Phon e Number [facility] XR PELVIS 1-2 VIEWS (07/22/2019 11:35 EST) Specimen Narrative [facility] - 07/22/2019 11:35 EST ? AN ADDENDUM IS INCLUDED ON THIS REPORT ? ADDENDUM ? ADDENDUM: ? INDICATION: BACK PAIN/HIP PAIN/LE G RADICULOPATHY ? ADDEND UM SIGNED IN OTHER VENDOR SYSTEM 10/10/2019 ?Reported B y: Isaiah Gipson MD ?Transcribe d: 10/10/2019 (0913) ?REPORT ? EXAM: RADIOLOGY/PELVIS 1-2 VIEWS ?EX. D/ (1123) ? CLINICAL INFORMATION: ? INDICATION: XR LUMBAR SPINE BE NDING VIEWS 2 OR 3 VIEWS ? TECHNIQUE: One view pelvis. ? COMPARISON: None. ? FINDINGS: The pelvis is well alig luiza. No acute fractures seen. The ? pubic rami are intact. The sacroi liac joints are symmetric. Advanced ? lower lumbar spine degenerative d isc and facet disease is seen at the ? edge of the exam. ? IMPRESSION: ? No osseous pelvic abnormality det ected ? REPORT SIGNED IN OTHER VENDOR SYSTEM 07/22/2019 ?Reported B y: Isaiah Gipson MD ? CC: Cynthia Pruitt NP ? Transcribed Date/Time: 07/22/2019 (1135) ? Cyber Security Systems Engineer: ? Printed Date/Time: 10/10/2019 (09 13) ? PAGE 1 ? Shanita d Report ? Procedure Note Isaiah Gipson MD - 10/10/2019 AN ADDENDUM IS INCLUDED ON THIS REPO RT ADDENDUM ADDENDUM: INDICATION: BACK PAIN/HIP PAIN/LEG RADI CULOPATHY ADDENDUM SIGNED IN OTHER VENDOR SYS TEM 10/10/2019 Reported By: Isaiah Gipson MD Transcribed: 10/10/2019 (0184) HIS.POWS PATEL REPORT EXAM: RADIOLOGY/PELVIS 1-2 VIEWS EX. D/ (1123) CLINICAL INFORMATION: INDICATION: XR LUMBAR SPINE BENDING VIEWS 2 OR 3 VIEWS TECHNIQUE: One view pelvis. COMPARISON: None. FINDINGS: The pelvis is well aligned. N o acute fractures seen. The pubic rami are intact. The sacroiliac j oints are symmetric. Advanced lower lumbar spine degenerative disc an d facet disease is seen at the edge of the exam. IMPRESSION: No osseous pelvic abnormality detected REPORT SIGNED IN OTHER VENDOR SYSTEM 07/22/2019 Reported By: Isaiah Gipson MD CC: Cynthia Pruitt NP Transcribed Date/Time: 07/22/2019 (8916 ) Cyber Security Systems Engineer: Printed Date/Time: 10/10/2019 (0312) PAGE 1 Signed Report Performing Organization Address City/State/ZIP Code Phon e Number [facility] documented in this encounter Visit Diagnoses Diagnosis Radiculopathy of leg - Primary Thoracic or lumbosacral neuritis or radi culitis, unspecified Primary osteoarthritis involving multipl e joints documented in this encounter Historical Medications This list may reflect changes made after this encounter. Medication Sig Dispensed Refills Start Date End Date glucosamine/msm/chondrt/C/ Take by mouth. 0 hyal ([id number]-[id number] SM ORAL) multivitamin capsule Take 1 Cap by mouth 0 daily. TURMERIC ORAL Take by mouth. 0 Calcium-Cholecalciferol, Take by mouth. 0 D3, (CALCIUM 600 WITH VITAMIN D3) 600 mg(1,500mg) -400 unit capsule CANNABIDIOL, CBD, EXTRACT Take by mouth. 0 04/02/2021 ORAL aspirin chewable 81 mg Take 81 mg by mouth 0 10/04/2021 tablet daily. added in this encounter Care Teams Senior Technical Business Analyst Relationship Specialty Start Date End Date Janneth Zendejas NP PCP - General 07/22/19 documented as of this encounter
--- OUTSIDE RECORDS SUMMARY | 2022-02-09 16:05 | XMS_ITS | Encounter Summary ---
:1950 Author Organization Address [address] [place] [address] Care Team Providers Name Role Phone Janneth Zendejas PATTERN DATA OPERATOR Primary Care Provider Reason for Visit Reason Comments Follow-up Saw ortho last week for back pain, was placed on gabapentin as a start then will do the MRI and injectio ns if needed. Unsure if the gabapentin is helping much yet. Encounter Details Date Type Department Care Team Description 08/26/2019 Office Visit [facility] [place], Primary osteoarthritis involving multiple joints (Primary Dx); [facility] Rheumatology CLAIRE Marie Radiculopathy of leg; [address] Ganglion cyst [place]ar [place] [address] [address] [place] [address] Social History Tobacco Use Types Packs/Day Years Used Date Never Smoker Smokeless Tobacco: Never Used Sex Assigned at Date Recorded Not on file documented as of this encounter Last Filed Vital Signs Vital Sign Reading Time Taken Comments Blood Pressure 122/80 08/26/2019 1007 EST Pulse - - Temperature - - Respiratory Rate - - Oxygen Saturation - - Inhaled Oxygen Concentration - - Weight 59.9 kg (132 lb) 08/26/2019 1007 EST Height 161.3 cm (5' 3.5) 08/26/2019 1007 EST Body Mass Index 23.02 08/26/2019 1007 EST documented in this encounter Patient Instructions Patient InstructionsSyCynthia xavier APRN - 08/26/2019 9:45 EST Images from the original note were not included. Follow up with Spine clinic Call if there is any worsening of your hand/thumb/wrist symptoms Occasional use of NSAIDs (ibuprofen or Aleve) for joint pain OK to take Tylenol (acetaminophen) for arthritis pain (max amount of 4000 mg per day) Comfort Cool Arthritis Wrist and thumb splint (CMC) Size medium, right and left sizes [facility] Patient Instructions Learning About Arthritis at the Base of the Thumb What is it? Arthritis at the base of the thumb joint is wear and tear on the cartilage. Cartilage is a firm, thick, slippery tissue. It covers and protects the ends of bones where they meet to form a joint. When you have arthritis, there are changes in the cartilage that cause it to break down. The bones rub together and cause joint damage and pain. What causes it? Experts don't know what causes arthritis at the base of the thumb. But aging, a lot of use, an injury, or family history may play a part. What are the symptoms? Symptoms of arthritis at the base of the thumb include aching in your joint. Or the pain may feel burning or sharp. You may feel clicking, creaking, or catching in the joint. It may get stiff. You may have more pain and less strength when you pinch or geographic information systems manager things. Symptoms may come and go, stay the same, or get worse over time. How is it diagnosed? Your doctor can often diagnose arthritis by asking you questions about your joint pain and other symptoms and examining you. You may also have X-rays and blood tests. Blood tests can help make sure another disease isn't causing your symptoms. How is it treated? Arthritis at the base of your thumb may be treated with rest, pain relievers, steroid medicines, using a brace or splint, and???in some cases???surgery. To help relieve pain in the joint, rest your sore hand. Switch hands for some activities. You can try heat and cold therapy, such as hot compresses, paraffin wax, cold packs, or ice massage. Your doctor may give you a splint to wear during some activities or when pain flares up. You can often manage mild or moderate arthritis pain with xuiv-lqx-bthromk pain relievers. These include medicines that reduce swelling, such as ibuprofen or naproxen. You can also use acetaminophen. Sometimes these medicines are in creams that you can rub on your thumb and hand. Your doctor may also prescribe other medicine for your pain. For some people, steroid shots may be an option. If none of the treatments work, your doctor may discuss surgery with you. Follow-up care is a rock part of your treatment and safety. Be sure to make and go to all appointments, and call your doctor if you are having problems. It's also a good idea to know your test results and keep a list of the medicines you take. Where can you learn more? Go to [email or web address].[employer].net/Guided [employer] Systems or log into your EvoApp account at https://Lio Social.Gu[employer].org Enter T110 in the search box to learn more about Learning About Arthritis at the Base of the Thumb. Current as of: November 15, 2018 Content Version: 12.2 ?? 5893-6434 [employer]. Care instructions adapted under license by . If you have questions about a medical condition or this instruction, always ask your healthcare professional. [employer] disclaims any warranty or liability for your use of this information. documented in this encounter Progress Notes Cynthia Pruitt APRN - 08/26/2019 0945 EST [facility] Rheumatology Chief Complaint Patient presents with ??? Follow-up Saw ortho last week for back pain, was placed on gabapentin as a start then will do the MRI and injections if needed. Unsure if the gabapentin is helping much yet. HPI: 69 year old woman initially seen on 07/22/19 at the request of Janneth Zendejas NP. Patient states that she was motivated to [...] some noise with neck motion and TMJ clicking. Has been seen in the past by Dr. Caruso (planogrammer) for left foot pain in 2018. Records reflect stress reaction/fracture of 2nd and 5th metatarsal based on MRI 04/2018. Denies any injuries or accidents either recent or remote. Other problems include a bump on right wrist without significant pain. Occasional pain at base of right thumb. [facility] and has some swelling and pain as a result. Denies any skin changes or rashes. No eye pain, dryness or mouth dryness. No GI symptoms. ?? INTERVAL HISTORY: After lumbar x-rays with flexion/extension views showing spondylolisthesis along with degenerative disc narrowing, was referred to spine clinic. They have started her on gabapentin three times daily. Reports it is making her sleepy which is a positive side effect for her at nighttime. Overall, feels as though there is some positive benefit with ability to drive [place] [facility] without having severe right leg symptoms, which would have been difficult prior. However, driving to appointment today from her home, she had some symptoms of right leg aching/pain/paresthesia but not as severe as in the past. Feels as though she is sleeping better at night. Continues with noted right wrist bump, but denies any pain Occasional aching with activities such as loading wood for stove. Current Outpatient Medications: aspirin chewable 81 mg tablet Calcium-Cholecalciferol, D3, (CALCIUM 600 WITH VITAMIN D3) 600 mg(1,500mg) -400 unit capsule CANNABIDIOL, CBD, EXTRACT ORAL gabapentin (NEURONTIN) 100 mg capsule glucosamine/msm/chondrt/C/hyal ([id number]-SKW ORAL) multivitamin capsule TURMERIC ORAL No current facility-administered medications for this visit. Allergies include: Codeine Past Medical History: Diagnosis Date ??? BCC (basal cell carcinoma of skin) ??? Rheumatic fever Family History Problem Relation Age of Onset ??? Cancer Father Social History: Lives alone in [place]. Maintains her home and busy with indoor and outdoor Review of Systems: Review of Systems Constitutional: Negative for chills and fever. Eyes: Negative for pain. Respiratory: Negative for cough and shortness of breath. Cardiovascular: Negative for chest pain. Gastrointestinal: Negative for nausea and vomiting. Musculoskeletal: Positive for back pain and joint pain. Skin: Negative for rash. Physical Examination: BP 122/80 (BP Cuff Sizes: Adult, regular) Ht 161.3 cm (63.5) Wt 59.9 kg (132 lb) BMI 23.02 kg/m?? EYES: Conjunctivae not injected ENT: No oral ulcers, dentition is good. NECK: Normal extension and lateral rotation without pain. NO lymphadenopathy. Mild upper thoracic kyphosis. CHEST: Clear to auscultation bilaterally. CARDIOVASCULAR: Regular rate and rhythm. No murmur. No peripheral edema. JOINT EXAM: No synovitis of the joints of the hands, wrists, or feet. SKIN: No rash on arms, wrists. No nail pitting. No dilated capillary loops in the nail beds. MUSCULOSKELETAL EXAM: Bossing of 1st metacarpals without erythema, warmth. Crepitance with CMC shuckand grind. Right radial volar well circumscribed mass consistent with ganglion. Hypermobility of wrist joints in flexion/extension. Labs: Outside labs performed at [facility] available for review include TSH = 1.57, CRP = 0.07 and MEMO positive = 1:160 speckled pattern Diagnosis / Assessment: Problem List Items Addressed This Visit Musculoskeletal Primary osteoarthritis involving multiple joints - Primary Ganglion cyst of volar aspect of right wrist Neurological Radiculopathy of leg Recommendations/Evaluation: Right leg symptoms seem to be responding to oral gabapentin. Follow up with [facility] spine as previously planned. 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 Discussed potential treatment options of bracing, injection versus surgical intervention. Patient education information given regarding this diagnosis as well as possible brace options. Patient prefers to follow up on as needed basis in the future. Instructed to call if worsening or changing symptoms of hands, thumbs, wrists and we will see her back for re-evaluation. Activities to tolerance. No change to any medication management. Cynthia Pruitt APRN 08/28/2019 7:42 documented in this encounter Plan of Treatment Upcoming Encounters Date Type Specialty Care Team Description 02/28/2022 Office Visit Rheumatology Rangel Pruitt APRN [address] [facility] [address] [place] [phone] 07/28/2022 Office Visit Rheumatology Rangel Pruitt, PROPOSAL MANAGER WRITER [address] [place] [address] documented as of this encounter Visit Diagnoses Diagnosis Primary osteoarthritis involving multipl e joints - Primary Radiculopathy of leg Thoracic or lumbosacral neuritis or radi culitis, unspecified Ganglion cyst of volar aspect of right w rist documented in this encounter Care Teams Bottle Feeder Relationship Specialty Start Date End Date Janneth Zendejas, PATTERN DATA OPERATOR PCP - General 07/22/19 documented as of this encounter
--- OUTSIDE RECORDS SUMMARY | 2022-02-09 16:05 | XMS_ITS | Encounter Summary ---
:1950 Author Organization [facility] Address [address] [place] [address] Care Team Providers Name Role Phone Natali Zendejasyce Naomie RADIAGRAPH OPERATOR Primary Care Provider Encounter Details Date Type Department Care Team Description 04/03/2020 Results Only Imaging [facility] [place] Pruitt, [facility] [place] Resul ts TESTER REGULATOR [address] [facility] [address] [place] [address] [facility] [address] [place] [address] Social History Tobacco Use Types [...] 02/28/2022 Office Visit Rheumatology Rangel Pruitt , TESTER REGULATOR [address] [facility] [address] [place] [address] 07/28/2022 Office Visit Rheumatology Rangel Pruitt , TESTER REGULATOR [address] [facility] [address] [place] [address] documented as of this encounter Procedures Procedure Name Priority Date/Time Associated Comments Diagnosis XR RHEUMATOID HANDS 04/03/2020 9:56 EDT R esults for this procedure are i n the results section. documented in this encounter Results XR RHEUMATOID HANDS (04/03/2020 9:56 EDT) Specimen Narrative [facility] RADIOLOGY - 04/03/2020 9:56 EDT ? EXAM: RADIOLOGY/2 V. BILAT HANDS-RHEUMATO EX. D/ (0855) ? CLINICAL INFORMATION: ? M15.0 PRIMARY OSTEOARTHRITIS INVO LVING MULTIPLE ? JOINTS; M67.431 GANGLION CYST OF VOLAR ASPECT OF ? RIGHT WRIST ? INDICATION: M15.0 PRIMARY OSTEOAR THRITIS INVOLVING MULTIPLE, JOINTS; ? M67.431 GANGLION CYST OF VOLAR PECT OF, RIGHT WRIST PRIMARY ? OSTEOARTHRITIS INVO. MULTIPLE CARISSA NTS ? TECHNIQUE: 2 views right hand. 2 views left hand. ? COMPARISON: None. ? FINDINGS: Polyarticular joint spa ce narrowing spans the ? interphalangeal joints. Marginal osteophytes are seen. No gross ? periarticular erosions are seen. More mild joint space narrowing ? spans the interphalangeal joints. Joint space narrowing is seen at ? the base of the thumb and at the triscaphe joint. ? IMPRESSION: ? 1. Bilateral hand polyarticular o steoarthrosis. ? REPORT SIGNED IN OTHER VENDOR SYSTEM 04/03/2020 ?Reported B y: Isaiah Gipson MD ? CC: ? Transcribed Date/Time: 04/03/2020 (09) ? Tubing Mill Setter: ? Printed Date/Time: 04/03/2020 () ? PAGE 1 ? Shanita d Report ? Procedure Note Isaiah Gipson MD - 04/03/2020 EXAM: RADIOLOGY/2 V. BILAT HANDS-RHEUMA TO EX. D/ (0888) CLINICAL INFORMATION: M15.0 PRIMARY OSTEOARTHRITIS INVOLVING MULTIPLE JOINTS; M67.431 GANGLION CYST OF VOLAR ASPECT OF RIGHT WRIST INDICATION: M15.0 PRIMARY OSTEOARTHRITI S INVOLVING MULTIPLE, JOINTS; M67.431 GANGLION CYST OF VOLAR ASPECT O F, RIGHT WRIST PRIMARY OSTEOARTHRITIS INVO. MULTIPLE JOINTS TECHNIQUE: 2 views right hand. 2 views left hand. COMPARISON: None. FINDINGS: Polyarticular joint space aruna rowing spans the interphalangeal joints. Marginal osteop hytes are seen. No gross periarticular erosions are seen. More m ild joint space narrowing spans the interphalangeal joints. Joint space narrowing is seen at the base of the thumb and at the trisca phe joint. IMPRESSION: 1. Bilateral hand polyarticular osteoar throsis. REPORT SIGNED IN OTHER VENDOR SYSTEM 04/03/2020 Reported By: Isaiah Gipson MD CC: Transcribed Date/Time: 04/03/2020 (0529 ) Tubing Mill Setter: Printed Date/Time: 04/03/2020 (8107) PAGE 1 Signed Report Performing Organization Address City/State/ZIP Code Phon e Number [facility] RADIOLOGY documented in this encounter Visit Diagnoses Not on filedocumented in this encounter Care Teams Mechanical Adjuster Relationship Specialty Start Date End Date Janneth Zendejas NP PCP - General 07/22/19 documented as of this encounter
--- OUTSIDE RECORDS SUMMARY | 2022-02-09 16:05 | XMS_ITS | Encounter Summary ---
:1950 Author Organization [facility] Address [address] [place] [address] Care Team Providers Name Role Phone Unavailable Primary Care Provider Unavailable Encounter Details Date Type Department Care Team Description 02/19/2010 Results Only [facility] Lisa Banuelos NP Laboratory Services - [address] [address] Social History Tobacco Use Types Packs/Day Years Used Date Never Assessed Sex Assigned at Date Recorded Not on file documented as of this encounter Plan of Treatment Upcoming Encounters Date Type Specialty Care Team Description 02/28/2022 Office Visit Rheumatology Rangel Pruitt, CERTIFIED REGISTERED LOCKSMITH [address] [facility] [address] [place] [address] 07/28/2022 Office Visit Rheumatology Rangel Pruitt, CERTIFIED REGISTERED LOCKSMITH [address] [facility] [address] [place] [address] documented as of this encounter Procedures Procedure Name Priority Date/Time Associated Comments Diagnosis HPV DETECTION, HIGH Routine 02/19/2010 14:35 Resu lts for this RISK TYPES EDT procedure are i n the results section. CYTOPATHOLOGY Routine 02/19/2010 0:00 Results for this EDT procedure are i n the results section. documented in this encounter Results HUMAN PAPILLOMA VIRUS DNA TEST (02/19/2010 14:35 EDT) Specimen Description Cervix, ThinPrep [facility] vial Result Negative for HPV [facility] types 16, 18, 31, 33, 35, 39, 45, 51, 52, 56, 58, 59, and 68. Report Status Final [facility]EN[facility] G[facility] 02/28/2010 Specimen Performing Organization Address City/State/ZIP Code Phon e Number [facility] [address] [place] [address] SERVICES [facility] [address] [place] [address] CYTOPATHOLOGY (02/19/2010 0:00 EDT) Pathology Report: CYTOPATHOLOGY REPORT ? [facility] ? LAB Reports generated via Dormir interface contain original data; ? however they are lacking the format of the original report. ? Caution should be taken when reading/interpreting unformatted reports. ? Name: ? SHONA RODARTE ? Accession #: ? [id number] ? : ? 1950 (Age: 59) ??F ?Collect Date: ? 02/19/2010 ? Location: ? [facility] ? Receive Date: ? 02/20/2010 ? Provider: ?LISA M RO WLETT DEBONER ? Copy to: ? Specimen/Source: ? Pap Test, Cervix/Endocervix, ThinPrep Imaging System ? with manual evaluation ? Last Menstrual Period: ? 1996 ? Other: ? Additional clinical informat ion: last pap 10/08 negative ? HPVDX - HPV testing requeste d regardless of diagnosis on current ThinPrep Pap ?? test. ? SPECIMEN ADEQUACY ? Satisfactory for Eval uation ? - transformation zone compon ent present ? GENERAL CATEGORIZATION ? Negative for Intraepi thelial Lesion or Malignancy ? INTERPRETATION ? Reactive cellular ramone nges associated with inflammation present (includes ?? repair). ? Document reviewed and electr onically signed by: ? BRADLEY MOUNT MD ? Report Date: ??07/13/ 2010 11:31 ? End of Report ? Specimen Performing Organization Address City/State/ZIP Code Phon e Number [facility] [address] [place] [address] SERVICES [facility] [address] [place] [address] documented in this encounter Visit Diagnoses Not on filedocumented in this encounter
--- OUTSIDE RECORDS SUMMARY | 2022-02-09 16:05 | XMS_ITS | Encounter Summary ---
:1950 Author Organization [facility] Address [address] [place] [address] Care Team Providers Name Role Phone Janneth Zendejas PLUG SHAPER HAND Primary Care Provider Encounter Details Date Type Department Care Team Description 09/16/2019 Travel Social History Tobacco Use Types Packs/Day Years Used Date Never Smoker Smokeless Tobacco: Never Used Sex Assigned at Date Recorded Not on file documented as of this encounter Plan of Treatment Upcoming Encounters Date Type Specialty Care Team Description 02/28/2022 Office Visit Rheumatology Rangel Pruitt, PATIENT'S LIBRARIAN [address] [facility] [address] [place] [address] 07/28/2022 Office Visit Rheumatology Rangel Pruitt, PATIENT'S LIBRARIAN [address] [facility] [address] [place] [address] documented as of this encounter Visit Diagnoses Not on filedocumented in this encounter Care Teams Boiler Engineer Relationship Specialty Start Date End Date Janneth Zendejas, PLUG SHAPER HAND PCP - General 07/22/19 documented as of this encounter
--- OUTSIDE RECORDS SUMMARY | 2022-02-09 16:05 | XMS_ITS | Encounter Summary ---
:1950 Author Organization [facility] Address [address] [place] [address] Care Team Providers Name Role Phone Unavailable Primary Care Provider Unavailable Encounter Details Date Type Department Care Team Description 08/19/2001 Results Only [facility] - Lisa Recinos NP conversion [address] [place], [place] [id number] Social History Tobacco Use Types Packs/Day Years Used Date Never Assessed Sex Assigned at Date Recorded Not on file documented as of this encounter Plan of Treatment Upcoming Encounters Date Type Specialty Care Team Description 02/28/2022 Office Visit Rheumatology Rangel Pruitt, STORE SHOPPER [address] [facility] [address] [place] [address] 07/28/2022 Office Visit Rheumatology Rangel Pruitt, STORE SHOPPER [address] [facility] [address] [place] [address] documented as of this encounter Procedures Procedure Name Priority Date/Time Associated Diagnosis Comme nts CYTOPATHOLOGY Routine 08/19/2001 0:00 EST Results for this procedure are i n the results section . documented in this encounter Results CYTOPATHOLOGY (08/19/2001 0:00 EST) Pathology Report: CYTOPATHOLOGY REPORT [facility] Reports generated via electronic interface contain radha ginal data; however they are lacking the format of the original re port. Caution should be taken when reading/interpreting unfo rmatted reports. Name: ? SHONA RODARTE ? Accession #: ? [id number] : ? 1950 (Age: 51) ??F ?Collect Date: ? 10/2001 Location: ? [facility] ? Receive Date : ? 08/23/2001 Provider: ?LISA HAMILTON MANAGER BUSINESS OPERATIONS Copy to: ? Specimen/Source: ?ThinPrep Pap Test, Cervix/ Endocervix Last Menstrual Period: ? 1995 ? SPECIMEN ADEQUACY ? Satisfactory for Evaluation - transformation zone component present GENERAL CATEGORIZATION ? Negative for Intraepithelial Lesion or Malignan cy ? Document reviewed and electronically signed by: ? RAJIV Krause(ASCP) ? Report Date: ??08/25/2001 09:30 End of Report Specimen Performing Organization Address City/State/ZIP Code Phon e Number [facility] [address] [place] [address] SERVICES [facility] [address] [place] [address] documented in this encounter Visit Diagnoses Not on filedocumented in this encounter
--- OUTSIDE RECORDS SUMMARY | 2022-02-09 16:05 | XMS_ITS | Encounter Summary ---
:1950 Author Organization [facility] Address [address] [place] [address] Care Team Providers Name Role Phone Unavailable Primary Care Provider Unavailable Encounter Details Date Type Department Care Team Description 08/06/2000 Results Only [facility] - Lisa Recinos NP conversion [address] [place], [place] [id number] Social History Tobacco Use Types Packs/Day Years Used Date Never Assessed Sex Assigned at Date Recorded Not on file documented as of this encounter Plan of Treatment Upcoming Encounters Date Type Specialty Care Team Description 02/28/2022 Office Visit Rheumatology Rangel Pruitt, LMFT [address] [facility] [address] [place] [address] 07/28/2022 Office Visit Rheumatology Rangel Pruitt, LMFT [address] [facility] [address] [place] [address] documented as of this encounter Procedures Procedure Name Priority Date/Time Associated Diagnosis Comme nts CYTOPATHOLOGY Routine 08/06/2000 0:00 EST Results for this procedure are i n the results section . documented in this encounter Results CYTOPATHOLOGY (08/06/2000 0:00 EST) Pathology Report: CYTOPATHOLOGY REPORT [facility] Reports generated via electronic interface contain radha ginal data; however they are lacking the format of the original re port. Caution should be taken when reading/interpreting unfo rmatted reports. Name: ? SHONA RODARTE ? Accession #: ? [id number] : ? 1950 (Age: 50) ??F ?Collect Date: ? 07/18 Location: ? [facility] ? Receive Date : ? 08/07/2000 Provider: ?LISA HAMILTON STATISTICIAN THEORETICAL Copy to: ? Specimen/Source: ?ThinPrep Pap Test, Cervix/ Endocervix Last Menstrual Period: ? 1995 ? SPECIMEN ADEQUACY ? Satisfactory for evaluation but limited by scan t squamous epithelial component. GENERAL CATEGORIZATION ? Benign Cellular Changes DESCRIPTIVE DIAGNOSIS ? Atrophy with inflammation (Atrophic Vaginitis). ? Document reviewed and electronically signed by: ? RAJIV Valencia(ASCP) ? Report Date: ??08/12/2000 10:13 End of Report Specimen Performing Organization Address City/State/ZIP Code Phon e Number [facility] [address] [place] [address] SERVICES [facility] [address] [place] [address] documented in this encounter Visit Diagnoses Not on filedocumented in this encounter
--- OUTSIDE RECORDS SUMMARY | 2022-02-09 16:05 | XMS_ITS | Encounter Summary ---
:[address] [facility] Address [address] [place] [address] Care Team Providers Name Role Phone Unavailable Primary Care Provider Unavailable Encounter Details Date Type Department Care Team Description 08/08/2002 Results Only [facility] - Lisa Recinos NP conversion [address], [place] [id number] Social History Tobacco Use Types Packs/Day Years Used Date Never Assessed Sex Assigned at Date Recorded Not on file documented as of this encounter Plan of Treatment Upcoming Encounters Date Type Specialty Care Team Description 02/28/2022 Office Visit Rheumatology Rangel Pruitt, CHARGEMASTER ANALYST [address] [facility] [address] [place] [address] 07/28/2022 Office Visit Rheumatology Rangel Pruitt, CHARGEMASTER ANALYST [address] [facility] [address] [place] [address] documented as of this encounter Procedures Procedure Name Priority Date/Time Associated Diagnosis Comme nts CYTOPATHOLOGY Routine 08/08/2002 0:00 EST Results for this procedure are i n the results section . documented in this encounter Results CYTOPATHOLOGY (08/08/2002 0:00 EST) Pathology Report: CYTOPATHOLOGY REPORT [facility] Reports generated via electronic interface contain radha ginal data; however they are lacking the format of the original re port. Caution should be taken when reading/interpreting unfo rmatted reports. Name: ? SHONA RODARTE ? Accession #: ? [id number] : ? 1950 (Age: 52) ??F ?Collect Date: ? 07/18 Location: ? [facility] ? Receive Date : ? 08/11/2002 Provider: ?LISA HAMILTON ADMISSIONS CONSULTANT Copy to: ? Specimen/Source: ?ThinPrep Pap Test, Cervix/ Endocervix Last Menstrual Period: ? 1995 Previous Gynecologic Pathology: ? Benign cellular changes: atrophic vaginistis ? SPECIMEN ADEQUACY ? Satisfactory for Evaluation - transformation zone component present GENERAL CATEGORIZATION ? Negative for Intraepithelial Lesion or Malignan cy ? Document reviewed and electronically signed by: ? RAJIV Dexter(ASCP)(IAC) ? Report Date: ??08/15/2002 14:43 End of Report Specimen Performing Organization Address City/State/ZIP Code Phon e Number [facility] [address] [place] [address] SERVICES [facility] [address] [place] [address] documented in this encounter Visit Diagnoses Not on filedocumented in this encounter
--- OUTSIDE RECORDS SUMMARY | 2022-02-09 16:05 | XMS_ITS | Encounter Summary ---
:1950 Author Organization [facility] Address [address] [place] [address] Care Team Providers Name Role Phone Hans Veras MD Primary Care Provider Encounter Details Date Type Department Care Team Description 03/21/2013 Results Only [facility] Lisa Banuelos NP Laboratory Services - [address] [id number] Social History Tobacco Use Types Packs/Day Years Used Date Never Assessed Sex Assigned at Date Recorded Not on file documented as of this encounter Plan of Treatment Upcoming Encounters Date Type Specialty Care Team Description 02/28/2022 Office Visit Rheumatology Rangel Pruitt, STOCK SELECTOR [address] [facility] [address] [place] [address] 07/28/2022 Office Visit Rheumatology Rangel Pruitt, STOCK SELECTOR [address] [facility] [address] [place] [address] documented as of this encounter Procedures Procedure Name Priority Date/Time Associated Diagnosis Comme nts PAP TEST- RESULT Routine 03/21/2013 0:00 EDT Resu lts for this ONLY procedure are i n the results section. documented in this encounter Results PAP TEST- RESULT ONLY (03/21/2013 0:00 EDT) Pathology Report: CYTOPATHOLOGY REPORT [facility] Reports generated via electronic interface contain radha ginal data; however they are lacking the format of the original re port. Caution should be taken when reading/interpreting unfo rmatted reports. Name: ? CAYDEN LEONARDO ? Accession #: ? [id number] ? : ? 1950 (Age: 62) ??F ?Collect Da te: ? 03/21/2013 ? Location: ? [facility] ? Receive Date: ? 013 ? Provider: LISA BANUELOS NIGHT WAREHOUSE MANAGER Copy to: HANS VERAS MD ? Final Report SPECIMEN ADEQUACY ? Satisfactory for Evaluation - transformation zone component present - scant squamous epithelial component GENERAL CATEGORIZATION ? Negative for Intraepithelial Lesion or Malignan cy INTERPRETATION ? Reactive cellular ramone nges associated with inflammation present (includes repair). Last Menstrual Period: 1995 Specimen/Source: ??Pap Test, Cervix/Endocervix, ThinPr ep Imaging System with manual evaluation Document reviewed and electronically signed by: ? BOB BEAUCHAMP MD ? Report ??Date: 04/04/2013 15:55 HPV with Pap Test ? Date Ordered: ? 04/04/2013 ? Status: ?? Signed Out ?Date Complete: ? 04/06/2013 ? By: ??S ystem Interface ? Date Reported: ? 04/06/2013 ? Interpretation RESULT: Negative for HPV. No E6 or E7 mRNA is detected from HPV types 16,18,31,3 3,35, 39,45,51,52,56,58,59,66, and 68 by rouge sifter and miller media yael samuel. Comments Document reviewed and electronically signed by: ? System Interface ? Report date: 04/06/2013 By the signature above, the attending physician certif ies that he/she has personally conducted a gross and/or microscopic examin ation of the described specimens and rendered or confirmed the above diagnosi s. End of Report Specimen Performing Organization Address City/State/ZIP Code Phon e Number [facility] [address] [place] [address] SERVICES [facility] [address] [place] [address] documented in this encounter Visit Diagnoses Not on filedocumented in this encounter Care Teams Departmental Buyer Relationship Specialty Start Date End Date Hans Veras MD PCP - General 04/02/11 07/21/19 [address] [facility] [place], [place] [address] documented as of this encounter
--- OUTSIDE RECORDS SUMMARY | 2022-02-09 16:05 | XMS_ITS ---
:1950 Author Care Team Providers Name Role Phone DR. HANS RODRIGEZ Primary Care Provider [phone] DR. HANS RODRIGEZ Referring Provider [phone] Allergies Code Code System Name Reaction Severity Status Onset 5350 RxNorm Codeine Headache Moderate Active ? Medications Name Status Start Date Stop Date ? ? Aspir-81 Active ? Not available csrrrfgq-jobzzyjkldn-pnr C-Mn Active ? No t available Medrol (Hang) 4 mg tablets in a dose pack Active ? Not available Take 1 dose pk by oral route as directed. mometasone 0.1 % topical cream Completed ? 1 09/23/2016 multivitamin Active ? Not available 1 tablet a day Marshall 3 Completed ? 07/23/2017 sulfacetamide sodium 10 % eye drops Completed ? 07/23/2017 turmeric root extract Active ? Not availa ble 300 mg Viactiv 500 mg-500 unit-40 mcg chewable tablet Active ? Not available Take by oral route. Problems Name Status Onset Date Source ? Neoplasm of Skin Active 07/10/2017 ? Hyperlipidemia Active 07/10/2017 ? Osteoarthritis Active 07/10/2017 ? Sciatica Active 07/10/2017 ? Night Sweats Active 07/10/2017 ? Anti-nuclear Factor Positive Active 07/10/2017 ? Pain in Right Foot Active 07/10/2017 ? Procedures Date Name Performed by ? 04/15/2016 XR, Foot DO Not Use [facility] [address] [place], [place] [id number] (Work Place) 03/01/2018 XR, Foot, 3 or More View [facility] Rad[facility] [address] [place] [address] (Work Place) 05/04/2018 MRI, Lower Extremity Joint(s), W/o Xray [facility] [address] [place], [place] [address] (Work Place) Results Lab Results None recorded. Past Encounters None recorded. Social History Tobacco Smoking Status Never Smoker Notes: 04/13/18 Vaccine List None recorded. Plan of Care Reminders Provider Appointments None recorded. ? ? Lab None recorded. ? ? Referral None recorded. ? ? Procedures None recorded. ? ? Surgeries None recorded. ? ? Imaging None recorded. ? ? Vitals 04/13/2018 12:30PM FOLLOW UP Height Weight BMI Blood Pressure 160.02 cm 55.79 kg 21.8 kg/m2 118/62 mm[Hg] 03/01/2018 12:30PM ACUTE Height Weight BMI Blood Pressure 160.02 cm 55.79 kg 21.8 kg/m2 126/72 mm[Hg] 07/23/2017 01:00PM FOLLOW UP Weight Blood Pressure 55.79 kg 118/60 mm[Hg] 04/15/2016 11:30AM NEW PATIENT Height Weight BMI Blood Pressure 160.02 cm 55.79 kg 21.8 kg/m2 110/72 mm[Hg]
--- OUTSIDE RECORDS SUMMARY | 2022-02-09 16:05 | XMS_ITS | Encounter Summary ---
:1950 Author Organization [facility] Address [address] [place] [address] Care Team Providers Name Role Phone Ken Veras MD Primary Care Provider Encounter Details Date Type Department Care Team Description 03/30/2018 Results Only [facility]- Gage Culp, [address] [place] [address] [place] [address] (Wo rk) Social History Tobacco Use Types Packs/Day Years Used Date Never Assessed Sex Assigned at Date Recorded Not on file documented as of this encounter Plan of Treatment Upcoming Encounters Date Type Specialty Care Team Description 02/28/2022 Office Visit Rheumatology Rangel Pruitt , PAGINATOR [address] [facility] [address] [place] [address] 07/28/2022 Office Visit Rheumatology Rangel Pruitt, PAGINATOR [address] [facility] [address] [place] [address] documented as of this encounter Procedures Procedure Name Priority Date/Time Associated Diagnosis Comme nts SURGICAL PATHOLOGY Routine 03/30/2018 23:59 Resul ts for this EDT procedure are i n the results section. documented in this encounter Results SURGICAL PATHOLOGY (03/30/2018 23:59 EDT) Pathology Report: SURGICAL PATHOLOGY REPORT [facility] Reports generated via electronic interface contain radha ginal data; LABORATORY however they are lacking the format of the original re port. SERVICES Caution should be taken when reading/interpreting unfo rmatted reports. Name: ? SHONA RODARTE ? Accession #: ? [id number] ? : ? 1950 (Age: 67 ) ??F ? Collect Date: ? 03/30/2018 ? Location: ? [facility] ? Receive Date: ? 03/30/20 18 ? Provider: GAGE ANGULO MD Copy to: PATI LIRIANO DISTRIBUTION COLLECTION OPERATOR ? Final Pathologic Diagnosis: SKIN OF PERIANAL REGION, SHAVE BIOPSIES: - Verruca vulgaris (1). - Portion of skin with epide rmal hyperplasia and reactive changes. See comment. Comment: Two biopsies are received. One biopsy sh ows features consistent with a verruca vulgaris. The other portion of tissue is somewhat tangentially oriented, making assessment somewhat difficult. Considerations could in clude a tangentially oriented acrochordon. Well-developed vir al cytopathic changes in this piece of tissue is not noted. (Dr. Shields)/harris ?? Document reviewed and electronically signed by: LADARIUS SHIELDS MD Report ??Date: 03/31/2018 17:21 By the signature above, the attending physician certif ies that he/she has personally conducted a gross and/or microscopic examin ation of the described specimens and rendered or confirmed the above diagnosi s. Specimen(s) Received: Anal skin tags Clinical History: Anal pruritus; multiple little ?skin tags vs warts Gross Description: ? Received in formalin labelled with proper patient identification (initials H, D) and anal skin tags a re two rubbery nodular torres-brown skin lesions, 0.3 x 0.3 x 0.2 cm and 0.4 x 0.4 x 0.3 cm. Entirely submit yael in 1. JONES Pollack (ASCP) 03/31/2018 8:00 AM End of Report Specimen Performing Organization Address City/State/ZIP Code Phon e Number [facility] [address] [place] [address] SERVICES documented in this encounter Visit Diagnoses Not on filedocumented in this encounter Care Teams Assistant Infant Toddler Teacher Relationship Specialty Start Date End Date Ken Veras MD PCP - General 04/02/11 07/21/[address] [place], [place] [address] documented as of this encounter
--- OUTSIDE RECORDS SUMMARY | 2022-02-09 16:05 | XMS_ITS | Encounter Summary ---
:1950 Author Organization [facility] Address [address] [place] [address] Care Team Providers Name Role Phone Unavailable Primary Care Provider Unavailable Encounter Details Date Type Department Care Team Description 06/02/2008 Before [facility] - Saige Branham, Converted Visit Maple conversion BLUE LINE HANGER (Map) [address] [place], [place] [phone] [place] [phone] (Wo rk) Social History Tobacco Use Types Packs/Day Years Used Date Never Assessed Sex Assigned at Date Recorded Not on file documented as of this encounter Plan of Treatment Upcoming Encounters Date Type Specialty Care Team Description 02/28/2022 Office Visit Rheumatology Rangel Pruitt, ORDNANCE TRUCK INSTALLATION MECHANIC [address] [facility] [address] [place] [address] 07/28/2022 Office Visit Rheumatology Rangel Pruitt, ORDNANCE TRUCK INSTALLATION MECHANIC [address] [facility] [address] [place] [address] documented as of this encounter Procedures Procedure Name Priority Date/Time Associated Diagnosis Comme nts CYTOPATHOLOGY Routine 06/02/2008 0:00 EDT Result s for this procedure are i n the results section . documented in this encounter Results CYTOPATHOLOGY (06/02/2008 0:00 EDT) Pathology Report: CYTOPATHOLOGY REPORT ? [facility] Reports generated via electr onic interface contain original data; ? however they are lacking the format of the original report. ? Caution should be taken when reading/interpreting unformatted reports. ? Name: ? SHONA RODARTE ? Accession #: ? [id number] ? : ? 1950 (Age: 58) ??F ?Collect Date: ? 06/02/2008 ? Location: ? [facility] ? Receive Date: ? 06/05/2008 ? Provider: ?SAIGE ROBLES OOD BLUE LINE HANGER ? Copy to: ? Specimen/Source: ? Pap Test, Cervix/Endocervix, ThinPrep Imaging System ? with manual evaluation ? Last Menstrual Period: ? 1996 ? Previous Gynecologic Patholo gy: ? Benign cellular changes: 12/ 00 ? Other: ? HPVA - HPV testing requested if ASC-US on the current ThinPrep Pap test. ? SPECIMEN ADEQUACY ? Satisfactory for Eval uation ? - transformation zone compon ent present ? - scant squamous epithelial component secondary to excessive mucus ? GENERAL CATEGORIZATION ? Negative for Intraepi thelial Lesion or Malignancy ? Document reviewed and electr onically signed by: ? Dominique Wilcox, SCT( ASCP) ? Report Date: ??10/22/ 2008 13:12 ? End of Report ? Specimen Performing Organization Address City/State/ZIP Code Phon e Number [facility] [address] [place] [address] SERVICES [facility] [address] [place] [address] documented in this encounter Visit Diagnoses Not on filedocumented in this encounter
--- OUTSIDE RECORDS SUMMARY | 2022-02-09 16:05 | XMS_ITS | Encounter Summary ---
:1950 Author Organization [facility] Address [address] [place] [address] Care Team Providers Name Role Phone Janneth Zendejas METAL POURER Primary Care Provider Reason for Visit Reason Comments Follow-up Encounter Details Date Type Department Care Team Description 09/16/2019 Office Visit [facility] - Renae Wong, Lumbar radiculopathy, right (Primary Dx); [facility] [place] [facility] Scoliosis of lumbar spine, unspecified s coliosis type Spine Medicine [address], [facility] [address] [place] [address] [place] [address] [phone] Social History Tobacco Use Types Packs/Day Years Used Date Never Smoker Smokeless Tobacco: Never Used Sex Assigned at Date Recorded Not on file documented as of this encounter Last Filed Vital Signs Vital Sign Reading Time Taken Comments Blood Pressure 122/76 09/16/2019 1027 EST Pulse - - Temperature - - Respiratory Rate - - Oxygen Saturation - - Inhaled Oxygen Concentration - - Weight 59 kg (130 lb) 09/16/2019 1027 EST Height 162.6 cm (5' 4) 09/16/2019 1027 EST Body Mass Index 22.31 09/16/2019 1027 EST documented in this encounter Ordered Prescriptions Prescription Sig Dispensed Refills Start Date End Date gabapentin (NEURONTIN) 100 3 tablets PO TID 270 Cap 5 02/29/2020 mg capsuleIndications: Lumbar radiculopathy, right documented in this encounter Progress Notes Renae Wong PA - 09/16/2019 1030 EST History of Present Illness: This is a pleasant 69-year-old female presenting for follow-up of her right lower extremity symptoms. Her last visit was August 19, 2019, when I saw her in the office for predominantly right anterolateral villalta pain, and aching that was worsened if she sat for any extended period of time, especially in a soft chair, or if she was in her vehicle driving. Intermittently she also would have right anterolateral thigh pain and pain in the right buttock. At this time she had already had courses of physical therapy in the past, and was doing a home exercise program that she continued on her own. At the end of the visit, the patient had wanted to trial Neurontin for her symptoms and see how she responded to that. I had recommended that she continue her home exercise program, and that we would start her on the gabapentin. Patient today returns reporting that her symptoms are well controlled with the gabapentin. She tapered up to 200 mg 3 times a day as she found that this was effective as a dose for her. She does sometimes get some discomfort in the anterolateral villalta, and a pick sensation of the anterior villalta. She feels like her symptoms are tolerable at this time. She is going on a trip soon via plane and wonders if it is okay for her to increase the dose to 300 mg 3 times a day, and then go back to the 200 mg 3 times a day after the trip. Patient still denies any bowel or bladder dysfunction, saddle anesthesias or paresthesias, or subjective weakness. Conservative Treatment: Physical therapy in the past, home exercise program continued, gabapentin with good relief Review of Systems: As per history of present illness all others are negative Medications: Current Outpatient Medications: ??? aspirin chewable 81 mg tablet, Take 81 mg by mouth daily., Disp: , Rfl: ??? Calcium-Cholecalciferol, D3, (CALCIUM 600 WITH VITAMIN D3) 600 mg(1,500mg) - 400 unit capsule, Take by mouth., Disp: , Rfl: ??? CANNABIDIOL, CBD, EXTRACT ORAL, Take by mouth., Disp: , Rfl: ??? gabapentin (NEURONTIN) 100 mg capsule, 3 tablets PO TID, Disp: 270 Cap, Rfl: 5 ??? glucosamine/msm/chondrt/C/hyal (AUBRKJOJSLH-FMDPFEUPGAR-SYO ORAL), Take by mouth., Disp: , Rfl: ??? multivitamin capsule, Take 1 Cap by mouth daily., Disp: , Rfl: ??? TURMERIC ORAL, Take by mouth., Disp: , Rfl: Allergies: Allergies Allergen Reactions ??? Codeine Nausea And Vomiting and Headaches Past Medical History: Past Medical History: Diagnosis Date ??? BCC (basal cell carcinoma of skin) ??? Rheumatic fever Surgical History: History reviewed. No pertinent surgical history. Social History: Social History Tobacco Use Smoking Status Never Smoker Smokeless Tobacco Never Used Social History Substance and Sexual Activity Alcohol Use Not on file Data Unavailable Physical Examination: BP 122/76 Ht 162.6 cm (64) Wt 59 kg (130 lb) BMI 22.31 kg/m?? Well-developed well-nourished female who is pleasant in no acute distress. Head eyes ears nose without any gross abnormality. Patient breathing comfortably. Skin is warm and dry. Patient exam unchanged compared with last visit. Assessment: 1. Right lumbar radiculopathy, suspect L4 distribution 2. Lateral listhesis L3 on 4 3. Lumbar scoliosis This is a pleasant straightforward 69-year-old female presenting for follow-up of her lumbar radiculopathy on the right side that she been having for a long time. She started on gabapentin and tapered up to 200 mg 3 times a day and notes that she is had very good improvement with this medication. She would like to continue with this. We had discussed at her last visit that the next up if she did not have good improvement with this would be to consider getting a lumbar spine MRI, with the intent of planning on trialing an epidural steroid injection. Her distribution of pain still follows an L4 distribution. Since she is doing well on the gabapentin and is happy with her current state, I recommendedthat she continue with her home exercise program, and also to continue with the gabapentin. She wondered if she should follow-up at some point to touch base. I recommended that she follow-up in approximately 6 months to see how she is doing at that time, and refill her gabapentin if she is still needing it at that time. If she has any trouble in the meantime, or worsening symptoms she should follow-up sooner. She is amenable to plan. I am providing her with gabapentin with refills to stretch her over the course of 6 months. We did spend at least 25 minutes today in [id number] discussion, examination, and review of multiple imaging studies with this patient, with greater than 50% of the visit spent counseling the patientwith respect to potential diagnoses and appropriate options at this time. The patient asked appropriate questions, today, and all questions were answered. Patient verbalized understanding the above andwill follow-up as mentioned in the plan. Plan: 1. Continue gabapentin 2. Continue home exercise program 3. Follow-up in 6 months for reevaluation This document was produced using [employer]. Please excuse any grammatical or verbal errors. CC: Janneth Zendejas [address] [place] [address] [phone] signed by Renae Wong PA at 09/16/2019 11:03 ESTdocumented in this encounter Plan of Treatment Upcoming Encounters Date Type Specialty Care Team Description 02/28/2022 Office Visit Rheumatology Rangel Pruitt , VELVET CUTTER [address] [facility] [address] [place] [address] 07/28/2022 Office Visit Rheumatology Rangel Pruitt , VELVET CUTTER [address] [facility] [address] [place] [address] documented as of this encounter Visit Diagnoses Diagnosis Lumbar radiculopathy, right - Primary Scoliosis of lumbar spine, unspecified s coliosis type documented in this encounter Discontinued Medications Medication Sig Discontinue Reason Start Date End Date gabapentin (NEURONTIN) Take 1 tab PO TID x Reorder 08/19/2019 09/16/2019 100 mg 1 week, then 2 tab capsuleIndications: PO TID x 1 week, Lumbar radiculopathy, then 3 tab PO TID right and sustain documented as of this encounter Care Teams Entry Specialists Relationship Specialty Start Date End Date Janneth Zendejas, METAL POURER PCP - General 07/22/19 documented as of this encounter
--- OUTSIDE RECORDS SUMMARY | 2022-02-09 16:05 | XMS_ITS | Encounter Summary ---
:[address] [facility] Address [address] [place] [address] Care Team Providers Name Role Phone Unavailable Primary Care Provider Unavailable Encounter Details Date Type Department Care Team Description 02/11/2007 Results Only [facility] - Saige Freedman od, TILT WALL SUPERVISOR conversion [address] [place] [phone] (Wo rk) Social History Tobacco Use Types Packs/Day Years Used Date Never Assessed Sex Assigned at Date Recorded Not on file documented as of this encounter Plan of Treatment Upcoming Encounters Date Type Specialty Care Team Description 02/28/2022 Office Visit Rheumatology Rangel Pruitt, FARM DEMONSTRATOR [address] [place] [address] 07/28/2022 Office Visit Rheumatology Rangel Pruitt, FARM DEMONSTRATOR [address] [place] [address] documented as of this encounter Procedures Procedure Name Priority Date/Time Associated Diagnosis Comme nts CYTOPATHOLOGY Routine 02/11/2007 0:00 EDT Results for this procedure are i n the results section . documented in this encounter Results CYTOPATHOLOGY (02/11/2007 0:00 EDT) Pathology Report: CYTOPATHOLOGY REPORT [facility] Reports generated via electronic interface contain radha ginal data; however they are lacking the format of the original re port. Caution should be taken when reading/interpreting unfo rmatted reports. Name: ? SHONA RODARTE ? Accession #: ? [id number] : ? 1950 (Age: 56) ??F ?Collect Date: ? 01/16 Location: ? [facility] ? Receive Date : ? 02/12/2007 Provider: ?SAIGE SWANN TILT WALL SUPERVISOR Copy to: ? Specimen/Source: ? ThinPrep Pap Test, Cervix/Endocervix, processed on [employer] ThinPrep Imaging System, with manual evaluation Last Menstrual Period: ? 1995 Previous Gynecologic Pathology: ? Benign cellular changes: Other: ? Additional clinical information: Atrophic vaginitis HPVA - HPV testing requested if ASC-US on the current ThinPrep Pap test. ? SPECIMEN ADEQUACY ? Satisfactory for Evaluation - transformation zone component present GENERAL CATEGORIZATION ? Negative for Intraepithelial Lesion or Malignan cy ? Document reviewed and electronically signed by: ? RAJIV Salmeron(ASCP) ? Report Date: ??02/22/2007 16:23 End of Report Specimen Performing Organization Address City/State/ZIP Code Phon e Number [facility] [address] [place] [address] SERVICES [facility] [address] [place] [address] documented in this encounter Visit Diagnoses Not on filedocumented in this encounter
--- OUTSIDE RECORDS SUMMARY | 2022-02-09 16:05 | XMS_ITS | Encounter Summary ---
:1950 Author Organization [facility] Address [address] [place] [address] Care Team Providers Name Role Phone Natali Zendejasgilda Akbar OPTOMETRIST ASSISTANT Primary Care Provider Reason for Visit Reason Onset Date Comments Medication Management 03/01/2020 Encounter Details Date Type Department Care Team Description 03/01/2020 Telephone [facility] - Cynthia Pruitt, Medication Management [facility] [place] CONTROL VALVE MECHANIC [address] [facility] [address] [place] [address] [address] [place] [address] Social History Tobacco Use Types Packs/Day Years Used Date Former Smoker Cigarettes 0.5 Quit: 2009 Smokeless Tobacco: Never Used Alcohol Use Standard Drinks/Week Comments Yes 2 (1 standard drink = 0.6 oz pure alcoho l) Sex Assigned at Date Recorded Not on file documented as of this encounter Miscellaneous Notes Telephone Encounter - Shona Lerner - 03/01/2020 1333 EDT Patient lvm unable to fill medication pharmacy needs more info (is this because a PA is needed) she did not leave the name of the medication. documented in this encounter Plan of Treatment Upcoming Encounters Date Type Specialty Care Team Description 02/28/2022 Office Visit Rheumatology Rangel Pruitt , CONTROL VALVE MECHANIC [address] [facility] [address] [place] [address] 07/28/2022 Office Visit Rheumatology Rangel Pruitt, CONTROL VALVE MECHANIC [address] [facility] [address] [place] [address] documented as of this encounter Visit Diagnoses Not on filedocumented in this encounter Care Teams Grief Counselor Relationship Specialty Start Date End Date Janneth Zendejas, OPTOMETRIST ASSISTANT PCP - General 07/22/19 documented as of this encounter
--- OUTSIDE RECORDS SUMMARY | 2022-02-09 16:05 | XMS_ITS | Encounter Summary ---
:1950 Author Organization [facility] Address [address] [place] [id number] Care Team Providers Name Role Phone Ken Veras MD Primary Care Provider Encounter Details Date Type Department Care Team Description 2014 Results Only [facility] Lisa Banuelos NP Laboratory Services - [address] [phone] Social History Tobacco Use Types Packs/Day Years Used Date Never Assessed Sex Assigned at Date Recorded Not on file documented as of this encounter Plan of Treatment Upcoming Encounters Date Type Specialty Care Team Description 02/28/2022 Office Visit Rheumatology Rangel Pruitt, MULTIFOCAL BUTTON GENERATOR [address] [facility] [address] [place] [address] 07/28/2022 Office Visit Rheumatology Rangel Pruitt, MULTIFOCAL BUTTON GENERATOR [address] [facility] [address] [place] [address] documented as of this encounter Procedures Procedure Name Priority Date/Time Associated Diagnosis Comme nts PAP TEST- RESULT Routine 2014 0:00 EDT Resu lts for this ONLY procedure are i n the results section. documented in this encounter Results PAP TEST- RESULT ONLY (2014 0:00 EDT) Pathology Report: CYTOPATHOLOGY REPORT [facility] Reports generated via electronic interface contain radha ginal data; however they are lacking the format of the original re port. Caution should be taken when reading/interpreting unfo rmatted reports. Name: ? SHONA RODARTE ? Accession #: ? [id number] ? : ? 1950 (Age: 64) ??F ?Collect Da te: ? 2014 ? Location: ? [facility] ? Receive Date: ? 014 ? Provider: LISA BANUELOS OUTSIDE PLANT SUPERVISOR Copy to: DEBORAH LARRY MULTIFOCAL BUTTON GENERATOR ? Final Report SPECIMEN ADEQUACY ? Satisfactory for Evaluation - transformation zone component present GENERAL CATEGORIZATION ? Negative for Intraepithelial Lesion or Malignan cy ?? Last Menstrual Period: 1995 Specimen/Source: ??Pap Test, Cervix/Endocervix, ThinPr ep Imaging System with manual evaluation Document reviewed and electronically signed by: ? RAJIV Hardwick(ASCP) ? Report ??Date: 04/25/2014 14:51 HPV with Pap Test ? Date Ordered: ? 04/25/2014 ? Status: ?? Signed Out ?Date Complete: ? 04/27/2014 ? By: ??S ystem Interface ? Date Reported: ? 04/27/2014 ? Interpretation RESULT: Negative for HPV. No E6 or E7 mRNA is detected from HPV types 16,18,31,3 3,35, 39,45,51,52,56,58,59,66, and 68 by cafe helper media yael amplification. Comments Document reviewed and electronically signed by: ? System Interface ? Report date: 04/27/2014 By the signature above, the attending physician certif ies that he/she has personally conducted a gross and/or microscopic examin ation of the described specimens and rendered or confirmed the above diagnosi s. End of Report Specimen Performing Organization Address City/State/ZIP Code Phon e Number [facility] [address] [place] [address] SERVICES [facility] [address] [place] [address] documented in this encounter Visit Diagnoses Not on filedocumented in this encounter Care Teams Product Support Rep Relationship Specialty Start Date End Date Ken Veras MD PCP - General 04/02/11 07/21/19 [address] [place] [address] documented as of this encounter
--- OUTSIDE RECORDS SUMMARY | 2022-02-09 16:05 | XMS_ITS | Encounter Summary ---
:1950 Author Organization Health system Address [address] [place] [address] Care Team Providers Name Role Phone Janneth Zendejas Naomie CHIEF TECHNOLOGY OFFICER Primary Care Provider Reason for Visit Reason Comments Follow-up Thinks that the meloxicam is helping her hand Encounter Details Date Type Department Care Team Description 04/03/2020 Office Visit [facility], Primary osteoarthritis [facility] [place] CLAIRE Marie involving multiple [address] joints (Primary Dx) [place] [address] [address] [place] [address] Social History Tobacco Use Types Packs/Day Years Used Date Former Smoker Cigarettes 0.5 Quit: 2009 Smokeless Tobacco: Never Used Alcohol Use Standard Drinks/Week Comments Yes 2 (1 standard drink = 0.6 oz pure alcoho l) Sex Assigned at Date Recorded Not on file documented as of this encounter Last Filed Vital Signs Vital Sign Reading Time Taken Comments Blood Pressure 132/70 04/03/2020 1009 EDT Pulse - - Temperature - - Respiratory Rate - - Oxygen Saturation - - Inhaled Oxygen Concentration - - Weight 57.2 kg (126 lb) 04/03/2020 1009 EDT Height 162.6 cm (5' 4) 04/03/2020 1009 EDT Body Mass Index 21.63 04/03/2020 1009 EDT documented in this encounter Patient Instructions Patient InstructionsSyCynthia xavier APRN - 04/03/2020 10:15 EDT Continue with the meloxicam for hand arthritis pain Topicals to hands before activities that increase symptoms Follow up in 6 months with planned check of kidney function at that time if still taking meloxicam documented in this encounter Ordered Prescriptions Prescription Sig Dispensed Refills Start Date End Date meloxicam (MOBIC) 7.5 mg Take 1 Tab by 90 Tab 4 04/03/20 20 01/04/2021 tabletIndications: Primary mouth 2 times osteoarthritis involving daily. multiple joints documented in this encounter Progress Notes Cynthia Pruitt APRN - 04/03/2020 1015 EDT [facility] [place] Chief Complaint Patient presents with ??? Follow-up Thinks that the meloxicam is helping her hand HPI: 69 year old woman initially evaluated on 07/22/19 primarily for pain in right leg and bilateral R > L base of thumb pain as well as a mass of right wrist.?? Referred to Ortho Spine after films revealed scoliotic deformity and laterolisthesis.Trial of gabapentin initiated. Outside labs performed at [facility] dated 06/09/19 including CMP - within normal limits, RF negative, TSH= 1.57, CRP = 0.07 (0.0-0.3) and MEMO positive = 1:160 speckled pattern INTERVAL HISTORY: ??Taking meloxicam with noted improvement in some pain in thumbs. Also has been applying topical voltaren gel to hands with some benefit. Ongoing right lower extremity pain particularly with driving. Discontinued gabapentin as she feels symptoms unchanged with use. Has follow up with Spine at end of month. Pain primarily in posterior buttock and anterior right lower leg. Intermittent shooting pain down her right leg with driving and applying the break. Amoxicillin currently as prescribed by eye doctor for clogged gland right eyelid. No pain or visual symptoms. [place] [facility] [place] Current Outpatient Medications Medication ??? aspirin chewable 81 mg tablet ??? Calcium-Cholecalciferol, D3, (CALCIUM 600 WITH VITAMIN D3) 600 mg(1,500mg) - 400 unit capsule ??? CANNABIDIOL, CBD, EXTRACT ORAL ??? glucosamine/msm/chondrt/C/hyal (UQOOUTXMLAZ-TVIXKIABCNC-JOW ORAL) ??? meloxicam (MOBIC) 7.5 mg tablet ??? [...] Systems: Review of Systems Constitutional: Negative for chills, fever and malaise/fatigue. Respiratory: Negative for cough and shortness of breath. Gastrointestinal: Negative for heartburn, nausea and vomiting. Musculoskeletal: Positive for back pain and joint pain. Skin: Negative for rash. Physical Examination: BP 132/70 (BP Cuff Sizes: Adult, regular) Ht 162.6 cm (64) Wt 57.2 kg (126 lb) BMI 21.63 kg/m?? EYES: Conjunctivae not injected ENT: Oral and nasal mucosa not examined. Protective mask in place secondary to COVID-19 precautions. [...] erythema, warmth. Crepitance with CMC shuckand grind. No appreciable volar masses on exam today. Hypermobility of wrist joints in flexion/extension.?Left small finger with dorsal, well circumscribed mass overlying the PIP joint. No triggering of any digits. Labs: Diagnosis / Assessment: Problem List Items Addressed This Visit Musculoskeletal Primary osteoarthritis involving multiple joints Relevant Medications meloxicam (MOBIC) 7.5 mg tablet X-rays consistent with left STT and CMC arthritis. Degenerative changes of PIP and DIP joints both hands Recommendations/Evaluation: Recommend continuation of meloxicam as it seems to be helping with hand stiffness and pain. Topical NSAID or analgesic creams or rubs for pain and stiffness of hands. Follow up with spine as scheduled. May benefit from further diagnostics versus targeted treatment with her persistent right leg pain. Follow up with me in 6 months for re-evaluation and to check kidney function if going to be on NSAIDs for prolonged period of time. Instructed to call sooner if any worsening or change in symptoms. Cynthia Pruitt APRN 04/03/2020 10:15 documented in this encounter Plan of Treatment Upcoming Encounters Date Type Specialty Care Team Description 02/28/2022 Office Visit Rheumatology Rangel Pruitt APRN [address] [facility] [address] [place] [address] 07/28/2022 Office Visit Rheumatology Rangel Pruitt BELTING AND WEBBING INSPECTOR [address] [facility] [address] [place] [address] documented as of this encounter Visit Diagnoses Diagnosis Primary osteoarthritis involving multipl e joints - Primary documented in this encounter Discontinued Medications Medication Sig Discontinue Reason Start Date End Date meloxicam (MOBIC) 7.5 mg Take 1 Tab by Reorder 02/29/2020 tabletIndications: Primary mouth 2 times osteoarthritis involving daily. multiple joints documented as of this encounter Care Teams Smoking Pipe Mounter Relationship Specialty Start Date End Date Janneth Zendejas NP PCP - General 07/22/19 documented as of this encounter
--- OUTSIDE RECORDS SUMMARY | 2022-02-09 16:05 | XMS_ITS | Encounter Summary ---
:1950 Author Organization [facility] Address [address] [place] [address] Care Team Providers Name Role Phone Janneth Zendejas SKILLED NURSING FACILITY COUNSELOR Primary Care Provider Encounter Details Date Type Department Care Team Description 04/24/2020 Travel Social History Tobacco Use Types Packs/Day [...] Description 02/28/2022 Office Visit Rheumatology Rangel Pruitt, CLIENT RELATIONSHIP CONSULTANT [address] [facility] [address] [place], [place] [address] 07/28/2022 Office Visit Rheumatology Rangel Pruitt, CLIENT RELATIONSHIP CONSULTANT [address] [facility] [address] [place] [address] documented as of this encounter Visit Diagnoses Not on filedocumented in this encounter Care Teams Furniture Stainer Relationship Specialty Start Date End Date Janneth Zendejas, SKILLED NURSING FACILITY COUNSELOR PCP - General 07/22/19 documented as of this encounter
--- OUTSIDE RECORDS SUMMARY | 2022-02-09 16:05 | XMS_ITS | Encounter Summary ---
:1950 Author Organization [facility] Address [address] [place] [address] Care Team Providers Name Role Phone Unavailable Primary Care Provider Unavailable Encounter Details Date Type Department Care Team Description 03/31/2011 Results Only [facility] Kevin Franklin MD Laboratory Services - [address] [place] [address] [place] [address] [place] [address] [phone] Social History Tobacco Use Types Packs/Day Years Used Date Never Assessed Sex Assigned at Date Recorded Not on file documented as of this encounter Plan of Treatment Upcoming Encounters Date Type Specialty Care Team Description 02/28/2022 Office Visit Rheumatology Rangel Pruitt, HEAT SEALING MACHINE OPERATOR [address] [facility] [address] [place] [address] 07/28/2022 Office Visit Rheumatology Rangel Pruitt, HEAT SEALING MACHINE OPERATOR [address] [facility] [address] [place] [address] documented as of this encounter Procedures Procedure Name Priority Date/Time Associated Diagnosis Comme nts SURGICAL PATHOLOGY Routine 03/31/2011 0:00 EDT Re sults for this procedure are i n the results section. documented in this encounter Results SURGICAL PATHOLOGY (03/31/2011 0:00 EDT) Pathology Report: SURGICAL PATHOLOGY REPORT ? [facility] Reports generated via electr onic interface contain original data; ? LAB however they are lacking the format of the original report. ? Caution should be taken when reading/interpreting unformatted reports. ? Name: ? SHONA RODARTE ? Accession #: ? [id number] ? : ? 1950 (Age: 60) ??F ? Collec t Date: ? 03/31/2011 ? Location: ? [facility] ? R eceive Date: ? 03/31/2011 ? Provider: KEVIN WALKO MD ? Copy to: HANS ZIJOSHUA M D ? Final Pathologic Diagnosis: ? Colon, descending, po lyp, biopsy: ? - Colonic mucosa with no spe cific pathologic features. See comment. ? Comment: ? Deeper sections have been ex amined. ??(Dr. Wisdom). ? Document reviewed and electr onically signed by: ? RUSSELL WISDOM MD ? Report ??Date: 04/02/2011 15 :29 ? By the signature above, the attending physician certifies that he/she has ? personally conducted a gross and/or microscopic examination of the described ? specimens and rendered or co nfirmed the above diagnosis. ? Specimen(s) Received: ? Polyp at descending c olon ? Clinical History: ? Colorectal screen ? Gross Description: ? Received in formalin labelled Shanita, Shona and polyp at descending ? colon is a 0.9 x 0.4 x 0.2 cm pale vincent-white, focally light brown soft piece of tissue which is submitted in tact in one cassette. (J. Tessitore)/mpl ? End of Report ? Specimen Performing Organization Address City/State/ZIP Code Phon e Number [facility] [address] [place] [address] SERVICES [facility] [address] [place] [address] documented in this encounter Visit Diagnoses Not on filedocumented in this encounter
--- OUTSIDE RECORDS SUMMARY | 2022-02-09 16:05 | XMS_ITS | Encounter Summary ---
:1950 Author Organization [facility] Address [address] [place] [address] Care Team Providers Name Role Phone Janneth Zendejas CROWN IRONER OPERATOR Primary Care Provider Reason for Visit Reason Comments Pain Consult (Routine/Next Available) - Specialty Report Received Specialty Diagnoses / Procedures Referred By Contact Refer red To Contact Orthopedic Surgery Diagnoses Radiculopathy of leg Cynthia Pruitt Britton, Sarah L, CROWN IRONER OPERATOR CARTRIDGE LOADER [address] [facility] [address] [facility] [address] [place] [address] [place] [address] Phone: Fax: Referral ID Status Reason Start Expiration Visits Visits Date Date Requested Authorized [id number] Specialty Specialty 1 1 Report Services 9 Received Required Encounter Details Date Type Department Care Team Description 08/19/2019 Office Visit [facility] - Renae Wong, Lumbar [facility] Orthopedics & PA-C radiculopathy, right Spine Medicine [address] (Primary Dx) [address] [facility], [facility] [address] [place] [address] [place] [address] [phone] Social History Tobacco Use Types Packs/Day Years Used Date Never Smoker Smokeless Tobacco: Never Used Sex Assigned at Date Recorded Not on file documented as of this encounter Last Filed Vital Signs Vital Sign Reading Time Taken Comments Blood Pressure 122/78 08/19/2019 1030 EST Pulse - - Temperature - - Respiratory Rate - - Oxygen Saturation - - Inhaled Oxygen Concentration - - Weight 59.9 kg (132 lb) 08/19/2019 1030 EST Height 161.3 cm (5' 3.5) 08/19/2019 1030 EST Body Mass Index 23.02 08/19/2019 1030 EST documented in this encounter Ordered Prescriptions Prescription Sig Dispensed Refills Start Date End Date gabapentin (NEURONTIN) Take 1 tab PO TID x 270 Cap 0 10/201909/16/2019 100 mg 1 week, then 2 tab capsuleIndications: PO TID x 1 week, Lumbar radiculopathy, then 3 tab PO TID right and sustain documented in this encounter Progress Notes Cynthia Pruitt APRN - 08/19/2019 1045 EST Reviewed information. Noted. No action needed. Renae Smith PA - 08/19/2019 1045 EST History of Present Illness: This is a pleasant 69-year-old female who presents for evaluation of herright lower extremity pain, upon referral from Dr. Cynthia Pruitt. The patient states that she has had the symptoms for approximately 5 years. She is done physical therapy on a few different occasions for it, but has never continued to do the exercises or stretches at home long-term. She is really not tried any medications, or any other interventions. She was recently sent by her primary care to rheumatology, who evaluated her and felt that it could be coming from a pinched nerve. For this reasonshe was referred here. Patient denies any back pain. She states that her pain is predominantly in her right anterolateral villalta, and intermittently has it affecting her right lateral to anterolateral thigh. When she has the pain she does also get some pain in the ipsilateral right buttock. The pain is aggravated when she is sitting, especially when she is driving or sitting on a soft couch. It is relieved if she stands up. She is also able to sit with her right leg crossed over the left and this is comfortable. She denies any weakness, or bowel or bladder dysfunction saddle anesthesias or paresthesias. She denies any constitutional symptoms. She is a non-smoker. She is otherwise fairly physically active. Review of Systems: As per history of [...] Rfl: ??? gabapentin (NEURONTIN) 100 mg capsule, Take 1 tab PO TID x 1 week, then 2 tab PO TID x 1 week, then 3 tab PO TID and sustain, Disp: 270 Cap, Rfl: 0 ??? glucosamine/msm/chondrt/C/hyal ([id number] ORAL), Take by mouth., Disp: , Rfl: [...] pertinent surgical history. Social History: Social History Socioeconomic History ??? Marital status: Spouse name: None ??? Number of children: None ??? Years of education: None ??? Highest education level: None Occupational History ??? None Social Needs ??? Financial resource strain: None ??? Food insecurity: Worry: None Inability: None ??? Transportation needs: Medical: None Non-medical: None Tobacco Use ??? Smoking status: Never Smoker ??? Smokeless tobacco: Never Used Substance and Sexual Activity ??? Alcohol use: None ??? Drug use: None ??? Sexual activity: None Lifestyle ??? Physical activity: Days per week: None Minutes per session: None ??? Stress: None Relationships ??? Social connections: Talks on phone: None Gets together: None Attends mandaeism service: None Active member of club or organization: None Attends meetings of clubs or organizations: None Relationship status: None ??? Intimate partner violence: Fear of current or ex partner: None Emotionally abused: None Physically abused: None Forced sexual activity: None Other Topics Concern ??? None Social History Narrative ??? None Physical Examination: BP 122/78 Ht 161.3 cm (63.5) Wt 59.9 kg (132 lb) BMI 23.02 kg/m?? Well-developed well-nourished female who appears younger than stated age. She is in no acute distress. Head eyes ears and nose without any gross abnormality. Patient breathes comfortably. Her skin is warm and dry. Patient maintains normal upright posture. No gross spinal deformity on exam, regarding curvature. She has good range of motion of her lumbar spine without any significant pain. She ambulates with a normal gait. She is able to walk on her toes, and on her heels. Bilateral lower extremities are 5 out of5 in her hip and knee, flexion extension, anterior tibialis, extensor hallucis longus, and gastrocnemius. No marked sensory deficit to light touch in bilateral lower extremities. Bilateral Achilles deep tendon reflexes were 2+ and equal. Her right patellar deep tendon reflex was 1+, and left was 2+. Palpation of the lumbar spinous processes and paraspinal muscles revealed no tenderness, no tenderness over the sacroiliac joints bilaterally. Image review: Patient had lumbar spine x-ray with flexion-extension views dated 07/22/2019. Her AP view shows a significant scoliotic deformity of the lumbar spine. She appears to have a retrolisthesis of L1 on 2, and L2-3, with osteophyte buildup on the left side. Spine appears to be degenerative in nature. Lateral views show there appears to be 4 lumbar vertebrae. Collapse of disc space with osteophyte formation on the anterior endplates at L3-4. Mild diminished disc space of L4-5. Some facet arthropathy noted more at L5-S1. Patient appears to have a retrolisthesis at L5-S1 that actually corrects on flexion and is worse on extension. Assessment: 1. Right-sided lumbar radiculopathy 2. Lumbar scoliotic deformity 3. Laterolisthesis lumbar region This is a straightforward 69-year-old female presenting for approximately 5 years of intermittent right lower extremity pain, depressed predominantly of the anterolateral calf. She is not suffering from much back pain. She likely has compression of R L4 nerve root, and given her plain films, this would not be surprising. Discussed treatment options, including further evaluation with LS MRI, as she has already done PT on a few occasions without lasting relief. She also asked about possible medications. I discussed the option of gabapentin to see if this relieves her nerve related pain. She would like to trial this before having advanced imaging and considering injections, which was the other treatme nt I did discuss with her today. I had discussed that obtaining LS MRI to consider possible SHAHRIAR was a reasonable option. She will trial the gabapentin and follow up in 4 weeks for re-evaluation. If notimproving, will discuss LS MRI and discussing moving forward with possible SHAHRIAR. Also, discussed withher that she can try an anti-inflammatory such as aleve, or could call in Meloxicam. She will start with the neurontin. [facility] ST[facility]T Back Score: 4 SubScore: 3 Risk: Medium. Oswestry Low Back Disability: 7 Mild disability Plan: 1. Trial gabapentin 2. Home Exercise program with exercises learned previously at PT 3. Follow up in 4 weeks. This document was produced using [employer]edcamp[employer]. Please excuse any grammatical or verbal errors. CC: Janneth Zendejas [address] [facility] [address] [phone] documented in this encounter Plan of Treatment Upcoming Encounters Date Type Specialty Care Team Description 02/28/2022 Office Visit Rheumatology Rangel Pruitt, CARTRIDGE LOADER [address] [facility] [address] [place] [address] 07/28/2022 Office Visit Rheumatology Rangel Pruitt, CARTRIDGE LOADER [address] [facility] [address] [place] [address] documented as of this encounter Visit Diagnoses Diagnosis Lumbar radiculopathy, right - Primary documented in this encounter Care Teams Carrot Tier Relationship Specialty Start Date End Date Janneth Zendejas, PATRICIO PCP - General 07/22/19 documented as of this encounter
--- OUTSIDE RECORDS SUMMARY | 2022-02-09 16:05 | XMS_ITS | Encounter Summary ---
:1950 Author Organization [facility] Address [address] [place] [address] Care Team Providers Name Role Phone Unavailable Primary Care Provider Unavailable Encounter Details Date Type Department Care Team Description 08/07/2003 Results Only [facility] - Lisa Recinos NP conversion [address], [place] [id number] Social History Tobacco Use Types Packs/Day Years Used Date Never Assessed Sex Assigned at Date Recorded Not on file documented as of this encounter Plan of Treatment Upcoming Encounters Date Type Specialty Care Team Description 02/28/2022 Office Visit Rheumatology Rangel Pruitt, CHICK SEXER [address] [facility] [address] [place] [address] 07/28/2022 Office Visit Rheumatology Rangel Pruitt, CHICK SEXER [address] [facility] [address] [place] [address] documented as of this encounter Procedures Procedure Name Priority Date/Time Associated Diagnosis Comme nts CYTOPATHOLOGY Routine 08/07/2003 0:00 EST Results for this procedure are i n the results section . documented in this encounter Results CYTOPATHOLOGY (08/07/2003 0:00 EST) Pathology Report: CYTOPATHOLOGY REPORT [facility] Reports generated via electronic interface contain radha ginal data; however they are lacking the format of the original re port. Caution should be taken when reading/interpreting unfo rmatted reports. Name: ? SHONA RODARTE ? Accession #: ? [id number] : ? 1950 (Age: 53) ??F ?Collect Date: ? 07/18 Location: ? [facility] ? Receive Date : ? 08/09/2003 Provider: ?LISA HAMILTON BENEFITS COORDINATOR Copy to: ? Specimen/Source: ?ThinPrep Pap Test, Cervix/ Endocervix Last Menstrual Period: ? 1995 ? SPECIMEN ADEQUACY ? Satisfactory for Evaluation - transformation zone component present GENERAL CATEGORIZATION ? Negative for Intraepithelial Lesion or Malignan cy ? Document reviewed and electronically signed by: ? RUSTY Wills(ASCP) ? Report Date: ??08/15/2003 14:36 End of Report Specimen Performing Organization Address City/State/ZIP Code Phon e Number [facility] [address] [place] [address] SERVICES [facility] [address] [place] [address] documented in this encounter Visit Diagnoses Not on filedocumented in this encounter
--- OUTSIDE RECORDS SUMMARY | 2022-02-09 16:05 | XMS_ITS | Encounter Summary ---
:1950 Author Organization [facility] Address [address] [place] [address] Care Team Providers Name Role Phone Ken Veras MD Primary Care Provider Encounter Details Date Type Department Care Team Description 03/30/2018 Hospital Encounter [facility]- [place] Unknown, Provider, [facility] [address] [facility] [phone] [place] [address] (Work) [phone] Social History Tobacco Use Types Packs/Day Years Used Date Never Assessed Sex Assigned at Date Recorded Not on file documented as of this encounter Discharge Disposition Disposition Code Departure Means Destination Home or Self Alf documented in this encounter Plan of Treatment Upcoming Encounters Date Type Specialty Care Team Description 02/28/2022 Office Visit Rheumatology Rangel Pruitt, AIRFIELD MANAGER [address] [facility] [address] [place] [address] 07/28/2022 Office Visit Rheumatology Rangel Pruitt, AIRFIELD MANAGER [address] [facility] [address] [place] [address] documented as of this encounter Visit Diagnoses Not on filedocumented in this encounter Care Teams Turntable Engineer Relationship Specialty Start Date End Date Ken Veras MD PCP - General 04/02/11 07/21/19 [address] [place], [place] [address] documented as of this encounter
--- OUTSIDE RECORDS SUMMARY | 2022-02-09 16:05 | XMS_ITS | Encounter Summary ---
:1950 Author Organization [facility] Address [address] [place] [address] Care Team Providers Name Role Phone Cristiana Janneth Akbar CIO Primary Care Provider Reason for Visit Reason Comments Pain Pain Encounter Details Date Type Department Care Team Description 04/24/2020 Office Visit [facility] - Renae Wong, Lumbar [facility] Orth[place]ics & PA-C radiculopathy, right Spine Medicine [address] (Primary Dx) [address] [place] [address] [place] [address] [phone] Social History Tobacco Use Types Packs/Day Years [...] Sign Reading Time Taken Comments Blood Pressure 124/68 04/24/2020 0913 EDT Pulse 90 04/24/2020 0913 EDT Temperature 36.5 ??C (97.7 ??F) 04/24/2020 0913 EDT Respiratory Rate - - Oxygen Saturation 98% 04/24/2020 0913 EDT Inhaled Oxygen Concentration - - Weight 57.7 kg (127 lb 3.2 oz) 04/24/2020 0913 EDT Height - - Body Mass Index 21.83 04/03/2020 1009 EDT documented in this encounter Functional Status Functional [...] Take 1 Cap by mouth 90 Cap 0 0 04/24/2020 05/23/2020 capsuleIndications: Lumbar 3 times daily. radiculopathy, right Daily Max: 75 mg documented in this encounter Progress Notes Renae Wong PA-C - 04/24/2020 0915 EDT History of Present Illness: Shona is a pleasant 70 yo female presenting for follow up of her chronicR lumbar radiculopathy. At her last office visit on 09/16/19, the patient had been seen for R leg pain that effected her predominantly anterior villalta, and occasional anterolateral thigh and buttock pain.Her symptoms were worsened with sitting for an extended time, especially in a soft chair, or with driving. She'd tried gabapentin, and found that this kept her in a good place. We'd decided on the planof continuing gabapentin, and the home exercise program, and follow up in 6 months to touch base. Today, patient returns with complaint of 100% right leg pain, that she states is currently a 4 out of 10 in severity. The pain affects her anterolateral thigh, villalta, and radiates to the dorsum of her foot. The pain occurs with sitting on a soft chair, and most notably when she is driving in her car, and she gets a shooting pain when she moves her foot from the gas to the brake pedal. Patient now states that the gabapentin gave her no improvement in her symptoms, so she discontinued it. 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 She is also using CBD oil, which is not giving her any great help with her leg pain. She denies any bowel or bladder dysfunction, saddle anesthesias or paresthesias. She denies any difficulty walking, rather states that the further she walks, the pain seems to actually improve over time. No constitutional symptoms at this time. Conservative Treatment: Physical therapy with home exercise program that she continues, gabapentin Review of Systems: As per history of present illness, all others reviewed negative. I reviewed medications, allergies, medical, surgical and social history with the patient. Physical Examination: There were no vitals taken for this visit. Well-developed well-nourished female who is pleasant, no acute distress at this time. She appears younger than stated age. Patient breathing comfortably. Skin warm and dry. Patient is ambulating with a normal gait. She is able to walk on her toes and her heels. She has no point tenderness in her lumbar spine. Image Review: Re-reviewing L-spine xray from 07/22/19, patient has scoliosis, convex to the right with apex at L2, and a L4-5 lateral listhesis. 4 lumbar vertebrae with a retrolisthesis of L4 on S1, with excess motion, worsening on extension. There is advanced facet arthropathy, most notable at L4-S1. Assessment: 1. R lumbar radiculopathy 2. Laterolisthesis of L3 on 4 3. Lumbar scoliotic deformity, degenerative This is a pleasant and straightforward 70-year-old female presenting for reevaluation of her right lower extremity pain. Patient had noted at her last visit the gabapentin did place her in a good spot with her pain, and she was going to continue this and follow-up with me in 6 months just to check in.Now she is stating that she did not see any improvement with taking gabapentin, so she discontinued it. I discussed with her that to the next step in care, aside from continuing her home exercise program, would be to obtain a lumbar spine MRI for further evaluation of nerve impingement, which I suspect is at the level of the lateral listhesis at L3-4, given she only has 4 lumbar vertebrae, so I believe she would likely benefit from a translaminar epidural steroid injection at this level. We discussed in depth the risks and benefits of having an epidural steroid injection, and the reasoning behind obtaining the MRI prior to this. Patient ended up asking if there was anything else that she could take that that might mitigate her pain, prior to having to undergo an epidural steroid injection. She already feels she did not get any improvement from the gabapentin, so I recommended that we could triala course of pregabalin and see if this gives her any better relief. Patient is happy with this plan and would like to follow-up in 1 month to see how she responds. We did spend at least 40 minutes today in [id number] discussion, examination, and review of multiple imaging studies with this patient, with greater than 50% of the visit spent counseling the patientwith respect to potential diagnoses and appropriate options at this time. The patient asked appropriate questions, today, and all questions were answered. Patient verbalized understanding the above andwill follow-up as mentioned in the plan. Plan: 1. Trial Lyrica 2. Continue home exercise program 3. Follow-up in 1 month This document was produced using Emotientation. Please excuse any grammatical or verbal errors. CC: Janneth Zendejas [address] [facility] [address] [phone] documented in this encounter Plan of Treatment Upcoming Encounters Date Type Specialty Care Team Description 02/28/2022 Office Visit Rheumatology [place]Rangel chi , BASIN FINISH OPERATOR TIG WELDER [address] [facility] [address] [place], [place] [address] 07/28/2022 Office Visit Rheumatology Rangel Pruitt , BASIN FINISH OPERATOR TIG WELDER [address] [facility] [address] [place] [address] documented as of this encounter Visit Diagnoses Diagnosis Lumbar radiculopathy, right - Primary documented in this encounter Care Teams Ball Ender Relationship Specialty Start Date End Date Janneth Zendejas NP PCP - General 07/22/19 documented as of this encounter
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
--- NOTE | 2022-02-09 16:30 | DI.RAD_ITS ---
Exam(s) XR SHOULDER LT COMPLETE 2+V EXAM: XR SHOULDER LT COMPLETE 2+V CLINICAL HISTORY: fall onto L arm, r/o fx. TECHNIQUE: 2D digital imaging was performed. COMPARISON: CR XR SHOULDER LT COMPLETE 2+V from 08/12/2021 FINDINGS: 3 views There is a fracture of the humeral head and neck. This also involves the greater tuberosity. There is mild impaction. Findings are superimposed upon moderate degenerative changes in the glenohumeral joint. There is no dislocation of glenohumeral joint nor diminution of the subacromial space. AC joint is partially obs cured by metallic snaps. IMPRESSION: Fracture of the left humeral head-neck. DATA REPOSITORY: RADIATION DOSE DELIVERED:
--- NOTE | 2022-02-09 16:30 | DI.RAD_ITS ---
Exam(s) XR RIBS LT W PA LAT CHEST EXAM: XR RIBS LT W PA LAT CHEST CLINICAL HISTORY: fall onto L arm, pain L chest, r/o fx. TECHNIQUE: 2D digital imaging was performed. COMPARISON: CR CHEST 2 VIEWS PA,LAT from 03/03/2018 FINDINGS: Left rib cage: No left rib fractures. However, there is an acute appearing fracture of the left tere ral head-neck evident. There are moderate degenerative changes in the left glenohumeral joint are no yael. No dislocation. Ipsilateral clavicle appears intact as does the AC joint. There is an acute appearing fracture of the left humeral head-neck, also involving the greater tubero sity. Some displacement. No clavicle fracture nor AC joint dislocation Heart size is normal. Mediastinum is not widened. Left lung is clear. Mild increased markings note d in the right lung base. No pneumothorax IMPRESSION: There is a fracture of the left humeral head-neck. This appears to probably also involve the greater tuberosity. There no ipsilateral left rib nor clavicle fractures. No acute pulmonary findings. There is no pneumothorax and no pleural effusion. DATA REPOSITORY: RADIATION DOSE DELIVERED:
--- NOTE | 2022-02-09 16:30 | DI.RAD_ITS ---
Exam(s) XR TOE RT GREAT EXAM: XR TOE RT GREAT CLINICAL HISTORY: fall, r/o fx. TECHNIQUE: 2D digital imaging was performed. COMPARISON: CR LEFT FOOT COMPLETE from 11/14/2011 FINDINGS: 3 views No evidence of acute fracture or dislocation. Moderate degenerative changes are noted in the interph alangeal joint of the great toe. No radiopaque foreign body. No osseous lesions. IMPRESSION: No acute fracture. DATA REPOSITORY: RADIATION DOSE DELIVERED:
--- NOTE | 2022-02-09 17:27 | DI.VRAD_ITS ---
Addendum created by Michele Chen DO on 02/09/2022 5:28:46 PM EDT: Correction to the impression of both reports as follows:. Acute left humeral head/neck fracture. Correction to the bones/joints section of the x-ray chest: Acute fracture left humeral head/neck. Initial report created on 02/09/2022 5:27:14 PM EDT: PROCEDURE INFORMATION: Exam: XR Left Ribs Exam date and time: 02/09/2022 5:03 PM Age: 71 years old Clinical indication: Injury or trauma; Fall; Blunt trauma (contusions or hematomas); Rib area, left side TECHNIQUE: Imaging protocol: Radiologic exam of the Left ribs. Views: 2 views. COMPARISON: CT NECK AND CHEST WITH CONTRAST 03/03/2018 8:00 AM FINDINGS: Bones/joints: There is an acute, comminuted, mild to moderately displaced fracture of the left humeral head/neck. Soft tissues: unremarkable soft tissues. IMPRESSION: Acute left femoral head/neck fracture. PROCEDURE INFORMATION: Exam: XR Chest Exam date and time: 02/09/2022 5:03 PM Age: 71 years old Clinical indication: Injury or trauma; Fall; Blunt trauma (contusions or hematomas); Rib area, left side TECHNIQUE: Imaging protocol: Radiologic exam of the chest. Views: 2 views. COMPARISON: CT NECK AND CHEST WITH CONTRAST 03/03/2018 8:00 AM FINDINGS: Lungs: No consolidation. Pleural spaces: no pneumothorax. no sizable pleural effusion. Heart/Mediastinum: Cardiomediastinal silhouette is within normal limits. Bones/joints: Acute fracture left femoral head/neck. IMPRESSION: Acute fracture of the left femoral head/neck. Dictated and Authenticated by: Michele Chen MD. Ordering:GERMAIN Handley MD
[2022-02-09] MEDS: oxyCODONE 5 MG TAB PO (17:30)
[2022-02-09] MEDS: Ibuprofen 600 MG TAB PO (17:30)
--- NOTE | 2022-02-09 17:30 | DI.CT_ITS ---
Exam(s) CT UPPER EXTREMITY LT WO EXAM: CT UPPER EXTREMITY LT WO CLINICAL HISTORY: comminuted moderately displaced humeral head fx TECHNIQUE: Imaging Protocol: Axial computed tomography images with coronal and sagittal reformatted images were created and reviewed. CONTRAST MATERIAL: None COMPARISON: CR,XR XR SHOULDER LT COMPLETE 2+V from 02/09/2022 FINDINGS: OSSEOUS: There is a comminuted fracture of the humerus at the level of the surgical neck and extending into th e greater tuberosity. Mild impaction also evident. There is also fracture line through the base of the lesser tuberosity. There are moderate degenerative changes in the glenohumeral joint, including osteophyte on the inferi or articular surface of the humeral head. Fracture lines do not appear to extend to the articular woodard rface of the humeral head. The osseous glenoid is intact. Coracoid process is intact. AC joint and acromion are intact. IMPRESSION: Comminuted mildly impacted fracture of the humeral neck with involvement of the greater tuberosity an d lesser tuberosity. There appears to be sparing of the humeral head articular surface. Pre-existing degenerative change in the glenohumeral joint, as described above. There are no signifi cant osseous lesions. RADIATION DOSE DELIVERED: 219.99mGy.cm Total DLP DATA REPOSITORY: All CT scans at this facility are submitted to the National Radiology Data Registry (NRDR) Dose Index Registry (DIR) with the [employer] (ACR). RADIATION OPTIMIZATION: All CT scans at this facility use at least one of these dose optimization te chniques: automated exposure control; mA and/or kV adjustment per patient size (includes targeted exa ms where dose is matched to clinical indication); or iterative reconstruction.
--- NOTE | 2022-02-09 17:36 | DI.VRAD_ITS ---
PROCEDURE INFORMATION: Exam: XR Right Toe(s) Exam date and time: 02/09/2022 5:11 PM Age: 71 years old Clinical indication: Injury or trauma; Fall; Blunt trauma; Toes; Right TECHNIQUE: Imaging protocol: Radiologic exam of the Right toes. Views: Minimum 2 views. COMPARISON: CR XR knee RT 3V AP,lat,hola 05/25/2018 9:40 AM FINDINGS: Bones/joints: no acute fracture or dislocation. mild osteoarthrosis. Soft tissues: unremarkable soft tissues. IMPRESSION: No acute fracture or dislocation. Dictated and Authenticated by: Michele Chen MD. Ordering:GERMAIN Handley MD
--- NOTE | 2022-02-09 17:52 | DI.VRAD_ITS ---
PROCEDURE INFORMATION: Exam: XR Left Shoulder Exam date and time: 02/09/2022 5:07 PM Age: 71 years old Clinical indication: Injury or trauma; Fall; Fracture, traumatic injury; Closed fracture; Humerus; Left TECHNIQUE: Imaging protocol: Radiologic exam of the Left shoulder. Views: 2 or more views. COMPARISON: CR XR SHOULDER LT COMPLETE 2+V 08/12/2021 10:36 AM FINDINGS: Bones/joints: There is a comminuted, acute, mild to moderately displaced fracture of the left humeral head/neck. Soft tissues: unremarkable soft tissues. IMPRESSION: Acute fracture of the left proximal humerus. Dictated and Authenticated by: Michele Chen MD. Ordering:GERMAIN Handley MD
[2022-02-09 18:30] VITALS: BP 155/79; PULSE 82; RESP 16; TEMP 37; O2SAT 98
[2022-02-09 18:44] VITALS: BP 155/79; PULSE 75; O2SAT 97
[2022-02-09 18:45] VITALS: O2SAT 97
[2022-02-09 18:46] VITALS: BP 161/79; PULSE 80; O2SAT 97
[2022-02-09 18:50] VITALS: O2SAT 97
--- NOTE | 2022-02-09 18:55 | DI.CT_ITS ---
Exam(s) 3D RECON ON CT WORKSTATION EXAM: 3D RECON ON CT WORKSTATION CLINICAL HISTORY: comminuted moderately displaced humeral head fx TECHNIQUE: 3D recon of the left shoulder was performed according to protocol. COMPARISON: CT CT UPPER EXTREMITY LT WO from 02/09/2022 FINDINGS: There is a comminuted fracture seen of the proximal humerus. The fracture involves the surgical neck with extension superiorly to involve both the lesser and greater tuberosities. There is mild impact ion of the fracture. Glenohumeral joint is well maintained. IMPRESSION: Comminuted fracture involving the proximal humerus as described.
--- NOTE | 2022-02-09 19:15 | DI.VRAD_ITS ---
PROCEDURE INFORMATION: Exam: CT Left Upper Extremity Without Contrast, Shoulder Exam date and time: 02/09/2022 6:06 PM Age: 71 years old Clinical indication: Injury or trauma; Fall; Fracture, traumatic injury; Closed fracture; Left; Upper end of humerus TECHNIQUE: Imaging protocol: Computed tomography of the Left upper extremity without contrast. Exam focused on the shoulder. COMPARISON: CR XR SHOULDER LT COMPLETE 2+V 02/09/2022 5:07 PM FINDINGS: Bones/joints: There is a comminuted fracture of the humerus at the level of the surgical neck extending into the greater and lesser tuberosities. The fracture does not appear to directly involve the articular surface of the humerus. The shaft of the humerus appears intact. Soft tissues: There is soft tissue swelling at the left proximal humerus. Lungs: Atelectatic changes and ground-glass opacities of the left lung may represent contusion versus cardiogenic or noncardiogenic edema. Consider atelectasis although early pneumonia cannot be excluded. IMPRESSION: 1. There is a comminuted fracture of the humerus at the level of the surgical neck extending into the greater and lesser tuberosities. 2. The fracture does not appear to directly involve the articular surface of the humerus. 3. There is soft tissue swelling at the left proximal humerus. 4. Atelectatic changes and ground-glass opacities of the left lung may represent contusion versus cardiogenic or noncardiogenic edema. 5. Consider atelectasis although early pneumonia cannot be excluded. Dictated and Authenticated by: Kory Salas MD. Ordering:GERMAIN Handley MD
== END 2022-02-09 19:10 | disposition home or self-care (01) ==
PROVIDERS: Emergency Provider Physician Assistant; PCP Nurse Practitioner
DX: S42.292A Other displaced fracture of upper end of left humerus, initial encounter for closed fracture (principal); S20.212A Contusion of left front wall of thorax, initial encounter; S90.111A Contusion of right great toe without damage to nail, initial encounter; W17.4XXA Fall from dock, initial encounter
CPT/HCPCS: 76376; 99285; 71046; 71100; 73030; 73200; 73660; 99284

== ENCOUNTER 2022-02-18 10:00 | Outpatient (CLI) | payer MEDICARE, BC, SELFPAY ==
--- NOTE | 2022-02-18 09:45 | DI.RAD_ITS ---
Exam(s) XR SHOULDER LT COMPLETE 2+V EXAM: XR SHOULDER LT COMPLETE 2+V CLINICAL HISTORY: FRACTURE OF LEFT HUMERAL HEAD. TECHNIQUE: 2D digital imaging was performed. COMPARISON: CR,XR XR SHOULDER LT COMPLETE 2+V from 02/09/2022 FINDINGS: 3 views Comminuted humeral head/neck again noted. No further displacement. No obvious callus formation. Mi ld downward subluxation of the humeral head within the osseous glenoid noted. Subacromial space is n ot diminished. AC joint appears unremarkable. IMPRESSION: DATA REPOSITORY: RADIATION DOSE DELIVERED:
== END 2022-02-18 10:01 | disposition home or self-care (01) ==
LOC: DIORS 10:00
PROVIDERS: PCP Nurse Practitioner; Referring Provider Nurse Practitioner; Visit Provider Physician Assistant
DX: S42.292A Other displaced fracture of upper end of left humerus, initial encounter for closed fracture (principal); W19.XXXA Unspecified fall, initial encounter
CPT/HCPCS: 99214; 73030

== ENCOUNTER 2022-02-21 02:21 | Outpatient (CLI) | payer MEDICARE, BC, SELFPAY ==
[2022-02-21 07:34] LABS: Abs Immature Grans 0.02 10^3/uL (0.0-0.06); Absolute Basophil Count 0.04 10^3/uL (0.0-0.2); Absolute Eosinophil Count 0.27 10^3/uL (0.0-0.7); Absolute Lymphocyte Count 2.24 10^3/uL (1.2-3.4); Absolute Monocyte Count 0.59 10^3/uL (0.1-0.8); Absolute Neutrophil Count 2.61 10^3/uL (1.2-6.7); Basophils % 0.7; Eosinophils % 4.7; HGB 11.2 g/dL (11.2-15.7); Immature Grans % 0.3; Lymphocytes % 38.8; MCH 31.2 pg (27.0-33.0); MCHC 32.9 % (32.0-36.0); MCV 95 fL (80-95); Monocytes % 10.2; Neutrophils % 45.3; Platelet Count 462 10^3/uL (130-400); RBC 3.59 10^6/uL (3.93-5.22); RDW 13.6 % (11.7-14.6); WBC 5.77 10^3/uL (4.4-10.8)
[2022-02-21 08:49] LABS: ALT 29 U/L (14-59); AST 22 U/L (15-37); Albumin 3.5 g/dL (3.4-5.0); Alkaline Phosphatase 96 U/L (46-116); Anion Gap 7.8 mmol/L (3-11); BUN 19 mg/dL (7-18); Bilirubin, Total 0.5 mg/dL (0.2-1.0); CO2 31.2 mmol/L (21.0-32.0); CREATININE 0.8 mg/dL (0.55-1.02); Calcium 9.6 mg/dL (8.5-10.1); Chloride 102 mmol/L (98-107); Glucose 93 mg/dL (74-106); Potassium 3.4 mmol/L (3.5-5.1); Sodium 141 mmol/L (136-145); Total Protein 7.2 g/dL (6.4-8.2)
== END 2022-02-21 02:22 | disposition home or self-care (01) ==
LOC: LBO 02:21
PROVIDERS: PCP Nurse Practitioner; Visit Provider Nurse Practitioner Family
DX: M54.16 Radiculopathy, lumbar region; Z79.899 Other long term (current) drug therapy
CPT/HCPCS: 36415; 80053; 85025

== ENCOUNTER 2022-02-24 11:37 | Outpatient (CLI) | payer MEDICARE, BC, SELFPAY ==
--- NOTE | 2022-02-24 11:15 | DI.RAD_ITS ---
Exam(s) XR SHOULDER LT COMPLETE 2+V EXAM: XR SHOULDER LT COMPLETE 2+V CLINICAL HISTORY: F/U L HUMERAL HEAD FRACTURE. TECHNIQUE: 2D digital imaging was performed. COMPARISON: CR XR SHOULDER LT COMPLETE 2+V from 02/18/2022 FINDINGS: Two views Comminuted impacted fracture of the humeral head-neck appears. Mild downward subluxation probably re lated to joint hemarthrosis. The ipsilateral AC joint and clavicle appear unremarkable. No osseous lesions. IMPRESSION: DATA REPOSITORY: RADIATION DOSE DELIVERED:
== END 2022-02-24 11:38 | disposition home or self-care (01) ==
LOC: DIORS 11:38
PROVIDERS: PCP Nurse Practitioner; Referring Provider Nurse Practitioner; Visit Provider Student in an Organized Health Care Education/Training Program
DX: S42.292D Other displaced fracture of upper end of left humerus, subsequent encounter for fracture with routine healing (principal); X58.XXXD Exposure to other specified factors, subsequent encounter
CPT/HCPCS: 99214; 73030

== ENCOUNTER 2022-03-31 08:44 | Outpatient (CLI) | payer MEDICARE, BC, SELFPAY ==
--- NOTE | 2022-03-31 08:15 | DI.RAD_ITS ---
Exam(s) XR SHOULDER LT COMPLETE 2+V EXAM: XR SHOULDER LT COMPLETE 2+V CLINICAL HISTORY: F/U L HUMERAL HEAD FRACTURE. TECHNIQUE: 2D digital imaging was performed. COMPARISON: CR XR SHOULDER LT COMPLETE 2+V from 02/24/2022 FINDINGS: Two views: Again noted is the impacted fracture the humeral head-neck. Cyst unchanged alignment of the main fra cture fragments. This fracture also involves the greater tuberosity. There is further downward subl uxation of the humeral head in the glenoid fossa, more so than previous. This is possibly related to enlarging joint effusion. In addition, there 2 calcific densities now noted lateral to the humeral head-neck. Ipsilateral AC joint appears unremarkable. IMPRESSION: Increasing downward subluxation of the humeral head in the glenoid fossa. No anterior posterior disl ocation. This caudal subluxation may be due to increasing size joint effusion or hemarthrosis. DATA REPOSITORY: RADIATION DOSE DELIVERED:
== END 2022-03-31 08:45 | disposition home or self-care (01) ==
LOC: DIORS 08:45
PROVIDERS: PCP Nurse Practitioner; Referring Provider Nurse Practitioner; Visit Provider Student in an Organized Health Care Education/Training Program
DX: S42.292A Other displaced fracture of upper end of left humerus, initial encounter for closed fracture (principal); X58.XXXA Exposure to other specified factors, initial encounter
CPT/HCPCS: 99214; 73030

== ENCOUNTER 2022-04-28 15:10 | Outpatient (CLI) | payer MEDICARE, BC, SELFPAY ==
--- NOTE | 2022-04-28 10:45 | DI.RAD_ITS ---
Exam(s) XR SHOULDER LT COMPLETE 2+V EXAM: XR SHOULDER LT COMPLETE 2+V CLINICAL HISTORY: L prox humerus fx. TECHNIQUE: 2D digital imaging was performed. COMPARISON: CR XR SHOULDER LT COMPLETE 2+V from 03/31/2022 FINDINGS: 3 views Again noted is the impacted comminuted fracture at the left humeral head-neck level. Increasing calc ification in soft tissues laterally is possibly calcified hematoma versus callus formation. The rahul ohumeral joint is not dislocated, improved alignment when compared to 03/31/2022. Small calcific den sity is seen just above the greater tuberosity fragment. This has more the appearance of calcific te ndinitis of the rotator cuff than an actual fracture fragment. There is some narrowing of the glenoh umeral joint. AC joint appears intact. IMPRESSION: DATA REPOSITORY: RADIATION DOSE DELIVERED:
== END 2022-04-28 15:11 | disposition home or self-care (01) ==
LOC: DIORS 15:11
PROVIDERS: PCP Nurse Practitioner; Referring Provider Nurse Practitioner; Visit Provider Physician Assistant
DX: S42.292A Other displaced fracture of upper end of left humerus, initial encounter for closed fracture (principal); X58.XXXA Exposure to other specified factors, initial encounter
CPT/HCPCS: 99213; 73030

== ENCOUNTER 2022-07-16 03:25 | Outpatient (CLI) | payer MEDICARE, BC, SELFPAY ==
[2022-07-16 09:11] LABS: Abs Immature Grans 0.01 10^3/uL (0.0-0.06); Absolute Basophil Count 0.02 10^3/uL (0.0-0.2); Absolute Eosinophil Count 0.43 10^3/uL (0.0-0.7); Absolute Lymphocyte Count 2.37 10^3/uL (1.2-3.4); Basophils % 0.4; Eosinophils % 8.2; HGB 13.9 g/dL (11.2-15.7); Immature Grans % 0.2; Lymphocytes % 45.3; MCH 31.6 pg (27.0-33.0); MCHC 33.9 % (32.0-36.0); MCV 93 fL (80-95); MPV 9.5 fL (8.0-11.0); Monocytes % 9.6; Neutrophils % 36.3; Platelet Count 323 10^3/uL (130-400); RDW 13.2 % (11.7-14.6); RDW-SD 45.2 fL; WBC 5.23 10^3/uL (4.4-10.8)
[2022-07-16 13:54] LABS: ALT 21 U/L (14-59); AST 22 U/L (15-37); Albumin 4.1 g/dL (3.4-5.0); Alkaline Phosphatase 97 U/L (46-116); Anion Gap 6.5 mmol/L (3-11); BUN 16 mg/dL (7-18); Bilirubin, Total 0.5 mg/dL (0.2-1.0); CO2 29.5 mmol/L (21.0-32.0); CREATININE 0.8 mg/dL (0.55-1.02); Calcium 9.2 mg/dL (8.5-10.1); Chloride 102 mmol/L (98-107); Estimated GFR 77.27 (mL/min/1.73m2); Glucose 95 mg/dL (74-106); Potassium 3.9 mmol/L (3.5-5.1); Sodium 138 mmol/L (136-145); Total Protein 7.7 g/dL (6.4-8.2)
== END 2022-07-16 03:26 | disposition home or self-care (01) ==
LOC: LBO 03:26
PROVIDERS: PCP Nurse Practitioner; Visit Provider Nurse Practitioner Family
DX: Z79.1 Long term (current) use of non-steroidal anti-inflammatories (NSAID) (principal); M41.26 Other idiopathic scoliosis, lumbar region; M54.17 Radiculopathy, lumbosacral region
CPT/HCPCS: 36415; 80053; 85025

== ENCOUNTER → 2022-08-15 11:00 | Outpatient (BNVA) | payer MEDICARE, BC, SELFPAY | PROVIDERS: PCP Nurse Practitioner; Referring Provider Nurse Practitioner; Visit Provider Surgery | DX: Z12.11 Encounter for screening for malignant neoplasm of colon (principal) | CPT/HCPCS: 99242 ==

== ENCOUNTER 2022-08-29 09:57 | Day surgery (SDC) | payer MEDICARE, BC, SELFPAY ==
--- NOTE | 2022-08-29 09:30 | W.COLOREPORT ---
Date of service: 08/29/22 Time of Service: 11:22 Colonoscopy Report Procedure Description: Procedures performed: 1. Colonoscopy Preoperative diagnosis: Surveillance colonoscopy Postoperative diagnosis: Minimal pandiverticulosis, external hemorrhoids Surgeon: Chapito Raman Anesthesia: Presley Indication for procedure: 72-year-old woman with c-scope 11 years ago, she says polyps were removed. She does not have symptoms. She has family history of colon cancer in an isolated first cousin(not increased risk). No significant surgical history. Findings: No polyps. Terminal ileum normal. Scattered/minimal diverticular changes on both right and left sides of the colon. Minimal external hemorrhoid disease. Surveillance/follow-up recommendations: Another colonoscopy should be considered in 10 years if she remains healthy and has a good life expectancy at that time. Complications: None Blood loss: Minimal Prep: Excellent Procedure in detail: Written consent was obtained from the patient who was in agreement with the risks, benefits and indications of the procedure.? We went to the endoscopy suite and laid the patient in left lateral decubitus position.? Anesthesia was administered which was tolerated well.? A timeout was performed and when we are all in agreement we began the procedure. Digital rectal exam and visual examination was performed and within normal limits.? A well?lubricated colonoscope was advanced without difficulty all the way to the cecum identified by the ileocecal valve, and triangular folds and appendiceal orifice.? Terminal ileum was briefly intubated and appeared normal.? It was then slowly withdrawn.?? Retroflexion was performed in the rectum.? The findings/interventions are noted above. The scope was then removed and the patient tolerated the procedure well and was then taken back to the PACU in hemodynamically stable condition.
[2022-08-29 10:05] VITALS: BP 131/108; PULSE 93; RESP 18; TEMP 36.3; O2SAT 98
--- NOTE | 2022-08-29 10:41 | W.ANESPRE ---
General Info Date of Service Date Performed: 08/29/22 Height: 5 ft 3.5 in Weight: 57.4 kg Body Mass Index (BMI): 22.0 Surgical Procedure: Operation Date: 08/29/22 12:20 Proposed Procedure Side Surgeon p Colonoscopy Raimundo Raman MD Meds Allergies and Home Medications Allergies Allergy/AdvReac Type Severity Reaction Status Date / Time codeine AdvReac Unknown RICHARDSON and Verified 08/29/22 10:17 vomiting Home Medication Medication Instructions Recorded multivit with 1 ea PO DAILY 03/02/17 oiiovuit-fhqt-SC-lutein 8 mg iron-400 mcg-300 mcg tablet (Centrum Silver Women) glucosamine 750 ny-nebjwp-oeu 2-C 1,000 mg PO DAILY 07/02/17 30 mg-D3 1,000 unit-edgar 1 mg tablet (Bekrnbpbiap-Cbxtcrnouqb-FND + vitD) turmeric 400 mg capsule 400 mg PO 1XD 09/12/19 alendronate 70 mg tablet (Fosamax) 70 mg PO QWEEK 08/06/21 cholecalciferol (vitamin D3) 50 50 mcg PO DAILY 09/06/21 mcg (2,000 unit) capsule calcium carbonate 500 mg calcium 1,000 mg PO DAILY 10/22/21 (1,250 mg) chewable tablet (Calcium 500) meloxicam 7.5 mg tablet 7.5 mg PO BID #14 tabs 02/04/22 acetaminophen 500 mg capsule 1,000 mg PO Q6H PRN 07/15/22 oxycodone-acetaminophen 5 mg-325 1 tab PO BID PRN pain #30 tabs 07/15/22 mg tablet oxycodone-acetaminophen 5 mg-325 1 tab PO Q4H PRN pain #30 tabs 07/15/22 mg tablet (Percocet) pregabalin 75 mg capsule 75 mg PO TID #90 caps 07/15/22 probiotic 1 tab PO DAILY 07/15/22 bisacodyl 5 mg tablet,delayed 5 mg PO ONCE colonscopy bowel prep 08/15/22 release (Dulcolax (bisacodyl)) #4 tabs polyethylene glycol 3350 17 238 g PO ONCE colonoscopy prep 08/15/22 gram/dose oral powder #238 grams Current Visit Medications: Current Medications Generic Name Dose Route Start Last Admin Trade Name Freq PRN Reason Stop Dose Admin Ringer's Solution 1,000 mls @ 80 mls/hr 08/29/22 06:00 IV 08/29/22 23:59 INFUSION DK IV Miscellaneous Supplies 1 each 08/29/22 06:00 Iv Access IV 08/29/22 23:59 DIRECTED DK Sodium Chloride 0 ml 08/29/22 06:00 Normal Saline Flush 10 Ml Syr IV 08/29/22 23:59 PRN PRN Sodium Chloride 0 ml 08/29/22 06:00 Normal Saline 10 Ml Vial IJ 08/29/22 23:59 DIRECTED PRN Sterile Water 0 ml 08/29/22 06:00 Water,Injection,Sterile 10 Ml Vial IJ 08/29/22 23:59 DIRECTED PRN PFSH Active Problems Active Problems: Problem Status Onset Code Colon cancer screening Z12.11 Other spondylosis with radiculopathy, lumbosacral region ~06/2022 M47.27 Fracture of humeral head, left, closed 02/09/22 S42.292A Ganglion cyst of foot ~03/2022 M67.479 Lumbosacral radiculopathy M54.17 Pain R52 Urinary tract infection N39.0 Other idiopathic scoliosis, lumbar region M41.26 Osteoarthritis M19.90 rn long term care current use of non-steroidal anti-inflammatories (NSAID) Z79.1 Chronic right-sided lumbar radiculopathy M54.16 Atypical ductal hyperplasia of left breast 03/14/21 N60.92 Sweating Rash R21 Left breast mass 01/25/21 N63.20 Medicare annual wellness visit, subsequent Z00.00 Radiculopathy of leg M54.10 Ganglion cyst of volar aspect of right wrist M67.431 Primary osteoarthritis involving multiple joints M15.0 Joint pain M25.50 BCC (basal cell carcinoma), face ~11/12/18 C44.310 Osteoporosis 01/10/21 Hyperlipidemia 04/15/17 E78.5 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 MEMO positive 02/06/15 R76.8 Medical History Medical History SARS-CoV-2 positive (~10/2021) Seborrheic keratoses Solar lentigo Surgical History Surgical History History of partial mastectomy of left breast (04/08/21) [facility] [place] Tobacco Smoking/Tobacco Use Status: Never Passive smoking exposure: No Alcohol Alcohol Intake: current Alcohol intake frequency: 0-2 drinks per day Substance Use Substance use: Never Substance use type: does not use Prental History History 4 Para 4 Hx # Term Pregnancies 4 Multiple births Hx # Pregnancies Ectopic pregnancies AB induced Hx Number of Living Children 4 AB spontaneous Vital Signs and Lab Results Vital Signs Most Recent Vital Signs in EMR: Most Recent Vital Signs Temp Pulse Resp BP Pulse Ox 36.3 C L 93 H 18 131/108 H 98 08/29/22 10:05 08/29/22 10:05 08/29/22 10:05 08/29/22 10:05 08/29/22 10:05 Lab Results Blood Type / Crossmatch: No Data to Display Complete Blood Count: No Data to Display Complete Metabolic Panel: No Data to Display Liver Function Panel: No Data to Display Coagulation Panel: No Data to Display Cardiac Panel: No Data to Display Arterial Blood Gas: No Data to Display Venous Blood Gas: No Data to Display Pancreas Panel: No Data to Display Thyroid Panel: No Data to Display Infectious Disease: No Data to Display Blood Cultures: No Data to Display Toxicology Panel: No Data to Display Imaging and Studies Imaging and Studies Study information below may be from another EMR and interpreted by another provider. Please see original notes in EMR for more complete details. Stress Test Summary: 08/29/22: Stress ECG Conclusion 1. Very good exercise tolerance ( 9.48 mets) without chest pain 2. Normal heart rate and blood pressure response to exercise 3. Electrocardiographically negative for myocardial ischemia at >100% of predicted heart rate for age 4. No significant dysrhythmias Anesthesia Assessment and Plan Anesthesia History Personal History: No History of Anesthesia Complications Family History: No Family History of Anesthesia Complications Exercise Tolerance Exercise Tolerance: Metabolic Equivalents>4 Pertinent Negatives Pertinent Negatives: No Symptoms of GERD Cardiac & Pulmonary Exam Cardiac Exam: Normal S1/S2 Heart Sounds Pulmonary Exam: Clear Bilateral Breath Sounds Implantable Cardiac Device Does patient have a Pacemaker or an ICD?: No Airway Exam Known Difficult Airway: No Mallampati Class: 2 Mouth Opening: Normal (> 3cm) Thyromental Distance: Greater than 3 cm Neck Range of Motion: Full ROM Neck Circumference: Normal Teeth Condition: Normal Dentition ASA Classification ASA Score: ASA 2 Emergency Case?: No NPO Status NPO Status: NPO Clears >2 hours, Solids >8 hours Anesthesia Plan Resuscitation Status: Full Code Anesthesia Technique: General Anesthesia Airway Planned: Natural Airway Monitors Used: Standard Monitors
[2022-08-29 10:45] VITALS: BMI 22.0
[2022-08-29] MEDS: Lactated Ringers 1,000 ML 80 ML IV (10:53)
[2022-08-29 11:23] VITALS: BP 88/53; PULSE 95; RESP 18; TEMP 36.4; O2SAT 97
[2022-08-29 11:50] VITALS: BP 107/76; PULSE 83; RESP 18; TEMP 36; O2SAT 97
--- NOTE | 2022-08-29 15:13 | W.ANESPOSTOP ---
Postoperative Evaluation Date, Time and Location Date Performed: 08/29/22 Time Performed: 11:55 Patient Location: Day Surgery Unit Vital Signs Most Recent Imported Vital Signs: Most Recent Vital Signs Temp Pulse Resp BP Pulse Ox 36.0 C L 83 18 107/76 97 08/29/22 11:50 08/29/22 11:50 08/29/22 11:50 08/29/22 11:50 08/29/22 11:50 Assessment Mental Status: Awake (Alert & Oriented to Patient Baseline) Airway and Respiratory Function: Patent airway with normal (patient baseline) respiratory exam Cardiovascular Function: Hemodynamically Stable Hydration Status: Adequately Hydrated Nausea & Vomiting: No Nausea or Vomiting Pain: Pt. Denies Any Pain Peripheral Nerve Block: Patient did not receive a nerve block
== END 2022-08-29 12:14 | disposition home or self-care (01) ==
PROVIDERS: PCP Nurse Practitioner; Visit Provider Student in an Organized Health Care Education/Training Program
PROC: 0DJD8ZZ Inspection of Lower Intestinal Tract, Via Natural or Artificial Opening Endoscopic (ICD-10-PCS; CPT 45378; principal; 2022-08-29 12:15)
DX: Z12.11 Encounter for screening for malignant neoplasm of colon (principal); Z86.010 Personal history of colon polyps; K57.30 Diverticulosis of large intestine without perforation or abscess without bleeding; Z80.0 Family history of malignant neoplasm of digestive organs
CPT/HCPCS: G0121

== ENCOUNTER 2023-01-16 02:33 | Outpatient (CLI) | payer MEDICARE, BC, SELFPAY ==
[2023-01-16 07:51] LABS: Abs Immature Grans 0.01 10^3/uL (0.0-0.06); Absolute Basophil Count 0.03 10^3/uL (0.0-0.2); Absolute Eosinophil Count 0.23 10^3/uL (0.0-0.7); Absolute Monocyte Count 0.53 10^3/uL (0.1-0.8); Absolute Neutrophil Count 1.36 10^3/uL (1.2-6.7); Basophils % 0.6; Eosinophils % 4.5; HCT 40.7 % (36.0-46.0); HGB 13.9 g/dL (11.2-15.7); Immature Grans % 0.2; Lymphocytes % 58.1; MCH 31.9 pg (27.0-33.0); MCHC 34.2 % (32.0-36.0); MCV 93 fL (80-95); MPV 9.7 fL (8.0-11.0); Monocytes % 10.3; Neutrophils % 26.3; Platelet Count 289 10^3/uL (130-400); RBC 4.36 10^6/uL (3.93-5.22); RDW 12.7 % (11.7-14.6); RDW-SD 43.5 fL; WBC 5.16 10^3/uL (4.4-10.8)
[2023-01-16 08:31] LABS: ALT 19 U/L (14-59); AST 16 U/L (15-37); Alkaline Phosphatase 85 U/L (46-116); Anion Gap 4.7 mmol/L (3-11); BUN 23 mg/dL (7-18); Bilirubin, Total 0.8 mg/dL (0.2-1.0); CO2 31.3 mmol/L (21.0-32.0); CREATININE 0.9 mg/dL (0.55-1.02); Calcium 9.5 mg/dL (8.5-10.1); Calculated LDL 130 mg/dL (<100); Chloride 105 mmol/L (98-107); Cholesterol 244 mg/dL (<200); Estimated GFR 67.08 (mL/min/1.73m2); Glucose 95 mg/dL (74-106); HDL Cholesterol 91 mg/dL (40-60); Potassium 3.8 mmol/L (3.5-5.1); Sodium 141 mmol/L (136-145); Total Protein 7.5 g/dL (6.4-8.2); Triglyceride 118 mg/dL (<150); Vitamin B12 681 pg/mL (193-986)
[2023-01-16 09:30] LABS: FREE T4 0.95 ng/dL (0.76-1.46)
== END 2023-01-16 02:34 | disposition home or self-care (01) ==
LOC: LBO 02:34
PROVIDERS: PCP Nurse Practitioner; Referring Provider Nurse Practitioner; Visit Provider Nurse Practitioner
DX: E78.5 Hyperlipidemia, unspecified (principal); R41.3 Other amnesia; M47.816 Spondylosis without myelopathy or radiculopathy, lumbar region; Z79.1 Long term (current) use of non-steroidal anti-inflammatories (NSAID); F11.90 Opioid use, unspecified, uncomplicated
CPT/HCPCS: 36415; 80053; 80061; 82607; 84439; 84443; 85025

== ENCOUNTER 2023-01-22 01:41 | Outpatient (CLI) | payer MEDICARE, BC, SELFPAY ==
--- NOTE | 2023-01-22 | DI.DEXA_ITS ---
Exam(s) XR DEXA BONE DENSITY W/WO JOS EXAM: XR DEXA BONE DENSITY W/WO JOS CLINICAL HISTORY: OSTEOPOROSIS M81.0 TECHNIQUE: COMPARISON: CR XR DEXA BONE DENSITY W/WO JOS from 01/10/2021 FINDINGS: Lateral Spine Image: Unremarkable. No compression deformities identified. Left hip: Total T-Score: -2.9. This compares to -2.9 on the prior examination. Total Z-Score: -1.1 T- and Z-scores: Findings are consistent with osteoporosis. Lumbar Spine: Total T-Score: 0.1. This compares to -0.4 on the prior examination. Total Z-Score: 2.4 T- and Z-scores: Within normal limits. IMPRESSION: Osteoporosis in the left hip.
== END 2023-01-22 02:01 ==
LOC: DI 01:41
PROVIDERS: PCP Nurse Practitioner; Visit Provider Nurse Practitioner Family
DX: M81.0 Age-related osteoporosis without current pathological fracture (principal); Z13.820 Encounter for screening for osteoporosis
CPT/HCPCS: 77080

== ENCOUNTER 2023-03-11 03:23 | Outpatient (RCR) | payer MEDICARE, BC, SELFPAY ==
[2023-03-11] MEDS: Denosumab 60 MG/ML SYR SC (10:09)
== END 2023-03-16 23:59 | disposition home or self-care (01) ==
LOC: INF 03:23
PROVIDERS: PCP Nurse Practitioner; Visit Provider Nurse Practitioner Acute Care
DX: M81.0 Age-related osteoporosis without current pathological fracture (principal)
CPT/HCPCS: 96372; J0897

== ENCOUNTER → 2023-07-01 01:34 | Outpatient (CLI) | payer MEDICARE, BC, SELFPAY ==
--- NOTE | 2023-07-01 07:15 | DI.MRI_ITS ---
Exam(s) MR LUMBAR SPINE WO EXAM: MR LUMBAR SPINE WO CLINICAL HISTORY: new pain,lt thigh pain,m79.652,m47.27,spondylosis with radiculopathy. TECHNIQUE: Multiplanar multisequence MRI of the Lumbar spine was performed. COMPARISON: MR MR LUMBAR SPINE WO from 10/08/2020 FINDINGS: Please note there there is sacralization of the L5 segment as seen on plain films of 2015. numbering of the segments will be so as to coordinate with the MRI report of September 2020. Conus medullaris is at normal level. There is no evidence of conus mass nor subjacent clumping of in trathecal nerve roots to suggest arachnoiditis. The distal thecal sac appears unremarkable.There is no evidence of Tarlov intrasacral cysts nor other significant findings within the sacral canal Bones:There are no fractures nor ominous osseous lesions in the lumbar vertebral bodies and visualize d sacrum. With respect to the individual levels... T12-L1: Normal disc height. Annular bulging evident, right more so than left but the size of the pre viously present posterolateral right disc herniation has decreased. This is now just shallow asymmet mahamed right-sided annular bulging. There is no central canal stenosis at this level. Minimal foramina l stenosis. Mild facet joint degenerative changes. L1-2: This level exhibits preserved disc height. However, there is now a prominent disc herniation o n the left side which extends posteriorly 1 point 4 cm and is 1.8 cm wide and occupies the lateral re cess and significantly indents the thecal sac and extends into the exiting left neural foramen. This disc herniation actually extends across the midline. There is difficult indentation of the thecal s ac at this level. There is a resultant small central canal stenosis. The disc herniation does not e xtend into the exiting right neural foramen although there is some annular bulging in the floor of th e exiting right neural foramen but without prominent foraminal stenosis on the right side, as is evid ent on the left side. There are mild degenerative changes in the facet joints at this level. L2-3: This level again exhibits asymmetric advanced narrowing of the left side of the disc space and Modic type 2 sub endplate marrow changes. There is some annular bulging at this level but without a new distinct disc herniation. Central canal dimensions are lower normal. There is asymmetric severe foraminal stenosis on the left side at this level due to the advanced height loss of the disc on the left side. Only minimal foraminal stenosis on the right side at this level. Mild facet arthropathy . L3-4: This level exhibits relatively uniform advanced disc space narrowing and there is approximately 1 cm subluxation towards the right of L3 upon L4, slightly more so than previous. There is broad sy mmetrical annular bulging but without a dominant disc herniation. There is mild central canal stenos is. There is severe foraminal stenosis on the right side at this level and milder foraminal stenosis on the left side, this related to the advanced disc height loss and subluxation. Facet joints at th is level exhibit moderate-advanced degenerative changes. L4-5: This level exhibits asymmetric disc height loss on the right side., more so than previous and t here is now an epidural mass effect impinging the right-side of the thecal sac at this level which wa s not previously present. This has the appearance of a probable degenerative synovial cyst off the a nterior aspect of the degenerated right facet joint this level, a finding which was not previously pr esent. In addition, there is also significant annular bulging in the neural foramen floor which is s imilar to previous. This results in significant asymmetric right-sided foraminal stenosis at this le lydia. The opposite exiting left neural foramen is unremarkable. Left facet joint exhibits significan tly less degenerative changes on the right side. L5-S1: This disc space exhibits normal hydration signal. Height of the disc space is again noted be developmentally diminished because of the sacralization. However, there is no evidence of disc herni ation nor central spinal canal stenosis at this level. Also no foraminal stenosis at this level. Fa cet joints exhibit minimal degenerative change. Soft tissues: paraspinal soft tissues appear unremarkable. IMPRESSION: 1. Compared to the prior MRI scan of September 2020 there has been significant deterioration at 2 leve ls. There is now a large disc herniation at L1-2 level which exhibits significant mass effect upon t he thecal sac and left lateral recess and actually extends across the midline, but not into the exiti ng right neural foramen. There is both central and left-sided foraminal stenosis evident at this lev el. 2. At L4-5 level there is now a degenerative synovial cyst coming off the anterior aspect of the righ t facet joint and significantly impinging into the lateral right side of the thecal sac at this level , this in addition to the already pre-existing asymmetric right-sided annular bulging into the floor of the exiting right neural foramen. These findings result in significant asymmetric right-sided for aminal stenosis at this level. There is no significant foraminal stenosis on the opposite-left side at this level. 3. Other findings as above including asymmetric foraminal stenosis and degenerative scoliosis convex right again noted. DATA REPOSITORY:
== END ==
PROVIDERS: PCP Nurse Practitioner; Visit Provider Nurse Practitioner
DX: M79.652 Pain in left thigh; M47.27 Other spondylosis with radiculopathy, lumbosacral region
CPT/HCPCS: 72148

== ENCOUNTER 2023-07-27 05:04 | Outpatient (CLI) | payer MEDICARE, SELFPAY ==
[2023-07-27 11:48] LABS: Abs Immature Grans 0.02 10^3/uL (0.0-0.06); Absolute Basophil Count 0.02 10^3/uL (0.0-0.2); Absolute Eosinophil Count 0.13 10^3/uL (0.0-0.7); Absolute Lymphocyte Count 2.37 10^3/uL (1.2-3.4); Absolute Monocyte Count 0.52 10^3/uL (0.1-0.8); Absolute Neutrophil Count 2.62 10^3/uL (1.2-6.7); Basophils % 0.4; Eosinophils % 2.3; HCT 41.7 % (36.0-46.0); HGB 14.1 g/dL (11.2-15.7); Immature Grans % 0.4; Lymphocytes % 41.7; MCH 31.5 pg (27.0-33.0); MCHC 33.8 % (32.0-36.0); MCV 93 fL (80-95); MPV 9.1 fL (8.0-11.0); Monocytes % 9.2; Platelet Count 319 10^3/uL (130-400); RBC 4.47 10^6/uL (3.93-5.22); RDW 12.9 % (11.7-14.6); RDW-SD 44.1 fL; WBC 5.68 10^3/uL (4.4-10.8)
[2023-07-27 12:46] LABS: ALT 17 U/L (14-59); AST 15 U/L (15-37); Albumin 3.8 g/dL (3.4-5.0); Alkaline Phosphatase 79 U/L (46-116); Anion Gap 8.3 mmol/L (3-11); BUN 23 mg/dL (7-18); Bilirubin, Total 0.5 mg/dL (0.2-1.0); CO2 28.7 mmol/L (21.0-32.0); CREATININE 0.8 mg/dL (0.55-1.02); Calcium 9.8 mg/dL (8.5-10.1); Chloride 102 mmol/L (98-107); Estimated GFR 76.79 (mL/min/1.73m2); Glucose 95 mg/dL (74-106); Sodium 139 mmol/L (136-145); Total Protein 7.5 g/dL (6.4-8.2)
== END 2023-07-27 05:05 | disposition home or self-care (01) ==
LOC: LBO 05:04
PROVIDERS: PCP Nurse Practitioner; Visit Provider Student in an Organized Health Care Education/Training Program
DX: Z79.1 Long term (current) use of non-steroidal anti-inflammatories (NSAID) (principal); M25.50 Pain in unspecified joint; E78.5 Hyperlipidemia, unspecified
CPT/HCPCS: 36415; 80053; 85025

== ENCOUNTER 2023-08-24 04:09 | Outpatient (RCR) | payer MEDICARE, SELFPAY ==
[2023-08-24] MEDS: Denosumab 60 MG/ML SYR SC (10:09)
== END 2023-09-16 23:59 | disposition home or self-care (01) ==
LOC: INF 04:09
PROVIDERS: PCP Nurse Practitioner; Visit Provider Nurse Practitioner Acute Care
DX: M81.0 Age-related osteoporosis without current pathological fracture (principal)
CPT/HCPCS: 96372; J0897

== ENCOUNTER 2023-11-20 01:55 | Outpatient (CLI) | payer MEDICARE, SELFPAY ==
[2023-11-24 15:42] LABS: Apolipoprotein B, Serum 99 mg/dL (48-124); Beta VLDL Cholesterol Not Detected mg/dL (<15); Beta VLDL Triglycerides Not Detected mg/dL (<15); Cholesterol, Total, CDC 210 mg/dL; Chylomicron Cholesterol Not Detected; Chylomicron Triglycerides Not Detected; HDL Cholesterol, CDC 59 mg/dL (>=50); LDL Cholesterol 136 mg/dL; LDL Triglycerides 36 mg/dL (<=50); Lp(a) Cholesterol <5 mg/dL (<5); LpX Not detected; Triglycerides, CDC 109 mg/dL; VLDL Cholesterol 15 mg/dL (<30); VLDL Triglycerides 50 mg/dL (<120)
== END 2023-11-20 01:56 | disposition home or self-care (01) ==
LOC: LBO 01:56
PROVIDERS: PCP Nurse Practitioner; Visit Provider Nurse Practitioner
DX: E78.5 Hyperlipidemia, unspecified (principal); Z84.89 Family history of other specified conditions
CPT/HCPCS: 36415; 80061; 82172; 82664

== ENCOUNTER 2024-02-25 00:56 | Outpatient (CLI) | payer MEDICARE, SELFPAY ==
[2024-02-25 11:11] LABS: Abs Immature Grans 0.01 10^3/uL (0.0-0.06); Absolute Basophil Count 0.02 10^3/uL (0.0-0.2); Absolute Eosinophil Count 0.21 10^3/uL (0.0-0.7); Absolute Lymphocyte Count 2.21 10^3/uL (1.2-3.4); Absolute Monocyte Count 0.45 10^3/uL (0.1-0.8); Basophils % 0.4 %; Eosinophils % 4.7 %; HCT 39.7 % (36.0-46.0); HGB 13.5 g/dL (11.2-15.7); Immature Grans % 0.2 %; Lymphocytes % 49.1 %; MCH 31.3 pg (27.0-33.0); MCV 92 fL (80-95); MPV 10.3 fL (8.0-11.0); Neutrophils % 35.6 %; Platelet Count 293 10^3/uL (130-400); RBC 4.31 10^6/uL (3.93-5.22); RDW 13.1 % (11.7-14.6); RDW-SD 44.3 fL
[2024-02-25 11:29] LABS: ALT 18 U/L (14-59); AST 16 U/L (15-37); Albumin 3.6 g/dL (3.4-5.0); Alkaline Phosphatase 88 U/L (46-116); Anion Gap 4.6 mmol/L (3-11); BUN 18 mg/dL (7-18); Bilirubin, Total 0.44 mg/dL (0.2-1.0); CO2 31.4 mmol/L (21.0-32.0); Calcium 9.6 mg/dL (8.5-10.1); Chloride 106 mmol/L (98-107); Estimated GFR 58.75 (mL/min/1.73m2); Glucose 88 mg/dL (74-106); Sodium 142 mmol/L (136-145); Total Protein 6.9 g/dL (6.4-8.2)
== END 2024-02-25 00:57 | disposition home or self-care (01) ==
LOC: LBO 00:56
PROVIDERS: PCP Nurse Practitioner; Visit Provider Student in an Organized Health Care Education/Training Program
DX: Z79.1 Long term (current) use of non-steroidal anti-inflammatories (NSAID) (principal)
CPT/HCPCS: 36415; 80053; 85025

== ENCOUNTER 2024-02-29 03:20 | Outpatient (RCR) | payer MEDICARE, SELFPAY ==
[2024-02-29] MEDS: Denosumab 60 MG/ML SYR SC (10:14)
== END 2024-03-16 23:59 | disposition home or self-care (01) ==
LOC: INF 03:20
PROVIDERS: PCP Nurse Practitioner; Visit Provider Nurse Practitioner Acute Care
DX: M81.0 Age-related osteoporosis without current pathological fracture (principal)
CPT/HCPCS: 96372; J0897

== ENCOUNTER 2024-03-28 13:56 | Outpatient (REF) | payer MEDICARE, SELFPAY | END 2024-03-28 13:57 | disposition home or self-care (01) | LOC: LBN 13:56 | PROVIDERS: PCP Nurse Practitioner; Visit Provider Nurse Practitioner | DX: R31.29 Other microscopic hematuria (principal) | CPT/HCPCS: 87077; 87086; 87186 ==

== ENCOUNTER 2024-05-26 01:08 | Outpatient (CLI) | payer MEDICARE, SELFPAY ==
--- NOTE | 2024-05-26 15:00 | DI.US_ITS ---
Exam(s) US PELVIS TRANSVAGINAL EXAM: US PELVIS TRANSVAGINAL CLINICAL HISTORY: pelvic pain, R10.2, bilateral discomfort pelvis TECHNIQUE: Transabdominal and transvaginal imaging was performed using standard protocol. COMPARISON: No exams were available for comparison FINDINGS: UTERUS: Anteverted. 5.1 x 2.7 x 3.7 cm Endometrium: 1 millimeter single wall thickness. Small amount of intervening fluid measuring 1 elmer meter in thickness. No focal endometrial abnormality. Myometrium: Unremarkable. Cervix: Small nabothian cyst OVARIES: Right: Cyst or mass: None. Left: Not visualized DOPPLER: Color: Symmetric and uniform flow to both ovaries. No hyperemia. CUL-DE-SAC: Free fluid: None. IMPRESSION: 1. Normal-appearing. Small amount of fluid within the endometrial cavity. 2. Unremarkable right ovary. Left ovary not visualized. DATA REPOSITORY:
== END 2024-05-26 01:28 ==
LOC: DI 01:08
PROVIDERS: PCP Nurse Practitioner; Visit Provider Nurse Practitioner
DX: R10.2 Pelvic and perineal pain (principal)
CPT/HCPCS: 76830; 76856

== ENCOUNTER 2024-09-05 01:52 | Outpatient (RCR) | payer MEDICARE, SELFPAY ==
[2024-09-05] MEDS: Denosumab 60 MG/ML SYR SC (09:58)
== END 2024-09-16 23:59 | disposition home or self-care (01) ==
LOC: INF 01:52
PROVIDERS: PCP Nurse Practitioner; Visit Provider Nurse Practitioner Acute Care
DX: M81.0 Age-related osteoporosis without current pathological fracture (principal)
CPT/HCPCS: 96372; J0897

== ENCOUNTER 2024-09-05 11:13 | Outpatient (CLI) | payer MEDICARE, SELFPAY ==
[2024-09-05 09:59] LABS: FREE T4 0.89 ng/dL (0.76-1.46); TSH 2.31 uIU/mL (0.36-3.74)
[2024-09-05 10:10] LABS: ALT 19 U/L (14-59); AST 20 U/L (15-37); Albumin 3.9 g/dL (3.4-5.0); Alkaline Phosphatase 93 U/L (46-116); BUN 20 mg/dL (7-18); Bilirubin, Total 0.69 mg/dL (0.2-1.0); CREATININE 0.9 mg/dL (0.55-1.02); Calcium 9.6 mg/dL (8.5-10.1); Chloride 107 mmol/L (98-107); Estimated GFR 66.26 (mL/min/1.73m2); Glucose 98 mg/dL (74-106); Potassium 4.1 mmol/L (3.5-5.1); Sodium 144 mmol/L (136-145); Total Protein 7.5 g/dL (6.4-8.2)
[2024-09-05 10:20] LABS: Vitamin D 25 Total 101.4 ng/mL (30-100)
== END 2024-09-05 11:14 | disposition home or self-care (01) ==
LOC: LBO 11:14
PROVIDERS: PCP Nurse Practitioner; Visit Provider Student in an Organized Health Care Education/Training Program
DX: R63.5 Abnormal weight gain (principal); R79.89 Other specified abnormal findings of blood chemistry; M81.0 Age-related osteoporosis without current pathological fracture
CPT/HCPCS: 36415; 80053; 82306; 96372; 84439; 84443; J0897

== ENCOUNTER 2024-10-07 00:28 | Outpatient (CLI) | payer MEDICARE, SELFPAY ==
--- NOTE | 2024-10-07 06:30 | DI.RAD_ITS ---
Exam(s) XR HAND RT COMPLETE XR WRIST RT COMPLETE EXAM: XR HAND RT COMPLETE and XR wrist RT complete CLINICAL HISTORY: right hand pain,m79.641,deformity of joint. TECHNIQUE: 2D digital imaging was performed of the right wrist and hand. Six images were obtained. AP, lateral and oblique views were obtained. COMPARISON: CR ARTHITIS SERIES-ABY HAND WRIST from 02/05/2015 FINDINGS: BONES: No acute fracture is present. No bony destructive lesion is seen. JOINTS: No dislocation present. At the articulation of the scaphoid and the trapezium, there is joint space narrowing and subchondral sclerosis. There are small osteophytes seen at the 1st CMC joint. At the interphalangeal joints, note is made of narrowing and small osteophytes. The MCP joints are w ell maintained. No periarticular osteopenia. SOFT TISSUE: No suspicious soft tissue calcifications are present. IMPRESSION: Mild osteoarthritis of the right hand and wrist. DATA REPOSITORY: RADIATION DOSE DELIVERED:
--- NOTE | 2024-10-07 06:30 | DI.RAD_ITS ---
Exam(s) XR HAND LT COMPLETE XR WRIST LT COMPLETE EXAM: XR HAND LT COMPLETE and XR wrist LT complete CLINICAL HISTORY: left hand pain,deformity of joint,m79.642. TECHNIQUE: 2D digital imaging was performed of the left wrist and hand. Six views were obtained. A P, lateral and oblique views were obtained. COMPARISON: CR ARTHITIS SERIES-ABY HAND WRIST from 02/05/2015 FINDINGS: BONES: No acute fracture is present. No bony destructive lesion is seen. JOINTS: No dislocation present. At the 1st CMC joint, there is joint space narrowing and osteophytes present. There is again seen a soft tissue calcification interposed between the bases of the 1st and 2nd metacarpals. This is present on the prior examination from 2014. In the interphalangeal joints of the left hand, joint space narrowing and osteophytes are present. The metacarpophalangeal joints are well maintained. No periarticular osteopenia or soft tissue calcifications are present. SOFT TISSUE: Normal. IMPRESSION: Mild degenerative changes of the left hand and wrist. DATA REPOSITORY: RADIATION DOSE DELIVERED:
== END 2024-10-07 00:48 ==
LOC: DI 00:28
PROVIDERS: PCP Nurse Practitioner; Visit Provider Nurse Practitioner
DX: M19.031 Primary osteoarthritis, right wrist; M19.032 Primary osteoarthritis, left wrist; M19.041 Primary osteoarthritis, right hand; M19.042 Primary osteoarthritis, left hand
CPT/HCPCS: 73110; 73130

== ENCOUNTER 2025-01-11 15:24 | Emergency (ER) | payer MEDICARE, SELFPAY ==
[2025-01-11 15:25] VITALS: BP 178/88; PULSE 82; RESP 15; TEMP 36.4; O2SAT 96
--- NOTE | 2025-01-11 15:30 | DI.US_ITS ---
Exam(s) US LOWER EXTREMITY VENOUS RT EXAM: US LOWER EXTREMITY VENOUS RT CLINICAL HISTORY: recent travel, R. ankle swelling, eval DVT TECHNIQUE: Grayscale, color, and doppler imaging of the deep venous system of the right lower extrem ity was performed. COMPARISON: US US PELVIS TRANSVAGINAL from 05/26/2024 FINDINGS: There is no evidence of intraluminal thrombus and there is normal compression and augmentation demons trated within the common femoral vein, femoral vein, and popliteal vein. In the ipsilateral calf the interrogated veins also exhibit normal compression/ augmentation properti es. The ipsilateral saphenofemoral junction is patent. IMPRESSION: 1. No evidence of DVT in the right lower extremity. DATA REPOSITORY:
[2025-01-11 15:38] VITALS: RESP 15
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
--- NOTE | 2025-01-11 16:18 | DI.RAD_ITS ---
Exam(s) XR FOOT RT COMPLETE EXAM: XR FOOT RT COMPLETE h CLINICAL HISTORY: midfoot swelling, overuse but no trauma. TECHNIQUE: 2D digital imaging was performed. COMPARISON: CR,XR XR TOE RT GREAT from 02/09/2022 FINDINGS: 3 views There is no evidence of fracture or diastasis of the Lisfranc joint. There is partial subluxation of the 2nd metatarsophalangeal joint. There are no metatarsal fractures evident and there does not appear to be soft tissue swelling over the dorsal aspect of the foot at t his level. There is no radiopaque foreign body. The more medial of the 2 sesamoid bones subjacent t o the great toe metatarsal head is noted to be bipartite. There are no significant degenerative rosenberg ges in the great toe metatarsophalangeal joint. There are moderate degenerative changes in the inter phalangeal joint of the great toe. There is a tiny inferior calcaneal spur. No calcification in the plantar fascia. IMPRESSION: There is partial subluxation of the metatarsophalangeal joint of the 2nd toe. There are no fractures evident. Bone density normal. DATA REPOSITORY: RADIATION DOSE DELIVERED:
[2025-01-11 17:02] VITALS: BP 141/72; PULSE 74; RESP 15; O2SAT 97
== END 2025-01-11 17:07 | disposition home or self-care (01) ==
PROVIDERS: Emergency Provider Emergency Medicine; PCP Nurse Practitioner
DX: R22.41 Localized swelling, mass and lump, right lower limb (principal); Z87.891 Personal history of nicotine dependence
CPT/HCPCS: 99284; 73630; 93971

== ENCOUNTER 2025-01-27 12:34 | Outpatient (CLI) | payer MEDICARE, SELFPAY ==
--- NOTE | 2025-01-27 12:00 | DI.RAD_ITS ---
Exam(s) XR CHEST 2V PA LATERAL EXAM: XR CHEST 2V PA LATERAL CLINICAL HISTORY: J06.9 Acute URI, unspecified, Cough, rhonchi on exam b/l. TECHNIQUE: 2D digital imaging was performed. COMPARISON: CR,XR XR RIBS LT W PA LAT CHEST from 02/09/2022 FINDINGS: 2 views: Heart size is normal. The mediastinum is not widened. Lungs are clear. No infiltrates nor pleural effusions. IMPRESSION: No acute pulmonary findings. DATA REPOSITORY: RADIATION DOSE DELIVERED:
== END 2025-01-27 12:54 ==
LOC: DI 12:37
PROVIDERS: PCP Nurse Practitioner; Visit Provider Family Medicine
DX: J06.9 Acute upper respiratory infection, unspecified (principal)
CPT/HCPCS: 71046

== ENCOUNTER 2025-02-09 00:30 | Outpatient (CLI) | payer MEDICARE, SELFPAY ==
--- NOTE | 2025-02-09 | DI.DEXA_ITS ---
Exam(s) XR DEXA BONE DENSITY W/WO JOS EXAM: XR DEXA BONE DENSITY W/WO JOS CLINICAL HISTORY: Age-related osteoporosis wo current pathological fx, M81.0, on prolia TECHNIQUE: [place] [employer] Horizon C densitometer analysis of left hip, lumbar spine and left forearm. Lateral survey image of the thoracic and lumbar spine. COMPARISON: CR XR DEXA BONE DENSITY W/WO JOS from 01/22/[id number], 2013 and 2020 FINDINGS: Lateral view of the thoracic and lumbar spine shows no evidence of compression fractures. There are severe degenerative changes and scoliosis in the lumbar spine. The findings cause significant increase in bone density over time. Bone mineral density measurements of the lumbar spine correspond to a total T- score of 4.3, in the normal range. This represents a 44.3 percent increase from 2020 and 52.5 percent increase from 2009. Findings are secondary to severe degenerative disc changes with prominent endplate osteophytes and endplate sclerosis. Bone mineral density measurements of the left hip correspond to a total T-score of -3.2. This represents a 5.7 percent decrease from 2022 and a 17.4 percent decrease from 2009. The femoral neck T-score is -3.2, in the osteoporotic range. Theleft forearm bone mineral density measurements correspond to a T-score of the distal 3rd of -1.6, in the osteopenic range. This represents a 5.26 percent increase from 2022 and 4.1 percent decrease from 2009.. IMPRESSION: Normal bone mineral density of the lumbar spine, increasing secondary to worsening of degenerative changes. Osteoporosis of the hip. Osteopenia of the forearm.
== END 2025-02-09 00:50 ==
PROVIDERS: PCP Family Medicine; Visit Provider Student in an Organized Health Care Education/Training Program
DX: M81.0 Age-related osteoporosis without current pathological fracture (principal)
CPT/HCPCS: 77080

== ENCOUNTER → 2025-02-23 12:40 | Outpatient (BNVA) | payer MEDICARE, SELFPAY | PROVIDERS: PCP Nurse Practitioner; Referring Provider Nurse Practitioner; Visit Provider Psychiatry & Neurology Neurology | DX: R26.9 Unspecified abnormalities of gait and mobility (principal); M48.061 Spinal stenosis, lumbar region without neurogenic claudication | CPT/HCPCS: 99215; 95886; 95887; 95908 ==

== ENCOUNTER 2025-02-27 03:10 | Outpatient (CLI) | payer MEDICARE, SELFPAY ==
[2025-02-27 15:27] LABS: ALT 23 U/L (14-59); AST 24 U/L (15-37); Albumin 4.0 g/dL (3.4-5.0); Alkaline Phosphatase 100 U/L (46-116); Anion Gap 9.8 mmol/L (3-11); BUN 23 mg/dL (7-18); Bilirubin, Total 0.4 mg/dL (0.2-1.0); CO2 27.2 mmol/L (21.0-32.0); Calcium 9.9 mg/dL (8.5-10.1); Chloride 105 mmol/L (98-107); Estimated GFR 66.26 (mL/min/1.73m2); Glucose 90 mg/dL (74-106); Potassium 4.3 mmol/L (3.5-5.1); Sodium 142 mmol/L (136-145); TSH (W/Ref FT4) 2.08 uIU/mL (0.36-3.74); Total Protein 7.5 g/dL (6.4-8.2)
[2025-02-27 15:38] LABS: Vitamin D 25 Total 105 ng/mL (30-100)
[2025-03-02 15:54] LABS: Procollagen I IntactN-Terminal 35 mcg/L
== END 2025-02-27 03:11 | disposition home or self-care (01) ==
PROVIDERS: PCP Nurse Practitioner; Visit Provider Student in an Organized Health Care Education/Training Program
DX: Z79.899 Other long term (current) drug therapy (principal); M81.0 Age-related osteoporosis without current pathological fracture
CPT/HCPCS: 36415; 80053; 82306; 82784; 83519; 83970; 84100; 84443

== ENCOUNTER 2025-03-28 03:26 | Outpatient (CLI) | payer MEDICARE, SELFPAY ==
[2025-03-28 14:00] LABS: Vitamin D 25 Total 101 ng/mL (30-100)
== END 2025-03-28 03:27 | disposition home or self-care (01) ==
LOC: LBO 03:26
PROVIDERS: PCP Nurse Practitioner; Visit Provider Student in an Organized Health Care Education/Training Program
DX: M81.0 Age-related osteoporosis without current pathological fracture (principal)
CPT/HCPCS: 36415; 82306

== ENCOUNTER 2025-04-25 08:18 | Outpatient (CLI) | payer MEDICARE, SELFPAY ==
[2025-04-25 11:09] LABS: Vitamin D 25 Total 96 ng/mL (30-100)
== END 2025-04-25 08:19 | disposition home or self-care (01) ==
LOC: LBO 08:19
PROVIDERS: PCP Nurse Practitioner; Visit Provider Student in an Organized Health Care Education/Training Program
DX: E67.3 Hypervitaminosis D (principal)
CPT/HCPCS: 36415; 82306

== ENCOUNTER 2025-05-11 00:47 | Outpatient (RCR) | payer MEDICARE, SELFPAY ==
[2025-05-11] MEDS: Denosumab 60 MG/ML SYR SC (10:11)
== END 2025-05-16 23:59 | disposition home or self-care (01) ==
LOC: INF 00:47
PROVIDERS: PCP Nurse Practitioner; Visit Provider Nurse Practitioner Acute Care
DX: M81.0 Age-related osteoporosis without current pathological fracture (principal)
CPT/HCPCS: 96372; J0897

== ENCOUNTER 2025-07-10 03:42 | Outpatient (CLI) | payer MEDICARE, SELFPAY ==
[2025-07-10 09:22] LABS: Vitamin D 25 Total 58 ng/mL (30-100)
[2025-07-10 09:32] LABS: ALT 14 U/L (10-49); AST 21 U/L (<34); Albumin 4.5 g/dL (3.4-5.0); Alkaline Phosphatase 78 U/L (46-116); Anion Gap 5.9 mmol/L (3-11); BUN 18 mg/dL (9-23); Bilirubin, Total 0.70 mg/dL (0.2-1.2); CO2 27.1 mmol/L (20.0-31.0); Calcium 9.4 mg/dL (8.3-10.6); Chloride 108 mmol/L (98-107); Cholesterol 234 mg/dL (<200); Glucose 94 mg/dL (74-106); HDL Cholesterol 76 mg/dL (>40); Potassium 4.2 mmol/L (3.5-5.1); Sodium 141 mmol/L (136-145); Total Protein 7.4 g/dL (5.7-8.2)
== END 2025-07-10 03:43 | disposition home or self-care (01) ==
LOC: LBO 03:42
PROVIDERS: Visit Provider Student in an Organized Health Care Education/Training Program
DX: N18.2 Chronic kidney disease, stage 2 (mild) (principal); E78.5 Hyperlipidemia, unspecified; M81.0 Age-related osteoporosis without current pathological fracture
CPT/HCPCS: 36415; 80053; 80061; 82306